=== PATIENT | female | born 1985 | race African-American/Black ===

== ENCOUNTER 2016-10-27 11:18 | Emergency (ER) | payer MEDICAID ==
--- NOTE | 2016-10-27 11:35 | ER Document Report ---
ED Medical Screen (RME) - General Stated Complaint: ANKLE PAIN Notes: 31 yo female c/o left ankle pain. pt twisted ankle this morning. no deformity. pt is morbidly obese TRAVEL OUTSIDE OF THE [place] IN LAST 30 DAYS: No - Related Data Allergies/Adverse Reactions: banana Allergy (Severe, Verified 08/30/16 09:01) Anaphylaxis tramadol Allergy (Severe, Verified 08/30/16 09:01) Anaphylaxis atorvastatin [From Lipitor] Allergy (Intermediate, Verified 08/30/16 09:01) Generalized Itching lisinopril Allergy (Intermediate, Verified 08/30/16 09:01) Generalized rash Past Medical History - Social History Family history: CAD, CVA, DM, Hyperlipidemia, Hypertension, Malignancy, Thyroid Disfunction - Past Medical History Cardiac Medical History: Reports: Hx Hypercholesterolemia, Hx Hypertension Denies: Hx Coronary Artery Disease, Hx Heart Attack Pulmonary Medical History: Reports: Hx Asthma, Hx Sleep Apnea Denies: Hx Bronchitis, Hx COPD, Hx Pneumonia Neurological Medical History: Reports: Hx Migraine, Hx Seizures - unsure what type. Denies: Hx Cerebrovascular Accident Endocrine Medical History: Reports: Hx Diabetes Mellitus Type 2 Malignancy Medical History: Reports: Hx Cervical Cancer GI Medical History: Reports: Hx Gastroesophageal Reflux Disease, Hx Endoscopy Musculoskeltal Medical History: Reports Hx Arthritis, Reports Hx Musculoskeletal Deformity Psychiatric Medical History: Reports: Hx Depression Past Surgical History: Reports: Hx Dilation and Curettage, Hx Gynecologic Surgery - D&C, Hx Oral Surgery, Hx Orthopedic Surgery - carpal tunnel x2. Denies: Hx Hysterectomy - Immunizations Immunizations up to date: Yes Hx Diphtheria, Pertussis, Tetanus Vaccination: Yes - past
[2016-10-27] MEDS ORDERED: OXYCODONE-ACETAMINOPHEN 5-325 MG TABLET PO ONE (13:16)
--- NOTE | 2016-10-27 13:22 | ER Document Report ---
HPI - HPI Pain Level: 4 - REPRODUCTIVE LMP: Reproductive: DENIES: : - DERM Skin Color: Normal Past Medical History - General Information source: Patient - Social History Smoking Status: Current Every Day Smoker Chew tobacco use (# tins/day): No Frequency of alcohol use: Occasional Family History: Arthritis, CAD, COPD, CVA, DM, Hyperlipidemia, Hypertension, Malignancy, Thyroid Disfunction Patient has suicidal ideation: No Patient has homicidal ideation: No - Past Medical History Cardiac Medical History: Reports: Hx Hypercholesterolemia, Hx Hypertension Pulmonary Medical History: Reports: Hx Asthma, Hx Sleep Apnea Neurological Medical History: Reports: Hx Migraine, Hx Seizures - unsure what type Endocrine Medical History: Reports: Hx Diabetes Mellitus Type 2 Renal/ Medical History: Denies: Hx Peritoneal Dialysis Malignancy Medical History: Reports: Hx Cervical Cancer GI Medical History: Reports: Hx Gastroesophageal Reflux Disease, Hx Endoscopy Musculoskeltal Medical History: Reports Hx Arthritis, Reports Hx Musculoskeletal Deformity Psychiatric Medical History: Reports: Hx Depression Past Surgical History: Reports: Hx Dilation and Curettage, Hx Gynecologic Surgery - D&C, Hx Oral Surgery, Hx Orthopedic Surgery - carpal tunnel x2. Denies: Hx Hysterectomy - Immunizations Immunizations up to date: Yes Hx Diphtheria, Pertussis, Tetanus Vaccination: Yes - past Hx Pneumococcal Vaccination: 09/19/00 Vertical Provider Document - CONSTITUTIONAL Agree With Documented VS: Yes Exam Limitations: No Limitations General Appearance: No Apparent Distress - INFECTION CONTROL TRAVEL OUTSIDE OF THE [place] IN LAST 30 DAYS: No - HEENT HEENT: Normocephalic - NECK Neck: Supple - RESPIRATORY O2 Sat by Pulse Oximetry: 98 - BACK Back: Normal Inspection - MUSCULOSKELETAL/EXTREMETIES Musculoskeletal/Extremeties: MAEW, FROM, Tender - lrft lateral proximal foot, minimal medial and lateral malleolus - NEURO Level of Consciousness: Awake, Alert Motor/Sensory: No Motor Deficit, No Sensory Deficit - DERM Integumentary: Warm, Dry Course - Vital Signs Vital signs: Temp Pulse Resp BP Pulse Ox 98.4 F 73 24 H 160/111 H 98 10/27/16 11:32 10/27/16 11:32 10/27/16 11:32 10/27/16 11:32 10/27/16 11:32 Procedures - Immobilization Right Ankle Time completed: 13:30 Pre-Proc Neuro Vasc Exam: Normal Immobilizer type: Pramod wrap Performed by: PCT Post-Proc Neuro Vasc Exam: Normal Alignment checked and good: Yes Discharge - Discharge Clinical Impression: Strain of left ankle and foot Qualifiers: Encounter type: initial encounter Qualified Code(s): S96.912A - Strain of unspecified muscle and tendon at ankle and foot level, left foot, initial encounter Condition: Good Disposition: HOME, SELF-CARE Instructions: Pramod Wrap ([facility]), Ice & Elevation ([facility]), Sprained Ankle ([facility]), Use of Dtqg-Nld-Mboatal Ibuprofen ([facility]), High Blood Pressure ([facility]) Additional Instructions: elevate, ice pramod wrap for comfort to orthopedic doctor if persists take your pain medication that you have at home see your doctor [facility] about your uncontrolled high blood pressure within 2 weeks Referrals: JUAN J CARRILLO MD [ACTIVE STAFF] - Follow up as needed
[2016-10-27 13:32] VITALS: BP 152/112
== END 2016-10-27 13:47 | disposition home or self-care (01) ==
LOC: ER 11:18
DX: S96.912A Strain of unspecified muscle and tendon at ankle and foot level, left foot, initial encounter (principal); X50.1XXA Overexertion from prolonged static or awkward postures, initial encounter; Y93.02 Activity, running; F17.200 Nicotine dependence, unspecified, uncomplicated; I10 Essential (primary) hypertension; J45.909 Unspecified asthma, uncomplicated; E11.9 Type 2 diabetes mellitus without complications
CPT/HCPCS: 99283

== ENCOUNTER 2016-11-11 04:35 | Emergency (ER) | payer MEDICAID ==
[2016-11-11 07:35] VITALS: BP 130/88
[2016-11-11] MEDS ORDERED: ACETAMINOPHEN 325 MG TABLET PO ONE (08:09)
--- NOTE | 2016-11-11 08:22 | ER Document Report ---
HPI - HPI Patient complains to provider of: cough and congestion Onset: Other - 2 days Onset/Duration: Persistent Quality of pain: Achy Pain Level: 4 Context: Patient complains of 2 day history of cough and congestion. Patient also reports right ear tenderness. Patient reports fever at home of 101. Patient does complain of sore throat. Patient states she has multiple sick contacts in the household. Associated Symptoms: Nonproductive cough, Earache, Fever, Rhinnorhea, Sore throat. denies: Nausea Exacerbated by: Denies Relieved by: Denies Similar symptoms previously: Yes Recently seen / treated by doctor: No - ROS ROS below otherwise negative: Yes Systems Reviewed and Negative: Yes All other systems reviewed and negative - CONSTITUTIONAL Constitutional: REPORTS: Fever - EENT EENT: REPORTS: Sore Throat, Ear Pain, Congestion - CARDIOVASCULAR Cardiovascular: DENIES: Chest pain - RESPIRATORY Respiratory: REPORTS: Coughing. DENIES: Trouble Breathing - GASTROINTESTINAL Gastrointestinal: DENIES: Patient vomiting, Diarrhea - REPRODUCTIVE Reproductive: DENIES: : - MUSCULOSKELETAL Musculoskeletal: DENIES: Back Pain, Neck Pain - DERM Skin Color: Normal Skin Problems: None Past Medical History - General Information source: Patient - Social History Smoking Status: Former Smoker Chew tobacco use (# tins/day): No Frequency of alcohol use: Rare Drug Abuse: None Occupation: none Lives with: Family Family History: Arthritis, CAD, COPD, CVA, DM, Hyperlipidemia, Hypertension, Malignancy, Thyroid Disfunction Patient has suicidal ideation: No Patient has homicidal ideation: No - Past Medical History Cardiac Medical History: Reports: Hx Hypercholesterolemia, Hx Hypertension Denies: Hx Coronary Artery Disease, Hx Heart Attack Pulmonary Medical History: Reports: Hx Asthma, Hx Sleep Apnea Denies: Hx Bronchitis, Hx COPD, Hx Pneumonia Neurological Medical History: Reports: Hx Migraine, Hx Seizures - unsure what type. Denies: Hx Cerebrovascular Accident Endocrine Medical History: Reports: Hx Diabetes Mellitus Type 2 Renal/ Medical History: Denies: Hx Peritoneal Dialysis Malignancy Medical History: Reports: Hx Cervical Cancer GI Medical History: Reports: Hx Gastroesophageal Reflux Disease, Hx Endoscopy Musculoskeltal Medical History: Reports Hx Arthritis, Reports Hx Musculoskeletal Deformity Psychiatric Medical History: Reports: Hx Depression Past Surgical History: Reports: Hx Dilation and Curettage, Hx Gynecologic Surgery - D&C, Hx Oral Surgery, Hx Orthopedic Surgery - carpal tunnel x2. Denies: Hx Hysterectomy - Immunizations Immunizations up to date: Yes Hx Diphtheria, Pertussis, Tetanus Vaccination: Yes - past Hx Pneumococcal Vaccination: 09/19/00 Vertical Provider Document - CONSTITUTIONAL Agree With Documented VS: Yes Exam Limitations: No Limitations General Appearance: WD/WN, No Apparent Distress Notes: Morbidly obese - INFECTION CONTROL TRAVEL OUTSIDE OF THE [place] IN LAST 30 DAYS: No - HEENT HEENT: Atraumatic, Normocephalic, Pharyngeal Tenderness, Pharyngeal Erythema. negative: Pharyngeal Exudate, Tympanic Membrane Red, Tympanic Membrane Bulging - NECK Neck: Normal Inspection, Supple. negative: Lymphadenopathy-Left, Lymphadenopathy-Right - RESPIRATORY Respiratory: Breath Sounds Normal, No Respiratory Distress, Other - Occasional dry cough. negative: Rales, Rhonchi, Wheezing O2 Sat by Pulse Oximetry: 96 - CARDIOVASCULAR Cardiovascular: Regular Rate, Regular Rhythm, No Murmur - BACK Back: Normal Inspection - MUSCULOSKELETAL/EXTREMETIES Musculoskeletal/Extremeties: MAEW - NEURO Level of Consciousness: Awake, Alert, Appropriate Motor/Sensory: No Motor Deficit - DERM Integumentary: Warm, Dry, No Rash Course - Vital Signs Vital signs: Temp Pulse Resp BP Pulse Ox 99.6 F 88 18 130/88 H 96 11/11/16 06:20 11/11/16 06:20 11/11/16 06:20 11/11/16 06:20 11/11/16 06:20 - Laboratory Laboratory results interpreted by me: 11/11/16 09:18 Labs- Entire Visit 11/11/16 11/11/16 05:15 08:10 Influenza A (Rapid) NEGATIVE Influenza B (Rapid) NEGATIVE Group A Strep Rapid NEGATIVE 11/11/16 09:18 11/11/16 17:10 Discharge - Discharge Clinical Impression: Upper respiratory infection Qualifiers: URI type: unspecified URI Qualified Code(s): J06.9 - Acute upper respiratory infection, unspecified Condition: Stable Disposition: HOME, SELF-CARE Instructions: Acetaminophen, Fever ([facility]), Upper Respiratory Illness ([facility]) Additional Instructions: Return immediately for any new or worsening symptoms Followup with your primary care provider, call tomorrow to make a followup appointment Culture is pending, we'll call if you need any different treatment You may take Coricidin HBP [id number] to help with her congestion symptoms Prescriptions: Benzonatate [Tessalon Perle 100 mg Capsule] 100 mg PO Q8HP PRN #20 cap PRN Reason: Referrals: CLINTON HERNANDEZ PA-C [Primary Care Provider] - Follow up tomorrow
== END 2016-11-11 09:30 | disposition home or self-care (01) ==
LOC: ER 04:35
DX: J06.9 Acute upper respiratory infection, unspecified (principal); R05 Cough; J02.9 Acute pharyngitis, unspecified; H92.01 Otalgia, right ear; J34.89 Other specified disorders of nose and nasal sinuses; R50.9 Fever, unspecified; I10 Essential (primary) hypertension; J45.909 Unspecified asthma, uncomplicated; E11.9 Type 2 diabetes mellitus without complications; Z85.41 Personal history of malignant neoplasm of cervix uteri; Z87.891 Personal history of nicotine dependence
CPT/HCPCS: 99283; 87070; 87880; 87804; J3490

== ENCOUNTER 2017-02-26 20:43 | Emergency (ER) | payer MEDICAID ==
[2017-02-26 22:57] LABS: APPEARANCE,URINE SLIGHTLY-CLOUDY; BILIRUBIN,URINE NEGATIVE (NEGATIVE); GLUCOSE, URINE NEGATIVE (NEGATIVE); KETONES,URINE NEGATIVE (NEGATIVE); LEUKOCYTE ESTERASE,URINE TRACE (NEGATIVE); NITRITE,URINE NEGATIVE (NEGATIVE); PROTEIN,URINE NEGATIVE (NEGATIVE); URINE SPECIFIC GRAVITY 1.019; UROBILINOGEN,URINE NEGATIVE mg/dL (<2.0)
[2017-02-26] MEDS ORDERED: KETOROLAC TROMETHAMINE INJ/PF 30 MG/1 ML SDV IV ONE (23:16)
--- NOTE | 2017-02-26 23:18 | ER Document Report ---
ED GI/ - General Chief Complaint: Lower Abdominal Pain Stated Complaint: ABDOMINAL PAIN Time Seen by Provider: 02/26/17 22:46 Notes: The patient is a 31-year-old female, past medical history irritable bowel syndrome, reflux, hypertension, obesity, presents with 2 days of worsening left lower quadrant abdominal pain and right lower quadrant abdominal pain. She was diagnosed with trichomonas a few days ago and was started on antibiotics. Denies nausea, vomiting, diarrhea, constipation, dysuria, vaginal discharge, chest pain or shortness of breath TRAVEL OUTSIDE OF THE [place] IN LAST 30 DAYS: No - Related Data Allergies/Adverse Reactions: banana Allergy (Severe, Verified 11/11/16 08:00) Anaphylaxis tramadol Allergy (Severe, Verified 11/11/16 08:00) Anaphylaxis atorvastatin [From Lipitor] Allergy (Intermediate, Verified 11/11/16 08:00) Generalized Itching lisinopril Allergy (Intermediate, Verified 11/11/16 08:00) Generalized rash Past Medical History - General Information source: Patient - Social History Smoking Status: Unknown if Ever Smoked Family History: Arthritis, CAD, COPD, CVA, DM, Hyperlipidemia, Hypertension, Malignancy, Thyroid Disfunction Patient has suicidal ideation: No Patient has homicidal ideation: No - Past Medical History Cardiac Medical History: Reports: Hx Hypercholesterolemia, Hx Hypertension Denies: Hx Coronary Artery Disease, Hx Heart Attack Pulmonary Medical History: Reports: Hx Asthma, Hx Sleep Apnea Denies: Hx Bronchitis, Hx COPD, Hx Pneumonia Neurological Medical History: Reports: Hx Migraine, Hx Seizures - unsure what type. Denies: Hx Cerebrovascular Accident Endocrine Medical History: Reports: Hx Diabetes Mellitus Type 2 Renal/ Medical History: Denies: Hx Peritoneal Dialysis Malignancy Medical History: Reports: Hx Cervical Cancer GI Medical History: Reports: Hx Gastroesophageal Reflux Disease, Hx Endoscopy Musculoskeltal Medical History: Reports Hx Arthritis, Reports Hx Musculoskeletal Deformity Psychiatric Medical History: Reports: Hx Depression Past Surgical History: Reports: Hx Dilation and Curettage, Hx Gynecologic Surgery - D&C, Hx Oral Surgery, Hx Orthopedic Surgery - carpal tunnel x2. Denies: Hx Hysterectomy - Immunizations Immunizations up to date: Yes Hx Diphtheria, Pertussis, Tetanus Vaccination: Yes - past Hx Pneumococcal Vaccination: 09/19/00 Review of Systems - Review of Systems Notes: REVIEW OF SYSTEMS: CONSTITUTIONAL: -fevers, -chills EENT: -eye pain, -difficulty swallowing, -nasal congestion CARDIOVASCULAR:-chest pain, -syncope. RESPIRATORY: -cough, -SOB GASTROINTESTINAL: +abdominal pain, -nausea, -vomiting, -diarrhea, -constipation GENITOURINARY: -dysuria, -hematuria MUSCULOSKELETAL: -back pain, -neck pain SKIN: -rash or skin lesions. HEMATOLOGIC: -easy bruising or bleeding. LYMPHATIC: -swollen, enlarged glands. NEUROLOGICAL: -altered mental status or loss of consciousness, -headache, - neurologic symptoms PSYCHIATRIC: -anxiety, -depression. ALL OTHER SYSTEMS REVIEWED AND NEGATIVE. Physical Exam - Vital signs Vitals: Temp Pulse Resp BP Pulse Ox 98.0 F 69 18 133/86 H 97 02/26/17 21:02/26/17 21:02/26/17 21:02/26/17 21:02/26/17 21:15 - Notes Notes: PHYSICAL EXAMINATION: GENERAL: Uncomfortable HEAD: Atraumatic, normocephalic. EYES: Pupils equal round and reactive to light, extraocular movements intact, sclera anicteric, conjunctiva are normal. ENT: nares patent, oropharynx clear without exudates. Moist mucous membranes. NECK: Normal range of motion, supple without lymphadenopathy LUNGS: Breath sounds clear to auscultation bilaterally and equal. No wheezes rales or rhonchi. HEART: Regular rate and rhythm without murmurs ABDOMEN: Soft, moderate RLQ tenderness, normoactive bowel sounds. No guarding, no rebound. No masses appreciated. EXTREMITIES: Normal range of motion, no pitting or edema. No cyanosis. NEUROLOGICAL: Cranial nerves grossly intact. Normal speech, normal gait. Normal sensory and motor exams. PSYCH: Normal mood, normal affect. SKIN: Warm, Dry, normal turgor, no rashes or lesions noted. Course - Re-evaluation Re-evalutation: Patient's labs, urine and CT scan did not show any concerning abnormalities. There may be a component of her irritable bowel disease causing her symptoms today. Will have her follow-up with the GI doctor for further evaluation and treatment. - Vital Signs Vital signs: Temp Pulse Resp BP Pulse Ox 98.0 F 69 18 133/86 H 97 02/26/17 21:15 02/26/17 21:02/26/17 21:02/26/17 21:15 02/26/17 21:15 - Laboratory Result Diagrams: 02/27/17 00:15 02/27/17 00:05 Laboratory results interpreted by me: 02/26/17 02/27/17 22:41 00:15 MCH 25.9 L MCHC 31.6 L RDW 15.3 H Ur Leukocyte Esterase TRACE H Urine Ascorbic Acid 20 H - Diagnostic Test Radiology reviewed: Image reviewed, Reports reviewed Radiology results interpreted by me: CT A/P: NAD Discharge - Discharge Clinical Impression: Abdominal pain Qualifiers: Abdominal location: upper abdomen Qualified Code(s): R10.10 - Upper abdominal pain, unspecified Condition: Stable Disposition: HOME, SELF-CARE Additional Instructions: ABDOMINAL PAIN: There are many causes of abdominal pain. Pain can mean a serious problem requiring surgery (such as appendicitis). It can also be an innocent problem that goes away on its own (such as a viral infection). Often, time must pass to determine the cause of pain. The physician does not feel that hospitalization is necessary, at present. Things may change within the next 24 hours. Call the doctor or come back for re- examination if any problems occur, such as: (1) Pain that becomes more severe, steady, or becomes concentrated in one specific area. Also, pain that is more severe with movement or coughing. (2) Vomiting that persists or becomes more frequent. (3) Blood in the vomitus, urine, or bowel movements. Blood in the stool may have a tarry or black appearance. (4) Shaking chills or fever greater than 100 degrees F. (5) The abdomen becomes more distended or swollen. (6) Bowel movements cease. (7) Failure to improve as expected. NORMAL EXAM AND WORKUP: At this time, your examination and workup show no significant abnormality. No significant abnormal physical findings are noted. All laboratory, EKG, and imaging (x-ray, CT scans, ultrasound) studies that were ordered show no significant abnormality. Although your examination and all studies that were ordered showed no significant abnormal finding, there are no examinations and no studies that are 100% accurate. There is always the possibility that some abnormality could exist and not be detected with physical examination or within the limits and capabilities of laboratory and other studies. You should return or follow up as you were instructed on your visit today for further evaluation if your symptoms do not resolve. TORADOL INJECTION: You have been given an injection of ketorolac tromethamine (Toradol). This is an excellent, safe drug for pain control. It also has potent antiinflammatory action. You should have significant pain relief within about one hour. Toradol is not addicting and is non-sedating. It does not interfere with driving or work. Call or return if you develop itching, hives, shortness of breath, or rash. FOLLOW-UP CARE: If you have been referred to a physician for follow-up care, call the physician s office for an appointment as you were instructed or within the next two days. If you experience worsening or a significant change in your symptoms, notify the physician immediately or return to the Emergency Department at any time for re-evaluation.
[2017-02-27 00:32] LABS: ABSOLUTE LYMPHOCYTES (AUTO) 2.9 10^3/uL (0.5-4.7); ABSOLUTE MONOCYTES (AUTO) 0.9 10^3/uL (0.1-1.4); ABSOLUTE NEUT (AUTO) 3.1 10^3/uL (1.7-8.2); BASOPHILS % (AUTO) 0.6 % (0-2); EOSINOPHILS % (AUTO) 0.5 % (0-6); HEMATOCRIT 40.3 % (36.0-47.0); HEMOGLOBIN 12.7 g/dL (12.0-15.5); HGB HCT DIFFERENCE -2.2; LYMPHOCYTES % (AUTO) 41.5 % (13-45); MEAN CORPUSCULAR HEMOGLOBIN 25.9 pg (27.0-33.4); MEAN CORPUSCULAR HGB CONC 31.6 g/dL (32.0-36.0); MEAN CORPUSCULAR VOLUME 82 fl (80-97); MONOCYTES % (AUTO) 12.4 % (3-13); RED BLOOD COUNT 4.93 10^6/uL (3.72-5.28); RED CELL DISTRIBUTION WIDTH 15.3 % (11.5-14.0)
[2017-02-27 00:36] LABS: ALANINE AMINOTRANSFERASE 24 U/L (9-52); ALBUMIN 4.1 g/dL (3.5-5.0); ALKALINE PHOSPHATASE 50 U/L (38-126); ANION GAP 10 (5-19); ASPARTATE AMINO TRANSFERASE 20 U/L (14-36); BILIRUBIN,DIRECT 0.3 mg/dL (0.0-0.4); BILIRUBIN,TOTAL 0.5 mg/dL (0.2-1.3); BLOOD UREA NITROGEN 12 mg/dL (7-20); CALCIUM 9.6 mg/dL (8.4-10.2); CARBON DIOXIDE 27 mmol/L (22-30); CHLORIDE 103 mmol/L (98-107); CREATININE RESULT 0.79 mg/dL (0.52-1.25); GLUCOSE 97 mg/dL (75-110); LIPASE 113.1 U/L (23-300); POTASSIUM 4.5 mmol/L (3.6-5.0); SODIUM 140.3 mmol/L (137-145); TOTAL PROTEIN 8.2 g/dL (6.3-8.2)
--- NOTE | 2017-02-27 01:50 | RADIOLOGY REPORT (SQ) ---
EXAM DESCRIPTION: CT ABD/PELVIS WITH IV ONLY COMPLETED DATE/TIME: 02/27/2017 1:35 am REASON FOR STUDY: RLQ abdominal pain COMPARISON: None. TECHNIQUE: CT scan of the abdomen and pelvis performed using helical scanning technique with dynamic intravenous contrast injection. No oral contrast. Images reviewed with lung, soft tissue, and bone windows. Reconstructed coronal and sagittal MPR images reviewed. Delayed images for evaluation of the urinary system also acquired. All images stored on PACS. All CT scanners at this facility use dose modulation, iterative reconstruction, and/or weight based d osing when appropriate to reduce radiation dose to as low as reasonably achievable (ALARA). [facility]: Dose Right [facility]: CareDose [facility]: Dose Right [facility]: Teradose 4D [facility]: [employer] CONTRAST TYPE AND DOSE: 100 mL Isovue 370- low osmolar. RENAL FUNCTION: BUN 12 creatinine 0.79. RADIATION DOSE: 51.11mGy. LIMITATIONS: None. FINDINGS: LOWER CHEST: No significant findings. No nodules or infiltrates. LIVER: Normal size. No masses or dilated ducts. SPLEEN: Normal size. No focal lesions. PANCREAS: No masses. No significant calcifications. No adjacent inflammation or peripancreatic fluid collections. Pancreatic duct not dilated. GALLBLADDER: No identified stones by CT criteria. No inflammatory changes to suggest cholecystitis. ADRENAL GLANDS: No significant masses or asymmetry. RIGHT KIDNEY AND URETER: No solid masses. No significant calcifications. No hydronephrosis or hyd roureter. LEFT KIDNEY AND URETER: No solid masses. No significant calcifications. No hydronephrosis or hydr oureter. AORTA AND VESSELS: No aneurysm. No dissection. Renal arteries, SMA, celiac without stenosis. RETROPERITONEUM: No retroperitoneal adenopathy, hemorrhage or masses. BOWEL AND PERITONEAL CAVITY: No masses or inflammatory changes. No free fluid or peritoneal masses. APPENDIX: Normal. PELVIS: No mass or free fluid. Normal bladder. ABDOMINAL WALL: No masses. No hernias. BONES: No significant or acute findings. OTHER: No other significant finding. IMPRESSION: NO SIGNIFICANT OR ACUTE FINDING IN THE ABDOMEN OR PELVIS ON CT SCAN WITH IV CONTRAST. TECHNICAL DOCUMENTATION: JOB ID: [id number] Quality ID # [id number]: Final reports with documentation of one or more dose reduction techniques (e.g., Au tomated exposure control, adjustment of the mA and/or kV according to patient size, use of iterative reconstruction technique) 2010 [id number]- All Rights Reserved
[2017-02-27 02:27] VITALS: BP 128/84
== END 2017-02-27 02:27 | disposition home or self-care (01) ==
LOC: ER 20:43
DX: K58.9 Irritable bowel syndrome, unspecified (principal); A59.9 Trichomoniasis, unspecified; E11.9 Type 2 diabetes mellitus without complications; I10 Essential (primary) hypertension; J45.909 Unspecified asthma, uncomplicated; Z87.19 Personal history of other diseases of the digestive system; Z88.8 Allergy status to other drugs, medicaments and biological substances; Z87.892 Personal history of anaphylaxis; Z91.018 Allergy to other foods; Z88.5 Allergy status to narcotic agent
CPT/HCPCS: 99284; 96374; 36415; 83690; 84703; 85025; 80053; 81001; 74177; J1885

== ENCOUNTER 2017-06-10 23:54 | Emergency (ER) | payer MEDICAID ==
[2017-06-11] MEDS ORDERED: DIAZEPAM INJ 10 MG/2 ML DISP.SYRIN IM ONE (01:12)
--- NOTE | 2017-06-11 01:16 | ER Document Report ---
HPI - HPI Patient complains to provider of: upper back pain Pain Level: 5 Context: Patient is a 31-year-old female comes emergency department for chief complaint of pain in her upper back and in her neck. She states that a week ago she had a slip/fall which she thought she was fine from but over the past 3 days she has had progressive stiffness and soreness with difficulty turning her head and difficulty getting out of pain. She takes she is taking Celebrex, ibuprofen, and Flexeril. Past medical history of morbid obesity and hypertension. She denies headache, chest pain, fever, focal numbness or weakness, incontinence. - REPRODUCTIVE LMP: 06/09/2017 Reproductive: DENIES: : - DERM Skin Color: Normal Past Medical History - General Information source: Patient - Social History Smoking Status: Never Smoker Frequency of alcohol use: None Drug Abuse: None Lives with: Family Family History: Arthritis, CAD, COPD, CVA, DM, Hyperlipidemia, Hypertension, Malignancy, Thyroid Disfunction - Past Medical History Cardiac Medical History: Reports: Hx Hypercholesterolemia, Hx Hypertension Denies: Hx Coronary Artery Disease, Hx Heart Attack Pulmonary Medical History: Reports: Hx Asthma, Hx Sleep Apnea Denies: Hx Bronchitis, Hx COPD, Hx Pneumonia Neurological Medical History: Reports: Hx Migraine, Hx Seizures - unsure what type. Denies: Hx Cerebrovascular Accident Endocrine Medical History: Reports: Hx Diabetes Mellitus Type 2 Renal/ Medical History: Denies: Hx Peritoneal Dialysis Malignancy Medical History: Reports: Hx Cervical Cancer GI Medical History: Reports: Hx Gastroesophageal Reflux Disease, Hx Endoscopy Musculoskeltal Medical History: Reports Hx Arthritis, Reports Hx Musculoskeletal Deformity Psychiatric Medical History: Reports: Hx Depression Past Surgical History: Reports: Hx Dilation and Curettage, Hx Gynecologic Surgery - D&C, Hx Oral Surgery, Hx Orthopedic Surgery - carpal tunnel x2. Denies: Hx Hysterectomy - Immunizations Immunizations up to date: Yes Hx Diphtheria, Pertussis, Tetanus Vaccination: Yes - past Hx Pneumococcal Vaccination: 09/19/00 Vertical Provider Document - CONSTITUTIONAL General Appearance: WD/WN, Obese, Other - Patient sits up straight and moves stiffly but she does not appear to be in distress unless she moves, when she moves she has obvious discomfort - INFECTION CONTROL TRAVEL OUTSIDE OF THE [place] IN LAST 30 DAYS: No - HEENT HEENT: Atraumatic, Normocephalic - NECK Neck: Normal Inspection - RESPIRATORY Respiratory: Breath Sounds Normal, No Respiratory Distress - CARDIOVASCULAR Cardiovascular: Regular Rate, Regular Rhythm - GI/ABDOMEN Gastrointestinal: Abdomen Soft, Abdomen Non-Tender - BACK Back: negative: Normal Inspection - Patient has difficulty performing lateral rotation of the neck towards the left, has very tender sternocleidomastoid and trapezius muscles on the same side, tenderness along the para thoracic muscles and around towards the scapula. No signs of trauma. No midline tenderness. Moves all limbs in full range of motion, normal strength, normal distal neurovascular exam. No saddle anesthesia. Normal extension and flexion of the neck. - MUSCULOSKELETAL/EXTREMETIES Musculoskeletal/Extremeties: RUSH, FROM, Non-Tender Course - Re-evaluation Re-evalutation: Patient is very stiff in the neck with difficulty left with lateral motions, moves stiffly, back exam consistent with muscular pain and muscular spasms. Patient states that she just had x-ray imaging and she declines any at this time. No indication based on her exam. No neurological deficits. Treating muscle spasms, discussed follow-up and return precautions, patient states understanding and agreement. Discharge - Discharge Clinical Impression: Upper back pain Condition: Stable Disposition: HOME, SELF-CARE Additional Instructions: Your examination shows limited range of motion of the trapezius and sternocleidomastoid muscles of the neck, apply heat to the area, take the prescribed medication as directed, continue the anti-inflammatories, and follow- up with your primary care for additional management. Return to the emergency department for any concerning or worsening symptoms including developing numbness, loss of bowel or bladder control, fever, or any other concerning symptoms. Prescriptions: Diazepam [Valium 5 mg Tablet] 1 - 2 tab PO TID #20 tablet Forms: Elevated Blood Pressure
[2017-06-11 01:53] VITALS: BP 153/113
== END 2017-06-11 01:50 | disposition home or self-care (01) ==
LOC: ER 23:54
DX: M54.89 Other dorsalgia (principal); M43.6 Torticollis; M54.2 Cervicalgia; I10 Essential (primary) hypertension; Z91.81 History of falling; E11.9 Type 2 diabetes mellitus without complications; E66.01 Morbid (severe) obesity due to excess calories; Z68.44 Body mass index [BMI] 60.0-69.9, adult; Z85.41 Personal history of malignant neoplasm of cervix uteri
CPT/HCPCS: 99283; 96372; J3360

== ENCOUNTER 2017-08-16 22:12 | Emergency (ER) | payer MEDICAID ==
[2017-08-16] MEDS ORDERED: OXYMETAZOLINE HCL 0.05% NASAL SPRAY 15 ML BOTTLE ONE (23:01)
[2017-08-16] MEDS ORDERED: CLONIDINE 0.2 MG/24 HR PATCH.TDWK TD ONE (23:07)
--- NOTE | 2017-08-16 23:07 | ER Document Report ---
ED General - General Chief Complaint: Nose Bleed Stated Complaint: NOSE BLEED Time Seen by Provider: 08/16/17 22:58 Notes: Patient is a 32-year-old female who presents with a nosebleed. Patient reports persistent bleeding from her left nostril that started approximately 20 minutes prior to arrival. Patient denies any history of the same. No use of anticoagulation. She has been trying to stop bleeding at home with direct compression unsuccessfully. She does admit to picking of the nose. Nothing improves or worsens her symptoms. She denies any vomiting, abdominal pain headache or neck pain TRAVEL OUTSIDE OF THE [place] IN LAST 30 DAYS: No - Related Data Allergies/Adverse Reactions: banana Allergy (Severe, Verified 06/11/17 00:33) Anaphylaxis tramadol Allergy (Severe, Verified 06/11/17 00:33) Anaphylaxis atorvastatin [From Lipitor] Allergy (Intermediate, Verified 06/11/17 00:33) Generalized Itching lisinopril Allergy (Intermediate, Verified 06/11/17 00:33) Generalized rash Past Medical History - General Information source: Patient - Social History Smoking Status: Never Smoker Frequency of alcohol use: None Drug Abuse: None Lives with: Family Family History: Arthritis, CAD, COPD, CVA, DM, Hyperlipidemia, Hypertension, Malignancy, Thyroid Disfunction - Past Medical History Cardiac Medical History: Reports: Hx Hypercholesterolemia, Hx Hypertension Denies: Hx Coronary Artery Disease, Hx Heart Attack Pulmonary Medical History: Reports: Hx Asthma, Hx Sleep Apnea Denies: Hx Bronchitis, Hx COPD, Hx Pneumonia Neurological Medical History: Reports: Hx Migraine, Hx Seizures - unsure what type. Denies: Hx Cerebrovascular Accident Endocrine Medical History: Reports: Hx Diabetes Mellitus Type 2 Renal/ Medical History: Denies: Hx Peritoneal Dialysis Malignancy Medical History: Reports: Hx Cervical Cancer GI Medical History: Reports: Hx Gastroesophageal Reflux Disease, Hx Endoscopy Musculoskeltal Medical History: Reports Hx Arthritis, Reports Hx Musculoskeletal Deformity Psychiatric Medical History: Reports: Hx Depression Past Surgical History: Reports: Hx Dilation and Curettage, Hx Gynecologic Surgery - D&C, Hx Oral Surgery, Hx Orthopedic Surgery - carpal tunnel x2. Denies: Hx Hysterectomy - Immunizations Immunizations up to date: Yes Hx Diphtheria, Pertussis, Tetanus Vaccination: Yes - past Hx Pneumococcal Vaccination: 09/19/00 Review of Systems - Review of Systems Notes: Constitutional: Negative for fever. HENT: Positive for nosebleed Eyes: Negative for visual changes. Cardiovascular: Negative for chest pain. Respiratory: Negative for shortness of breath. Gastrointestinal: Negative for abdominal pain, vomiting or diarrhea. Genitourinary: Negative for dysuria. Musculoskeletal: Negative for back pain. Skin: Negative for rash. Neurological: Negative for headaches, weakness or numbness. 10 point ROS negative except as marked above and in HPI. Physical Exam - Vital signs Vitals: Temp Pulse Resp BP Pulse Ox 98.4 F 90 18 189/126 H 98 08/16/17 22:18 08/16/17 22:18 08/16/17 22:18 08/16/17 22:18 08/16/17 22:18 Interpretation: Hypertensive Notes: PHYSICAL EXAMINATION: GENERAL: Well-appearing, well-nourished and in no acute distress. HEAD: Atraumatic, normocephalic. EYES: Pupils equal round and reactive to light, extraocular movements intact, sclera anicteric, conjunctiva are normal. ENT: nares patent, moderately brisk bleeding from the left nostril unclear source. NECK: Normal range of motion, supple without lymphadenopathy LUNGS: Breath sounds clear to auscultation bilaterally and equal. No wheezes rales or rhonchi. HEART: Regular rate and rhythm without murmurs ABDOMEN: Soft, nontender, normoactive bowel sounds. No guarding, no rebound. No masses appreciated. EXTREMITIES: Normal range of motion, no pitting or edema. No cyanosis. NEUROLOGICAL: No focal neurological deficits. Moves all extremities spontaneously and on command. PSYCH: Normal mood, normal affect. SKIN: Warm, Dry, normal turgor, no rashes or lesions noted. Course - Re-evaluation Re-evalutation: 08/16/17 23:06 Patient presents with a moderately brisk nosebleed from the left nare. This is been ongoing for approximately 2 hours prior to arrival. Immediately upon assessment, I instilled oxymetazoline into the bilateral nostrils and instructed the patient on direct nasal clamping. Will also obtain a CBC. Will reassess in 15 minutes 08/16/17 23:52 Patient's nosebleed has stopped. Will observe for 1 hour from time of bleeding termination. The ligament within normal limits. - Vital Signs Vital signs: Temp Pulse Resp BP Pulse Ox 97.9 F 79 18 210/137 H 98 08/17/17 01:25 08/17/17 01:25 08/17/17 01:25 08/17/17 01:25 08/17/17 01:25 - Laboratory Result Diagrams: 08/16/17 23:15 Laboratory results interpreted by me: 08/16/17 23:15 Hgb 11.3 L Hct 34.5 L MCH 26.8 L RDW 14.9 H Discharge - Discharge Clinical Impression: Epistaxis, Essential hypertension Condition: Good Disposition: HOME, SELF-CARE Additional Instructions: You were seen today for a nosebleed. If this restarts please apply direct pressure to the area for 15 minutes without releasing pressure. You can use 4- 5 sprays the Afrin (oxymetazoline) spray that was given to you here in the emergency room into the affected side prior to applying the pressure. You need to apply vasaline or a similar product along the inside of the side of the nose that is bleeding twice daily to help heal the inside of your nose. Please return to emergency department if these measures do not control the bleeding. Please also return if you pass out, have significant pain of the nose or face, or any other symptoms that are concerning to you. Your primary care doctor regarding today's visit.it.
[2017-08-16 23:27] LABS: ABSOLUTE EOSINOPHILS # (AUTO) 0.1 10^3/uL (0.0-0.6); ABSOLUTE LYMPHOCYTES (AUTO) 2.4 10^3/uL (0.5-4.7); ABSOLUTE MONOCYTES (AUTO) 0.8 10^3/uL (0.1-1.4); ABSOLUTE NEUT (AUTO) 3.4 10^3/uL (1.7-8.2); BASOPHILS % (AUTO) 0.3 % (0-2); EOSINOPHILS % (AUTO) 0.9 % (0-6); HEMATOCRIT 34.5 % (36.0-47.0); HEMOGLOBIN 11.3 g/dL (12.0-15.5); HGB HCT DIFFERENCE -0.6; LYMPHOCYTES % (AUTO) 35.9 % (13-45); MEAN CORPUSCULAR HEMOGLOBIN 26.8 pg (27.0-33.4); MEAN CORPUSCULAR HGB CONC 32.7 g/dL (32.0-36.0); MEAN CORPUSCULAR VOLUME 82 fl (80-97); MONOCYTES % (AUTO) 11.8 % (3-13); RED CELL DISTRIBUTION WIDTH 14.9 % (11.5-14.0); SEGMENTED NEUTROPHILS % (AUTO) 51.1 % (42-78); WHITE BLOOD COUNT 6.7 10^3/uL (4.0-10.5)
[2017-08-17 01:49] VITALS: BP 210/137
== END 2017-08-17 01:25 | disposition home or self-care (01) ==
LOC: ER 22:12
DX: R04.0 Epistaxis (principal); I10 Essential (primary) hypertension; E78.00 Pure hypercholesterolemia, unspecified; E11.9 Type 2 diabetes mellitus without complications; Z85.41 Personal history of malignant neoplasm of cervix uteri
CPT/HCPCS: 36415; 85025; 99283

== ENCOUNTER 2017-09-02 13:56 | Emergency (ER) | payer MEDICAID ==
--- NOTE | 2017-09-02 14:56 | ER Document Report ---
HPI - HPI Patient complains to provider of: Back pain Onset: Other - 3 days Onset/Duration: Worse Quality of pain: Achy Pain Level: 5 Context: Patient reports a history of chronic back pain that worsened over the past 3 days. Patient states that she has had pain for the past year. Patient states that she is awaiting referral with a autocad technician and has an appointment in September. Patient denies any fever, urinary symptoms or abdominal pain. Patient states that she is likely 1 month . Associated Symptoms: Other - Back pain. denies: Fever, Headache Exacerbated by: Movement Relieved by: Denies Similar symptoms previously: Yes Recently seen / treated by doctor: No - ROS ROS below otherwise negative: Yes Systems Reviewed and Negative: Yes All other systems reviewed and negative - CONSTITUTIONAL Constitutional: DENIES: Fever, Chills - NEURO Neurology: DENIES: Headache, Weakness - GASTROINTESTINAL Gastrointestinal: DENIES: Nausea, Patient vomiting - URINARY Urinary: DENIES: Dysuria, Urgency, Frequency - REPRODUCTIVE Reproductive: DENIES: : - MUSCULOSKELETAL Musculoskeletal: REPORTS: Back Pain. DENIES: Extremity pain - DERM Skin Color: Normal Skin Problems: None Past Medical History - General Information source: Patient - Social History Smoking Status: Current Every Day Smoker Smoking Education Provided: Yes Frequency of alcohol use: None Drug Abuse: None Occupation: None Family History: Arthritis, CAD, COPD, CVA, DM, Hyperlipidemia, Hypertension, Malignancy, Thyroid Disfunction - Past Medical History Cardiac Medical History: Reports: Hx Hypercholesterolemia, Hx Hypertension Denies: Hx Coronary Artery Disease, Hx Heart Attack Pulmonary Medical History: Reports: Hx Asthma, Hx Sleep Apnea Denies: Hx Bronchitis, Hx COPD, Hx Pneumonia Neurological Medical History: Reports: Hx Migraine, Hx Seizures - unsure what type. Denies: Hx Cerebrovascular Accident Endocrine Medical History: Reports: Hx Diabetes Mellitus Type 2 Renal/ Medical History: Denies: Hx Peritoneal Dialysis GI Medical History: Reports: Hx Gastroesophageal Reflux Disease, Hx Endoscopy Musculoskeltal Medical History: Reports Hx Arthritis, Reports Hx Musculoskeletal Deformity Psychiatric Medical History: Reports: Hx Depression Past Surgical History: Reports: Hx Dilation and Curettage, Hx Gynecologic Surgery - D&C, Hx Oral Surgery, Hx Orthopedic Surgery - carpal tunnel x2. Denies: Hx Hysterectomy - Immunizations Immunizations up to date: Yes Hx Diphtheria, Pertussis, Tetanus Vaccination: Yes - past Hx Pneumococcal Vaccination: 09/19/00 Vertical Provider Document - CONSTITUTIONAL Agree With Documented VS: Yes Exam Limitations: No Limitations General Appearance: Obese - Morbidly obese Notes: PHYSICAL EXAMINATION: GENERAL: Well-appearing, morbidly obese and in no acute distress. HEAD: Atraumatic, normocephalic. EYES: sclera clear, anicteric, conjunctiva are normal. ENT: nares patent, Moist mucous membranes. NECK: Bilateral trapezius muscle tenderness with spasm, supple no lymphadenopathy LUNGS: respirations unlabored HEART: Regular rate and rhythm without murmurs EXTREMITIES: Normal range of motion, no pitting or edema. No cyanosis. Gait normal, pt ambulates without difficulty BACK: Patient with upper thoracic paraspinal tenderness on the right, left upper thoracic muscle tenderness, lower lumbar tenderness, left lumbar paraspinal tenderness, no deformities or step-offs. No CVA tenderness. NEUROLOGICAL: Cranial nerves grossly intact. Normal speech, normal gait. No saddle anesthesia. PSYCH: Normal mood, normal affect. SKIN: Warm, Dry, normal turgor, no rashes or lesions noted. - INFECTION CONTROL TRAVEL OUTSIDE OF THE [place] IN LAST 30 DAYS: No - RESPIRATORY O2 Sat by Pulse Oximetry: 99 Course - Re-evaluation Re-evalutation: 09/02/17 15:15 Patient now states that she has not worried if she might or might not be . Patient initially stated that she was over a month . Patient reported to this provider that she got her prescriptions filled from [facility] and that we would have her medication list on file. RN called the [facility] that patient states she gets her medications filled and [facility] states that patient dropped off prescriptions on August 21 but did not ever fill them for Flonase and fluconazole. Patient has not had any additional medications filled by this pharmacy since May none of which were blood pressure medications. [facility] pharmacy staff report that patient had her prescriptions transferred to [facility] but states they can see the patient did not get these medications filled either. RN spoke with patient about her prescription list and mentioned to patient that she had had her prescriptions transferred to [facility]. Patient states she does not know anything about [facility]. This provider then reentered the room to discuss patient's medication list with patient as well as concern about status. Patient states that her prescriptions are not at the [facility] for which she reported to this provider but states that she transferred the prescriptions to [facility]. Patient confronted with the fact that she is telling the RN some information and then contradicting it when this provider discussed the reported history with patient. Patient will apply "I do not know anything about that I am under a lot of stress right now. I just really want my back pain evaluated." Patient advised that her back pain cannot be appropriately evaluated until she is able to go to the bathroom and get a urine specimen so we can assess whether or not she has a UTI as well as her status. Provider initially was not able to finish the initial interview with patient as patient was rushing out of the room to go to the bathroom. Patient returned to the room without a urinary specimen stating that "my nerves are preventing me from getting a urine specimen " patient offered a urine catheterization. Patient declined. Patient also states that she is told that she might have lupus and that she has an appointment with the autocad technician in September. Patient states she does not want to wait till September because she is having continued pain. 09/02/17 16:21 Patient complains of nausea, medication ordered. 09/02/17 17:01 Patient insistent that she needs to leave. Patient declines waiting for urinalysis results. Patient encouraged to follow-up with her primary doctor for recheck as well as the autocad technician as planned next month. The patient presents with low back pain without signs of spinal cord compression, cauda equina syndrome, infection, aneurysm, or other serious etiology. The patient is neurologically intact. Given the extremely risk of these diagnoses further testing and evaluation for these possibilities does not appear to be indicated at this time. Patient has been instructed to return if the symptoms worsen or change in any way. - Vital Signs Vital signs: Temp Pulse Resp BP Pulse Ox 98.5 F 79 18 161/106 H 99 09/02/17 14:03 09/02/17 14:03 09/02/17 14:03 09/02/17 14:03 09/02/17 14:03 Discharge - Discharge Clinical Impression: Hx of essential hypertension Chronic back pain Qualifiers: Back pain location: back pain in unspecified location Back pain laterality: bilateral Qualified Code(s): M54.9 - Dorsalgia, unspecified Condition: Stable Disposition: HOME, SELF-CARE Instructions: Chronic Back Pain ([facility]), Ice Packs ([facility]), Warm Packs ([facility]) Additional Instructions: Return immediately for any new or worsening symptoms Followup with your primary care provider, call tomorrow to make a followup appointment Prescriptions: Methocarbamol [Robaxin 500 Mg Tablet] 500 mg PO QID PRN #20 tablet PRN Reason: Forms: Elevated Blood Pressure Referrals: CLINTON HERNANDEZ PA-C [NO LOCAL MD] - Follow up tomorrow
[2017-09-02] MEDS ORDERED: ACETAMINOPHEN 325 MG TABLET PO ONE (14:59)
[2017-09-02] MEDS ORDERED: LIDOCAINE 5% (700 MG) TRANSDERMAL ADH..PATCH TP ONE (14:59)
[2017-09-02] MEDS ORDERED: ONDANSETRON 4 MG TAB.RAPDIS PO ONE (16:20)
[2017-09-02 16:52] LABS: APPEARANCE,URINE CLEAR; BILIRUBIN,URINE NEGATIVE (NEGATIVE); GLUCOSE, URINE NEGATIVE (NEGATIVE); KETONES,URINE NEGATIVE (NEGATIVE); LEUKOCYTE ESTERASE,URINE NEGATIVE (NEGATIVE); NITRITE,URINE NEGATIVE (NEGATIVE); PROTEIN,URINE NEGATIVE (NEGATIVE); URINE SPECIFIC GRAVITY 1.015; UROBILINOGEN,URINE NEGATIVE mg/dL (<2.0)
[2017-09-02] MEDS ORDERED: METHOCARBAMOL 500 MG TABLET PO ONE (17:03)
[2017-09-02 17:13] VITALS: BP 154/94
== END 2017-09-02 17:11 | disposition home or self-care (01) ==
LOC: ER 13:56
DX: M54.9 Dorsalgia, unspecified (principal); G89.29 Other chronic pain; F17.200 Nicotine dependence, unspecified, uncomplicated; I10 Essential (primary) hypertension
CPT/HCPCS: 99283; 81025; 81001; J3490 ×3; S0119

== ENCOUNTER 2017-09-20 21:05 | Emergency (ER) | payer MEDICAID ==
[2017-09-20] MEDS ORDERED: DEXAMETHASONE SOD PHOS INJ 10 MG/1 ML VIAL IM ONE (22:30)
--- NOTE | 2017-09-20 22:33 | ER Document Report ---
HPI - HPI Patient complains to provider of: sick symptoms Pain Level: 4 Context: Patient is a 32-year-old female who comes emergency department for chief complaint of generalized body aches, congestion, sneezing, and occasional cough. She also reports pain in her sinuses which has developed slightly over the past 2 days. She denies fever, difficulty breathing, vomiting, headaches, chest pain. She states that she always has "chronic pain" in her back, she states that she is being sent for rheumatology referral because of her ongoing pains. - REPRODUCTIVE Reproductive: DENIES: : Past Medical History - General Information source: Patient - Social History Smoking Status: Current Some Day Smoker Frequency of alcohol use: None Drug Abuse: None Lives with: Family Family History: Arthritis, CAD, COPD, CVA, DM, Hyperlipidemia, Hypertension, Malignancy, Thyroid Disfunction - Past Medical History Cardiac Medical History: Reports: Hx Hypercholesterolemia, Hx Hypertension Denies: Hx Coronary Artery Disease, Hx Heart Attack Pulmonary Medical History: Reports: Hx Asthma, Hx Sleep Apnea Denies: Hx Bronchitis, Hx COPD, Hx Pneumonia Neurological Medical History: Reports: Hx Migraine, Hx Seizures - unsure what type. Denies: Hx Cerebrovascular Accident Endocrine Medical History: Reports: Hx Diabetes Mellitus Type 2 Renal/ Medical History: Denies: Hx Peritoneal Dialysis Malignancy Medical History: Reports: Hx Cervical Cancer GI Medical History: Reports: Hx Gastroesophageal Reflux Disease, Hx Endoscopy Musculoskeltal Medical History: Reports Hx Arthritis, Reports Hx Musculoskeletal Deformity Psychiatric Medical History: Reports: Hx Depression Past Surgical History: Reports: Hx Dilation and Curettage, Hx Gynecologic Surgery - D&C, Hx Oral Surgery, Hx Orthopedic Surgery - carpal tunnel x2. Denies: Hx Hysterectomy - Immunizations Immunizations up to date: Yes Hx Diphtheria, Pertussis, Tetanus Vaccination: Yes - past Hx Pneumococcal Vaccination: 09/19/00 Vertical Provider Document - CONSTITUTIONAL General Appearance: WD/WN, No Apparent Distress, Obese - INFECTION CONTROL TRAVEL OUTSIDE OF THE [place] IN LAST 30 DAYS: No - HEENT HEENT: negative: Normal ENT Exam - Sinus tenderness, worse on the right side of the maxillary sinus, nasal congestion, swollen turbinates worse on the right side as well, mild erythema of the posterior pharynx, oral exam otherwise unremarkable. ENT exam otherwise unremarkable. - NECK Neck: Normal Inspection - RESPIRATORY Respiratory: Breath Sounds Normal, No Respiratory Distress O2 Sat by Pulse Oximetry: 98 - CARDIOVASCULAR Cardiovascular: Regular Rate, Regular Rhythm - GI/ABDOMEN Gastrointestinal: Abdomen Soft, Abdomen Non-Tender - BACK Back: Normal Inspection - No appreciated tenderness, normal range of motion, strength, distal neurovascular exam - MUSCULOSKELETAL/EXTREMETIES Musculoskeletal/Extremeties: MAEW, FROM, Non-Tender - NEURO Level of Consciousness: Awake, Alert, Appropriate Motor/Sensory: No Motor Deficit, No Sensory Deficit - DERM Integumentary: Warm, Dry, No Rash Course - Re-evaluation Re-evalutation: Patient with swollen turbinates, mild erythema of the posterior pharynx, mild tenderness over the right maxillary sinus, otherwise her examination does not show any abnormalities including no neurological deficits, clear lungs, soft abdomen, unremarkable vital signs. Discussed with patient. She has a close rheumatology follow-up already established, she does not want prednisone for her body aches and cold symptoms. Instead she was given dexamethasone, provided with cold remedies, we did discuss treatment of sinus pain, at this time patient will wait, if in 2 days she does not start to improve she will begin the antibiotic. Discussed follow-up recommendations and return precautions. Patient states understanding and agreement. - Vital Signs Vital signs: Temp Pulse Resp BP Pulse Ox 99 F 81 22 H 148/104 H 98 09/20/17 21:06 09/20/17 21:06 09/20/17 21:06 09/20/17 21:06 09/20/17 21:06 Discharge - Discharge Clinical Impression: Sinus pain, Sneezing, Body aches Condition: Stable Disposition: HOME, SELF-CARE Additional Instructions: Symptoms and examination are most consistent with a viral infection. I recommend the Flonase, Silvia, and [id number] medications to treat chills such as Tylenol and ibuprofen. If sinus pain and pressure continues over the next 2-3 days you can start the antibiotics for sinus infection as we discussed. Return the emergency department for any concerning or worsening symptoms including developing fever, difficulty breathing, or any other concerning symptoms. Prescriptions: Fexofenadine HCl [Silvia Allergy] 180 mg PO DAILY #30 tablet Fluticasone Propionate [Flonase Nasal Milo 50 Mcg/Milo 16 gm] 1 spray NASL Q12 #1 inhaler Referrals: CLINTON HERNANDEZ PA-C [Primary Care Provider] - Follow up as needed
[2017-09-20 22:45] VITALS: BP 141/89
== END 2017-09-20 22:45 | disposition home or self-care (01) ==
LOC: ER 21:05
DX: M79.1 Myalgia (principal); R06.7 Sneezing; R05 Cough; R09.81 Nasal congestion; F17.200 Nicotine dependence, unspecified, uncomplicated; I10 Essential (primary) hypertension; E78.00 Pure hypercholesterolemia, unspecified; E11.9 Type 2 diabetes mellitus without complications
CPT/HCPCS: 99283; 96372; J1100

== ENCOUNTER 2017-10-24 22:09 | Emergency (ER) | payer MEDICAID ==
--- NOTE | 2017-10-24 22:32 | EKG REPORT ---
SEVERITY:- BORDERLINE ECG - SINUS RHYTHM BORDERLINE T WAVE ABNORMALITIES : Confirmed by: Mil Clinton 24-Oct-2017 22:31:45
[2017-10-25] MEDS ORDERED: ASPIRIN 81 MG TABLET, CHEWABLE PO ONE (01:15)
--- NOTE | 2017-10-25 01:18 | ER Document Report ---
ED Medical Screen (RME) - General Chief Complaint: Chest Pain Stated Complaint: ANXIETY CHEST PAIN Time Seen by Provider: 10/25/17 01:07 Mode of Arrival: Medic Information source: Patient Notes: 32-year-old female presents to ED for complaint of hot chest pain for the last 2 -3 days. She states she has had heart problems in the past but no one 7 for anything but high blood pressure. She is on chronic pain management for chronic leg and back pain. She states they are planning to tested for lupus but has not tested her yet. She states she supposed to have a spar cap beveler work her up for her chest pain. She states her dad of an [place] in her mother has coronary artery disease. Lungs are clear at this time. Patient's pain is reproducible. It is all the way across the top of the chest. She does state that she has pretty bad pain in her back and legs to at the same time. She states she has had some nausea today but no vomiting. This is a very morbidly obese woman with a weight of 181.8 kg. I have greeted and performed a rapid initial assessment of this patient. A comprehensive ED assessment and evaluation of the patient, analysis of test results and completion of medical decision making process will be conducted by an additional ED providers. TRAVEL OUTSIDE OF THE [place] IN LAST 30 DAYS: No - Related Data Allergies/Adverse Reactions: banana Allergy (Severe, Verified 09/02/17 13:57) Anaphylaxis tramadol Allergy (Severe, Verified 09/02/17 13:57) Anaphylaxis atorvastatin [From Lipitor] Allergy (Intermediate, Verified 09/02/17 13:57) Generalized Itching lisinopril Allergy (Intermediate, Verified 09/02/17 13:57) Generalized rash Past Medical History - Social History Family history: CAD, CVA, DM, Hyperlipidemia, Hypertension, Malignancy, Thyroid Disfunction - Past Medical History Cardiac Medical History: Reports: Hx Hypercholesterolemia, Hx Hypertension Denies: Hx Coronary Artery Disease, Hx Heart Attack Pulmonary Medical History: Reports: Hx Asthma, Hx Sleep Apnea Denies: Hx Bronchitis, Hx COPD, Hx Pneumonia Neurological Medical History: Reports: Hx Migraine, Hx Seizures - unsure what type. Denies: Hx Cerebrovascular Accident Endocrine Medical History: Reports: Hx Diabetes Mellitus Type 2 Renal/ Medical History: Denies: Hx Peritoneal Dialysis Malignancy Medical History: Reports: Hx Cervical Cancer GI Medical History: Reports: Hx Gastroesophageal Reflux Disease, Hx Endoscopy Musculoskeltal Medical History: Reports Hx Arthritis, Reports Hx Musculoskeletal Deformity Psychiatric Medical History: Reports: Hx Depression Past Surgical History: Reports: Hx Dilation and Curettage, Hx Gynecologic Surgery - D&C, Hx Oral Surgery, Hx Orthopedic Surgery - carpal tunnel x2. Denies: Hx Hysterectomy - Immunizations Immunizations up to date: Yes Hx Diphtheria, Pertussis, Tetanus Vaccination: Yes - past Physical Exam - Vital signs Vitals: Temp Pulse Resp BP Pulse Ox 99.0 F 82 22 H 156/117 H 99 10/24/17 22:25 10/24/17 22:25 10/24/17 22:25 10/24/17 22:25 10/24/17 22:25 Course - Vital Signs Vital signs: Temp Pulse Resp BP Pulse Ox 99.0 F 82 22 H 156/117 H 99 10/24/17 22:25 10/24/17 22:25 10/24/17 22:25 10/24/17 22:25 10/24/17 22:25
[2017-10-25 02:27] LABS: ABSOLUTE BASOPHILS # (AUTO) 0.1 10^3/uL (0.0-0.2); ABSOLUTE MONOCYTES (AUTO) 0.6 10^3/uL (0.1-1.4); ABSOLUTE NEUT (AUTO) 2.9 10^3/uL (1.7-8.2); BASOPHILS % (AUTO) 1.7 % (0-2); EOSINOPHILS % (AUTO) 0.7 % (0-6); HEMATOCRIT 37.7 % (36.0-47.0); HEMOGLOBIN 12.2 g/dL (12.0-15.5); LYMPHOCYTES % (AUTO) 44.7 % (13-45); MEAN CORPUSCULAR HEMOGLOBIN 26.5 pg (27.0-33.4); MEAN CORPUSCULAR HGB CONC 32.3 g/dL (32.0-36.0); MEAN CORPUSCULAR VOLUME 82 fl (80-97); MONOCYTES % (AUTO) 9.6 % (3-13); PLATELET COUNT 291 10^3/uL (150-450); RED CELL DISTRIBUTION WIDTH 14.5 % (11.5-14.0); SEGMENTED NEUTROPHILS % (AUTO) 43.3 % (42-78); TOTAL CELLS COUNTED % (AUTO) 100 %; WHITE BLOOD COUNT 6.7 10^3/uL (4.0-10.5)
[2017-10-25 03:02] LABS: ALANINE AMINOTRANSFERASE 24 U/L (9-52); ALBUMIN 4.1 g/dL (3.5-5.0); ALKALINE PHOSPHATASE 51 U/L (38-126); ANION GAP 10 (5-19); ASPARTATE AMINO TRANSFERASE 13 U/L (14-36); BILIRUBIN,DIRECT 0.4 mg/dL (0.0-0.4); BILIRUBIN,TOTAL 0.5 mg/dL (0.2-1.3); BLOOD UREA NITROGEN 7 mg/dL (7-20); CALCIUM 9.8 mg/dL (8.4-10.2); CARBON DIOXIDE 24 mmol/L (22-30); CHLORIDE 109 mmol/L (98-107); CREATINE KINASE 58 U/L (30-135); GLUCOSE 84 mg/dL (75-110); SODIUM 143.2 mmol/L (137-145); TOTAL PROTEIN 7.7 g/dL (6.3-8.2)
--- NOTE | 2017-10-25 03:23 | RADIOLOGY REPORT (SQ) ---
EXAM DESCRIPTION: CHEST PA/LAT CLINICAL HISTORY: chest pain COMPARISON: 07/09/2016 FINDINGS: Frontal and lateral views of the chest. Cardiac silhouette is enlarged. No consolidation, pneumothorax, or pleural effusion. No displaced rib fractures identified. Upper abdominal soft tissues are unremarkable. IMPRESSION: 1. No acute pulmonary process identified. Cardiomegaly.
[2017-10-25] MEDS ORDERED: PROCHLORPERAZINE EDISYLATE INJ 10 MG/2 ML VIAL IV ONE (03:39)
[2017-10-25] MEDS ORDERED: DIPHENHYDRAMINE HCL 50 MG/ML VIAL IV ONE (03:39)
[2017-10-25] MEDS ORDERED: HYDRALAZINE HCL INJ/PF 20 MG/1 ML SDV IV ONE (03:39)
[2017-10-25] MEDS ORDERED: PROCHLORPERAZINE EDISYLATE INJ 10 MG/2 ML VIAL IM ONE (04:33)
[2017-10-25] MEDS ORDERED: HYDRALAZINE HCL INJ/PF 20 MG/1 ML SDV IM ONE (04:33)
[2017-10-25] MEDS ORDERED: DIPHENHYDRAMINE HCL 50 MG/ML VIAL IM ONE (04:33)
--- NOTE | 2017-10-25 04:45 | ER Document Report ---
ED General - General Chief Complaint: Chest Pain Stated Complaint: ANXIETY CHEST PAIN Time Seen by Provider: 10/25/17 01:07 Mode of Arrival: Medic Information source: Patient Notes: 32-year-old female presents with complaints of high blood pressure headache. Patient notes that she is on multiple medications for her blood pressure, that she intermittently gets migraine headaches as a result of high blood pressure. She denies any fevers chills admits to nausea states she has not taken her blood pressure medication today, EMS did note a systolic of 220 however by the time patient arrived here blood pressure was down to 158 TRAVEL OUTSIDE OF THE [place] IN LAST 30 DAYS: No - HPI Onset: Other Onset/Duration: Persistent Quality of pain: Sharp Severity: Mild Pain Level: 1 Associated symptoms: Headache, Nausea Exacerbated by: Denies Relieved by: Denies Similar symptoms previously: No Recently seen / treated by doctor: No - Related Data Allergies/Adverse Reactions: banana Allergy (Severe, Verified 09/02/17 13:57) Anaphylaxis tramadol Allergy (Severe, Verified 09/02/17 13:57) Anaphylaxis atorvastatin [From Lipitor] Allergy (Intermediate, Verified 09/02/17 13:57) Generalized Itching lisinopril Allergy (Intermediate, Verified 09/02/17 13:57) Generalized rash Past Medical History - General Information source: Patient - Social History Smoking Status: Never Smoker Cigarette use (# per day): No Chew tobacco use (# tins/day): No Smoking Education Provided: No Family History: Arthritis, CAD, COPD, CVA, DM, Hyperlipidemia, Hypertension, Malignancy, Thyroid Disfunction - Past Medical History Cardiac Medical History: Reports: Hx Hypercholesterolemia, Hx Hypertension Denies: Hx Coronary Artery Disease, Hx Heart Attack Pulmonary Medical History: Reports: Hx Asthma, Hx Sleep Apnea Denies: Hx Bronchitis, Hx COPD, Hx Pneumonia Neurological Medical History: Reports: Hx Migraine, Hx Seizures - unsure what type. Denies: Hx Cerebrovascular Accident Endocrine Medical History: Reports: Hx Diabetes Mellitus Type 2 Renal/ Medical History: Denies: Hx Peritoneal Dialysis Malignancy Medical History: Reports: Hx Cervical Cancer GI Medical History: Reports: Hx Gastroesophageal Reflux Disease, Hx Endoscopy Musculoskeltal Medical History: Reports Hx Arthritis, Reports Hx Musculoskeletal Deformity Psychiatric Medical History: Reports: Hx Depression Past Surgical History: Reports: Hx Dilation and Curettage, Hx Gynecologic Surgery - D&C, Hx Oral Surgery, Hx Orthopedic Surgery - carpal tunnel x2. Denies: Hx Hysterectomy - Immunizations Immunizations up to date: Yes Hx Diphtheria, Pertussis, Tetanus Vaccination: Yes - past Hx Pneumococcal Vaccination: 09/19/00 Review of Systems - Review of Systems Notes: REVIEW OF SYSTEMS: CONSTITUTIONAL : Denies fever, chills, or sweats. Denies recent illness. EENT: Denies eye, ear, throat, or mouth pain or symptoms. Denies nasal or sinus congestion or discharge. Denies throat, tongue, or mouth swelling or difficulty swallowing. CARDIOVASCULAR: Denies chest pain. Denies palpitations or racing or irregular heart beat. Denies ankle edema. RESPIRATORY: Denies cough, cold, or chest congestion. Denies shortness of breath, difficulty breathing, or wheezing. GASTROINTESTINAL: Denies abdominal pain or distention. Denies nausea, vomiting , or diarrhea. Denies blood in vomitus, stools, or per rectum. Denies black, tarry stools. Denies constipation. GENITOURINARY: Denies difficulty urinating, painful urination, burning, frequency, blood in urine, or discharge. FEMALE GENITOURINARY: Denies vaginal bleeding, heavy or abnormal periods, irregular periods. Denies vaginal discharge or odor. MUSCULOSKELETAL: Denies back or neck pain or stiffness. Denies joint pain or swelling. SKIN: Denies rash, lesions or sores. HEMATOLOGIC : Denies easy bruising or bleeding. LYMPHATIC: Denies swollen, enlarged glands. NEUROLOGICAL: Admits to headache PSYCHIATRIC: Denies anxiety or stress. Denies depression, suicidal ideation, or homicidal ideation. ALL OTHER SYSTEMS REVIEWED AND NEGATIVE. PHYSICAL EXAMINATION: GENERAL: Well-appearing, well-nourished and in no acute distress. Obese HEAD: Atraumatic, normocephalic. EYES: Pupils equal round and reactive to light, extraocular movements intact, conjunctiva are normal. ENT: Nares patent, oropharynx clear without exudates. Moist mucous membranes. NECK: Normal range of motion, supple without lymphadenopathy LUNGS: Breath sounds clear to auscultation bilaterally and equal. No wheezes rales or rhonchi. HEART: Regular rate and rhythm without murmurs ABDOMEN: Soft, nontender, nondistended abdomen. No guarding, no rebound. No masses appreciated. Female : deferred Musculoskeletal: Normal range of motion, no pitting or edema. No cyanosis. NEUROLOGICAL: Cranial nerves grossly intact. Normal speech, normal gait. Normal sensory, motor exams PSYCH: Normal mood, normal affect. SKIN: Warm, Dry, normal turgor, no rashes or lesions noted. Dictation was performed using [employer] voice recognition software Physical Exam - Vital signs Vitals: Temp Pulse Resp BP Pulse Ox 99.0 F 82 22 H 156/117 H 99 10/24/17 22:25 10/24/17 22:25 10/24/17 22:25 10/24/17 22:25 10/24/17 22:25 Course - Re-evaluation Re-evalutation: 10/25/17 04:46 Patient looks quite well, her blood pressure is noted to be 166/110, she is in no distress, I did want to give her IV medications but nurse was unable to obtain IV access, the patient prefers I am at this point. She will be given multiple doses of medications and will be reevaluated 10/25/17 06:22 Patient was given a dose of hydralazine and her home dose of clonidine, her blood pressure improved significantly, she notes her headache is improved significantly as well, I will discharge home with close follow-up After performing a Medical Screening Examination, I estimate there is LOW risk for ACUTE GLAUCOMA, TEMPORAL ARTERITIS, MENINGITIS, INCRANIAL HEMORRHAGE, or ISCHEMIC STROKE thus I consider the discharge disposition reasonable. I have reevaluated this patient multiple times and no significant life threatening changes are noted. The patient and I have discussed the diagnosis and risks, and we agree with discharging home with close follow-up with the understanding that symptoms and presentations can change. We also discussed returning to the Emergency Department immediately if new or worsening symptoms occur. We have discussed the symptoms which are most concerning (e.g., changing or worsening symptoms, new numbness or weakness, vomiting, fever) that necessitate immediate return. - Vital Signs Vital signs: Temp Pulse Resp BP Pulse Ox 98.9 F 81 20 154/128 H 100 10/25/17 01:30 10/25/17 01:30 10/25/17 01:30 10/25/17 01:30 10/25/17 01:30 - Laboratory Result Diagrams: 10/25/17 02:05 10/25/17 02:05 Laboratory results interpreted by me: 10/25/17 10/25/17 02:05 02:05 MCH 26.5 L RDW 14.5 H Chloride 109 H AST 13 L - Diagnostic Test Radiology reviewed: Image reviewed, Reports reviewed Discharge - Discharge Clinical Impression: HTN (hypertension) Qualifiers: Hypertension type: essential hypertension Qualified Code(s): I10 - Essential ( primary) hypertension Headache Qualifiers: Headache type: unspecified Headache chronicity pattern: unspecified pattern Intractability: not intractable Qualified Code(s): R51 - Headache Nausea & vomiting Qualifiers: Vomiting type: unspecified Vomiting Intractability: non-intractable Qualified Code(s): R11.2 - Nausea with vomiting, unspecified Condition: Stable Disposition: HOME, SELF-CARE Instructions: High Blood Pressure, Requiring Treatment ([facility]) Prescriptions: Promethazine HCl [Phenergan 25 mg Tablet] 1 - 2 tab PO Q6H PRN #15 tablet PRN Reason: Referrals: CLINTON HERNANDEZ PA-C [Primary Care Provider] - Follow up tomorrow
[2017-10-25] MEDS ORDERED: CARVEDILOL 12.5 MG TABLET PO ONE (05:34)
[2017-10-25] MEDS ORDERED: CLONIDINE HCL 0.2 MG TABLET PO ONE (05:34)
[2017-10-25 06:16] VITALS: BP 139/85
== END 2017-10-25 06:15 | disposition home or self-care (01) ==
LOC: ER 22:09
DX: I10 Essential (primary) hypertension (principal); R51 Headache; R11.2 Nausea with vomiting, unspecified; R07.9 Chest pain, unspecified; F41.9 Anxiety disorder, unspecified; E78.00 Pure hypercholesterolemia, unspecified; E11.9 Type 2 diabetes mellitus without complications; Z88.6 Allergy status to analgesic agent; Z85.41 Personal history of malignant neoplasm of cervix uteri
CPT/HCPCS: 93005; 99284; 36415; 82550; 85025; 80053; 84484; 85379; 83880; 71046; 93010; J3490

== ENCOUNTER 2017-10-28 20:25 | Emergency (ER) | payer MEDICAID ==
[2017-10-28] MEDS ORDERED: HALOPERIDOL 5 MG TABLET PO ONE (20:51)
[2017-10-28] MEDS ORDERED: HALOPERIDOL LACTATE INJ 5 MG/1 ML VIAL IV ONE (21:03)
[2017-10-28] MEDS ORDERED: HYDRALAZINE HCL 10 MG TABLET PO ONE (21:03)
--- NOTE | 2017-10-28 21:04 | ER Document Report ---
ED General - General Stated Complaint: DIFFICULTY BREATHING Time Seen by Provider: 10/28/17 20:31 Notes: Patient is a 32-year-old female past medical history of morbid obesity, dysmenorrhea, who presents with multiple complaints. Patient states that she feels short of breath, has generalized abdominal pain, vaginal bleeding, headache, lightheadedness and nausea. She states that most of the symptoms started after she found out that her boyfriend's found out about their relationship today. She reports a history of similar symptoms in the past related to anxiety. She describes her vaginal bleeding as a constant, trickling of blood. She denies saturating through more than 2 pads in any given hour over the past several days. She has never followed up with an OB/ [employer] regarding her chronic vaginal bleeding. Nothing improves or worsens her symptoms. She has not seen her primary doctor regarding today's concerns. TRAVEL OUTSIDE OF THE [place] IN LAST 30 DAYS: No - Related Data Allergies/Adverse Reactions: banana Allergy (Severe, Verified 09/02/17 13:57) Anaphylaxis tramadol Allergy (Severe, Verified 09/02/17 13:57) Anaphylaxis atorvastatin [From Lipitor] Allergy (Intermediate, Verified 09/02/17 13:57) Generalized Itching lisinopril Allergy (Intermediate, Verified 09/02/17 13:57) Generalized rash Past Medical History - General Information source: Patient - Social History Smoking Status: Never Smoker Frequency of alcohol use: None Drug Abuse: None Lives with: Family Family History: Arthritis, CAD, COPD, CVA, DM, Hyperlipidemia, Hypertension, Malignancy, Thyroid Disfunction - Past Medical History Cardiac Medical History: Reports: Hx Hypercholesterolemia, Hx Hypertension Denies: Hx Coronary Artery Disease, Hx Heart Attack Pulmonary Medical History: Reports: Hx Asthma, Hx Sleep Apnea Denies: Hx Bronchitis, Hx COPD, Hx Pneumonia Neurological Medical History: Reports: Hx Migraine, Hx Seizures - unsure what type. Denies: Hx Cerebrovascular Accident Endocrine Medical History: Reports: Hx Diabetes Mellitus Type 2 Renal/ Medical History: Denies: Hx Peritoneal Dialysis Malignancy Medical History: Reports: Hx Cervical Cancer GI Medical History: Reports: Hx Gastroesophageal Reflux Disease, Hx Endoscopy Musculoskeltal Medical History: Reports Hx Arthritis, Reports Hx Musculoskeletal Deformity Psychiatric Medical History: Reports: Hx Depression Past Surgical History: Reports: Hx Dilation and Curettage, Hx Gynecologic Surgery - D&C, Hx Oral Surgery, Hx Orthopedic Surgery - carpal tunnel x2. Denies: Hx Hysterectomy - Immunizations Immunizations up to date: Yes Hx Diphtheria, Pertussis, Tetanus Vaccination: Yes - past Hx Pneumococcal Vaccination: 09/19/00 Review of Systems - Review of Systems Notes: Constitutional: Negative for fever. HENT: Negative for sore throat. Eyes: Negative for visual changes. Cardiovascular: Negative for chest pain. Respiratory: Negative for shortness of breath. Gastrointestinal: Positive for abdominal pain and nausea Genitourinary: Positive for vaginal bleeding Musculoskeletal: Negative for back pain. Skin: Negative for rash. Neurological: Negative for headaches, weakness or numbness. 10 point ROS negative except as marked above and in HPI. Physical Exam - Vital signs Vitals: Temp Pulse Resp BP Pulse Ox 98 F 89 20 164/82 H 98 10/28/17 23:00 10/28/17 23:00 10/28/17 23:00 10/28/17 23:00 10/28/17 23:00 Interpretation: Hypertensive Notes: PHYSICAL EXAMINATION: GENERAL: Morbidly obese female, well-appearing, well-nourished and in no acute distress. HEAD: Atraumatic, normocephalic. EYES: Pupils equal round and reactive to light, extraocular movements intact, sclera anicteric, conjunctiva are normal. ENT: nares patent, oropharynx clear without exudates. Moist mucous membranes. NECK: Normal range of motion, supple without lymphadenopathy LUNGS: Breath sounds clear to auscultation bilaterally and equal. No wheezes rales or rhonchi. HEART: Regular rate and rhythm without murmurs ABDOMEN: Morbidly obese abdomen, soft, nontender, normoactive bowel sounds. No guarding, no rebound. No masses appreciated. EXTREMITIES: Normal range of motion, no pitting or edema. No cyanosis. NEUROLOGICAL: No focal neurological deficits. Moves all extremities spontaneously and on command. PSYCH: Highly anxious SKIN: Warm, Dry, normal turgor, no rashes or lesions noted. Course - Re-evaluation Re-evalutation: 10/28/17 21:04 Patient presents with multiple vague complaints that did not appear to be concerning for any acute life-threatening pathology. Vitals are within normal limits at triage and at time of discharge. Physical examination is unremarkable. Patient has tolerated oral intake without difficulty. Patient was not noted to be in distress at any point during their ER visit. At this time, based on the reassuring evaluation, I do not suspect an acute ME, pulmonary embolus, aortic dissection, acute intra-abdominal pathology, stroke, or sepsis.Will discharge with return precautions and follow-up recommendations. Verbal discharge instructions given a the bedside and opportunity for questions given. Medication warnings reviewed. Patient is in agreement with this plan and has verbalized understanding of return precautions and the need for primary care follow-up in the next 24-72 hours. - Vital Signs Vital signs: Temp Pulse Resp BP Pulse Ox 98 F 89 20 164/82 H 98 10/28/17 23:00 10/28/17 23:00 10/28/17 23:00 10/28/17 23:00 10/28/17 23:00 - Laboratory Result Diagrams: 10/28/17 20:49 10/28/17 21:35 Laboratory results interpreted by me: 10/28/17 10/28/17 20:49 21:35 Hgb 11.5 L MCH 26.2 L RDW 14.4 H Sodium 145.4 H Potassium 3.4 L Chloride 111 H Discharge - Discharge Clinical Impression: HTN (hypertension) Qualifiers: Hypertension type: unspecified Qualified Code(s): I10 - Essential (primary) hypertension Abdominal pain Qualifiers: Abdominal location: generalized Qualified Code(s): R10.84 - Generalized abdominal pain Headache Qualifiers: Headache type: unspecified Headache chronicity pattern: acute headache Intractability: not intractable Qualified Code(s): R51 - Headache Condition: Good Disposition: HOME, SELF-CARE Additional Instructions: Please return to the emergency room immediately if you experience any concerning symptoms including high fevers, severe headache, chest pain, difficulty breathing, abdominal pain, slurred speech, numbness or weakness in your arms or legs, or any other symptom that concerns you. Referrals: CLINTON HERNANDEZ PA-C [Primary Care Provider] - Follow up as needed
[2017-10-28 21:11] LABS: ABSOLUTE BASOPHILS # (AUTO) 0.1 10^3/uL (0.0-0.2); ABSOLUTE LYMPHOCYTES (AUTO) 2.4 10^3/uL (0.5-4.7); ABSOLUTE MONOCYTES (AUTO) 0.6 10^3/uL (0.1-1.4); ABSOLUTE NEUT (AUTO) 3.6 10^3/uL (1.7-8.2); BASOPHILS % (AUTO) 0.9 % (0-2); EOSINOPHILS % (AUTO) 0.5 % (0-6); HEMATOCRIT 36.1 % (36.0-47.0); HEMOGLOBIN 11.5 g/dL (12.0-15.5); LYMPHOCYTES % (AUTO) 35.7 % (13-45); MEAN CORPUSCULAR HEMOGLOBIN 26.2 pg (27.0-33.4); MEAN CORPUSCULAR VOLUME 82 fl (80-97); MONOCYTES % (AUTO) 9.2 % (3-13); PLATELET COUNT 283 10^3/uL (150-450); RED BLOOD COUNT 4.41 10^6/uL (3.72-5.28); RED CELL DISTRIBUTION WIDTH 14.4 % (11.5-14.0); SEGMENTED NEUTROPHILS % (AUTO) 53.7 % (42-78); TOTAL CELLS COUNTED % (AUTO) 100 %; WHITE BLOOD COUNT 6.7 10^3/uL (4.0-10.5)
[2017-10-28 22:01] LABS: ANION GAP 6 (5-19); BLOOD UREA NITROGEN 8 mg/dL (7-20); CALCIUM 9.2 mg/dL (8.4-10.2); CARBON DIOXIDE 28 mmol/L (22-30); CHLORIDE 111 mmol/L (98-107); GLUCOSE 95 mg/dL (75-110); POTASSIUM 3.4 mmol/L (3.6-5.0); SODIUM 145.4 mmol/L (137-145)
[2017-10-28 23:51] VITALS: BP 164/82
== END 2017-10-28 23:51 | disposition home or self-care (01) ==
LOC: ER 20:25
DX: I10 Essential (primary) hypertension (principal); F41.9 Anxiety disorder, unspecified; R10.84 Generalized abdominal pain; R51 Headache; R06.02 Shortness of breath; N93.9 Abnormal uterine and vaginal bleeding, unspecified; R42 Dizziness and giddiness; R11.0 Nausea; E11.9 Type 2 diabetes mellitus without complications; E66.01 Morbid (severe) obesity due to excess calories; J45.909 Unspecified asthma, uncomplicated; Z88.8 Allergy status to other drugs, medicaments and biological substances; Z87.892 Personal history of anaphylaxis; Z91.018 Allergy to other foods; Z88.5 Allergy status to narcotic agent; Z85.41 Personal history of malignant neoplasm of cervix uteri; Z87.19 Personal history of other diseases of the digestive system
CPT/HCPCS: 99284; 36415; 84702; 85025; 80048; J3490

== ENCOUNTER 2017-11-15 16:36 | Emergency (ER) | payer MEDICAID ==
--- NOTE | 2017-11-15 17:42 | ER Document Report ---
ED GI/ - General Chief Complaint: Abdominal Pain Stated Complaint: ABDOMINAL PAIN Time Seen by Provider: 11/15/17 16:53 Mode of Arrival: Ambulatory Information source: Patient Notes: 32-year-old female presented to ED for complaint of abdominal pain nausea vomiting. She was seen for similar symptoms on October 28, 2017. The male visitor that was with her first stated that she was 5 months and he was the "baby daddy". Patient has a negative hCG and had a negative hCG on October 28, 2017. I did not verbalize results from labs from last visit with this visit while any family member was present per patient's request. TRAVEL OUTSIDE OF THE [place] IN LAST 30 DAYS: No - HPI Patient complains to provider of: Abdominal pain - Generalized, Vomiting. No: Pelvic pain, Onset: Other - Patient is been seen here several other times for this similar vague complaints Timing/Duration: Intermittent Quality of pain: Cramping Severity at maximum: Severe Severity in ED: Moderate Pain Level: 3 Location: Other - Generalized Vaginal bleeding (Compared to normal period): None LMP: Patient states she is 5 months when her visitors are present Sexual history: Active Associated symptoms: Nausea, Vomiting, Other - States her last bowel movement was several days ago. denies: Urinary hesitancy, Urinary frequency, Urinary retention Exacerbated by: Sitting, Standing, Movement Relieved by: Denies Similar symptoms previously: Yes Recently seen / treated by doctor: Yes - Related Data Allergies/Adverse Reactions: banana Allergy (Severe, Verified 09/02/17 13:57) Anaphylaxis tramadol Allergy (Severe, Verified 09/02/17 13:57) Anaphylaxis atorvastatin [From Lipitor] Allergy (Intermediate, Verified 09/02/17 13:57) Generalized Itching lisinopril Allergy (Intermediate, Verified 09/02/17 13:57) Generalized rash Past Medical History - General Information source: Patient - Social History Smoking Status: Never Smoker Cigarette use (# per day): No Chew tobacco use (# tins/day): No Smoking Education Provided: No Frequency of alcohol use: None Drug Abuse: None Lives with: Family Family History: Arthritis, CAD, COPD, CVA, DM, Hyperlipidemia, Hypertension, Malignancy, Thyroid Disfunction Patient has suicidal ideation: No Patient has homicidal ideation: No - Past Medical History Cardiac Medical History: Reports: Hx Hypercholesterolemia, Hx Hypertension Pulmonary Medical History: Reports: Hx Asthma, Hx Sleep Apnea EENT Medical History: Reports: None Neurological Medical History: Reports: Hx Migraine, Hx Seizures - unsure what type Endocrine Medical History: Reports: Hx Diabetes Mellitus Type 2 Renal/ Medical History: Reports: None Malignancy Medical History: Reports: Hx Cervical Cancer GI Medical History: Reports: Hx Gastroesophageal Reflux Disease, Hx Endoscopy Musculoskeltal Medical History: Reports Hx Arthritis, Reports Hx Musculoskeletal Deformity Skin Medical History: Reports None Psychiatric Medical History: Reports: Hx Depression Traumatic Medical History: Reports: None Infectious Medical History: Reports: None Past Surgical History: Reports: Hx Dilation and Curettage, Hx Oral Surgery, Hx Orthopedic Surgery - carpal tunnel x2 - Immunizations Immunizations up to date: Yes Hx Diphtheria, Pertussis, Tetanus Vaccination: Yes - past Hx Pneumococcal Vaccination: 09/19/00 Review of Systems - Review of Systems Notes: Constitutional: [PRESENT: as per HPI. ABSENT: chills, fever(s), headache(s), weight gain, weight loss] Eyes: [ABSENT: visual disturbances] Ears: [ABSENT: hearing changes] Cardiovascular: [ABSENT: chest pain, dyspnea on exertion, edema, orthropnea, palpitations] Respiratory: [ABSENT: cough, hemoptysis] Gastrointestinal: Generalized abdominal pain, nausea, and vomiting Genitourinary: [ABSENT: dysuria, hematuria] Musculoskeletal: [ABSENT: joint swelling] Integumentary: [ABSENT: rash, wounds] Neurological: [ABSENT: abnormal gait, abnormal speech, confusion, dizziness, focal weakness, syncope] Psychiatric: [ABSENT: anxiety, depression, homicidal ideation, suicidal ideation ] Endocrine: [ABSENT: cold intolerance, heat intolerance, menstrual abnormalities , polydipsia, polyuria] Hematologic/Lymphatic: [ABSENT: easy bleeding, easy bruising, lymphadenopathy] Physical Exam - Vital signs Vitals: Temp Pulse Resp BP 98.5 F 85 20 207/132 H 11/15/17 16:48 11/15/17 16:48 11/15/17 16:48 11/15/17 16:48 - Notes Notes: PHYSICAL EXAMINATION: Morbidly obese GENERAL: Well-appearing, well-nourished and in no acute distress. HEAD: Atraumatic, normocephalic. EYES: Pupils equal round and reactive to light, extraocular movements intact, conjunctiva are normal. ENT: Nares patent, oropharynx clear without exudates. Moist mucous membranes. NECK: Normal range of motion, supple without lymphadenopathy LUNGS: Breath sounds clear to auscultation bilaterally and equal. No wheezes rales or rhonchi. HEART: Regular rate and rhythm without murmurs ABDOMEN: Generalized abdominal tenderness, abdomen soft, active bowel sounds all 4 quadrants, nondistended abdomen. No guarding, no rebound. No masses appreciated. Female : deferred Musculoskeletal: Normal range of motion, no pitting or edema. No cyanosis. NEUROLOGICAL: Cranial nerves grossly intact. Normal speech, normal gait. Normal sensory, motor exams PSYCH: Normal mood, normal affect. SKIN: Warm, Dry, normal turgor, no rashes or lesions noted. Course - Re-evaluation Re-evalutation: 11/16/17 01:16 Labs and x-ray discussed with patient. Patient is well aware that she is not but her family thinks she is. No labs were discussed in front of family per patient's request. Patient x-ray showed a large amount of stool in the bowels and patient states she has not had a bowel movement today or yesterday. Patient was offered a soapsuds and minimal oral enema which she refused. Patient was given instructions for constipation. Patient was instructed to please let her family and significant other know that she is not . Patient verbalized understanding of instructions but states she did not want the enema at this time because she is scared of an enema. Patient was instructed on the need to be sure that she follows the instructions for constipation or else she will have increased in abdominal pain. Patient is instructed to follow-up with her primary doctor. - Vital Signs Vital signs: Temp Pulse Resp BP Pulse Ox 97.8 F 87 21 H 196/125 H 97 11/15/17 21:05 11/15/17 21:05 11/15/17 21:05 11/15/17 21:05 11/15/17 21:05 - Laboratory Result Diagrams: 11/15/17 17:50 11/15/17 17:50 Laboratory results interpreted by me: 11/15/17 11/15/17 17:50 19:10 Hgb 11.9 L MCH 25.9 L MCHC 31.9 L RDW 14.6 H Urine Urobilinogen 2.0 H - Diagnostic Test Radiology reviewed: Image reviewed, Reports reviewed Discharge - Discharge Clinical Impression: Abdominal pain Qualifiers: Abdominal location: generalized Qualified Code(s): R10.84 - Generalized abdominal pain HTN (hypertension) Qualifiers: Hypertension type: unspecified Qualified Code(s): I10 - Essential (primary) hypertension Condition: Stable Disposition: HOME, SELF-CARE Additional Instructions: ABDOMINAL PAIN: There are many causes of abdominal pain. Pain can mean a serious problem requiring surgery (such as appendicitis). It can also be an innocent problem that goes away on its own (such as a viral infection). Often, time must pass to determine the cause of pain. The physician does not feel that hospitalization is necessary, at present. Things may change within the next 24 hours. Call the doctor or come back for re- examination if any problems occur, such as: (1) Pain that becomes more severe, steady, or becomes concentrated in one specific area. Also, pain that is more severe with movement or coughing. (2) Vomiting that persists or becomes more frequent. (3) Blood in the vomitus, urine, or bowel movements. Blood in the stool may have a tarry or black appearance. (4) Shaking chills or fever greater than 100 degrees F. (5) The abdomen becomes more distended or swollen. (6) Bowel movements cease. (7) Failure to improve as expected. VOMITING: Vomiting (or nausea without vomiting) can be caused by many other different problems. It can mean that something's wrong with the stomach, such as ulcers or inflammation or the intestinal tract, such as appendicitis. But it can also be a symptom of a problem that has nothing to do with the stomach or intestines. Vomiting is common with severe headaches, earaches, tonsillitis, and kidney infections, etc. We see it with pneumonia or heart attacks. Drugs can cause nausea and vomiting. Many abdominal problems cause vomiting; for example, gallstones, kidney stones, pancreatitis, and intestinal obstruction ( blocked bowels). In most cases, curing the vomiting depends on fixing the problem that caused it. For temporary relief, we may use an anti-nausea medicine. For home use, we can prescribe suppositories, chewable pills, pills that dissolve in the mouth, or liquid anti-nausea drugs. If the vomiting seems to be caused by a problem in the stomach, acid-suppressing drugs may be prescribed as well. It's important to avoid dehydration. Sip small amounts of clear liquids ( soft drinks, tea, broth, etc) . Try to take fluids frequently even if you are vomiting to prevent dehydration. Take increasing amounts of fluid and when liquids are being consumed successfully, advance to small amounts of bland food (toast, soups, mashed potatoes, etc.) until you are able to resume a regular diet. Avoid aspirin, tobacco, and alcohol. If the vomiting worsens, if the problem that's making you vomit worsens, or if there's evidence of bleeding in the stomach (such as black, tarry stool, or bloody or black vomit), you should return immediately. Also, return if abdominal pain worsens or becomes localized to one area or you develop high fever. Call your doctor if you aren't improved in 24 hours. ANTINAUSEA MEDICATION: You have been given a medication to suppress nausea and vomiting. This type of medication can be given as a shot, pill, or suppository. It will usually last for many hours. Pills and shots usually last six to eight hours. For the typical illness, only one or two doses of the medication may be necessary. Mild lightheadedness may occur. This type of medicine can cause drowsiness. Do not drive or operate dangerous machinery while under its influence. Do not mix with alcohol. See your doctor at once if you have muscle spasms or tightness, or uncontrollable motions (particularly of the neck, mouth, or jaw). Persistent vomiting or severe lightheadedness should also be evaluated by the physician. CONSTIPATION: Constipation is a common problem. It is especially likely as you get older. Constipation is a common cause of abdominal pain, but sometimes causes no symptoms at all. Causes of constipation include certain medications, dehydration, diets, inactivity, and low-fiber intake. Rarely, it can be a symptom of underlying disease. The physician has evaluated you for this. Avoid constipation by eating a diet high in fiber, fruits, and vegetables. Drink plenty of liquids. Get regular exercise. If possible, avoid constipating medicines like narcotic pain medication. Some vitamin tablets can cause constipation. Stool softeners may be needed for difficult cases. An excellent stool softener is Konsyl which is available at [employer], [place]. Just add a teaspoon to a glass of pineapple or orange juice daily or twice a day if needed. Laxatives are useful for occasional constipation. You should use them only when necessary. Too-frequent use can make your bowels dependent on them. Some over the counter laxatives available without prescription are: Milk of Magnesia, 1-2 tablespoons twice a day Dulcolax, 5 mg pill or 10 mg suppository. Citrate of Magnesia, 4-5 ounces a day for a day or two For acute constipation, Fleet's Enemas and Dulcolax suppositories are helpful. Chronic, drier tender naphthalene use of laxatives or enemas is not a good idea. Your bowel may become dependant on them. You do not need to have a bowel movement every day. Many people do fine with a bowel movement every three or four days. You should call your doctor or return for re-evaluation if you pass blood in the stool, or if you develop fever or increasing abdominal pain. BULK LAXATIVES: Bulk laxatives make the stool softer and bulkier. They're useful for preventing constipation. You can choose between psyllium, methylcellulose, and polycarbophil. They are available without a prescription. Psyllium brand names include Konsyl, Metamucil, Perdiem, Effer-Syllium and Hydrocil. It's available as powder, flavored drink powder, or chewable. The usual dose of psyllium powder is one heaping teaspoon in water each morning, increasing to twice a day if needed. [place] juice can disguise the slightly grainy texture. Methylcellulose is marketed as Citrucel and other brands. The average dose is two grams in a cup of water one to three times a day. Polycarbophil is marketed as Fiber-Con. Take two tablets with a cup of water one to three times a day. LAXATIVE: A laxative agent has been prescribed for your condition. This should result in passage of stool within 12 hours. Some mild intestinal cramping is common as the hard stool begins to move. You may have loose or runny stools for a short time. Contact your doctor if there is severe cramping, vomiting, or passage of blood. Return for further care if this medicine fails to improve your condition. FOLLOW-UP CARE: If you have been referred to a physician for follow-up care, call the physician s office for an appointment as you were instructed or within the next two days. If you experience worsening or a significant change in your symptoms, notify the physician immediately or return to the Emergency Department at any time for re-evaluation. Prescriptions: Ondansetron [Zofran Odt 4 mg Tablet] 1 tab PO Q6H #15 tab.rapdis Forms: Elevated Blood Pressure Referrals: CLINTON HERNANDEZ PA-C [Primary Care Provider] - Follow up as needed
[2017-11-15 17:56] LABS: BACTERIA (WET MOUNT) 4+ BACTERIA SEEN; EPITHELIALS (WET MOUNT) 4+ EPITHELIALS SEEN; RBCS (WET MOUNT) NO RBCS SEEN; T.VAGINALIS (WET MOUNT) NO TRICHOMONAS SEEN; WBCS (WET MOUNT) FEW WBCS SEEN; YEAST (WET MOUNT) NO YEAST SEEN
[2017-11-15 18:18] LABS: ABSOLUTE BASOPHILS # (AUTO) 0.1 10^3/uL (0.0-0.2); ABSOLUTE LYMPHOCYTES (AUTO) 1.9 10^3/uL (0.5-4.7); ABSOLUTE MONOCYTES (AUTO) 0.7 10^3/uL (0.1-1.4); ABSOLUTE NEUT (AUTO) 4.6 10^3/uL (1.7-8.2); BASOPHILS % (AUTO) 0.8 % (0-2); EOSINOPHILS % (AUTO) 0.6 % (0-6); HEMATOCRIT 37.3 % (36.0-47.0); HEMOGLOBIN 11.9 g/dL (12.0-15.5); LYMPHOCYTES % (AUTO) 25.7 % (13-45); MEAN CORPUSCULAR HEMOGLOBIN 25.9 pg (27.0-33.4); MEAN CORPUSCULAR HGB CONC 31.9 g/dL (32.0-36.0); MEAN CORPUSCULAR VOLUME 81 fl (80-97); MONOCYTES % (AUTO) 9.6 % (3-13); PLATELET COUNT 289 10^3/uL (150-450); RED BLOOD COUNT 4.59 10^6/uL (3.72-5.28); RED CELL DISTRIBUTION WIDTH 14.6 % (11.5-14.0); SEGMENTED NEUTROPHILS % (AUTO) 63.3 % (42-78); TOTAL CELLS COUNTED % (AUTO) 100 %; WHITE BLOOD COUNT 7.3 10^3/uL (4.0-10.5)
[2017-11-15 18:31] LABS: ALANINE AMINOTRANSFERASE 24 U/L (9-52); ALBUMIN 4.1 g/dL (3.5-5.0); ALKALINE PHOSPHATASE 56 U/L (38-126); ANION GAP 9 (5-19); ASPARTATE AMINO TRANSFERASE 16 U/L (14-36); BILIRUBIN,DIRECT 0.4 mg/dL (0.0-0.4); BILIRUBIN,TOTAL 0.5 mg/dL (0.2-1.3); BLOOD UREA NITROGEN 7 mg/dL (7-20); CALCIUM 9.5 mg/dL (8.4-10.2); CARBON DIOXIDE 27 mmol/L (22-30); CHLORIDE 105 mmol/L (98-107); GLUCOSE 99 mg/dL (75-110); POTASSIUM 4.6 mmol/L (3.6-5.0); SODIUM 140.6 mmol/L (137-145)
[2017-11-15] MEDS ORDERED: ONDANSETRON 4 MG TAB.RAPDIS PO ONE (18:57)
[2017-11-15 19:21] LABS: CHLAM PCR NOT DETECTED (NOT DETECT); GON PCR NOT DETECTED (NOT DETECT)
[2017-11-15 19:45] LABS: APPEARANCE,URINE SLIGHTLY-CLOUDY; BILIRUBIN,URINE NEGATIVE (NEGATIVE); COLOR,URINE YELLOW; GLUCOSE, URINE NEGATIVE (NEGATIVE); KETONES,URINE NEGATIVE (NEGATIVE); LEUKOCYTE ESTERASE,URINE NEGATIVE (NEGATIVE); NITRITE,URINE NEGATIVE (NEGATIVE); PROTEIN,URINE NEGATIVE (NEGATIVE); URINE SPECIFIC GRAVITY 1.013
[2017-11-15] MEDS ORDERED: MINERAL OIL 30 ML UDCUP PR ONE (19:56)
[2017-11-15] MEDS ORDERED: METRONIDAZOLE 500 MG TABLET PO ONE (19:57)
--- NOTE | 2017-11-15 19:57 | RADIOLOGY REPORT (SQ) ---
EXAM DESCRIPTION: ACUTE ABDOMEN SERIES COMPLETED DATE/TIME: 11/15/2017 7:20 pm REASON FOR STUDY: abdominal pain COMPARISON: None. NUMBER OF VIEWS: Three views. TECHNIQUE: Frontal chest, supine abdomen and upright/decubitus abdomen radiographic images acquired. LIMITATIONS: None. FINDINGS: CHEST: Lungs clear of infiltrates. FREE AIR: None. No abnormal gas collections. BOWEL GAS PATTERN: Nonobstructive pattern. No dilated loops or air fluid levels. CALCIFICATIONS: No suspicious calcifications. HARDWARE: None in the abdomen. SOFT TISSUES: No gross mass or suggestion of organomegaly. BONES: No acute fracture. No worrisome bone lesions. OTHER: No other significant finding. IMPRESSION: NO RADIOGRAPHIC EVIDENCE FOR ACUTE ABDOMINAL DISEASE. TECHNICAL DOCUMENTATION: JOB ID: [id number] [employer]- All Rights Reserved Reading location - IP/workstation name: [email or web address]
[2017-11-15 21:12] VITALS: BP 196/125
== END 2017-11-15 21:13 | disposition home or self-care (01) ==
LOC: ER 16:36
DX: R10.84 Generalized abdominal pain (principal); I10 Essential (primary) hypertension; R11.2 Nausea with vomiting, unspecified
CPT/HCPCS: 99284; 36415; 87210; 84702; 85025; 80053; 81001; 87491; 87591; 74022; S0119; J3490 ×2

== ENCOUNTER 2017-11-25 08:47 | Emergency (ER) | payer MEDICAID ==
[2017-11-25 08:57] VITALS: BP 145/93
--- NOTE | 2017-11-25 09:41 | ER Document Report ---
ED General - General Chief Complaint: Shortness Of Breath Stated Complaint: COUGH, FEVER, SHORTHNESS OF BREATH Time Seen by Provider: 11/25/17 09:32 Notes: 32-year-old female here with complaints of dry cough congestion runny nose sore throat body aches fevers chills shortness of breath wheezing and minimal chest tightness that started 4 days ago. She has been using her albuterol for the symptoms which has been helping. Her last dose was yesterday evening. She has not been taking any other [id number] medications because she is afraid will elevate her blood pressure. No known sick contacts. Immunizations up-to- date except influenza vaccine. TRAVEL OUTSIDE OF THE [place] IN LAST 30 DAYS: No - Related Data Allergies/Adverse Reactions: banana Allergy (Severe, Verified 11/25/17 08:52) Anaphylaxis tramadol Allergy (Severe, Verified 11/25/17 08:52) Anaphylaxis atorvastatin [From Lipitor] Allergy (Intermediate, Verified 11/25/17 08:52) Generalized Itching lisinopril Allergy (Intermediate, Verified 11/25/17 08:52) Generalized rash Past Medical History - Social History Smoking Status: Current Some Day Smoker Frequency of alcohol use: None Drug Abuse: None Family History: Arthritis, CAD, COPD, CVA, DM, Hyperlipidemia, Hypertension, Malignancy, Thyroid Disfunction Patient has suicidal ideation: No Patient has homicidal ideation: No - Past Medical History Cardiac Medical History: Reports: Hx Hypercholesterolemia, Hx Hypertension Denies: Hx Coronary Artery Disease, Hx Heart Attack Pulmonary Medical History: Reports: Hx Asthma, Hx Sleep Apnea Denies: Hx Bronchitis, Hx COPD, Hx Pneumonia Neurological Medical History: Reports: Hx Migraine, Hx Seizures - unsure what type. Denies: Hx Cerebrovascular Accident Endocrine Medical History: Reports: Hx Diabetes Mellitus Type 2 Renal/ Medical History: Denies: Hx Peritoneal Dialysis Malignancy Medical History: Reports: Hx Cervical Cancer GI Medical History: Reports: Hx Gastroesophageal Reflux Disease, Hx Endoscopy Musculoskeltal Medical History: Reports Hx Arthritis, Reports Hx Musculoskeletal Deformity Psychiatric Medical History: Reports: Hx Depression Past Surgical History: Reports: Hx Dilation and Curettage, Hx Gynecologic Surgery - D&C, Hx Oral Surgery, Hx Orthopedic Surgery - carpal tunnel x2. Denies: Hx Hysterectomy - Immunizations Immunizations up to date: Yes Hx Diphtheria, Pertussis, Tetanus Vaccination: Yes - past Hx Pneumococcal Vaccination: 09/19/00 Review of Systems - Review of Systems Notes: See history of present illness for pertinent positive review of systems; otherwise all review of systems have been reviewed and are negative Physical Exam - Vital signs Vitals: Temp Pulse Resp BP Pulse Ox 98.6 F 71 20 145/93 H 98 11/25/17 08:56 11/25/17 08:56 11/25/17 08:56 11/25/17 08:56 11/25/17 08:56 - Notes Notes: PHYSICAL EXAMINATION: GENERAL: Well-appearing and in no acute distress. Morbidly obese female seen sitting in chair. HEAD: Atraumatic, normocephalic. EYES: Pupils equal round and reactive to light, extraocular movements intact, sclera anicteric, conjunctiva are normal. ENT: nares patent, oropharynx clear without exudates. Moist mucous membranes. NECK: Normal range of motion, supple without lymphadenopathy LUNGS: CTAB and equal. No wheezes rales or rhonchi. HEART: Regular rate and rhythm without murmurs ABDOMEN: Soft, no tenderness. No guarding, no rebound EXTREMITIES: Normal range of motion, no pitting edema. No cyanosis. NEUROLOGICAL: Cranial nerves grossly intact. Normal sensory/motor exams. PSYCH: Normal mood, normal affect. SKIN: Warm, Dry, normal turgor, no rashes or lesions noted Course - Re-evaluation Re-evalutation: 11/25/17 09:43 MEDICAL DECISION MAKING: Concern for upper respiratory infection, most likely viral Instructed patient on fever control with Tylenol and/or (if applicable) Motrin Also discussed keeping hydrated with water or Gatorade/Pedialyte Instructed follow-up PCP next day or few Patient understands and agrees to the plan of care - Vital Signs Vital signs: Temp Pulse Resp BP Pulse Ox 98.6 F 71 20 145/93 H 98 11/25/17 08:56 11/25/17 08:56 11/25/17 08:56 11/25/17 08:56 11/25/17 08:56 Discharge - Discharge Clinical Impression: Acute URI Condition: Good Disposition: HOME, SELF-CARE Additional Instructions: Finish the steroids and do not skip any doses. You were seen in the emergency department at [facility]. You likely have an upper respiratory infection, most likely viral. Use Motrin and/or Tylenol for fever control. You may use saline nasal spray for stuffy nose. Stay hydrated. Please followup with your primary physician in the next few days for further management /evaluation. Please return to the emergency department for worsening of symptoms or any symptom that you deem to be concerning or life-threatening. Thank you for allowing us to be part of your care. This is your school/work note for your Emergency Department evaluation today. Prescriptions: Benzonatate [Tessalon Perles 100 mg Capsule] 100 mg PO Q8HP PRN #40 capsule PRN Reason: Prednisone 60 mg PO DAILY 5 Days #15 tablet
== END 2017-11-25 09:42 | disposition home or self-care (01) ==
LOC: ER 08:47
DX: J06.9 Acute upper respiratory infection, unspecified (principal); R06.02 Shortness of breath; R50.9 Fever, unspecified; F17.200 Nicotine dependence, unspecified, uncomplicated; E78.00 Pure hypercholesterolemia, unspecified; I10 Essential (primary) hypertension; E11.9 Type 2 diabetes mellitus without complications; Z85.41 Personal history of malignant neoplasm of cervix uteri
CPT/HCPCS: 99283

== ENCOUNTER 2017-12-08 16:12 | Emergency (ER) | payer MEDICAID ==
[2017-12-08] MEDS ORDERED: ACETAMINOPHEN 325 MG TABLET PO ONE (16:46)
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
[2017-12-08 18:14] VITALS: BP 135/90
== END 2017-12-08 18:14 | disposition home or self-care (01) ==
LOC: ER 16:12
DX: S09.90XA Unspecified injury of head, initial encounter (principal); M54.2 Cervicalgia; M79.642 Pain in left hand; X93.XXXA Assault by handgun discharge, initial encounter; G89.29 Other chronic pain; I10 Essential (primary) hypertension; F17.200 Nicotine dependence, unspecified, uncomplicated; E11.9 Type 2 diabetes mellitus without complications
CPT/HCPCS: 99284; 73130; 70450; 72125; J3490

== ENCOUNTER 2017-12-20 09:57 | Emergency (ER) | payer MEDICAID ==
--- NOTE | 2017-12-20 10:32 | ER Document Report ---
ED Medical Screen (RME) - General Chief Complaint: Abdominal Cramping Stated Complaint: ABDOMINAL PAIN Time Seen by Provider: 12/20/17 10:26 Notes: 32-year-old female patient last menstrual period 10/26/2017 complaining of pelvic cramping for the past 3-4 days. No bleeding. She had positive hCG on 2017 and repeated again on 12/12/2017 at [facility]. Ultrasound was done on that day showing an IUP. I have greeted and performed a rapid initial assessment of this patient. A comprehensive ED assessment and evaluation of the patient, analysis of test results and completion of the medical decision making process will be conducted by additional ED providers. TRAVEL OUTSIDE OF THE [place] IN LAST 30 DAYS: No - Related Data Allergies/Adverse Reactions: banana Allergy (Severe, Verified 12/20/17 09:59) Anaphylaxis tramadol Allergy (Severe, Verified 12/20/17 09:59) Anaphylaxis atorvastatin [From Lipitor] Allergy (Intermediate, Verified 12/20/17 09:59) Generalized Itching lisinopril Allergy (Intermediate, Verified 12/20/17 09:59) Generalized rash Past Medical History - Social History Family history: CAD, CVA, DM, Hyperlipidemia, Hypertension, Malignancy, Thyroid Disfunction - Past Medical History Cardiac Medical History: Reports: Hx Hypercholesterolemia, Hx Hypertension Denies: Hx Coronary Artery Disease, Hx Heart Attack Pulmonary Medical History: Reports: Hx Asthma, Hx Sleep Apnea Denies: Hx Bronchitis, Hx COPD, Hx Pneumonia Neurological Medical History: Reports: Hx Migraine, Hx Seizures - unsure what type. Denies: Hx Cerebrovascular Accident Endocrine Medical History: Reports: Hx Diabetes Mellitus Type 2 Renal/ Medical History: Denies: Hx Peritoneal Dialysis Malignancy Medical History: Reports: Hx Cervical Cancer GI Medical History: Reports: Hx Gastroesophageal Reflux Disease, Hx Endoscopy Musculoskeltal Medical History: Reports Hx Arthritis, Reports Hx Musculoskeletal Deformity Psychiatric Medical History: Reports: Hx Depression Past Surgical History: Reports: Hx Dilation and Curettage, Hx Gynecologic Surgery - D&C, Hx Oral Surgery, Hx Orthopedic Surgery - carpal tunnel x2. Denies: Hx Hysterectomy - Immunizations Immunizations up to date: Yes Hx Diphtheria, Pertussis, Tetanus Vaccination: Yes - past Physical Exam - Vital signs Vitals: Temp Pulse Resp BP Pulse Ox 98.7 F 71 18 147/95 H 98 12/20/17 10:03 04/03/18 10:03 12/20/17 10:03 12/20/17 10:03 12/20/17 10:03 Course - Vital Signs Vital signs: Temp Pulse Resp BP Pulse Ox 98.7 F 71 18 147/95 H 98 12/20/17 10:03 12/20/17 10:03 12/20/17 10:03 12/20/17 10:03 12/20/17 10:03
[2017-12-20] MEDS ORDERED: ONDANSETRON HCL INJ/PF 4 MG/2 ML SDV IV ONE (10:45)
[2017-12-20 10:55] LABS: ABSOLUTE MONOCYTES (AUTO) 0.8 10^3/uL (0.1-1.4); ABSOLUTE NEUT (AUTO) 2.8 10^3/uL (1.7-8.2); BASOPHILS % (AUTO) 0.4 % (0-2); EOSINOPHILS % (AUTO) 0.7 % (0-6); HEMATOCRIT 35.3 % (36.0-47.0); HEMOGLOBIN 11.2 g/dL (12.0-15.5); LYMPHOCYTES % (AUTO) 35.6 % (13-45); MEAN CORPUSCULAR HEMOGLOBIN 26.1 pg (27.0-33.4); MEAN CORPUSCULAR HGB CONC 31.9 g/dL (32.0-36.0); MEAN CORPUSCULAR VOLUME 82 fl (80-97); MONOCYTES % (AUTO) 14.3 % (3-13); PLATELET COUNT 245 10^3/uL (150-450); RED BLOOD COUNT 4.31 10^6/uL (3.72-5.28); TOTAL CELLS COUNTED % (AUTO) 100 %; WHITE BLOOD COUNT 5.6 10^3/uL (4.0-10.5)
[2017-12-20] MEDS ORDERED: ONDANSETRON 4 MG TAB.RAPDIS PO ONE ×2 (10:57→12:46)
--- NOTE | 2017-12-20 11:00 | ER Document Report ---
ED General - General Chief Complaint: Abdominal Cramping Stated Complaint: ABDOMINAL PAIN Time Seen by Provider: 12/20/17 10:26 TRAVEL OUTSIDE OF THE [place] IN LAST 30 DAYS: No - HPI Notes: Patient is a 32-year-old female with 2 previous miscarriages who presents to the ED approximately 7 weeks complaining of intermittent cramping and nausea. Patient states that her symptoms have been ongoing for the last 3- 4 days. [facility] and had a test performed as well as an ultrasound which showed an intrauterine . Patient states that her pain does not radiate and has remained about the same throughout last several days. She has not noticed any vaginal discharge or bleeding. Patient does have an appointment scheduled with another RUBBER WORKER at [facility] on Tuesday. Patient states that she is still eating and drinking without difficulties. She is urinating normally and having normal bowel movements. Patient has a medical history significant for lupus, hypertension, and chronic pain. Denies any IV drug use. Denies any headache, fever, URI, sore throat, chest pain, palpitations, syncope, cough, shortness of breath, wheeze, dyspnea, vomiting/diarrhea, urinary retention, dysuria, hematuria, loss of control of bowel or bladder, numbness/tingling, saddle anesthesia, muscle paralysis/weakness, or rash. - Related Data Allergies/Adverse Reactions: banana Allergy (Severe, Verified 12/20/17 09:59) Anaphylaxis tramadol Allergy (Severe, Verified 12/20/17 09:59) Anaphylaxis atorvastatin [From Lipitor] Allergy (Intermediate, Verified 12/20/17 09:59) Generalized Itching lisinopril Allergy (Intermediate, Verified 12/20/17 09:59) Generalized rash Past Medical History - Social History Smoking Status: Former Smoker Chew tobacco use (# tins/day): No Frequency of alcohol use: None Drug Abuse: None Family History: Arthritis, CAD, COPD, CVA, DM, Hyperlipidemia, Hypertension, Malignancy, Thyroid Disfunction Patient has suicidal ideation: No Patient has homicidal ideation: No - Past Medical History Cardiac Medical History: Reports: Hx Hypercholesterolemia, Hx Hypertension Denies: Hx Coronary Artery Disease, Hx Heart Attack Pulmonary Medical History: Reports: Hx Asthma, Hx Sleep Apnea Denies: Hx Bronchitis, Hx COPD, Hx Pneumonia Neurological Medical History: Reports: Hx Migraine, Hx Seizures - unsure what type. Denies: Hx Cerebrovascular Accident Endocrine Medical History: Reports: Hx Diabetes Mellitus Type 2 Renal/ Medical History: Denies: Hx Peritoneal Dialysis Malignancy Medical History: Reports: Hx Cervical Cancer GI Medical History: Reports: Hx Gastroesophageal Reflux Disease, Hx Endoscopy Musculoskeltal Medical History: Reports Hx Arthritis, Reports Hx Musculoskeletal Deformity Psychiatric Medical History: Reports: Hx Depression Past Surgical History: Reports: Hx Dilation and Curettage, Hx Gynecologic Surgery - D&C, Hx Oral Surgery, Hx Orthopedic Surgery - carpal tunnel x2. Denies: Hx Hysterectomy - Immunizations Immunizations up to date: Yes Hx Diphtheria, Pertussis, Tetanus Vaccination: Yes - past Hx Pneumococcal Vaccination: 09/19/00 Review of Systems - Review of Systems -: Yes All other systems reviewed and negative Physical Exam - Vital signs Vitals: Temp Pulse Resp BP Pulse Ox 98.7 F 71 18 147/95 H 98 12/20/17 10:03 12/20/17 10:03 12/20/17 10:03 12/20/17 10:03 12/20/17 10:03 - Notes Notes: PHYSICAL EXAMINATION: GENERAL: Well-appearing, well-nourished and in no acute distress. Morbidly obese. Appears comfortable. LUNGS: Breath sounds clear to auscultation bilaterally and equal. No wheezes rales or rhonchi. HEART: Regular rate and rhythm without murmurs, rubs, gallops. ABDOMEN: Soft, nontender, nondistended abdomen. No guarding, no rebound. No masses appreciated. Normal bowel sounds present. No CVA tenderness bilaterally. Musculoskeletal: FROM to passive/active. Strength 5+/5. Extremities: No cyanosis, clubbing, or edema b/l. Peripheral pulses 2+. Capillary refill less than 3 seconds. NEUROLOGICAL: Normal speech, normal gait. Normal sensory, motor exams PSYCH: Normal mood, normal affect. SKIN: Warm, Dry, normal turgor, no rashes or lesions noted. Course - Re-evaluation Re-evalutation: 12/20/17 10:57 Labs, urine, and US have been ordered. ordered zofran as well. 12/20/17 14:07 Patient is an afebrile, well-hydrated, 32-year-old female who presents to the ED approximately 7 weeks with an intrauterine with a subchorionic bleed, closed cervix. Patient is in a threatened state. Vitals are acceptable. PE is otherwise unremarkable. CBC, urinalysis were unremarkable for any acute pathology. See transvaginal ultrasound report. Patient has been given Zofran and is tolerating p.o. without any difficulties. Patient has not had any worsening symptoms during her stay. Low suspicion/risk for acute appendicitis, bowel obstruction, acute cholecystitis, acute cholangitis, perforated diverticulitis, incarcerated hernia, pancreatitis, perforated ulcer, peritonitis, sepsis, pelvic inflammatory disease, ectopic , tubo-ovarian abscess, ovarian torsion, or other systemic emergent condition at this time. Patient is aware that her condition can change from initial presentation and she needs to monitor symptoms closely and seek medical attention if any acute changes. Zofran Rx. Conservative measures otherwise for symptoms. Recheck with OBGYN in 3-5 days. Recheck with your PCM in 3-5. Return to the ED with any worsening/concerning symptoms otherwise as reviewed in discharge. Patient is in agreement. - Vital Signs Vital signs: Temp Pulse Resp BP Pulse Ox 98.7 F 71 18 147/95 H 98 12/20/17 10:03 12/20/17 10:03 12/20/17 10:03 12/20/17 10:03 12/20/17 10:03 - Laboratory Result Diagrams: 12/20/17 10:40 Laboratory results interpreted by me: 12/20/17 12/20/17 12/20/17 10:40 10:40 11:50 Hgb 11.2 L Hct 35.3 L MCH 26.1 L MCHC 31.9 L RDW 15.0 H Monocytes % 14.3 H Beta HCG, Quant 05335.00 H Ur Leukocyte Esterase LARGE H Discharge - Discharge Clinical Impression: Pelvic pain affecting Qualifiers: Trimester: first trimester Qualified Code(s): O26.891 - Other specified related conditions, first trimester; R10.2 - Pelvic and perineal pain ; R10.2 - Pelvic and perineal pain Condition: Stable Disposition: HOME, SELF-CARE Instructions: Pelvic Pain in ([facility]), Bleeding During Early ( [facility]) Additional Instructions: Maintain fluids Proper hygenic technique Keep the skin clean Tylenol as needed Take medications as directed F/u with your PCM/OBGYN in 3-5 days for a recheck Return to the ED with any worsening symptoms and/or development of fever, headache, chest pain, palpitations, syncope, shortness of breath, trouble breathing, abdominal pain, n/v/d, blood in stool/urine, loss of control of bowel /bladder, urinary retention, or other worsening symptoms that are concerning to you. Prescriptions: Ondansetron [Zofran Odt 4 mg Tablet] 1 - 2 tab PO Q4H PRN #15 tab.rapdis PRN Reason: For Nausea/Vomiting Forms: Elevated Blood Pressure [facility]errals[facility] [Provider Group] - Follow up as needed (3-5 days)
[2017-12-20 12:16] LABS: APPEARANCE,URINE SLIGHTLY-CLOUDY; BILIRUBIN,URINE NEGATIVE (NEGATIVE); COLOR,URINE YELLOW; GLUCOSE, URINE NEGATIVE (NEGATIVE); KETONES,URINE NEGATIVE (NEGATIVE); LEUKOCYTE ESTERASE,URINE LARGE (NEGATIVE); NITRITE,URINE NEGATIVE (NEGATIVE); PROTEIN,URINE NEGATIVE (NEGATIVE); URINE SPECIFIC GRAVITY 1.005; UROBILINOGEN,URINE NEGATIVE mg/dL (<2.0)
[2017-12-20] MEDS ORDERED: FAMOTIDINE 20 MG TABLET PO ONE (12:47)
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
[2017-12-20 14:38] VITALS: BP 144/90
== END 2017-12-20 14:32 | disposition home or self-care (01) ==
LOC: ER 09:57
DX: O20.9 Hemorrhage in early pregnancy, unspecified (principal); O26.891 Other specified pregnancy related conditions, first trimester; O16.1 Unspecified maternal hypertension, first trimester; O24.911 Unspecified diabetes mellitus in pregnancy, first trimester; R10.2 Pelvic and perineal pain; R10.9 Unspecified abdominal pain; R11.0 Nausea; Z3A.01 Less than 8 weeks gestation of pregnancy; Z87.891 Personal history of nicotine dependence; J45.909 Unspecified asthma, uncomplicated
CPT/HCPCS: 99284; 36415; 84702; 85025; 81001; 76817; J3490; S0119

== ENCOUNTER 2018-01-08 18:39 | Emergency (ER) | payer MEDICAID ==
--- NOTE | 2018-01-08 19:26 | ER Document Report ---
ED General - General Mode of Arrival: Ambulatory Information source: Patient TRAVEL OUTSIDE OF THE [place] IN LAST 30 DAYS: No - General Stated Complaint: ABDOMINAL PAIN Time Seen by Provider: 01/08/18 19:01 Notes: Patient is a 32-year-old female with a history of a history of CAD, COPD, diabetes type 2, hypertension,hyperlipidemia, and a subchorionic bleed presents to the emergency department complaining of vaginal bleeding onset today. Patient describes her symptoms as similar to her menstrual period. She further states she has had minimal amount of blood clots. Patient states that she was recently prescribed progesterone by her PHILATELIC CONSULTANT. Patient denies any severe cramping. Patient's subchorionic bleed was approximately 3 weeks ago. Patient is . (GOPI FOLEY) - Related Data Allergies/Adverse Reactions: banana Allergy (Severe, Verified 12/20/17 09:59) Anaphylaxis tramadol Allergy (Severe, Verified 12/20/17 09:59) Anaphylaxis atorvastatin [From Lipitor] Allergy (Intermediate, Verified 12/20/17 09:59) Generalized Itching lisinopril Allergy (Intermediate, Verified 12/20/17 09:59) Generalized rash Past Medical History - General Information source: Patient - Social History Smoking Status: Former Smoker Cigarette use (# per day): No Chew tobacco use (# tins/day): No Smoking Education Provided: No Frequency of alcohol use: None Family History: Arthritis, CAD, COPD, CVA, DM, Hyperlipidemia, Hypertension, Malignancy, Thyroid Disfunction - Past Medical History Cardiac Medical History: Reports: Hx Hypercholesterolemia, Hx Hypertension Denies: Hx Coronary Artery Disease, Hx Heart Attack Pulmonary Medical History: Reports: Hx Asthma, Hx Sleep Apnea Denies: Hx Bronchitis, Hx COPD, Hx Pneumonia Neurological Medical History: Reports: Hx Migraine, Hx Seizures - unsure what type. Denies: Hx Cerebrovascular Accident Endocrine Medical History: Reports: Hx Diabetes Mellitus Type 2 Renal/ Medical History: Denies: Hx Peritoneal Dialysis Malignancy Medical History: Reports: Hx Cervical Cancer GI Medical History: Reports: Hx Gastroesophageal Reflux Disease, Hx Endoscopy Musculoskeltal Medical History: Reports Hx Arthritis, Reports Hx Musculoskeletal Deformity Psychiatric Medical History: Reports: Hx Depression Past Surgical History: Reports: Hx Dilation and Curettage, Hx Gynecologic Surgery - D&C, Hx Oral Surgery, Hx Orthopedic Surgery - carpal tunnel x2. Denies: Hx Hysterectomy - Immunizations Immunizations up to date: Yes Hx Diphtheria, Pertussis, Tetanus Vaccination: Yes - past Hx Pneumococcal Vaccination: 09/19/00 Review of Systems - Review of Systems Constitutional: No symptoms reported EENT: No symptoms reported Cardiovascular: No symptoms reported Respiratory: No symptoms reported Gastrointestinal: No symptoms reported Genitourinary: No symptoms reported Female Genitourinary: See HPI, Vaginal bleeding Musculoskeletal: No symptoms reported Skin: No symptoms reported Hematologic/Lymphatic: No symptoms reported Neurological/Psychological: No symptoms reported -: Yes All other systems reviewed and negative Physical Exam - General General appearance: Appears well, Alert In distress: None - Respiratory Respiratory status: No respiratory distress Chest status: Nontender Breath sounds: Normal Chest palpation: Normal - Cardiovascular Rhythm: Regular Heart sounds: Normal auscultation Murmur: No Friction rub: No Gallop: None auscultated - Abdominal Inspection: Morbidly Obese Distension: No distension Bowel sounds: Normal Tenderness: Nontender Organomegaly: No organomegaly - Back Back: Normal - Extremities General upper extremity: Normal ROM General lower extremity: Normal ROM - Neurological Neuro grossly intact: Yes Cognition: Normal Orientation: AAOx4 Blair Coma Scale Eye Opening: Spontaneous Arpita Coma Scale Verbal: Oriented Blair Coma Scale Motor: Obeys Commands Arpita Coma Scale Total: 15 Speech: Normal - Psychological Associated symptoms: Normal affect, Normal mood - Skin Skin Temperature: Warm Skin Moisture: Dry Skin Color: Normal Discharge - Discharge Clinical Impression: Vaginal bleeding during , with 10 completed weeks gestation Condition: Stable Disposition: HOME, SELF-CARE Additional Instructions: Bleeding During Early You have been evaluated for passing blood while . While we take this symptom very seriously, most women with your degree of bleeding will go on to have a perfectly normal baby. At this time, there is no indication that a miscarriage will occur. (A miscarriage occurs when the fetus is abnormal. There is no medicine or treatment to prevent it.) You should rest in bed until the symptoms have resolved. Do not douche or have sex for at least a week, or until OK'd by the doctor. Don't use tampons. Call the doctor or return for re-examination if there is an increase in bleeding or cramping, extreme weakness, fainting, new abdominal pain, fever, or passage of tissue. At this time your ultrasound shows a 10 week 2 day intrauterine with a heart rate of 153. There were no abnormalities seen. There was no subchorionic bleed seen on this ultrasound. Follow-up with [facility] this week for recheck. RETURN TO THE EMERGENCY ROOM IF ANY NEW OR WORSENING SYMPTOMS. Max Attestation: 01/08/18 20:15 I personally performed the services described in the documentation, reviewed and edited the documentation which was dictated to the scribe in my presence, and it accurately records my words and actions. (ANÍBAL FOX) Musht[employer]ibe Documentation - Scribe Written by Max:: Max Zaragoza, 01/08/2018 19:33 acting as scribe for :: Melody
--- NOTE | 2018-01-08 20:32 | RADIOLOGY REPORT (SQ) ---
EXAM DESCRIPTION: U/S OB TRANSVAGINAL W/O DOP COMPLETED DATE/TIME: 01/08/2018 7:50 pm REASON FOR STUDY: 10 wks, cramping, bleeding COMPARISON: None. TECHNIQUE: Transabdominal static and realtime grayscale images acquired of the pelvis. Additional se lected spectral and color Doppler images recorded. All images stored on PACs. bHCG: Pending. LIMITATIONS: None. FINDINGS: FETUS: Living intrauterine . EGA: 10 weeks 2 days RYAN: 08/04/2018 FHR: 153 beats per minute. SUBCHORIONIC BLEED: No SIZE OF BLEED: Not applicable. UTERUS: No masses. No anomalies. CERVICAL LENGTH: 3.6 cm Closed. RIGHT ADNEXA: Ovary not identified. No adnexal free fluid. No adnexal masses. LEFT ADNEXA: Ovary not identified. No adnexal free fluid. No adnexal masses. FREE FLUID: None. OTHER: No other significant finding. IMPRESSION: LIVING INTRAUTERINE . EGA 10 weeks 2 days Trimester of : First - 0 to 13 weeks. TECHNICAL DOCUMENTATION: JOB ID: [id number] 2010 [employer]- All Rights Reserved Reading location - IP/workstation name: [email or web address]
[2018-01-08 21:13] VITALS: BP 149/83
== END 2018-01-08 21:07 | disposition home or self-care (01) ==
LOC: ER 18:39
DX: O20.9 Hemorrhage in early pregnancy, unspecified (principal); O16.1 Unspecified maternal hypertension, first trimester; O99.511 Diseases of the respiratory system complicating pregnancy, first trimester; J44.9 Chronic obstructive pulmonary disease, unspecified; O24.111 Pre-existing type 2 diabetes mellitus, in pregnancy, first trimester; E11.9 Type 2 diabetes mellitus without complications; Z3A.10 10 weeks gestation of pregnancy; Z87.891 Personal history of nicotine dependence; Z88.8 Allergy status to other drugs, medicaments and biological substances; Z87.892 Personal history of anaphylaxis; Z88.5 Allergy status to narcotic agent; Z91.018 Allergy to other foods
CPT/HCPCS: 36415; 76817; 84702; 99284

== ENCOUNTER 2018-02-02 21:10 | Emergency (ER) | payer MEDICAID ==
--- NOTE | 2018-02-02 23:16 | ER Document Report ---
ED General - General Chief Complaint: Abdominal Pain Stated Complaint: VAGINAL BLEEDING,ABDOMINAL PAIN Time Seen by Provider: 02/02/18 23:08 Notes: Patient is a 32-year-old female presents with complaint of vaginal bleeding and . She is a . She has had 2 previous miscarriages. She is approximately 14 weeks . She does have history of lupus. She denies any blood thinning medications other than aspirin. Tonight after sex she had some vaginal bleeding which she says has since slowed down. She still has some intermittent cramping and pelvic region. No abnormal discharge. No vomiting. No other complaints at this time. She denies passing anything other than blood. TRAVEL OUTSIDE OF THE [place] IN LAST 30 DAYS: No - Related Data Allergies/Adverse Reactions: banana Allergy (Severe, Verified 12/20/17 09:59) Anaphylaxis tramadol Allergy (Severe, Verified 12/20/17 09:59) Anaphylaxis atorvastatin [From Lipitor] Allergy (Intermediate, Verified 12/20/17 09:59) Generalized Itching lisinopril Allergy (Intermediate, Verified 12/20/17 09:59) Generalized rash Past Medical History - Social History Smoking Status: Never Smoker Frequency of alcohol use: None Drug Abuse: None Family History: Arthritis, CAD, COPD, CVA, DM, Hyperlipidemia, Hypertension, Malignancy, Thyroid Disfunction - Past Medical History Cardiac Medical History: Reports: Hx Hypercholesterolemia, Hx Hypertension Denies: Hx Coronary Artery Disease, Hx Heart Attack Pulmonary Medical History: Reports: Hx Asthma, Hx Sleep Apnea Denies: Hx Bronchitis, Hx COPD, Hx Pneumonia Neurological Medical History: Reports: Hx Migraine, Hx Seizures - unsure what type. Denies: Hx Cerebrovascular Accident Endocrine Medical History: Reports: Hx Diabetes Mellitus Type 2 Renal/ Medical History: Denies: Hx Peritoneal Dialysis Malignancy Medical History: Reports: Hx Cervical Cancer GI Medical History: Reports: Hx Gastroesophageal Reflux Disease, Hx Endoscopy Musculoskeltal Medical History: Reports Hx Arthritis, Reports Hx Musculoskeletal Deformity Psychiatric Medical History: Reports: Hx Depression Past Surgical History: Reports: Hx Dilation and Curettage, Hx Gynecologic Surgery - D&C, Hx Oral Surgery, Hx Orthopedic Surgery - carpal tunnel x2. Denies: Hx Hysterectomy - Immunizations Immunizations up to date: Yes Hx Diphtheria, Pertussis, Tetanus Vaccination: Yes - past Hx Pneumococcal Vaccination: 09/19/00 Review of Systems - Review of Systems Notes: My Normal Review Basic REVIEW OF SYSTEMS: CONSTITUTIONAL : Denies fever, chills, or sweats. Denies recent illness. RESPIRATORY: Denies cough, cold, or chest congestion. Denies shortness of breath, difficulty breathing, or wheezing. GASTROINTESTINAL: Denies abdominal pain. Denies nausea, vomiting, or diarrhea. Denies constipation. Last BM: GENITOURINARY: Denies difficulty urinating, painful urination, burning, frequency, or blood in urine. FEMALE GENITOURINARY: 14 weeks . Currently has some vaginal bleeding. Some cramping. MUSCULOSKELETAL: Denies neck or back pain or joint pain or swelling. SKIN: Denies rash or skin lesions. NEUROLOGICAL: Denies altered mental status or loss of consciousness. Denies headache. Denies weakness or paralysis or loss of use of either side. Denies problems with gait or speech. Denies sensory or motor loss. ALL OTHER SYSTEMS REVIEWED AND NEGATIVE. Physical Exam - Notes Notes: General Appearance: Well nourished, alert, cooperative, no acute distress, no obvious discomfort. Well-appearing. Vitals: reviewed, See vital signs table. Head: no swelling or tenderness to the head Eyes: PERRL, EOMI, Conjuctiva clear Mouth: No decreasd moisture Lungs: No wheezing, No rales, No rhonci, No accessory muscle use, good air exchange bilaterally. Heart: Normal rate, Regular rythm, No murmur, no rub Abdomen: Normal BS, soft, No rigidity, very mild suprapubic tenderness to palpation. Remainder of abdomen is nontender., No guarding, no rebound, Pelvic exam: Pelvic exam performed with female elastic attacher chainstitch Sadie Quinones RN. She has normal external genitalia. On speculum exam she does have some whitish discharge. I did swab to discharge. Cervical office is closed. Patient did develop increased cramping during pelvic exam. Extremities: strength 5/5 in all extremities, good pulses in all extremities, no swelling or tenderness in the extremities, no edema. Skin: warm, dry, appropriate color, no rash Neuro: speech clear, oriented x 3, normal affect, responds appropriately to questions. Course - Re-evaluation Re-evalutation: 02/03/18 01:43 Patient looks well on exam. Pain seems to be improving some of the Tylenol. Her vaginal exam did not show evidence of blood in the vaginal vault. Wet prep swab was negative. I informed her we will call her if her gonorrhea and chlamydia swab are positive. I suspect that they will be negative. Her ultrasound did not show any concerning findings. She is O+ and therefore does not require ovarian. Informed her that she should avoid sexual activity and heavy lifting until cleared by her OB doctor since her pain and bleeding did start with sexual activity tonight. I encouraged her return to ER immediately if she has heavy bleeding, worsening pain, or feels unwell. Patient agrees with plan will be discharged home. Dictation of this chart was performed using voice recognition software; therefore, there may be some unintended grammatical errors. - Laboratory Result Diagrams: 02/02/18 23:35 Laboratory results interpreted by me: 02/02/18 02/02/18 02/02/18 23:15 23:35 23:35 Hgb 10.9 L Hct 32.6 L RDW 14.3 H Monocytes % 15.1 H Beta HCG, Quant 94479.00 H Urine Urobilinogen 4.0 H Ur Leukocyte Esterase SMALL H Discharge - Discharge Clinical Impression: Pelvic pain affecting Qualifiers: Trimester: unspecified trimester Qualified Code(s): O26.899 - Other specified related conditions, unspecified trimester; R10.2 - Pelvic and perineal pain; R10.2 - Pelvic and perineal pain Condition: Good Disposition: HOME, SELF-CARE Additional Instructions: Please follow up closely with your OB doctor tomorrow for reevaluation. Please avoid sexual activity and heavy lifting until cleared by your OB physician. Take Tylenol for pain. Return to the ER immediately if you have worsening pain, fevers, vomiting, heavy vaginal bleeding, or feel unwell. Referrals: KENDRA PEÑA MD [Primary Care Provider] - 02/03/18
[2018-02-02 23:36] LABS: APPEARANCE,URINE SLIGHTLY-CLOUDY; BILIRUBIN,URINE NEGATIVE (NEGATIVE); COLOR,URINE YELLOW; GLUCOSE, URINE NEGATIVE (NEGATIVE); KETONES,URINE NEGATIVE (NEGATIVE); LEUKOCYTE ESTERASE,URINE SMALL (NEGATIVE); NITRITE,URINE NEGATIVE (NEGATIVE); PROTEIN,URINE NEGATIVE (NEGATIVE); URINE SPECIFIC GRAVITY 1.027
[2018-02-02 23:49] LABS: ABSOLUTE BASOPHILS # (AUTO) 0.1 10^3/uL (0.0-0.2); ABSOLUTE NEUT (AUTO) 3.3 10^3/uL (1.7-8.2); BASOPHILS % (AUTO) 1.3 % (0-2); EOSINOPHILS % (AUTO) 0.6 % (0-6); HEMATOCRIT 32.6 % (36.0-47.0); HEMOGLOBIN 10.9 g/dL (12.0-15.5); LYMPHOCYTES % (AUTO) 31.4 % (13-45); MEAN CORPUSCULAR HGB CONC 33.4 g/dL (32.0-36.0); MEAN CORPUSCULAR VOLUME 81 fl (80-97); MONOCYTES % (AUTO) 15.1 % (3-13); PLATELET COUNT 221 10^3/uL (150-450); RED BLOOD COUNT 4.03 10^6/uL (3.72-5.28); RED CELL DISTRIBUTION WIDTH 14.3 % (11.5-14.0); SEGMENTED NEUTROPHILS % (AUTO) 51.6 % (42-78); TOTAL CELLS COUNTED % (AUTO) 100 %; WHITE BLOOD COUNT 6.4 10^3/uL (4.0-10.5)
[2018-02-03] MEDS ORDERED: ACETAMINOPHEN 325 MG TABLET PO ONE (00:29)
[2018-02-03 00:41] LABS: T.VAGINALIS (WET MOUNT) NO TRICHOMONAS SEEN; WBCS (WET MOUNT) RARE WBCS SEEN; YEAST (WET MOUNT) NO YEAST SEEN
--- NOTE | 2018-02-03 01:29 | RADIOLOGY REPORT (SQ) ---
EXAM DESCRIPTION: First trimester obstetrical ultrasound. CLINICAL HISTORY: 32 years Female, vaginal bleeding in LMP 10/26/2017 COMPARISON: 01/08/2018 TECHNIQUE: Complete first trimester obstetrical ultrasound with transabdominal imaging. Difficult exam due to patient body habitus. FINDINGS: The uterus measures 13.1 x 9.7 x 7.2 cm. Within the uterus there is a single gestational sac. Fetus is again identified with a crown-rump length of 7.32 cm compatible with an estimated gestational age of 13 weeks, 3 days. heart rate of 169 bpm. Cervical length of 3.2 cm and closed. Gestational sac is a relatively normal appearance. LVP of 3.0 cm. No free pelvic fluid. The ovaries are not identified. No large adnexal masses. IMPRESSION: Single live intrauterine with estimated gestational age of 13 weeks, 3 days. heart rate of 169 bpm. This is within normal expected growth range from comparison study.
[2018-02-03 02:01] VITALS: BP 133/79
[2018-02-03 02:08] LABS: CHLAM PCR NOT DETECTED (NOT DETECT); GON PCR NOT DETECTED (NOT DETECT)
== END 2018-02-03 01:50 | disposition home or self-care (01) ==
LOC: ER 21:10
DX: O26.892 Other specified pregnancy related conditions, second trimester (principal); R10.2 Pelvic and perineal pain; O20.9 Hemorrhage in early pregnancy, unspecified; O16.2 Unspecified maternal hypertension, second trimester; O99.511 Diseases of the respiratory system complicating pregnancy, first trimester; J45.909 Unspecified asthma, uncomplicated; O24.912 Unspecified diabetes mellitus in pregnancy, second trimester; Z3A.14 14 weeks gestation of pregnancy; Z87.59 Personal history of other complications of pregnancy, childbirth and the puerperium; Z79.82 Long term (current) use of aspirin; Z88.8 Allergy status to other drugs, medicaments and biological substances; Z87.892 Personal history of anaphylaxis; Z91.018 Allergy to other foods; Z88.5 Allergy status to narcotic agent; Z85.41 Personal history of malignant neoplasm of cervix uteri
CPT/HCPCS: 99284; 86900; 86901; 36415; 87210; 84702; 85025; 81001; 87491; 87591; 76801; J3490

== ENCOUNTER 2018-02-19 19:00 | Emergency (ER) | payer MEDICAID ==
[2018-02-19] MEDS ORDERED: ACETAMINOPHEN 325 MG TABLET PO ONE (19:35)
[2018-02-19] MEDS ORDERED: ONDANSETRON 4 MG TAB.RAPDIS PO ONE (19:35)
--- NOTE | 2018-02-19 19:35 | ER Document Report ---
ED General - General Chief Complaint: OB Problem (<20wks) Stated Complaint: ABDOMINAL PAIN Time Seen by Provider: 02/19/18 19:21 TRAVEL OUTSIDE OF THE [place] IN LAST 30 DAYS: No - HPI Notes: Patient is a 32-year-old female approximately 15 weeks who presents to the MD complaining of lower pelvic cramping intermittently over the last 2-3 days. Patient has had multiple visits over the last month or 2 about 4 similar symptoms. She is a history of 2 previous miscarriages. Patient states that she was recently sexually active and would like to make sure that there is no "bacterial" infection, probably. She has not had any vaginal discharge, odor, or bleeding. Patient states that she is eating and drinking without any difficulties. She is urinating normally and having normal bowel movements. Patient has not called her FAMILY RESOURCE MANAGEMENT SPECIALIST for this current issue. She has a medical history of hypertension and lupus otherwise. Denies any headache, fever, neck pain, URI, sore throat, chest pain, palpitations, syncope, cough, shortness of breath, wheeze, dyspnea, nausea/vomiting/diarrhea, urinary retention, dysuria, hematuria, back pain, loss of control of bowel or bladder, numbness/tingling, or rash. - Related Data Allergies/Adverse Reactions: banana Allergy (Severe, Verified 02/19/18 19:01) Anaphylaxis tramadol Allergy (Severe, Verified 02/19/18 19:01) Anaphylaxis atorvastatin [From Lipitor] Allergy (Intermediate, Verified 02/19/18 19:01) Generalized Itching lisinopril Allergy (Intermediate, Verified 02/19/18 19:01) Generalized rash Past Medical History - Social History Smoking Status: Never Smoker Family History: Arthritis, CAD, COPD, CVA, DM, Hyperlipidemia, Hypertension, Malignancy, Thyroid Disfunction - Past Medical History Cardiac Medical History: Reports: Hx Hypercholesterolemia, Hx Hypertension Denies: Hx Coronary Artery Disease, Hx Heart Attack Pulmonary Medical History: Reports: Hx Asthma, Hx Sleep Apnea Denies: Hx Bronchitis, Hx COPD, Hx Pneumonia Neurological Medical History: Reports: Hx Migraine, Hx Seizures - unsure what type. Denies: Hx Cerebrovascular Accident Endocrine Medical History: Reports: Hx Diabetes Mellitus Type 2 Renal/ Medical History: Denies: Hx Peritoneal Dialysis Malignancy Medical History: Reports: Hx Cervical Cancer GI Medical History: Reports: Hx Gastroesophageal Reflux Disease, Hx Endoscopy Musculoskeltal Medical History: Reports Hx Arthritis, Reports Hx Musculoskeletal Deformity Psychiatric Medical History: Reports: Hx Depression Past Surgical History: Reports: Hx Dilation and Curettage, Hx Gynecologic Surgery - D&C, Hx Oral Surgery, Hx Orthopedic Surgery - carpal tunnel x2. Denies: Hx Hysterectomy - Immunizations Immunizations up to date: Yes Hx Diphtheria, Pertussis, Tetanus Vaccination: Yes - past Hx Pneumococcal Vaccination: 09/19/00 Review of Systems - Review of Systems -: Yes All other systems reviewed and negative Physical Exam - Vital signs Vitals: Temp Pulse Resp BP Pulse Ox 98.8 F 92 20 159/79 H 97 02/19/18 19:08 02/19/18 19:08 02/19/18 19:08 02/19/18 19:08 02/19/18 19:08 - Notes Notes: PHYSICAL EXAMINATION: GENERAL: Well-appearing, well-nourished and in no acute distress. HEAD: Atraumatic, normocephalic. EYES: Pupils equal round and reactive to light, extraocular movements intact, sclera anicteric, conjunctiva are normal. ENT: Nares patent and without discharge. oropharynx clear without exudates. No tonsilar hypertrophy or erythema. Moist mucous membranes. NECK: Normal range of motion, supple without lymphadenopathy LUNGS: Breath sounds clear to auscultation bilaterally and equal. No wheezes rales or rhonchi. HEART: Regular rate and rhythm without murmurs, rubs, gallops. ABDOMEN: Soft, nontender, nondistended abdomen. No guarding, no rebound. No masses appreciated. Normal bowel sounds present. No CVA tenderness bilaterally. : deferred. Extremities: No cyanosis, clubbing, or edema b/l. Peripheral pulses 2+. Capillary refill less than 3 seconds. NEUROLOGICAL: Normal speech, normal gait. PSYCH: Normal mood, normal affect. SKIN: Warm, Dry, normal turgor, no rashes or lesions noted. Course - Re-evaluation Re-evalutation: 02/19/18 22:32 Patient is an afebrile, well-hydrated, 32-year-old female who presents to the ED with vaginal yeast infection and pelvic pain unspecified. Vitals are acceptable. PE is otherwise unremarkable. CBC, CMP, urinalysis were unremarkable for any acute pathology. Obstetrics ultrasound was also unremarkable for any acute pathology. See wet mount results. Chlam/celine tests neg. Urine cultures also pending. Patient has no significant tachycardia, tachypnea, or hypoxia. She is tolerating p.o. without any difficulties. Patient was given Tylenol and Zofran as well. No other labs or imaging warranted at this time based on H&P. Low suspicion/risk for acute appendicitis , bowel obstruction, acute cholecystitis, acute cholangitis, perforated diverticulitis, incarcerated hernia, pancreatitis, perforated ulcer, peritonitis , sepsis, ectopic , tubo-ovarian abscess, or other systemic emergent condition at this time. Patient is aware that her condition can change from initial presentation and she needs to monitor symptoms closely and seek medical attention if any acute changes. Conservative measures otherwise for symptoms. Recheck with OBGYN in 2-3 days. Recheck with your PCM in 2-3 days. Return to the ED with any worsening/concerning symptoms otherwise as reviewed in discharge. Patient is in agreement. - Vital Signs Vital signs: Temp Pulse Resp BP Pulse Ox 98.8 F 92 20 159/79 H 97 02/19/18 19:08 02/19/18 19:08 02/19/18 19:08 02/19/18 19:08 02/19/18 19:08 - Laboratory Result Diagrams: 02/19/18 21:00 02/19/18 21:00 Laboratory results interpreted by me: 02/19/18 02/19/18 02/19/18 20:19 21:00 21:00 Hgb 11.7 L Hct 35.4 L MCH 26.8 L RDW 14.1 H Monocytes % 13.2 H AST 12 L Albumin 3.4 L Urine Urobilinogen 4.0 H Ur Leukocyte Esterase LARGE H Discharge - Discharge Clinical Impression: Yeast infection, Pelvic pain Condition: Stable Disposition: HOME, SELF-CARE Instructions: Pelvic Pain in ([facility]), Vaginal Yeast Infection ([facility]) Additional Instructions: Maintain adequate fluid intake Proper hygenic technique Keep the skin clean Safe sexual practices with condoms everytime Tylenol/ibuprofen as needed Return immediately if symptoms worsen F/u with your PCM/OBGYN in 2-3 days for a recheck Return to the ED with any development of BULTER/fever, trouble with vision, eye redness, worsening pain, urethral discharge, urinary retention, blood in the urine, flank pain, abdominal pain, n/v, Chest Pain, shortness of breath, joint pains, trouble breathing, or any other worsening/concerning symptoms as needed otherwise. Prescriptions: Clotrimazole 1 applic VG DAILY #1 cream.appl Forms: Elevated Blood Pressure Referrals: KENDRA PEÑA MD [Primary Care Provider] - 02/21/18
[2018-02-19 20:55] LABS: APPEARANCE,URINE CLOUDY; BILIRUBIN,URINE NEGATIVE (NEGATIVE); CALCIUM OXALATE CRYSTALS,URINE TOO NUMEROUS TO CNT /HPF; COLOR,URINE YELLOW; GLUCOSE, URINE NEGATIVE (NEGATIVE); KETONES,URINE NEGATIVE (NEGATIVE); LEUKOCYTE ESTERASE,URINE LARGE (NEGATIVE); NITRITE,URINE NEGATIVE (NEGATIVE); PROTEIN,URINE NEGATIVE (NEGATIVE); RBCS (WET MOUNT) 1+ RBCS SEEN; T.VAGINALIS (WET MOUNT) NO TRICHOMONAS SEEN; URINE SPECIFIC GRAVITY 1.031; WBCS (WET MOUNT) RARE WBCS SEEN
[2018-02-19 20:56] LABS: BACTERIA (WET MOUNT) 4+ BACTERIA SEEN; YEAST (WET MOUNT) YEAST SEEN
[2018-02-19 21:08] LABS: ABSOLUTE LYMPHOCYTES (AUTO) 2.1 10^3/uL (0.5-4.7); ABSOLUTE MONOCYTES (AUTO) 0.9 10^3/uL (0.1-1.4); ABSOLUTE NEUT (AUTO) 3.8 10^3/uL (1.7-8.2); BASOPHILS % (AUTO) 0.4 % (0-2); EOSINOPHILS % (AUTO) 0.7 % (0-6); HEMATOCRIT 35.4 % (36.0-47.0); HEMOGLOBIN 11.7 g/dL (12.0-15.5); LYMPHOCYTES % (AUTO) 30.2 % (13-45); MEAN CORPUSCULAR HEMOGLOBIN 26.8 pg (27.0-33.4); MEAN CORPUSCULAR HGB CONC 32.9 g/dL (32.0-36.0); MEAN CORPUSCULAR VOLUME 82 fl (80-97); MONOCYTES % (AUTO) 13.2 % (3-13); PLATELET COUNT 235 10^3/uL (150-450); RED BLOOD COUNT 4.35 10^6/uL (3.72-5.28); RED CELL DISTRIBUTION WIDTH 14.1 % (11.5-14.0); SEGMENTED NEUTROPHILS % (AUTO) 55.5 % (42-78); TOTAL CELLS COUNTED % (AUTO) 100 %; WHITE BLOOD COUNT 6.8 10^3/uL (4.0-10.5)
[2018-02-19 21:29] LABS: ALANINE AMINOTRANSFERASE 21 U/L (9-52); ALBUMIN 3.4 g/dL (3.5-5.0); ALKALINE PHOSPHATASE 39 U/L (38-126); ANION GAP 9 (5-19); ASPARTATE AMINO TRANSFERASE 12 U/L (14-36); BILIRUBIN,DIRECT 0.2 mg/dL (0.0-0.4); BILIRUBIN,TOTAL 0.2 mg/dL (0.2-1.3); BLOOD UREA NITROGEN 12 mg/dL (7-20); CALCIUM 9.6 mg/dL (8.4-10.2); CARBON DIOXIDE 24 mmol/L (22-30); CHLORIDE 107 mmol/L (98-107); GLUCOSE 98 mg/dL (75-110); POTASSIUM 4.5 mmol/L (3.6-5.0); TOTAL PROTEIN 6.9 g/dL (6.3-8.2)
[2018-02-19 22:17] LABS: CHLAM PCR NOT DETECTED (NOT DETECT); GON PCR NOT DETECTED (NOT DETECT)
--- NOTE | 2018-02-19 22:22 | RADIOLOGY REPORT (SQ) ---
EXAM DESCRIPTION: U/S OB 14+ TRNABD 1GES W/O DOP COMPLETED DATE/TIME: 02/19/2018 10:11 pm REASON FOR STUDY: pelvic cramping, approx 15 wks COMPARISON: None. TECHNIQUE: Limited transvaginal grayscale ultrasound for evaluation of specific requested obstetrica l parameters. LIMITATIONS: Body habitus. FINDINGS: Single intrauterine with heart rate 139. Vertex presentation. Posterior grade 1 placenta. Cervical length 3.5 cm. Cervix is closed. Estimated gestational age 16 weeks 1 d ay. Estimated due date 08/05/2018. Adequate amniotic fluid. IMPRESSION: LIMITED OBSTETRICAL ULTRASOUND WITH MEASURED PARAMETERS DELINEATED ABOVE. Trimester of : Second trimester - 13 weeks 1 day to 27 weeks 6 days. TECHNICAL DOCUMENTATION: JOB ID: [id number] [employer]- All Rights Reserved Reading location - IP/workstation name: [email or web address]
[2018-02-19 23:22] VITALS: BP 138/91
== END 2018-02-19 23:23 | disposition home or self-care (01) ==
LOC: ER 19:00
DX: O98.812 Other maternal infectious and parasitic diseases complicating pregnancy, second trimester (principal); B37.3 Candidiasis of vulva and vagina; O26.92 Pregnancy related conditions, unspecified, second trimester; R10.2 Pelvic and perineal pain; Z3A.15 15 weeks gestation of pregnancy
CPT/HCPCS: 99284; 36415; 87086; 87210; 85025; 87088; 80053; 81001; 87491; 87591; 76805; J3490; S0119

== ENCOUNTER 2018-03-10 13:01 | Emergency (ER) | payer MEDICAID ==
--- NOTE | 2018-03-10 13:21 | ER Document Report ---
ED Medical Screen (RME) - General Chief Complaint: Pain All Over Stated Complaint: BODY PAIN Time Seen by Provider: 03/10/18 13:13 Mode of Arrival: Ambulatory Information source: Patient Notes: 32-year-old female who is 19 weeks history of hypertension on clonidine and carvedilol and a third blood pressure medication that was stopped due to the presents with complaints of generalized body aches headache blurry vision I have greeted and performed a rapid initial assessment of this patient. A comprehensive ED assessment and evaluation of the patient, analysis of test results and completion of the medical decision making process will be conducted by additional ED providers. PHYSICAL EXAMINATION: GENERAL: Obese female. HEAD: Atraumatic, normocephalic. EYES: Pupils equal round extraocular movements intact, conjunctiva are normal. ENT: Nares patent NECK: Normal range of motion LUNGS: No respiratory distress Musculoskeletal: Normal range of motion NEUROLOGICAL: Normal speech, normal gait. PSYCH: Normal mood, normal affect. SKIN: Warm, Dry, normal turgor, no rashes or lesions noted. TRAVEL OUTSIDE OF THE [place] IN LAST 30 DAYS: No - Related Data Allergies/Adverse Reactions: banana Allergy (Severe, Verified 02/19/18 19:01) Anaphylaxis tramadol Allergy (Severe, Verified 02/19/18 19:01) Anaphylaxis atorvastatin [From Lipitor] Allergy (Intermediate, Verified 02/19/18 19:01) Generalized Itching lisinopril Allergy (Intermediate, Verified 02/19/18 19:01) Generalized rash Past Medical History - Social History Chew tobacco use (# tins/day): No Frequency of alcohol use: None Drug Abuse: None Family history: CAD, CVA, DM, Hyperlipidemia, Hypertension, Malignancy, Thyroid Disfunction - Past Medical History Cardiac Medical History: Reports: Hx Hypercholesterolemia, Hx Hypertension Denies: Hx Coronary Artery Disease, Hx Heart Attack Pulmonary Medical History: Reports: Hx Asthma, Hx Sleep Apnea Denies: Hx Bronchitis, Hx COPD, Hx Pneumonia Neurological Medical History: Reports: Hx Migraine, Hx Seizures - unsure what type. Denies: Hx Cerebrovascular Accident Endocrine Medical History: Reports: Hx Diabetes Mellitus Type 2 Renal/ Medical History: Denies: Hx Peritoneal Dialysis Malignancy Medical History: Reports: Hx Cervical Cancer GI Medical History: Reports: Hx Gastroesophageal Reflux Disease, Hx Endoscopy Musculoskeltal Medical History: Reports Hx Arthritis, Reports Hx Musculoskeletal Deformity Psychiatric Medical History: Reports: Hx Depression Past Surgical History: Reports: Hx Dilation and Curettage, Hx Gynecologic Surgery - D&C, Hx Oral Surgery, Hx Orthopedic Surgery - carpal tunnel x2. Denies: Hx Hysterectomy - Immunizations Immunizations up to date: Yes Hx Diphtheria, Pertussis, Tetanus Vaccination: Yes - past Physical Exam - Vital signs Vitals: Temp Pulse BP Pulse Ox 98.9 F 84 151/85 H 94 03/10/18 13:07 03/10/18 13:07 03/10/18 13:07 03/10/18 13:07 Course - Vital Signs Vital signs: Temp Pulse Resp BP Pulse Ox 98.9 F 84 151/85 H 94 03/10/18 13:07 03/10/18 13:07 03/10/18 13:07 03/10/18 13:07 Doctor's Discharge - Discharge Referrals: KENDRA PEÑA MD [Primary Care Provider] - Follow up as needed
[2018-03-10 14:06] LABS: ABSOLUTE LYMPHOCYTES (AUTO) 1.5 10^3/uL (0.5-4.7); ABSOLUTE MONOCYTES (AUTO) 0.8 10^3/uL (0.1-1.4); ABSOLUTE NEUT (AUTO) 3.9 10^3/uL (1.7-8.2); BASOPHILS % (AUTO) 0.2 % (0-2); EOSINOPHILS % (AUTO) 0.8 % (0-6); HEMATOCRIT 30.9 % (36.0-47.0); HEMOGLOBIN 10.3 g/dL (12.0-15.5); LYMPHOCYTES % (AUTO) 24.5 % (13-45); MEAN CORPUSCULAR HEMOGLOBIN 26.9 pg (27.0-33.4); MEAN CORPUSCULAR HGB CONC 33.2 g/dL (32.0-36.0); MEAN CORPUSCULAR VOLUME 81 fl (80-97); MONOCYTES % (AUTO) 12.2 % (3-13); PLATELET COUNT 234 10^3/uL (150-450); RED BLOOD COUNT 3.82 10^6/uL (3.72-5.28); RED CELL DISTRIBUTION WIDTH 13.8 % (11.5-14.0); SEGMENTED NEUTROPHILS % (AUTO) 62.3 % (42-78); TOTAL CELLS COUNTED % (AUTO) 100 %; WHITE BLOOD COUNT 6.3 10^3/uL (4.0-10.5)
[2018-03-10 14:25] LABS: ALANINE AMINOTRANSFERASE 21 U/L (9-52); ALBUMIN 3.5 g/dL (3.5-5.0); ALKALINE PHOSPHATASE 38 U/L (38-126); ANION GAP 9 (5-19); ASPARTATE AMINO TRANSFERASE 14 U/L (14-36); BILIRUBIN,DIRECT 0.3 mg/dL (0.0-0.4); BILIRUBIN,TOTAL 0.5 mg/dL (0.2-1.3); BLOOD UREA NITROGEN 6 mg/dL (7-20); CALCIUM 9.2 mg/dL (8.4-10.2); CARBON DIOXIDE 22 mmol/L (22-30); CHLORIDE 111 mmol/L (98-107); GLUCOSE 107 mg/dL (75-110); POTASSIUM 4.1 mmol/L (3.6-5.0); TOTAL PROTEIN 6.9 g/dL (6.3-8.2)
[2018-03-10] MEDS ORDERED: ACETAMINOPHEN 325 MG TABLET PO ONE (15:20)
[2018-03-10 15:59] LABS: AMORPHOUS SEDIMENT,URINE TRACE /HPF; APPEARANCE,URINE TURBID; BILIRUBIN,URINE NEGATIVE (NEGATIVE); COLOR,URINE YELLOW; GLUCOSE, URINE NEGATIVE (NEGATIVE); KETONES,URINE 20 mg/dL (NEGATIVE); LEUKOCYTE ESTERASE,URINE LARGE (NEGATIVE); NITRITE,URINE NEGATIVE (NEGATIVE); PROTEIN,URINE NEGATIVE (NEGATIVE); URINE SPECIFIC GRAVITY 1.026
--- NOTE | 2018-03-10 17:19 | ER Document Report ---
ED General Pain - General Chief Complaint: Pain All Over Stated Complaint: BODY PAIN Time Seen by Provider: 03/10/18 13:13 Mode of Arrival: Ambulatory Information source: Patient Notes: Patient is a 32-year-old female approximately 19 weeks who presents to the ER today for all over body pain as she does have lupus, and not feeling any movement and 2 days. Patient states that she usually feels the baby move around. She admits to some lower abdominal cramping. She denies any abnormal vaginal discharge, vaginal bleeding. She denies any fevers or chills. She has been taking Tylenol for her chronic pain. TRAVEL OUTSIDE OF THE [place] IN LAST 30 DAYS: No - Related Data Allergies/Adverse Reactions: banana Allergy (Severe, Verified 02/19/18 19:01) Anaphylaxis tramadol Allergy (Severe, Verified 02/19/18 19:01) Anaphylaxis atorvastatin [From Lipitor] Allergy (Intermediate, Verified 02/19/18 19:01) Generalized Itching lisinopril Allergy (Intermediate, Verified 02/19/18 19:01) Generalized rash Past Medical History - General Information source: Patient - Social History Smoking Status: Never Smoker Chew tobacco use (# tins/day): No Frequency of alcohol use: None Drug Abuse: None Family History: Arthritis, CAD, COPD, CVA, DM, Hyperlipidemia, Hypertension, Malignancy, Thyroid Disfunction Patient has suicidal ideation: No Patient has homicidal ideation: No - Past Medical History Cardiac Medical History: Reports: Hx Hypercholesterolemia, Hx Hypertension Denies: Hx Coronary Artery Disease, Hx Heart Attack Pulmonary Medical History: Reports: Hx Asthma, Hx Sleep Apnea Denies: Hx Bronchitis, Hx COPD, Hx Pneumonia Neurological Medical History: Reports: Hx Migraine, Hx Seizures - unsure what type. Denies: Hx Cerebrovascular Accident Endocrine Medical History: Reports: Hx Diabetes Mellitus Type 2 Renal/ Medical History: Denies: Hx Peritoneal Dialysis Malignancy Medical History: Reports: Hx Cervical Cancer GI Medical History: Reports: Hx Gastroesophageal Reflux Disease, Hx Endoscopy Musculoskeltal Medical History: Reports Hx Arthritis, Reports Hx Musculoskeletal Deformity Psychiatric Medical History: Reports: Hx Depression Past Surgical History: Reports: Hx Dilation and Curettage, Hx Gynecologic Surgery - D&C, Hx Oral Surgery, Hx Orthopedic Surgery - carpal tunnel x2. Denies: Hx Hysterectomy - Immunizations Immunizations up to date: Yes Hx Diphtheria, Pertussis, Tetanus Vaccination: Yes - past Hx Pneumococcal Vaccination: 09/19/00 Review of Systems - Review of Systems Constitutional: No symptoms reported EENT: No symptoms reported Cardiovascular: No symptoms reported Respiratory: No symptoms reported Gastrointestinal: No symptoms reported Genitourinary: No symptoms reported Female Genitourinary: See HPI Musculoskeletal: See HPI Skin: No symptoms reported Hematologic/Lymphatic: No symptoms reported Neurological/Psychological: No symptoms reported Physical Exam - Vital signs Vitals: Temp Pulse BP Pulse Ox 98.9 F 84 151/85 H 94 03/10/18 13:07 03/10/18 13:07 03/10/18 13:07 03/10/18 13:07 - Notes Notes: PHYSICAL EXAMINATION: GENERAL: Morbidly obese, texting on phone, in no acute distress. HEAD: Atraumatic, normocephalic. EYES: Pupils equal round and reactive to light, extraocular movements intact, sclera anicteric, conjunctiva are normal. NECK: Normal range of motion, supple without lymphadenopathy LUNGS: CTAB and equal. No wheezes rales or rhonchi. HEART: Regular rate and rhythm without murmurs ABDOMEN: Soft, no tenderness. No guarding, no rebound BACK: no vertebral tenderness, normal ROM GI/: no CVA tenderness EXTREMITIES: Normal range of motion, no pitting edema. No cyanosis. NEUROLOGICAL: Cranial nerves grossly intact. Normal sensory/motor exams. PSYCH: Normal mood, normal affect. SKIN: Warm, Dry, normal turgor, no rashes or lesions noted Course - Re-evaluation Re-evalutation: 03/10/18 18:33 Ultrasound reveals heart tones 128 bpm, good movement per restaurant maintenance technician, patient to continue taking Tylenol every 4 hours as needed for pain, I did advise her not to overdose on the Tylenol and only take up to 975 mg at bedtime. She is happy with results today. - Vital Signs Vital signs: Temp Pulse Resp BP Pulse Ox 98.7 F 78 18 148/96 H 100 03/10/18 17:58 03/10/18 17:58 03/10/18 17:58 03/10/18 17:58 03/10/18 17:58 - Laboratory Result Diagrams: 03/10/18 13:54 03/10/18 13:54 Laboratory results interpreted by me: 03/10/18 03/10/18 03/10/18 13:54 13:54 13:54 Hgb 10.3 L Hct 30.9 L MCH 26.9 L Chloride 111 H BUN 6 L Urine Ketones 20 H Urine Urobilinogen 4.0 H Ur Leukocyte Esterase LARGE H Urine Ascorbic Acid 20 H Discharge - Discharge Clinical Impression: Decreased movement during Qualifiers: Fetus number: single or unspecified fetus Trimester: second trimester Qualified Code(s): O36.8120 - Decreased movements, second trimester, not applicable or unspecified Chronic pain Qualifiers: Chronic pain type: other chronic pain Qualified Code(s): G89.29 - Other chronic pain Condition: Stable Disposition: HOME, SELF-CARE Additional Instructions: Please take tylenol for your pain. You had movement on ultrasound today and a good heart rate. Return immediately for any new or worsening symptoms. Follow up with primary care provider, call tomorrow to make followup appointment. Referrals: KENDRA PEÑA MD [Primary Care Provider] - Follow up as needed
--- NOTE | 2018-03-10 17:30 | RADIOLOGY REPORT (SQ) ---
EXAM DESCRIPTION: U/S OB LIMITED COMPLETED DATE/TIME: 03/10/2018 5:20 pm REASON FOR STUDY: no hearttones, can't feel baby move COMPARISON: None. TECHNIQUE: Limited transabdominal grayscale ultrasound for evaluation of specific requested obstetri parisa parameters. LIMITATIONS: Limited exam due to the patient's obesity. FINDINGS: CERVICAL LENGTH: 3.2 cm. Closed. MARGO: 9.6 cm. FHR: 128 beats per minute. PRESENTATION: Cephalic. PLACENTA: Posterior. OTHER: No other significant findings. IMPRESSION: LIMITED OBSTETRICAL ULTRASOUND WITH MEASURED PARAMETERS DELINEATED ABOVE. Trimester of : Second trimester - 13 weeks 1 day to 27 weeks 6 days. TECHNICAL DOCUMENTATION: JOB ID: [id number] [employer]- All Rights Reserved Reading location - IP/workstation name: [email or web address]
[2018-03-10 18:27] VITALS: BP 148/96
== END 2018-03-10 18:05 | disposition home or self-care (01) ==
LOC: ER 13:01
DX: O99.352 Diseases of the nervous system complicating pregnancy, second trimester (principal); G89.29 Other chronic pain; Z79.899 Other long term (current) drug therapy; O36.8120 Decreased fetal movements, second trimester, not applicable or unspecified; O26.892 Other specified pregnancy related conditions, second trimester; R10.30 Lower abdominal pain, unspecified; O16.2 Unspecified maternal hypertension, second trimester; O99.512 Diseases of the respiratory system complicating pregnancy, second trimester; J45.909 Unspecified asthma, uncomplicated; O24.112 Pre-existing type 2 diabetes mellitus, in pregnancy, second trimester; E11.9 Type 2 diabetes mellitus without complications; Z3A.00 Weeks of gestation of pregnancy not specified; Z88.8 Allergy status to other drugs, medicaments and biological substances; Z87.892 Personal history of anaphylaxis; Z91.018 Allergy to other foods; Z88.5 Allergy status to narcotic agent
CPT/HCPCS: 99284; 36415; 85025; 80053; 81001; 76815; J3490

== ENCOUNTER 2018-04-01 01:59 | Outpatient (CLI) | payer MEDICAID ==
[2018-04-01 02:51] LABS: APPEARANCE,URINE CLOUDY; BILIRUBIN,URINE SMALL (NEGATIVE); COLOR,URINE AMBER; GLUCOSE, URINE NEGATIVE (NEGATIVE); KETONES,URINE NEGATIVE (NEGATIVE); LEUKOCYTE ESTERASE,URINE MODERATE (NEGATIVE); NITRITE,URINE NEGATIVE (NEGATIVE); PROTEIN,URINE 30 mg/dL (NEGATIVE); URINE SPECIFIC GRAVITY 1.031
[2018-04-01 03:03] LABS: URINE AMPHETAMINES SCREEN NEGATIVE; URINE BARBITURATES SCREEN NEGATIVE; URINE BENZODIAZEPINES SCREEN NEGATIVE; URINE COCAINE SCREEN NEGATIVE; URINE MARIJUANA (THC) SCREEN NEGATIVE; URINE METHADONE SCREEN NEGATIVE; URINE PHENCYCLIDINE SCREEN NEGATIVE
[2018-04-01 03:43] LABS: BACTERIA (WET MOUNT) 4+ BACTERIA SEEN; EPITHELIALS (WET MOUNT) 4+ EPITHELIALS SEEN; RBCS (WET MOUNT) FEW RBCS SEEN; T.VAGINALIS (WET MOUNT) NO TRICHOMONAS SEEN; WBCS (WET MOUNT) 1+ WBCS SEEN; YEAST (WET MOUNT) NO YEAST SEEN
[2018-04-01 05:06] LABS: CHLAM PCR NOT DETECTED (NOT DETECT); GON PCR NOT DETECTED (NOT DETECT)
--- NOTE | 2018-04-01 05:16 | RADIOLOGY REPORT (SQ) ---
EXAM DESCRIPTION: US LIMITED COMPLETED DATE/TME: 04/01/2018 03:24 CLINICAL HISTORY: 32 years, Female, cervical length for cramping COMPARISON: None. TECHNIQUE/LIMITATIONS: Targeted obstetrical ultrasound for desired measurements. FINDINGS: Cervical length of 3.2 cm and closed. position: Vertex MARGO: 9.6 cm and clear. heart rate of 128 bpm. Placenta location is posterior. IMPRESSION: Single intrauterine with heart rate of 128 beats for minute. 2011 [employer]- All Rights Reserved
[2018-04-01] MEDS ORDERED: ONDANSETRON 4 MG TAB.RAPDIS PO ONE (05:20)
[2018-04-01] MEDS ORDERED: ACETAMINOPHEN 325 MG TABLET PO ONE (05:20)
[2018-04-01] MEDS ORDERED: ACETAMINOPHEN 325 MG TABLET ONE (05:35)
[2018-04-01] MEDS ORDERED: ONDANSETRON 4 MG TAB.RAPDIS ONE ×2 (05:35→05:36)
== END 2018-04-01 05:48 | disposition home or self-care (01) ==
LOC: LC 01:59
PROVIDERS: ATTEND Obstetrics & Gynecology Gynecology
PROC: 4A1HXCZ Monitoring of Products of Conception, Cardiac Rate, External Approach (ICD-10-PCS; principal; 2018-04-01)
DX: O47.02 False labor before 37 completed weeks of gestation, second trimester (principal); Z3A.22 22 weeks gestation of pregnancy
CPT/HCPCS: 87210; 81001; 80307; 87491; 87591; 76815; 59899; J3490; S0119

== ENCOUNTER 2018-04-26 21:13 | Outpatient (CLI) | payer MEDICAID ==
[2018-04-26 22:44] LABS: URINE AMPHETAMINES SCREEN NEGATIVE; URINE BARBITURATES SCREEN NEGATIVE; URINE BENZODIAZEPINES SCREEN NEGATIVE; URINE COCAINE SCREEN NEGATIVE; URINE MARIJUANA (THC) SCREEN NEGATIVE; URINE METHADONE SCREEN NEGATIVE; URINE PHENCYCLIDINE SCREEN NEGATIVE
[2018-04-26 22:46] LABS: APPEARANCE,URINE CLOUDY; BILIRUBIN,URINE NEGATIVE (NEGATIVE); CALCIUM OXALATE CRYSTALS,URINE MANY /HPF; COLOR,URINE YELLOW; GLUCOSE, URINE NEGATIVE (NEGATIVE); KETONES,URINE NEGATIVE (NEGATIVE); LEUKOCYTE ESTERASE,URINE LARGE (NEGATIVE); NITRITE,URINE NEGATIVE (NEGATIVE); PROTEIN,URINE 30 mg/dL (NEGATIVE)
[2018-04-26] MEDS ORDERED: RINGERS SOLUTION,LACTATED 1,000 ML IV PRN (22:54)
[2018-04-26] MEDS ORDERED: ACETAMINOPHEN 325 MG TABLET PO ONE (23:34)
[2018-04-26] MEDS ORDERED: ACETAMINOPHEN 325 MG TABLET ONE (23:37)
--- NOTE | 2018-04-27 01:04 | RADIOLOGY REPORT (SQ) ---
EXAM DESCRIPTION: US LIMITED COMPLETED DATE/TME: 04/27/2018 00:00 CLINICAL HISTORY: 32 years, Female, cervical length, contractions COMPARISON: None. TECHNIQUE: Limited second trimester obstetrical ultrasound for specific measurements. FINDINGS: Cervical length: 2.9 cm and closed. Likely nabothian cyst in the cervix. position: Breech. heart rate: 152 bpm. IMPRESSION: Single live intrauterine with heart rate of 152 bpm. 2010 [employer]- All Rights Reserved
== END 2018-04-27 01:38 | disposition home or self-care (01) ==
LOC: EDSTATUS 21:19 → LC 21:21
PROVIDERS: ATTEND Obstetrics & Gynecology
PROC: 4A1HXCZ Monitoring of Products of Conception, Cardiac Rate, External Approach (ICD-10-PCS; principal; 2018-04-26)
DX: O47.02 False labor before 37 completed weeks of gestation, second trimester (principal); O26.892 Other specified pregnancy related conditions, second trimester; E86.0 Dehydration; D64.9 Anemia, unspecified; Z3A.25 25 weeks gestation of pregnancy
CPT/HCPCS: 81001; 80307; 76815; 59899; J3490

== ENCOUNTER 2018-05-01 11:38 | Observation (INO) | payer MEDICAID ==
[2018-05-01 12:29] LABS: APPEARANCE,URINE SLIGHTLY-CLOUDY; BILIRUBIN,URINE NEGATIVE (NEGATIVE); COLOR,URINE YELLOW; GLUCOSE, URINE NEGATIVE (NEGATIVE); KETONES,URINE NEGATIVE (NEGATIVE); LEUKOCYTE ESTERASE,URINE MODERATE (NEGATIVE); NITRITE,URINE NEGATIVE (NEGATIVE); PROTEIN,URINE NEGATIVE (NEGATIVE)
[2018-05-01 12:59] LABS: URINE AMPHETAMINES SCREEN NEGATIVE; URINE BARBITURATES SCREEN NEGATIVE; URINE BENZODIAZEPINES SCREEN NEGATIVE; URINE COCAINE SCREEN NEGATIVE; URINE MARIJUANA (THC) SCREEN NEGATIVE; URINE METHADONE SCREEN NEGATIVE; URINE PHENCYCLIDINE SCREEN NEGATIVE
[2018-05-01] MEDS ORDERED: ACETAMINOPHEN 325 MG TABLET ONE (14:47)
[2018-05-01 15:01] LABS: HEMATOCRIT 31.6 % (36.0-47.0); HEMOGLOBIN 10.3 g/dL (12.0-15.5); MEAN CORPUSCULAR HEMOGLOBIN 26.5 pg (27.0-33.4); MEAN CORPUSCULAR HGB CONC 32.7 g/dL (32.0-36.0); MEAN CORPUSCULAR VOLUME 81 fl (80-97); PLATELET COUNT 207 10^3/uL (150-450); WHITE BLOOD COUNT 5.7 10^3/uL (4.0-10.5)
[2018-05-01] MEDS ORDERED: ACETAMINOPHEN 325 MG TABLET PO ONE (15:01)
--- NOTE | 2018-05-01 15:04 | RADIOLOGY REPORT (SQ) ---
EXAM DESCRIPTION: U/S OB LIMITED COMPLETED DATE/TIME: 05/01/2018 2:55 pm REASON FOR STUDY: pt is morbidly obese and having uterine cramping COMPARISON: None. TECHNIQUE: Limited transvaginal grayscale ultrasound for evaluation of specific requested obstetrica l parameters. LIMITATIONS: None. FINDINGS: Cervix is closed. 4.5 cm. Vertex presentation. heart rate 137. Posterior placent a. IMPRESSION: LIMITED OBSTETRICAL ULTRASOUND WITH MEASURED PARAMETERS DELINEATED ABOVE. Trimester of : Second trimester - 13 weeks 1 day to 27 weeks 6 days. TECHNICAL DOCUMENTATION: JOB ID: [id number] [employer]- All Rights Reserved Reading location - IP/workstation name: [email or web address]
[2018-05-01 15:29] LABS: UR PRO/CREAT RATIO RESULT 0.1 mg/mg (0.0-0.2); URINE CREATININE 166.7 mg/dL (16-327); URINE PROTEIN 10.6 mg/dL (<12)
[2018-05-01] MEDS ORDERED: RINGERS SOLUTION,LACTATED 1,000 ML IV ONE (15:40)
[2018-05-01] MEDS ORDERED: CARVEDILOL 12.5 MG TABLET PO SCH ×2 (16:00→22:00)
[2018-05-01] MEDS ORDERED: CLONIDINE HCL 0.2 MG TABLET PO SCH ×2 (16:00→22:00)
--- NOTE | 2018-05-01 16:25 | Admission Physical ---
Datetime Report Generated by CPN: 05/01/2018 16:24 CURRENT ADMISSION Chief Complaint: Signs/Symptoms Gestational HTN Indication for Induction: Not Applicable Admit Impression : , Intrauterine Admit Plan: Initiate Labor Protocol; Observation/Evaluation Admit Plan- Other: Need for improved BP management. Hospitalist consulted ALLERGIES Medication Allergies: Yes Medication Allergies: lisinopril/MO/Generalized damari (04/01/2018); tramadol/SV/Anaphylaxis (04/01/2018); atorvastatin/MO/Generalized Itc (04/01/2018); banana/SV/Anaphylaxis (04/01/2018) Latex: No Latex Allergies Food Allergies: denies Environmental Allergies: denies OBSTETRICAL HISTORY EDC: 08/02/2018 00:00 : 3 Para: 0 Term: 0 : 0 SAB: 2 IAB: 0 Ectopic: 0 Livin Cesareans: 0 VBACs: 0 Multiple Births: 0 Gestational Diabetes: No Rh Sensitization: No Incompetent Cervix: No MARYAM: No Infertility: No ART Treatment: No Uterine Anomaly: No IUGR: No Hx Previous C/S: No Macrosomia: No Hx Loss/Stillborn: No PIH: No Hx : No Placenta Previa/Abruption: No Depression/PP Depression: No PTL/PROM: No Post Hemorrhage: No Current Procedures: Ultrasound Obstetrical History Comments: g1- sab g2- sab g3-current , plans to deliver at [facility] due to elevated BMI and health conditions, positive SMA test and SSA/Ro antibody positive SEE RECORDS Alcohol: No Marijuana : No Cocaine: No Other Illicit Drugs: No Cigarettes: Former Smoker. [id number] MEDICAL HISTORY Diabetes: No Blood Transfusion: No Pulmonary Disease (Asthma, TB): Yes Breast Disease: No Hypertension: Yes Line Maintenance Surgery: No Heart Disease: No Hosp/Surgery: Yes Autoimmune Disorder: Yes Anesthetic Complications: No Kidney Disease: No Abnormal Pap Smear: Yes Neuro/Epilepsy: Yes Psychiatric Disorders: No Other Medical Diseases: Yes Hepatitis/Liver Disease: No Significant Family History: No Varicosities/Phlebitis: No Trauma/Violence : No Thyroid Dysfunction: Yes Medical History Comments: morbid obestity BMI 63, CHTN, hyperlipidemia, thyroid dysfunction at one point okay now, COPD, IBS, arthopathy, lupus, learning disability-pt states she doesn't know which one but per records it states she "has day dream", occasional seizures, d_c, carpal tunnel release, former smoker, JEB, 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, SSA/Ro antibody positive INFECTIOUS HISTORY Gonorrhea: No Genital Herpes: Yes Chlamydia: Yes Tuberculosis: No Syphilis: No Hepatitis: No HIV/AIDS Exposure: No Rash or Viral Illness: No HPV: Yes Infectious History Comments: trichomoniasis, herpes, chlamydia, hpv, hsv PHYSICAL EXAM General: Normal HEENT: Normal Neurologic: Normal Thyroid: Deferred Heart: Normal Lungs: Normal Breast: Deferred Back: Normal Abdomen: Normal Genitourinary Exam: Normal Extremities: Normal DTRs: Normal Pelvic Type: Adequate Vital Signs: Reviewed FETUS A EGA: 26.5 Monitoring: External US Admit Comment: 32yo at 26+5ega presents for pelvic cramping likely due to morbid obesity, Round ligament pain. GHTN/GERD/LUPUS. Uncontrolled BPs despite 2 meds. Consulted Hospitalist for assistance with management. GBS pos. SMA positive/Seq SCreen negative. COPD. HSV - needs valtrex at 36wks. Anesthesia rec not deliver here (dr. SANCHEZ). Dr Brooks also consulted and needs to not deliver here due to risks of baby. reviewed need for imporved BP control - will get 24hr UTP as well. PLANS FOR LABOR AND DELIVERY Labor and Delivery: None Pain Management: Spinal Other Pain Management Plans: plans for csection due to health issue Feeding Preference: Both Benefit of Breast Feed Discussed: Yes Circumcision: N/A INFORMED CONSENT Informed Consent Obtained: Risks, Benefits and Alternatives Discussed Signature: with User ID: [email or web address]
[2018-05-01 17:27] LABS: ALANINE AMINOTRANSFERASE 13 U/L (9-52); ALBUMIN 3.2 g/dL (3.5-5.0); ALKALINE PHOSPHATASE 58 U/L (38-126); ANION GAP 9 (5-19); ASPARTATE AMINO TRANSFERASE 12 U/L (14-36); BILIRUBIN,DIRECT 0.2 mg/dL (0.0-0.4); BILIRUBIN,TOTAL 0.2 mg/dL (0.2-1.3); BLOOD UREA NITROGEN 7 mg/dL (7-20); CALCIUM 9.1 mg/dL (8.4-10.2); CARBON DIOXIDE 21 mmol/L (22-30); CHLORIDE 109 mmol/L (98-107); GLUCOSE 90 mg/dL (75-110); POTASSIUM 4.6 mmol/L (3.6-5.0); SODIUM 139.3 mmol/L (137-145); TOTAL PROTEIN 6.6 g/dL (6.3-8.2)
--- NOTE | 2018-05-01 19:11 | PDOC CONSULTATION ---
Consultation Consult Date: 05/01/18 Attending physician:: MASOOD BHATT Consult reason:: Poorly controlled blood pressure History of Present Illness Admission Date/PCP: 05/01/18 15:54 History of Present Illness: ROCIO BOB is a 32 year old female 26 weeks and presents to the labor and delivery with poorly controlled blood pressure. Patient gives a prior history of chronic hypertension. She is currently on Coreg as well as clonidine. She says her blood pressure is usually well controlled. Patient also has a history of SLE and she is morbidly obese with a BMI of 64. She does have a headache but denies any nausea vomiting or chest pain at the time of my exam. She is been admitted to the OB service and we have been asked to consult for blood pressure management. Past Medical History Cardiac Medical History: Reports: Hyperlipidema, Hypertension Denies: Coronary Artery Disease, Myocardial Infarction Pulmonary Medical History: Reports: Asthma, Sleep Apnea Denies: Bronchitis, Chronic Obstructive Pulmonary Disease (COPD), Pneumonia Neurological Medical History: Reports: Migraine, Seizures - unsure what type Endocrine Medical History: Reports: Diabetes Mellitus Type 2 Malignancy Medical History: Reports: Cervical Cancer GI Medical History: Reports: Gastroesophageal Reflux Disease Musculoskeltal Medical History: Reports: Arthritis Psychiatric Medical History: Reports: Depression Hematology: Reports: Anemia Past Surgical History Past Surgical History: Reports: Orthopedic Surgery - carpal tunnel x2 Denies: Hysterectomy Social History Information Source: Patient Smoking Status: Unknown if Ever Smoked Hx Recreational Drug Use: No Hx Prescription Drug Abuse: No - Advance Directive Resuscitation Status: Full Code Family History Family History: Arthritis, CAD, COPD, CVA, DM, Hyperlipidemia, Hypertension, Malignancy, Thyroid Disfunction Parental Family History Reviewed: Yes Children Family History Reviewed: No Sibling(s) Family History Reviewed.: No Medication/Allergy Home Medications: Carvedilol 25 mg PO DAILY 03/10/18 Clonidine HCl 0.3 mg PO DAILY 03/10/18 Omeprazole Magnesium [Prilosec Otc] 20 mg PO DAILY 03/10/18 Aspirin [Aspirin 81 mg Chewable Tablet] 81 mg PO DAILY 03/15/18 95/Iron Fum/Folic/Dha [ + Dha Combo Pack] 1 each PO DAILY 03/15 Allergies/Adverse Reactions: banana Allergy (Severe, Verified 04/01/18 05:58) Anaphylaxis tramadol Allergy (Severe, Verified 04/01/18 05:58) Anaphylaxis atorvastatin [From Lipitor] Allergy (Intermediate, Verified 04/01/18 05:58) Generalized Itching lisinopril Allergy (Intermediate, Verified 04/01/18 05:58) Generalized rash Review of Systems All systems: reviewed and no additional remarkable complaints except as stated Physical Exam Vital Signs: Intake & Output 04/30/18 05/01/18 05/02/18 06:59 06:59 06:59 Weight 187.2 kg General appearance: PRESENT: no acute distress, morbidly obese, well-developed, well-nourished Head exam: PRESENT: atraumatic, normocephalic Eye exam: PRESENT: conjunctiva pink, EOMI, PERRLA. ABSENT: scleral icterus Ear exam: PRESENT: normal external ear exam Mouth exam: PRESENT: moist, tongue midline Neck exam: ABSENT: carotid bruit, JVD, lymphadenopathy, thyromegaly Respiratory exam: PRESENT: clear to auscultation elpidio. ABSENT: rales, rhonchi, wheezes Cardiovascular exam: PRESENT: RRR. ABSENT: diastolic murmur, rubs, systolic murmur Pulses: PRESENT: normal dorsalis pedis pul Vascular exam: PRESENT: normal capillary refill GI/Abdominal exam: PRESENT: normal bowel sounds, soft. ABSENT: distended, guarding, mass, organolmegaly, rebound, tenderness Rectal exam: PRESENT: deferred Extremities exam: PRESENT: full ROM, pedal edema. ABSENT: calf tenderness, clubbing Neurological exam: PRESENT: alert, awake, oriented to person, oriented to place , oriented to time, oriented to situation, CN II-XII grossly intact. ABSENT: motor sensory deficit Psychiatric exam: PRESENT: appropriate affect, normal mood. ABSENT: homicidal ideation, suicidal ideation Skin exam: PRESENT: dry, intact, warm. ABSENT: cyanosis, rash Results Laboratory Results: 05/01/18 14:48 05/01/18 14:48 05/01/18 05/01/18 05/01/18 11:57 14:48 14:48 WBC 5.7 RBC 3.90 Hgb 10.3 L Hct 31.6 L MCV 81 MCH 26.5 L MCHC 32.7 RDW 14.0 Plt Count 207 Sodium Potassium Chloride Carbon Dioxide Anion Gap BUN Creatinine Est GFR ( Amer) Est GFR (Non-Af Amer) Glucose Uric Acid 3.6 Calcium Total Bilirubin AST ALT Alkaline Phosphatase Total Protein Albumin Urine Color YELLOW Urine Appearance SLIGHTLY-CLOUDY Urine pH 7.0 Ur Specific [place] 1.020 Urine Protein NEGATIVE Urine Glucose (UA) NEGATIVE Urine Ketones NEGATIVE Urine Blood NEGATIVE Urine Nitrite NEGATIVE Ur Leukocyte Esterase MODERATE H Urine WBC (Auto) 3 Urine RBC (Auto) 0 05/01/18 14:48 WBC RBC Hgb Hct MCV MCH MCHC RDW Plt Count Sodium 139.3 Potassium 4.6 Chloride 109 H Carbon Dioxide 21 L Anion Gap 9 BUN 7 Creatinine 0.59 Est GFR ( Amer) > 60 Est GFR (Non-Af Amer) > 60 Glucose 90 Uric Acid Calcium 9.1 Total Bilirubin 0.2 AST 12 L ALT 13 Alkaline Phosphatase 58 Total Protein 6.6 Albumin 3.2 L Urine Color Urine Appearance Urine pH Ur Specific [place] Urine Protein Urine Glucose (UA) Urine Ketones Urine Blood Urine Nitrite Ur Leukocyte Esterase Urine WBC (Auto) Urine RBC (Auto) Impressions: Obstetrics Ultrasound 05/01/18 00:00 IMPRESSION: LIMITED OBSTETRICAL ULTRASOUND WITH MEASURED PARAMETERS DELINEATED ABOVE. Trimester of : Second trimester - 13 weeks 1 day to 27 weeks 6 days. Assessment & Plan - Diagnosis (1) Chronic hypertension affecting Is this a current diagnosis for this admission?: Yes Plan: Patient was apparently on Coreg 25 mg daily as well as clonidine 0.3 mg daily given prior to her . Patient says her blood pressure had been controlled. She says she sees her PCP almost every week and they have only adjusted her medications once. She is currently being ruled out for preeclampsia however I feel we can definitely go up on her antihypertensives and have increased her Coreg to twice a day as well as the clonidine to 0.3 every 8 hours with parameters. The blood pressure when I was in the room examining her was 174/114 with a pulse of 90. She says that her blood pressure had been good until she started having some abdominal pain. Really wants pain is better controlled her blood pressure will also be better controlled and antihypertensives can be adjusted down as needed. (2) Morbid obesity with BMI of 60.0-69.9, adult Is this a current diagnosis for this admission?: Yes (3) Hypertensive urgency Is this a current diagnosis for this admission?: Yes - Time Time Spent: 30 to 50 Minutes Medications reviewed and adjusted accordingly: Yes Anticipated discharge: Home Within: within 72 hours - Inpatient Certification Based on my medical assessment, after consideration of the patient's comorbidities, presenting symptoms, or acuity I expect that the services needed warrant INPATIENT care.: Yes Medical Necessity: Risk of Complication if Not Cared For in Hospital
[2018-05-01] MEDS: CLONIDINE HCL 0.2 MG TABLET PO SCH ×2 (20:25→22:24)
[2018-05-01] MEDS: ASPIRIN 81 MG TABLET, CHEWABLE PO SCH (20:27)
[2018-05-01] MEDS: RINGERS SOLUTION,LACTATED 1,000 ML IV PRN (20:28)
[2018-05-01] MEDS ORDERED: LABETALOL HCL 200 MG TABLET PO SCH (22:00)
[2018-05-01] MEDS: CARVEDILOL 12.5 MG TABLET PO SCH (22:23)
[2018-05-01] MEDS ORDERED: ACETAMINOPHEN 325 MG TABLET PO PRN (23:47)
[2018-05-02] MEDS: CLONIDINE HCL 0.2 MG TABLET PO SCH (05:36)
[2018-05-02] MEDS: RINGERS SOLUTION,LACTATED 1,000 ML IV PRN (05:43)
--- NOTE | 2018-05-02 09:54 | PDOC PROGRESS REPORT ---
Subjective Progress Note for:: 05/02/18 Subjective:: pt states that her abdominal pain is gone this morning. States she is not feeling the baby move this morning, Denies headache Reason For Visit: 26 WKS,CHTN,ELEVATED BP Physical Exam - Physical Exam Vital Signs: Temp Pulse Resp BP Pulse Ox 98.1 F 82 18 152/90 H 98 05/02/18 04:00 05/02/18 04:00 05/02/18 04:00 05/02/18 04:00 05/02/18 04:00 Intake & Output 05/01/18 05/02/18 05/03/18 06:59 06:59 06:59 Intake Total 1360 Balance 1360 Weight 187.2 kg General appearance: PRESENT: no acute distress, cooperative Psychiatric exam: PRESENT: normal mood Result Laboratory Results: 05/01/18 14:48 05/01/18 14:48 05/01/18 05/01/18 05/01/18 11:57 14:48 14:48 WBC 5.7 RBC 3.90 Hgb 10.3 L Hct 31.6 L MCV 81 MCH 26.5 L MCHC 32.7 RDW 14.0 Plt Count 207 Sodium Potassium Chloride Carbon Dioxide Anion Gap BUN Creatinine Est GFR ( Amer) Est GFR (Non-Af Amer) Glucose Uric Acid 3.6 Calcium Total Bilirubin AST ALT Alkaline Phosphatase Total Protein Albumin Urine Color YELLOW Urine Appearance SLIGHTLY-CLOUDY Urine pH 7.0 Ur Specific [place] 1.020 Urine Protein NEGATIVE Urine Glucose (UA) NEGATIVE Urine Ketones NEGATIVE Urine Blood NEGATIVE Urine Nitrite NEGATIVE Ur Leukocyte Esterase MODERATE H Urine WBC (Auto) 3 Urine RBC (Auto) 0 05/01/18 14:48 WBC RBC Hgb Hct MCV MCH MCHC RDW Plt Count Sodium 139.3 Potassium 4.6 Chloride 109 H Carbon Dioxide 21 L Anion Gap 9 BUN 7 Creatinine 0.59 Est GFR ( Amer) > 60 Est GFR (Non-Af Amer) > 60 Glucose 90 Uric Acid Calcium 9.1 Total Bilirubin 0.2 AST 12 L ALT 13 Alkaline Phosphatase 58 Total Protein 6.6 Albumin 3.2 L Urine Color Urine Appearance Urine pH Ur Specific [place] Urine Protein Urine Glucose (UA) Urine Ketones Urine Blood Urine Nitrite Ur Leukocyte Esterase Urine WBC (Auto) Urine RBC (Auto) Impressions: Obstetrics Ultrasound 05/01/18 00:00 IMPRESSION: LIMITED OBSTETRICAL ULTRASOUND WITH MEASURED PARAMETERS DELINEATED ABOVE. Trimester of : Second trimester - 13 weeks 1 day to 27 weeks 6 days. Assessment & Plan - Diagnosis (1) Chronic hypertension affecting Is this a current diagnosis for this admission?: Yes (2) Hypertensive urgency Is this a current diagnosis for this admission?: Yes (3) Morbid obesity with BMI of 60.0-69.9, adult Is this a current diagnosis for this admission?: Yes (4) Abdominal pain Qualifiers: Abdominal location: generalized Qualified Code(s): R10.84 - Generalized abdominal pain Is this a current diagnosis for this admission?: Yes - Plan Summary Plan Summary: Limited ultrasound ordered this morning. Pt seen by the Hospitalist and BP medication changed. Will Discuss plan and pt status with Dr Mujica
--- NOTE | 2018-05-02 10:13 | RADIOLOGY REPORT (SQ) ---
EXAM DESCRIPTION: U/S OB LIMITED COMPLETED DATE/TIME: 05/02/2018 9:49 am REASON FOR STUDY: Morbid obesity, pt cant feel movement COMPARISON: Previous day. TECHNIQUE: Limited transvaginal grayscale ultrasound for evaluation of specific requested obstetrica l parameters. LIMITATIONS: Body habitus. FINDINGS: heart rate 128. Vertex presentation. Posterior placenta. Estimated weight 1 100 g. MARGO 6.2 IMPRESSION: LIMITED OBSTETRICAL ULTRASOUND WITH MEASURED PARAMETERS DELINEATED ABOVE. Trimester of : Second trimester - 13 weeks 1 day to 27 weeks 6 days. TECHNICAL DOCUMENTATION: JOB ID: [id number] [employer]- All Rights Reserved Reading location - IP/workstation name: [email or web address]
--- NOTE | 2018-05-02 10:49 | PDOC DISCHARGE SUMMARY ---
General - Admit/Disc Date/PCP Admission Date/Primary Care Provider: 05/01/18 15:54 Discharge Date: 05/02/18 - Discharge Diagnosis (1) Chronic hypertension affecting Is this a current diagnosis for this admission?: Yes (2) Hypertensive urgency Is this a current diagnosis for this admission?: Yes (3) Morbid obesity with BMI of 60.0-69.9, adult Is this a current diagnosis for this admission?: Yes (4) Abdominal pain Is this a current diagnosis for this admission?: Yes - Additional Information Resuscitation Status: Full Code Home Medications: Carvedilol 25 mg PO DAILY 03/10/18 Clonidine HCl 0.3 mg PO DAILY 03/10/18 Omeprazole Magnesium [Prilosec Otc] 20 mg PO DAILY 03/10/18 Aspirin [Aspirin 81 mg Chewable Tablet] 81 mg PO DAILY 03/15/18 95/Iron Fum/Folic/Dha [ + Dha Combo Pack] 1 each PO DAILY 03/15 History of Present Illness History of Present Illness: ROCIO BOB is a 32 year old female Hospital Course Hospital Course: patient was admitted for observation and to optimize hypertension. She has been co-managed with hospitalist who has adjusted her medications and now has her out of severe range but still elevated. She indicates her lower abdominal pain is much improved with hydration. Physical Exam - Physical Exam Vital Signs: Temp Pulse Resp BP Pulse Ox 98.1 F 82 18 152/90 H 98 05/02/18 04:00 05/02/18 04:00 05/02/18 04:00 05/02/18 04:00 05/02/18 04:00 Intake & Output 05/01/18 05/02/18 05/03/18 06:59 06:59 06:59 Intake Total 1360 Balance 1360 Weight 187.2 kg General appearance: PRESENT: no acute distress, cooperative Exam: morbidly obese. unable to palpated uterine fundus due to BH and 2nd trimester gestation. Result Laboratory Results: 05/01/18 14:48 05/01/18 14:48 05/01/18 05/01/18 05/01/18 11:57 14:48 14:48 WBC 5.7 RBC 3.90 Hgb 10.3 L Hct 31.6 L MCV 81 MCH 26.5 L MCHC 32.7 RDW 14.0 Plt Count 207 Sodium Potassium Chloride Carbon Dioxide Anion Gap BUN Creatinine Est GFR ( Amer) Est GFR (Non-Af Amer) Glucose Uric Acid 3.6 Calcium Total Bilirubin AST ALT Alkaline Phosphatase Total Protein Albumin Urine Color YELLOW Urine Appearance SLIGHTLY-CLOUDY Urine pH 7.0 Ur Specific [place] 1.020 Urine Protein NEGATIVE Urine Glucose (UA) NEGATIVE Urine Ketones NEGATIVE Urine Blood NEGATIVE Urine Nitrite NEGATIVE Ur Leukocyte Esterase MODERATE H Urine WBC (Auto) 3 Urine RBC (Auto) 0 05/01/18 14:48 WBC RBC Hgb Hct MCV MCH MCHC RDW Plt Count Sodium 139.3 Potassium 4.6 Chloride 109 H Carbon Dioxide 21 L Anion Gap 9 BUN 7 Creatinine 0.59 Est GFR ( Amer) > 60 Est GFR (Non-Af Amer) > 60 Glucose 90 Uric Acid Calcium 9.1 Total Bilirubin 0.2 AST 12 L ALT 13 Alkaline Phosphatase 58 Total Protein 6.6 Albumin 3.2 L Urine Color Urine Appearance Urine pH Ur Specific [place] Urine Protein Urine Glucose (UA) Urine Ketones Urine Blood Urine Nitrite Ur Leukocyte Esterase Urine WBC (Auto) Urine RBC (Auto) Heartbeat/NST: obtained by sono and active Impressions: Obstetrics Ultrasound 05/02/18 00:00 IMPRESSION: LIMITED OBSTETRICAL ULTRASOUND WITH MEASURED PARAMETERS DELINEATED ABOVE. Trimester of : Second trimester - 13 weeks 1 day to 27 weeks 6 days. Plan Discharge Plan: I discussed with patient extensively on importance of bp control and to get follow up with [facility] next week. She has been evaluated during this admission by both anesthesia and Neonatology who both feel that patient is better served by delivery at a tertiary facility therefore will initiate her transfer of OB care to [facility] to deliver at [facility]. This has been based on the patient BMI and difficult BH as well as the +SMA and Rho Ab of the fetus. Additionally patient has Lupus and Chronic HTN further supporting delivery at tertiary facility with expanded services. Patient voices understanding. I also discussed with the patient and her family member regarding her diet and to restrict salt and carbs as much as possible. She has an appt with [facility] for OB visit next Tuesday. She will keep a BP log of q daily at home and bring to appts. She is also to finish her 24 hour urine protein at home and turn it in to the office tomorrow. Time Spent: Less than 30 Minutes
[2018-05-02] MEDS: CARVEDILOL 12.5 MG TABLET PO SCH (11:06)
[2018-05-02] MEDS: ASPIRIN 81 MG TABLET, CHEWABLE PO SCH (11:07)
[2018-05-02 12:21] VITALS: BP 152/91
--- NOTE | 2018-05-02 16:51 | PDOC PROGRESS REPORT ---
Subjective Progress Note for:: 05/02/18 Subjective:: Hospitalist service following for comanagement of blood pressure control. No acute event overnight. Patient denies any acute complaints today denies headache or dizziness. No fever or chills. No chest pain or shortness of breath. No hematuria or lower urinary tract symptoms. She is currently comfortable and is eating lunch. She has been tolerating dose increase of Coreg and clonidine. She is being discharged by [facility] today. Reason For Visit: 26 WKS,CHTN,ELEVATED BP Physical Exam Vital Signs: Temp Pulse Resp BP Pulse Ox 98.1 F 82 18 152/90 H 98 05/02/18 11:42 05/02/18 11:42 05/02/18 11:42 05/02/18 11:42 05/02/18 11:42 Intake & Output 05/01/18 05/02/18 05/03/18 06:59 06:59 06:59 Intake Total 1360 Balance 1360 Weight 412 lb 11.285 oz General appearance: PRESENT: no acute distress, obese Head exam: PRESENT: atraumatic, normocephalic Eye exam: PRESENT: conjunctiva pink, EOMI, PERRLA. ABSENT: scleral icterus Ear exam: PRESENT: normal external ear exam Respiratory exam: PRESENT: clear to auscultation elpidio. ABSENT: rales, rhonchi, wheezes Cardiovascular exam: PRESENT: RRR. ABSENT: diastolic murmur, rubs, systolic murmur GI/Abdominal exam: PRESENT: normal bowel sounds, soft. ABSENT: distended, guarding, mass, organolmegaly, rebound, tenderness Extremities exam: PRESENT: full ROM. ABSENT: calf tenderness, clubbing, pedal edema Neurological exam: PRESENT: alert, awake, oriented to person, oriented to place , oriented to time, oriented to situation, CN II-XII grossly intact. ABSENT: motor sensory deficit Results Laboratory Results: 05/01/18 14:48 05/01/18 14:48 05/01/18 14:48 Sodium 139.3 Potassium 4.6 Chloride 109 H Carbon Dioxide 21 L Anion Gap 9 BUN 7 Creatinine 0.59 Est GFR ( Amer) > 60 Est GFR (Non-Af Amer) > 60 Glucose 90 Calcium 9.1 Total Bilirubin 0.2 AST 12 L ALT 13 Alkaline Phosphatase 58 Total Protein 6.6 Albumin 3.2 L Impressions: Obstetrics Ultrasound 05/02/18 00:00 IMPRESSION: LIMITED OBSTETRICAL ULTRASOUND WITH MEASURED PARAMETERS DELINEATED ABOVE. Trimester of : Second trimester - 13 weeks 1 day to 27 weeks 6 days. Assessment & Plan - Diagnosis (1) Chronic hypertension affecting Is this a current diagnosis for this admission?: Yes Plan: Recommend sending patient home on Coreg 25 mg twice daily and clonidine 0.3 mg 3 times daily. Counseled patient on ocular blood pressure checks at home. She will follow-up with her PCP and her [facility] on an outpatient basis for titration of antihypertensives. (2) Morbid obesity with BMI of 60.0-69.9, adult Is this a current diagnosis for this admission?: Yes Plan: Counseled on caloric restriction.
== END 2018-05-02 14:36 | disposition home or self-care (01) ==
LOC: LC 11:38 → LR 15:54 → 2S 19:00
PROVIDERS: ADMIT Student in an Organized Health Care Education/Training Program; ATTEND Student in an Organized Health Care Education/Training Program
DX: O10.912 Unspecified pre-existing hypertension complicating pregnancy, second trimester (principal); I16.0 Hypertensive urgency; O99.212 Obesity complicating pregnancy, second trimester; E66.01 Morbid (severe) obesity due to excess calories; O26.892 Other specified pregnancy related conditions, second trimester; R10.84 Generalized abdominal pain; O36.8120 Decreased fetal movements, second trimester, not applicable or unspecified; O36.0920 Maternal care for other rhesus isoimmunization, second trimester, not applicable or unspecified; M32.9 Systemic lupus erythematosus, unspecified; O98.512 Other viral diseases complicating pregnancy, second trimester; B00.9 Herpesviral infection, unspecified; O99.820 Streptococcus B carrier state complicating pregnancy; O99.512 Diseases of the respiratory system complicating pregnancy, second trimester; J44.9 Chronic obstructive pulmonary disease, unspecified; K21.9 Gastro-esophageal reflux disease without esophagitis; Z68.44 Body mass index [BMI] 60.0-69.9, adult; Z3A.26 26 weeks gestation of pregnancy; Z85.41 Personal history of malignant neoplasm of cervix uteri; Z87.891 Personal history of nicotine dependence; Z79.899 Other long term (current) drug therapy; Z79.82 Long term (current) use of aspirin; Z87.59 Personal history of other complications of pregnancy, childbirth and the puerperium; Z86.19 Personal history of other infectious and parasitic diseases
CPT/HCPCS: 36415; 83615; 84156; 84550; 82570; 85027; 80053; 81001; 80307; 83036; 76815 ×2; G0378 ×2; G0379; J3490 ×4; J7120 ×2

== ENCOUNTER 2018-09-20 08:17 | Emergency (ER) | payer MEDICAID ==
[2018-09-20] MEDS ORDERED: NORMAL SALINE 1000 ML 1,000 ML IV ONE (09:30)
[2018-09-20] MEDS ORDERED: ONDANSETRON HCL INJ/PF 4 MG/2 ML SDV IV ONE (09:30)
--- NOTE | 2018-09-20 09:36 | ER Document Report ---
ED General - General Chief Complaint: Lower Abdominal Pain Stated Complaint: VOMITING, STOMACH PAIN, DIZZY Time Seen by Provider: 09/20/18 09:04 TRAVEL OUTSIDE OF THE [place] IN LAST 30 DAYS: No - HPI Notes: Patient is a 33-year-old female that presents to the emergency department for chief complaint of abdominal pain. Patient reports 3 days of constant abdominal pain. She states it is crampy in nature. The pain seems to be a little better when she is lying on her side or sleeping. The pain is worse when she lays flat on her back. She reports vomiting but denies any diarrhea. She had a normal bowel movement this morning. She denies any hematemesis or hematochezia. She denies fevers but states she does have sweats occasionally. She has taken ibuprofen at home with no relief of her symptoms. She denies dysuria or hematuria. Her pain is mostly epigastric and suprapubic. She did have a 3 months ago but denies any complications since her . She denies any sick contacts. Past Medical History: Hypertension Past Surgical History: Social History: Occasional tobacco, denies drugs and alcohol Family History: Reviewed and noncontributory for presenting illness Allergies: Reviewed, see documented allergy list. REVIEW OF SYSTEMS: CONSTITUTIONAL : No fever No chills No diaphoresis No recent illness EENT: No vision changes No congestion No sore throat CARDIOVASCULAR: No chest pain No palpitations RESPIRATORY: No shortness of breath No cough No difficulty breathing GASTROINTESTINAL: abdominal pain nausea vomiting No diarrhea GENITOURINARY: No dysuria No hematuria No difficulty urinating MUSCULOSKELETAL: No back pain No leg pain No arm pain SKIN: No rashes No lesions LYMPHATIC: No swollen, enlarged glands. NEUROLOGICAL: No lightheadedness No headache No weakness No paresthesias PSYCHIATRIC: No anxiety No depression PHYSICAL EXAMINATION: Vital signs reviewed, nursing noted reviewed. GENERAL: Well-appearing, well-nourished and in no acute distress. HEAD: Atraumatic, normocephalic. EYES: Eyes appear normal, extraocular movements intact, sclera anicteric, conjunctiva are normal. ENT: nares patent, oropharynx clear without exudates. Moist mucous membranes. NECK: Normal range of motion, supple without lymphadenopathy LUNGS: Breath sounds clear to auscultation bilaterally and equal. No wheezes rales or rhonchi. HEART: Regular rate and rhythm without murmurs ABDOMEN: Soft, diffuse mild tender, normoactive bowel sounds. No rebound, guarding, or rigidity. No masses appreciated. EXTREMITIES: Nontender, good range of motion, no pitting or edema. NEUROLOGICAL: No focal neurological deficits. Moves all extremities spontaneously Motor and sensory grossly intact on exam. PSYCH: Normal mood, normal affect. SKIN: Warm, Dry, normal turgor, no rashes or lesions noted on exposed skin - Related Data Allergies/Adverse Reactions: banana Allergy (Severe, Verified 09/20/18 08:20) Anaphylaxis tramadol Allergy (Severe, Verified 09/20/18 08:20) Anaphylaxis atorvastatin [From Lipitor] Allergy (Intermediate, Verified 09/20/18 08:20) Generalized Itching lisinopril Allergy (Intermediate, Verified 09/20/18 08:20) Generalized rash Past Medical History - Social History Smoking Status: Current Some Day Smoker Family History: Arthritis, CAD, COPD, CVA, DM, Hyperlipidemia, Hypertension, Malignancy, Thyroid Disfunction - Past Medical History Cardiac Medical History: Reports: Hx Hypercholesterolemia, Hx Hypertension Denies: Hx Coronary Artery Disease, Hx Heart Attack Pulmonary Medical History: Reports: Hx Asthma, Hx Sleep Apnea Denies: Hx Bronchitis, Hx COPD, Hx Pneumonia Neurological Medical History: Reports: Hx Migraine, Hx Seizures - unsure what type. Denies: Hx Cerebrovascular Accident Endocrine Medical History: Reports: Hx Diabetes Mellitus Type 2 Renal/ Medical History: Denies: Hx Peritoneal Dialysis Malignancy Medical History: Reports: Hx Cervical Cancer GI Medical History: Reports: Hx Gastroesophageal Reflux Disease, Hx Endoscopy Musculoskeletal Medical History: Reports Hx Arthritis, Reports Hx Musculoskel etal Deformity Psychiatric Medical History: Reports: Hx Depression Past Surgical History: Reports: Hx Dilation and Curettage, Hx Gynecologic Surgery - D&C, Hx Oral Surgery, Hx Orthopedic Surgery - carpal tunnel x2. Denies: Hx Hysterectomy - Immunizations Immunizations up to date: Yes Hx Diphtheria, Pertussis, Tetanus Vaccination: Yes - past Hx Pneumococcal Vaccination: 09/19/00 Physical Exam - Vital signs Vitals: Temp Pulse Resp BP Pulse Ox 98.7 F 85 20 200/125 H 100 09/20/18 08:21 09/20/18 08:21 09/20/18 08:21 09/20/18 08:21 09/20/18 08:21 Course - Re-evaluation Re-evalutation: 09/20/18 09:33 Vitals reviewed. Nursing notes reviewed. Patient is significantly hypertensive with a history of hypertension. She takes carvedilol and clonidine at home which she states she did take this morning and denies vomiting them back up. Repeat blood pressure being done currently. 09/20/18 11:55 Patient reevaluated and states she is feeling better. She has not vomited while in the emergency room. Her repeat abdominal exam is soft with no peritoneal signs. She has some mild diffuse tenderness and states she is still having some cramps. Patient's lab work is unremarkable. She has normal liver function. She has no signs of dehydration or electrolyte derangements. Urinalysis negative for infection. Patient is hemodynamically stable. I do not suspect cholecystitis, acute appendicitis, or bowel obstruction. Patient will be discharged home with Ru for symptom medic management. She will follow closely with her primary care doctor for reevaluation in the next few days. She will return to the emergency room for new or worsening symptoms. She is in agreement with this plan and stable at discharge. Laboratory 09/20/18 09/20/18 09/20/18 09:36 11:00 11:00 WBC 5.3 RBC 4.66 Hgb 11.6 L Hct 36.5 MCV 78 L MCH 24.9 L MCHC 31.7 L RDW 15.6 H Plt Count 249 Seg Neutrophils % 45.8 Lymphocytes % 41.1 Monocytes % 11.7 Eosinophils % 1.1 Basophils % 0.3 Absolute Neutrophils 2.4 Absolute Lymphocytes 2.2 Absolute Monocytes 0.6 Absolute Eosinophils 0.1 Absolute Basophils 0.0 Sodium 140.6 Potassium 4.1 Chloride 106 Carbon Dioxide 26 Anion Gap 9 BUN 9 Creatinine 0.62 Est GFR ( Amer) > 60 Est GFR (Non-Af Amer) > 60 Glucose 95 Calcium 9.3 Total Bilirubin 0.5 Direct Bilirubin 0.2 Neonat Total Bilirubin Not Reportable Neonat Direct Bilirubin Not Reportable Neonat Indirect Bili Not Reportable AST 17 ALT 11 Alkaline Phosphatase 51 Total Protein 7.4 Albumin 4.0 Lipase 120.9 Urine Color YELLOW Urine Appearance SLIGHTLY-CLOUDY Urine pH 6.0 Ur Specific [place] 1.018 Urine Protein 30 H Urine Glucose (UA) NEGATIVE Urine Ketones NEGATIVE Urine Blood NEGATIVE Urine Nitrite NEGATIVE Urine Bilirubin NEGATIVE Urine Urobilinogen NEGATIVE Ur Leukocyte Esterase NEGATIVE Urine WBC (Auto) 1 Urine RBC (Auto) 0 Squamous Epi Cells Auto 2 Urine Mucus (Auto) RARE Urine Ascorbic Acid 40 H Urine HCG, Qual NEGATIVE - Vital Signs Vital signs: Temp Pulse Resp BP Pulse Ox 98.7 F 85 18 158/94 H 100 09/20/18 08:21 09/20/18 08:21 09/20/18 11:04 09/20/18 11:04 09/20/18 11:04 - Laboratory Result Diagrams: 09/20/18 11:00 09/20/18 11:00 Laboratory results interpreted by me: 09/20/18 09/20/18 09:36 11:00 Hgb 11.6 L MCV 78 L MCH 24.9 L MCHC 31.7 L RDW 15.6 H Urine Protein 30 H Urine Ascorbic Acid 40 H Discharge - Discharge Clinical Impression: Abdominal pain Qualifiers: Abdominal location: generalized Qualified Code(s): R10.84 - Generalized abdominal pain Nausea & vomiting Qualifiers: Vomiting type: unspecified Vomiting Intractability: unspecified Qualified Code(s): R11.2 - Nausea with vomiting, unspecified Condition: Stable Disposition: HOME, SELF-CARE Instructions: Abdominal Pain ([facility]), Vomiting ([facility]) Additional Instructions: Please return to the emergency department if you have any worsening, or concern of your symptoms. Please return to the emergency department if you develop chest pain, difficulty breathing, severe abdominal pain, or ongoing vomiting. Please follow-up with your primary care physician in 2-3 days and any other recommended physicians. If prescribed, take all medications as directed. If you have any questions or concerns do not hesitate to return the emergency department for evaluation. Prescriptions: Dicyclomine HCl [Bentyl 10 mg Capsule] 10 mg PO TID PRN #20 capsule PRN Reason: Abdominal Cramping Ondansetron [Zofran Odt 4 mg Tablet] 1 tab PO Q4H PRN #15 tab.rapdis PRN Reason: For Nausea/Vomiting Referrals: [facility] [Provider Group] - Follow up in 3-5 days
[2018-09-20 10:05] LABS: APPEARANCE,URINE SLIGHTLY-CLOUDY; BILIRUBIN,URINE NEGATIVE (NEGATIVE); COLOR,URINE YELLOW; GLUCOSE, URINE NEGATIVE (NEGATIVE); KETONES,URINE NEGATIVE (NEGATIVE); LEUKOCYTE ESTERASE,URINE NEGATIVE (NEGATIVE); NITRITE,URINE NEGATIVE (NEGATIVE); PROTEIN,URINE 30 mg/dL (NEGATIVE); URINE SPECIFIC GRAVITY 1.018; UROBILINOGEN,URINE NEGATIVE mg/dL (<2.0)
[2018-09-20] MEDS ORDERED: KETOROLAC TROMETHAMINE INJ/PF 30 MG/1 ML SDV ONE (10:47)
[2018-09-20] MEDS ORDERED: KETOROLAC TROMETHAMINE INJ/PF 30 MG/1 ML SDV IV ONE (10:47)
[2018-09-20 11:28] LABS: ABSOLUTE EOSINOPHILS # (AUTO) 0.1 10^3/uL (0.0-0.6); ABSOLUTE LYMPHOCYTES (AUTO) 2.2 10^3/uL (0.5-4.7); ABSOLUTE MONOCYTES (AUTO) 0.6 10^3/uL (0.1-1.4); ABSOLUTE NEUT (AUTO) 2.4 10^3/uL (1.7-8.2); BASOPHILS % (AUTO) 0.3 % (0-2); EOSINOPHILS % (AUTO) 1.1 % (0-6); HEMATOCRIT 36.5 % (36.0-47.0); HEMOGLOBIN 11.6 g/dL (12.0-15.5); LYMPHOCYTES % (AUTO) 41.1 % (13-45); MEAN CORPUSCULAR HEMOGLOBIN 24.9 pg (27.0-33.4); MEAN CORPUSCULAR HGB CONC 31.7 g/dL (32.0-36.0); MEAN CORPUSCULAR VOLUME 78 fl (80-97); MONOCYTES % (AUTO) 11.7 % (3-13); PLATELET COUNT 249 10^3/uL (150-450); RED BLOOD COUNT 4.66 10^6/uL (3.72-5.28); RED CELL DISTRIBUTION WIDTH 15.6 % (11.5-14.0); SEGMENTED NEUTROPHILS % (AUTO) 45.8 % (42-78); TOTAL CELLS COUNTED % (AUTO) 100 %; WHITE BLOOD COUNT 5.3 10^3/uL (4.0-10.5)
[2018-09-20 11:45] LABS: ALANINE AMINOTRANSFERASE 11 U/L (9-52); ALKALINE PHOSPHATASE 51 U/L (38-126); ANION GAP 9 (5-19); ASPARTATE AMINO TRANSFERASE 17 U/L (14-36); BILIRUBIN,DIRECT 0.2 mg/dL (0.0-0.4); BILIRUBIN,TOTAL 0.5 mg/dL (0.2-1.3); BLOOD UREA NITROGEN 9 mg/dL (7-20); CALCIUM 9.3 mg/dL (8.4-10.2); CARBON DIOXIDE 26 mmol/L (22-30); CHLORIDE 106 mmol/L (98-107); GLUCOSE 95 mg/dL (75-110); LIPASE 120.9 U/L (23-300); POTASSIUM 4.1 mmol/L (3.6-5.0); SODIUM 140.6 mmol/L (137-145); TOTAL PROTEIN 7.4 g/dL (6.3-8.2)
[2018-09-20] MEDS ORDERED: CLONIDINE HCL 0.2 MG TABLET PO ONE (13:48)
[2018-09-20 14:06] VITALS: BP 183/118
== END 2018-09-20 14:03 | disposition home or self-care (01) ==
LOC: ER 08:17
DX: R10.84 Generalized abdominal pain (principal); R11.2 Nausea with vomiting, unspecified; R10.30 Lower abdominal pain, unspecified; F17.200 Nicotine dependence, unspecified, uncomplicated; I10 Essential (primary) hypertension; J45.909 Unspecified asthma, uncomplicated; E11.9 Type 2 diabetes mellitus without complications
CPT/HCPCS: 99284; 96361; 96374; 96375; 36415; 83690; 85025; 81025; 80053; 81001; J3490; J1885; J2405; J7030

== ENCOUNTER 2018-11-22 10:35 | Emergency (ER) | payer MEDICAID ==
[2018-11-22 10:41] VITALS: BP 134/72
--- NOTE | 2018-11-22 11:45 | ER Document Report ---
HPI - HPI Time Seen by Provider: 11/22/18 11:10 Pain Level: 4 Notes: Patient is a 33-year-old female who presents with chief complaint of sneezing and chills over the last 4 days. She denies any nausea, vomiting, she reports occasional productive cough. Has not taken any [id number] medications for same. - REPRODUCTIVE Reproductive: DENIES: : Past Medical History - General Information source: Patient - Social History Smoking Status: Current Some Day Smoker Frequency of alcohol use: None Drug Abuse: None Family History: Arthritis, CAD, COPD, CVA, DM, Hyperlipidemia, Hypertension, Malignancy, Thyroid Disfunction - Past Medical History Cardiac Medical History: Reports: Hx Hypercholesterolemia, Hx Hypertension Denies: Hx Coronary Artery Disease, Hx Heart Attack Pulmonary Medical History: Reports: Hx Asthma, Hx Sleep Apnea Denies: Hx Bronchitis, Hx COPD, Hx Pneumonia Neurological Medical History: Reports: Hx Migraine, Hx Seizures - unsure what type. Denies: Hx Cerebrovascular Accident Endocrine Medical History: Reports: Hx Diabetes Mellitus Type 2 Renal/ Medical History: Denies: Hx Peritoneal Dialysis Malignancy Medical History: Reports: Hx Cervical Cancer GI Medical History: Reports: Hx Gastroesophageal Reflux Disease, Hx Endoscopy Musculoskeletal Medical History: Reports Hx Arthritis, Reports Hx Musculoskeletal Deformity Psychiatric Medical History: Reports: Hx Depression Past Surgical History: Reports: Hx Dilation and Curettage, Hx Gynecologic Surgery - D&C, Hx Oral Surgery, Hx Orthopedic Surgery - carpal tunnel x2. Denies: Hx Hysterectomy - Immunizations Immunizations up to date: Yes Hx Diphtheria, Pertussis, Tetanus Vaccination: Yes - past Hx Pneumococcal Vaccination: 09/19/00 Vertical Provider Document - CONSTITUTIONAL Notes: PHYSICAL EXAMINATION: GENERAL: Well-appearing, well-nourished and in no acute distress. HEAD: Atraumatic, normocephalic. EYES: Pupils equal round extraocular movements intact, conjunctiva are normal. ENT: Nares patent bilaterally, bilateral TMs unremarkable. Oropharynx nonerythematous and without exudates. NECK: Normal range of motion, no cervical lymphadenopathy. LUNGS: No respiratory distress, lung sounds clear to auscultation bilaterally. Musculoskeletal: Normal range of motion NEUROLOGICAL: Normal speech, normal gait. PSYCH: Normal mood, normal affect. SKIN: Warm, Dry, normal turgor, no rashes or lesions noted. - INFECTION CONTROL TRAVEL OUTSIDE OF THE [place] IN LAST 30 DAYS: No Course - Re-evaluation Re-evalutation: 11/22/18 11:53 Patient appears well and physical examination is consistent with viral upper respiratory illness. Patient will be discharged home with instructions to increase her fluid intake and purchase an eiao-rvt-xauqlon cough and cold medicine. ED return precautions discussed. - Vital Signs Vital signs: Temp Pulse Resp BP Pulse Ox 99.0 F 86 20 134/72 H 97 11/22/18 10:40 11/22/18 10:40 11/22/18 10:40 11/22/18 10:40 11/22/18 10:40 Discharge - Discharge Clinical Impression: Viral upper respiratory infection Condition: Stable Disposition: HOME, SELF-CARE Additional Instructions: Your symptoms are most likely due to a viral infection it should resolve over the next 7-14 days. You should take rang-gej-dzlgrkf guanfacine per bottle instructions to help thin the mucus. For nasal congestion: I would recommend that you get qxqc-mrp-idxxylk oxymetazoline also known is afrin. Use only per bottle instructions and be sure to never use this for more than 3 days if you can develop severe rebound congestion. You may also use tylenol or ibuprofen as needed for aches and thorat discomfort. Please be sure to drink plenty of fluids and get rest. Return to the emergency department he began having difficulty breathing, chest pain, persistent vomiting, or any other symptoms that are concerning to you. Referrals: CLINTON HERNANDEZ PA-C [Primary Care Provider] - Follow up as needed
== END 2018-11-22 11:55 | disposition home or self-care (01) ==
LOC: ER 10:35
DX: J06.9 Acute upper respiratory infection, unspecified (principal); B97.89 Other viral agents as the cause of diseases classified elsewhere; R06.7 Sneezing; R68.83 Chills (without fever); F17.200 Nicotine dependence, unspecified, uncomplicated; I10 Essential (primary) hypertension; J45.909 Unspecified asthma, uncomplicated; E11.9 Type 2 diabetes mellitus without complications; Z85.41 Personal history of malignant neoplasm of cervix uteri
CPT/HCPCS: 99283

== ENCOUNTER 2018-11-27 13:37 | Emergency (ER) | payer MEDICAID ==
[2018-11-27] MEDS ORDERED: IBUPROFEN 800 MG TABLET PO ONE (14:55)
--- NOTE | 2018-11-27 15:01 | ER Document Report ---
ED General - General Chief Complaint: Back Pain Stated Complaint: BACK PAIN Time Seen by Provider: 11/27/18 14:23 Primary Care Provider: CLINTON HERNANDEZ PA-C [Primary Care Provider] - Follow up as needed Information source: Patient TRAVEL OUTSIDE OF THE U[place] IN LAST 30 DAYS: No - HPI Patient complains to provider of: Upper back pain, upper respiratory symptoms, burn on left forearm Onset: Last week Onset/Duration: Gradual Quality of pain: Achy Severity: Severe Pain Level: 5 Associated symptoms: Nonproductive cough, Other - Back pain. denies: Chills, Fever Exacerbated by: Movement, Walking, Coughing, Deep breathing Relieved by: Denies Similar symptoms previously: No Recently seen / treated by doctor: No Notes: 33-year-old morbidly obese -[place]i female coming in to be seen for upper respiratory symptoms, upper back pain, and left forearm burn. She was seen here last week with her child in both presented with cold symptoms. She states no tests were done. She states she was told to treat her symptoms with OTC meds. Now having increased upper back pain. Also last week she burned her left forearm. It is scabbed over but it is red and warm. Concerned is infected. Does not have any fevers or shaking chills. No nausea vomiting or diarrhea. - Related Data Allergies/Adverse Reactions: banana Allergy (Severe, Verified 11/22/18 10:37) Anaphylaxis tramadol Allergy (Severe, Verified 11/22/18 10:37) Anaphylaxis atorvastatin [From Lipitor] Allergy (Intermediate, Verified 11/22/18 10:37) Generalized Itching lisinopril Allergy (Intermediate, Verified 11/22/18 10:37) Generalized rash Past Medical History - General Information source: Patient - Social History Smoking Status: Current Every Day Smoker Family History: Reviewed & Not Pertinent, Arthritis, CAD, COPD, CVA, DM, Hyperlipidemia, Hypertension, Malignancy, Thyroid Disfunction Patient has suicidal ideation: No Patient has homicidal ideation: No - Past Medical History Cardiac Medical History: Reports: Hx Hypercholesterolemia, Hx Hypertension Denies: Hx Coronary Artery Disease, Hx Heart Attack Pulmonary Medical History: Reports: Hx Asthma, Hx Sleep Apnea Denies: Hx Bronchitis, Hx COPD, Hx Pneumonia Neurological Medical History: Reports: Hx Migraine, Hx Seizures - unsure what type. 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 Denies: Hx Hysterectomy - Immunizations Immunizations up to date: Yes Hx Diphtheria, Pertussis, Tetanus Vaccination: Yes - past Hx Pneumococcal Vaccination: 09/19/00 Review of Systems - Review of Systems Notes: Constitutional: No fevers. No chills. EENT: No eye redness. No eye pain. No ear pain. No sore throat. Cardiovascular: No chest pain. No palpitations. Respiratory: Positive for cough. No shortness of breath. No respiratory distress. Gastrointestinal: No abdominal pain. No nausea, vomiting, or diarrhea. Genitourinary: Atraumatic. No lesions. No pain. No discharge. Musculoskeletal: Atraumatic. No swelling. No deformities. Positive for upper back pain Skin: No rash or lesions. Positive for left forearm healing burn Lymphatic: No swollen lymph nodes. Neurologic: No headache. No syncope. Psychiatric: No suicidal or homicidal ideation. Physical Exam - Vital signs Vitals: Temp Pulse Resp BP Pulse Ox 98.5 F 84 16 148/80 H 99 11/27/18 14:17 11/27/18 14:17 11/27/18 14:17 11/27/18 14:17 11/27/18 14:17 - Notes Notes: General: Well-developed, well-nourished. In no acute distress. Non-toxic appearing. Cardiac: Well-perfused. Regular rate and rhythm. No murmurs, rubs, or gallops. Pulmonary: No respiratory distress. No cyanosis. Bilateral lung fiels are clear to auscultation. Abdominal: Non-distended. Non-rigid. Bowels sounds are present in all four quadrants. No guarding or rebound. HEENT: Head is atraumatic. Conjunctivae not reddened. No tearing. PERRL. EOMI. Orbits atraumatic. No periorbital swelling or erythema. Oropharynx is without erythema, swelling, or exudates. Neck: Supple. No adenopathy. No meningismus. Dermatologic: Warm with good turgor. No rash. There is a healing second-degree burn on the anterior surface of the left forearm. Scab is in place but there is local erythema and warmth. There is no streaking. No purulent drainage. Chest: Atraumatic. No chest wall tenderness to palpation. Musculoskeletal: Moves all extremities well. No range of motion deficits. no muscular or joint tenderness. Diffuse tenderness to palpation of the right and left parathoracic musculature. There is no midline tenderness or step-off Genitourinary: Examination deferred Neurologic: No gross neurologic deficits. Psychiatric: Normal mood. Course - Re-evaluation Re-evalutation: 11/27/18 15:00 Suspect that the upper respiratory infection has not quite passed yet. Most likely the upper back pain is related to her obesity. We will check a chest x- ray and a flu swab which I think will probably be normal. In any event, the patient is going to need some oral antibiotics for what appears to be a healing but infected second-degree burn to the left forearm. 11/27/18 16:30 Flu swab was negative. Chest x-ray is negative. Patient most likely has upper respiratory infection. Will give Bromfed-DM for this. We will also put her on some naproxen and Flexeril for her upper back pain which I believe is musculoskeletal in nature. Will put her on some Keflex to treat the skin infection from the burn on her left forearm. - Vital Signs Vital signs: Temp Pulse Resp BP Pulse Ox 98.5 F 84 16 148/80 H 99 11/27/18 14:17 11/27/18 14:17 11/27/18 14:17 11/27/18 14:17 11/27/18 14:17 Discharge - Discharge Clinical Impression: Infected abrasion or friction burn of lower arm Upper respiratory infection Qualifiers: URI type: unspecified URI Qualified Code(s): J06.9 - Acute upper respiratory infection, unspecified Back pain Qualifiers: Back pain location: thoracic back pain Chronicity: acute Back pain laterality: bilateral Qualified Code(s): M54.6 - Pain in thoracic spine Condition: Good Disposition: HOME, SELF-CARE Instructions: Upper Respiratory Illness ([facility]), Chronic Back Pain ([facility]), Ice Packs ([facility]), Muscle Strain ([facility]), Moses ([facility]), Infections ([facility]) Prescriptions: Benzonatate [Tessalon Perles 100 mg Capsule] 100 mg PO Q8HP PRN #30 capsule PRN Reason: Cephalexin Monohydrate [Keflex 500 mg Capsule] 500 mg PO Q6H 5 Days #28 capsule Cyclobenzaprine HCl [Flexeril 5 mg Tablet] 5 mg PO TID #15 tablet Naproxen 500 mg PO BID 7 Days #14 tablet Referrals: CLINTON HERNANDEZ PA-C [Primary Care Provider] - Follow up in 3-5 days
--- NOTE | 2018-11-27 16:06 | RADIOLOGY REPORT (SQ) ---
EXAM DESCRIPTION: CHEST 2 VIEWS COMPLETED DATE/TIME: 11/27/2018 3:57 pm REASON FOR STUDY: upper back pain-ongoing uri sxs COMPARISON: 10/25/2017. EXAM PARAMETERS: NUMBER OF VIEWS: two views TECHNIQUE: Digital Frontal and Lateral radiographic views of the chest acquired. RADIATION DOSE: NA LIMITATIONS: none FINDINGS: LUNGS AND PLEURA: No opacities, masses or pneumothorax. No pleural effusion. MEDIASTINUM AND HILAR STRUCTURES: No masses or contour abnormalities. HEART AND VASCULAR STRUCTURES: Heart normal size. No evidence for failure. BONES: No acute findings. HARDWARE: None in the chest. OTHER: No other significant finding. IMPRESSION: NO ACUTE RADIOGRAPHIC FINDING IN THE CHEST. TECHNICAL DOCUMENTATION: JOB ID: [id number] [employer]- All Rights Reserved Reading location - IP/workstation name: [email or web address]
[2018-11-27 16:10] LABS: A TYPE INFLUENZA AG NEGATIVE (NEGATIVE); B INFLUENZA AG NEGATIVE (NEGATIVE)
[2018-11-27 17:06] VITALS: BP 117/69
== END 2018-11-27 17:06 | disposition home or self-care (01) ==
LOC: ER 13:37
DX: M54.6 Pain in thoracic spine (principal); T22.212A Burn of second degree of left forearm, initial encounter; L08.9 Local infection of the skin and subcutaneous tissue, unspecified; X08.8XXA Exposure to other specified smoke, fire and flames, initial encounter; J06.9 Acute upper respiratory infection, unspecified; R05 Cough; E66.01 Morbid (severe) obesity due to excess calories; F17.200 Nicotine dependence, unspecified, uncomplicated; I10 Essential (primary) hypertension; J45.909 Unspecified asthma, uncomplicated; E11.9 Type 2 diabetes mellitus without complications; Z87.892 Personal history of anaphylaxis; Z91.018 Allergy to other foods; Z88.5 Allergy status to narcotic agent; Z88.8 Allergy status to other drugs, medicaments and biological substances
CPT/HCPCS: 99283; 87804; 71046; J3490

== ENCOUNTER 2018-11-28 18:28 | Emergency (ER) | payer MEDICAID ==
[2018-11-28] MEDS ORDERED: NORMAL SALINE 1000 ML 1,000 ML IV ONE (20:04)
[2018-11-28] MEDS ORDERED: HYDROMORPHONE HCL INJ/PF 2 MG/ML AMPULE IV ONE (20:04)
[2018-11-28] MEDS ORDERED: METOCLOPRAMIDE HCL INJ/PF 10 MG/2 ML SDV IV ONE (20:04)
--- NOTE | 2018-11-28 20:09 | ER Document Report ---
ED General - General Chief Complaint: Vaginal Bleeding Stated Complaint: ADOMINAL PAIN, VAGINAL BLEEDING Time Seen by Provider: 11/28/18 20:02 Primary Care Provider: CLINTON HERNANDEZ PA-C [Primary Care Provider] - Follow up as needed Mode of Arrival: Ambulatory Information source: Patient TRAVEL OUTSIDE OF THE [place] IN LAST 30 DAYS: No - HPI Patient complains to provider of: Back pain, abdominal pain, vaginal bleeding Onset: This morning Onset/Duration: Sudden Quality of pain: Sharp Severity: Severe Pain Level: 5 Associated symptoms: denies: Chills, Fever, Nausea, Vomiting Exacerbated by: Denies Relieved by: Denies Similar symptoms previously: No Recently seen / treated by doctor: No Notes: 33-year-old -[place] female presenting with ongoing back pain and today developed abdominal pain and heavy vaginal bleeding. She was seen here yeste rday and diagnosed with viral illness as well as back pain. Patient notes this is not the typical time for her menstrual cycle. - Related Data Allergies/Adverse Reactions: banana Allergy (Severe, Verified 11/22/18 10:37) Anaphylaxis tramadol Allergy (Severe, Verified 11/22/18 10:37) Anaphylaxis atorvastatin [From Lipitor] Allergy (Intermediate, Verified 11/22/18 10:37) Generalized Itching lisinopril Allergy (Intermediate, Verified 11/22/18 10:37) Generalized rash Past Medical History - General Information source: Patient - Social History Smoking Status: Never Smoker Family History: Reviewed & Not Pertinent, Arthritis, CAD, COPD, CVA, DM, Hyperlipidemia, Hypertension, Malignancy, Thyroid Disfunction - Past Medical History Cardiac Medical History: Reports: Hx Hypercholesterolemia, Hx Hypertension Denies: Hx Coronary Artery Disease, Hx Heart Attack Pulmonary Medical History: Reports: Hx Asthma, Hx Sleep Apnea Denies: Hx Bronchitis, Hx COPD, Hx Pneumonia Neurological Medical History: Reports: Hx Migraine, Hx Seizures - unsure what type. Denies: Hx Cerebrovascular Accident Endocrine Medical History: Reports: Hx Diabetes Mellitus Type 2 Renal/ Medical History: Denies: Hx Peritoneal Dialysis Malignancy Medical History: Reports: Hx Cervical Cancer GI Medical History: Reports: Hx Gastroesophageal Reflux Disease, Hx Endoscopy Musculoskeletal Medical History: Reports Hx Arthritis, Reports Hx Musculoskeletal Deformity Psychiatric Medical History: Reports: Hx Depression Past Surgical History: Reports: Hx Dilation and Curettage, Hx Gynecologic Surgery - D&C, Hx Oral Surgery, Hx Orthopedic Surgery - carpal tunnel x2. Denies: Hx Hysterectomy - Immunizations Immunizations up to date: Yes Hx Diphtheria, Pertussis, Tetanus Vaccination: Yes - past Hx Pneumococcal Vaccination: 09/19/00 Review of Systems - Review of Systems Notes: Constitutional: No fevers. No chills. EENT: No eye redness. No eye pain. No ear pain. No sore throat. Cardiovascular: No chest pain. No palpitations. Respiratory: No cough. No shortness of breath. No respiratory distress. Gastrointestinal: Positive for abdominal pain negative for nausea vomiting diarrhea Genitourinary: Atraumatic. No lesions. No pain. No discharge. Musculoskeletal: Positive for back pain Skin: No rash or lesions. Lymphatic: No swollen lymph nodes. Neurologic: No headache. No syncope. Psychiatric: No suicidal or homicidal ideation. Physical Exam - Vital signs Vitals: Temp Pulse Resp BP Pulse Ox 98.1 F 75 22 H 133/70 H 100 11/28/18 18:34 11/28/18 18:34 11/28/18 18:34 11/28/18 18:34 11/28/18 18:34 - Notes Notes: General: Well-developed, well-nourished. In no acute distress. Non-toxic appearing. Morbidly obese Cardiac: Well-perfused. Regular rate and rhythm. No murmurs, rubs, or gallops. Pulmonary: No respiratory distress. No cyanosis. Bilateral lung fiels are clear to auscultation. Abdominal: Abdomen is soft. Tender over the suprapubic/pelvic region. No guarding or rebound. Bowel sounds are present in all 4 quadrants HEENT: Head is atraumatic. Conjunctivae not reddened. No tearing. PERRL. EOMI. Orbits atraumatic. No periorbital swelling or erythema. Oropharynx is without erythema, swelling, or exudates. Neck: Supple. No adenopathy. No meningismus. Dermatologic: Warm with good turgor. No rash. Atraumatic. Chest: Atraumatic. No chest wall tenderness to palpation. Musculoskeletal: Moves all extremities well. No range of motion deficits. no muscular or joint tenderness. No paraspinal muscle tenderness. no midline spinal tenderness or step-off. Genitourinary: Examination deferred Neurologic: No gross neurologic deficits. Psychiatric: Normal mood. Course - Re-evaluation Re-evalutation: 11/28/18 23:13 Workup is completely normal. Patient is absolutely not as evidenced by a quantitative hCG. CT scan was done. No abnormalities there. Her body habitus definitely puts her at risk for quite a bit of musculoskeletal pain which I suspect is the issue with her back. She tells me that she has not had a menstrual cycle since about October. I suspect her onset of menses today is significant the stronger than her norm. Will discharge home with a [place] pack and have her follow-up as an outpatient - Vital Signs Vital signs: Temp Pulse Resp BP Pulse Ox 98.1 F 75 22 H 133/70 H 100 11/28/18 18:34 11/28/18 18:34 11/28/18 18:34 11/28/18 18:34 11/28/18 18:34 - Laboratory Result Diagrams: 11/28/18 20:23 11/28/18 20:23 Laboratory results interpreted by me: 11/28/18 11/28/18 11/28/18 20:23 20:23 20:23 MCH 26.4 L RDW 15.8 H ALT 8 L Total Protein 8.3 H Urine Blood LARGE H Urine Urobilinogen 2.0 H Ur Leukocyte Esterase TRACE H - Diagnostic Test Radiology reviewed: Reports reviewed Discharge - Discharge Clinical Impression: Onset of menses Chronic back pain Qualifiers: Back pain location: back pain in unspecified location Back pain laterality: unspecified Qualified Code(s): M54.9 - Dorsalgia, unspecified; G89.29 - Other chronic pain Abdominal pain Qualifiers: Abdominal location: generalized Qualified Code(s): R10.84 - Generalized abdominal pain Condition: Good Disposition: HOME, SELF-CARE Instructions: Abdominal Pain ([facility]), Oral Narcotic Medication ([facility]), Vaginal Bleeding ([facility]) Additional Instructions: You really need to find a primary care doctor to follow-up with. You have a lot of medical issues going on right now. The event that her back continues to her to, you will need follow-up with a specialist. This is difficult if you have not already established with a primary care doctor. Please use the medications that you were prescribed yesterday to help with your back pain. You may also use the medications given to you tonight. Referrals: CLINTON HERNANDEZ PA-C [Primary Care Provider] - Follow up as needed
[2018-11-28 20:39] LABS: APPEARANCE,URINE SLIGHTLY-CLOUDY; BILIRUBIN,URINE NEGATIVE (NEGATIVE); COLOR,URINE YELLOW; GLUCOSE, URINE NEGATIVE (NEGATIVE); KETONES,URINE NEGATIVE (NEGATIVE); LEUKOCYTE ESTERASE,URINE TRACE (NEGATIVE); NITRITE,URINE NEGATIVE (NEGATIVE); PROTEIN,URINE NEGATIVE (NEGATIVE); URINE SPECIFIC GRAVITY 1.026
[2018-11-28 20:41] LABS: ABSOLUTE BASOPHILS # (AUTO) 0.1 10^3/uL (0.0-0.2); ABSOLUTE EOSINOPHILS # (AUTO) 0.1 10^3/uL (0.0-0.6); ABSOLUTE LYMPHOCYTES (AUTO) 2.6 10^3/uL (0.5-4.7); ABSOLUTE MONOCYTES (AUTO) 0.8 10^3/uL (0.1-1.4); ABSOLUTE NEUT (AUTO) 4.2 10^3/uL (1.7-8.2); EOSINOPHILS % (AUTO) 1.1 % (0-6); HEMATOCRIT 36.6 % (36.0-47.0); HEMOGLOBIN 12.1 g/dL (12.0-15.5); LYMPHOCYTES % (AUTO) 33.3 % (13-45); MEAN CORPUSCULAR HEMOGLOBIN 26.4 pg (27.0-33.4); MEAN CORPUSCULAR VOLUME 80 fl (80-97); MONOCYTES % (AUTO) 10.2 % (3-13); PLATELET COUNT 286 10^3/uL (150-450); RED BLOOD COUNT 4.58 10^6/uL (3.72-5.28); RED CELL DISTRIBUTION WIDTH 15.8 % (11.5-14.0); SEGMENTED NEUTROPHILS % (AUTO) 54.4 % (42-78); TOTAL CELLS COUNTED % (AUTO) 100 %; WHITE BLOOD COUNT 7.7 10^3/uL (4.0-10.5)
[2018-11-28 21:07] LABS: ALANINE AMINOTRANSFERASE 8 U/L (9-52); ALBUMIN 4.3 g/dL (3.5-5.0); ALKALINE PHOSPHATASE 62 U/L (38-126); ANION GAP 11 (5-19); ASPARTATE AMINO TRANSFERASE 21 U/L (14-36); BILIRUBIN,DIRECT 0.4 mg/dL (0.0-0.4); BILIRUBIN,TOTAL 0.5 mg/dL (0.2-1.3); BLOOD UREA NITROGEN 16 mg/dL (7-20); CALCIUM 9.9 mg/dL (8.4-10.2); CARBON DIOXIDE 27 mmol/L (22-30); CHLORIDE 101 mmol/L (98-107); GLUCOSE 89 mg/dL (75-110); POTASSIUM 4.7 mmol/L (3.6-5.0); SODIUM 139.4 mmol/L (137-145); TOTAL PROTEIN 8.3 g/dL (6.3-8.2)
--- NOTE | 2018-11-28 22:42 | RADIOLOGY REPORT (SQ) ---
EXAM DESCRIPTION: CT ABDOMEN PELVIS WITH IV CONTRAST COMPLETED DATE/TME: 11/28/2018 21:30 CLINICAL HISTORY: 33 years, Female, abdominal pain This exam was performed according to our departmental dose-optimization program which includes automated exposure control, adjustment of the mA and/or kVp according to patient size and/or use of iterative reconstruction technique where applicable. FINDINGS: Visualized lung bases are within normal limits. Liver, spleen, pancreas, gallbladder, adrenal glands and kidneys are within normal limits. No hydronephrosis or biliary dilatation. No dilated loops of bowel to suggest obstruction. Mild amount of stool in the colon. The appendix is normal. No free fluid or free air. The bladder is unremarkable. Gynecologic organs are unremarkable. No abdominal or pelvic lymphadenopathy. Abdominal aorta is within normal limits. IMPRESSION: No acute disease.
[2018-11-28] MEDS ORDERED: HYDROCODONE/ACETAMINOPHEN 5-325 MG (6 TAB/ER DISP) PO PRN (23:16)
[2018-11-28 23:24] VITALS: BP 136/78
== END 2018-11-28 23:39 | disposition home or self-care (01) ==
LOC: ER 18:28
DX: R10.84 Generalized abdominal pain (principal); M54.9 Dorsalgia, unspecified; G89.29 Other chronic pain; I10 Essential (primary) hypertension; E11.9 Type 2 diabetes mellitus without complications; J45.909 Unspecified asthma, uncomplicated; Z85.41 Personal history of malignant neoplasm of cervix uteri; Z87.19 Personal history of other diseases of the digestive system; Z87.892 Personal history of anaphylaxis; Z91.018 Allergy to other foods; Z88.5 Allergy status to narcotic agent; Z88.8 Allergy status to other drugs, medicaments and biological substances
CPT/HCPCS: 99284; 96361; 96374; 96375; 36415; 84702; 85025; 81025; 80053; 81001; 74177; J2765; J1170; J7030

== ENCOUNTER 2018-12-02 21:06 | Emergency (ER) | payer MEDICAID ==
[2018-12-02] MEDS ORDERED: DEXAMETHASONE SOD PHOS INJ 10 MG/1 ML VIAL IM ONE (23:30)
[2018-12-02] MEDS ORDERED: KETOROLAC TROMETHAMINE 60 MG/2 ML SDV IM ONE (23:30)
--- NOTE | 2018-12-03 00:29 | ER Document Report ---
Addendum entered and electronically signed by VAMSHI MADDEN NP 12/13/18 09:52: Discharge - Discharge Clinical Impression: Lupus Back pain Qualifiers: Back pain location: thoracic back pain Chronicity: chronic Back pain laterality: unspecified Qualified Code(s): M54.6 - Pain in thoracic spine; G89.29 - Other chronic pain Systemic lupus Qualifiers: Systemic lupus erythematosus type: unspecified Systemic lupus erythematosus organ involvement: unspecified Qualified Code(s): M32.9 - Systemic lupus erythematosus, unspecified Condition: Stable Disposition: HOME, SELF-CARE Additional Instructions: Your back pain is most likely related to an acute lupus flareup. Please continue to take the medications that you are already prescribed by your primary care physician. If you are able to get the Toradol filled please take this as prescribed. If you cannot get this filled please take ibuprofen 800 mg every 8 hours. Please call to make a follow-up appointment with your primary care provider for further management of your lupus. Prescriptions: Ketorolac Tromethamine [Toradol 10 mg Tablet] 10 mg PO Q6HP PRN #20 tablet PRN Reason: Prednisone [Deltasone 20 mg Tablet] 2 tab PO DAILY 5 Days #10 tablet Referrals: CLINTON HERNANDEZ PA-C [Primary Care Provider] - Follow up as needed Original Note: HPI - HPI Time Seen by Provider: 12/02/18 22:57 Pain Level: 5 Notes: Patient is a 33-year-old female who presents to the emergency department with complaints of back pain. She states she chronically has pain due to her lupus, states that her pain got worse today. Denies any recent trauma to the area, denies any fever. Patient denies any bowel incontinence, urinary retention or saddle anesthesia. Patient reports the pain is in the thoracic area with radiation up her back. She has not had any recent surgeries. - REPRODUCTIVE Reproductive: DENIES: : Past Medical History - General Information source: Patient - Social History Smoking Status: Current Every Day Smoker Frequency of alcohol use: None Drug Abuse: None Family History: Reviewed & Not Pertinent, Arthritis, CAD, COPD, CVA, DM, Hyperlipidemia, Hypertension, Malignancy, Thyroid Disfunction Patient has suicidal ideation: No Patient has homicidal ideation: No - Past Medical History Cardiac Medical History: Reports: Hx Hypercholesterolemia, Hx Hypertension Denies: Hx Coronary Artery Disease, Hx Heart Attack Pulmonary Medical History: Reports: Hx Asthma, Hx Sleep Apnea Denies: Hx Bronchitis, Hx COPD, Hx Pneumonia Neurological Medical History: Reports: Hx Migraine, Hx Seizures - unsure what type. Denies: Hx Cerebrovascular Accident Endocrine Medical History: Reports: Hx Diabetes Mellitus Type 2 Renal/ Medical History: Denies: Hx Peritoneal Dialysis Malignancy Medical History: Reports: Hx Cervical Cancer GI Medical History: Reports: Hx Gastroesophageal Reflux Disease, Hx Endoscopy Musculoskeletal Medical History: Reports Hx Arthritis, Reports Hx Musculoskeletal Deformity Psychiatric Medical History: Reports: Hx Depression Past Surgical History: Reports: Hx Dilation and Curettage, Hx Gynecologic Surgery - D&C, Hx Oral Surgery, Hx Orthopedic Surgery - carpal tunnel x2. Denies: Hx Hysterectomy - Immunizations Immunizations up to date: Yes Hx Diphtheria, Pertussis, Tetanus Vaccination: Yes - past Hx Pneumococcal Vaccination: 09/19/00 Vertical Provider Document - CONSTITUTIONAL Notes: PHYSICAL EXAMINATION: GENERAL: Well-appearing, well-nourished and in no acute distress. HEAD: Atraumatic, normocephalic. EYES: Pupils equal round extraocular movements intact, conjunctiva are normal. ENT: Nares patent NECK: Normal range of motion LUNGS: No respiratory distress Musculoskeletal: Normal range of motion, no vertebral tenderness, no step-off or deformity noted. Tenderness to palpation to thoracic paraspinous muscles. NEUROLOGICAL: Normal speech. PSYCH: Normal mood, normal affect. SKIN: Warm, Dry, normal turgor, no rashes or lesions noted. - INFECTION CONTROL TRAVEL OUTSIDE OF THE [place] IN LAST 30 DAYS: No Course - Re-evaluation Re-evalutation: Patient's examination as well as history of present illness most consistent with a lupus flareup. Patient is already taking hydroxychloroquine. We will start her on an anti-inflammatory at this time. She agrees to follow-up with her primary care provider, she will call them Tuesday. Patient reports allergy to some type of steroid, she believes it is dexamethasone so I will not give her steroids at this time. - Vital Signs Vital signs: Temp Pulse Resp BP Pulse Ox 98.5 F 69 22 H 139/85 H 100 12/02/18 21:29 12/02/18 21:29 12/02/18 21:29 12/02/18 21:29 12/02/18 21:29 Discharge - Discharge Clinical Impression: Lupus Back pain Qualifiers: Back pain location: thoracic back pain Chronicity: chronic Back pain laterality : bilateral Qualified Code(s): M54.6 - Pain in thoracic spine Condition: Stable Disposition: HOME, SELF-CARE Additional Instructions: Your back pain is most likely related to an acute lupus flareup. Please continue to take the medications that you are already prescribed by your primary care physician. If you are able to get the Toradol filled please take this as prescribed. If you cannot get this filled please take ibuprofen 800 mg every 8 hours. Please call to make a follow-up appointment with your primary care provider for further management of your lupus. Prescriptions: Ketorolac Tromethamine [Toradol 10 mg Tablet] 10 mg PO Q6HP PRN #20 tablet PRN Reason: Prednisone [Deltasone 20 mg Tablet] 2 tab PO DAILY 5 Days #10 tablet Referrals: CLINTON HERNANDEZ PA-C [Primary Care Provider] - Follow up as needed
[2018-12-03 02:56] VITALS: BP 138/82
== END 2018-12-03 01:45 | disposition home or self-care (01) ==
LOC: ER 21:06
DX: M32.9 Systemic lupus erythematosus, unspecified (principal); G89.29 Other chronic pain; M54.6 Pain in thoracic spine; F17.200 Nicotine dependence, unspecified, uncomplicated; I10 Essential (primary) hypertension; J45.909 Unspecified asthma, uncomplicated; E11.9 Type 2 diabetes mellitus without complications; Z85.41 Personal history of malignant neoplasm of cervix uteri; Z79.899 Other long term (current) drug therapy; Z88.8 Allergy status to other drugs, medicaments and biological substances
CPT/HCPCS: 99283; 96372; J1885

== ENCOUNTER 2019-01-07 20:15 | Emergency (ER) | payer MEDICAID ==
--- NOTE | 2019-01-07 20:55 | ER Document Report ---
ED Medical Screen (RME) - General Chief Complaint: Abdominal Pain Stated Complaint: ABDOMINAL PAIN Time Seen by Provider: 01/07/19 20:53 Primary Care Provider: CLINTON HERNANDEZ PA-C [Primary Care Provider] - Follow up as needed Mode of Arrival: Ambulatory Information source: Patient Notes: Patient presents complaining of lower pelvic pain for the past week with some m ild burning with urination and vaginal discharge. Patient would like to be tested for possible sexually transmitted infection. I have greeted and performed a rapid initial assessment of this patient. A comprehensive ED assessment and evaluation of the patient, analysis of test results and completion of the medical decision making process will be conducted by additional ED providers. TRAVEL OUTSIDE OF THE [place] IN LAST 30 DAYS: No - Related Data Allergies/Adverse Reactions: banana Allergy (Severe, Verified 11/22/18 10:37) Anaphylaxis tramadol Allergy (Severe, Verified 11/22/18 10:37) Anaphylaxis atorvastatin [From Lipitor] Allergy (Intermediate, Verified 11/22/18 10:37) Generalized Itching lisinopril Allergy (Intermediate, Verified 11/22/18 10:37) Generalized rash dexamethasone Allergy (Verified 12/02/18 23:52) Past Medical History - Social History Chew tobacco use (# tins/day): No Frequency of alcohol use: None Drug Abuse: None Family history: CAD, CVA, DM, Hyperlipidemia, Hypertension, Malignancy, Thyroid Disfunction - Past Medical History Cardiac Medical History: Reports: Hx Hypercholesterolemia, Hx Hypertension Denies: Hx Coronary Artery Disease, Hx Heart Attack Pulmonary Medical History: Reports: Hx Asthma, Hx Sleep Apnea Denies: Hx Bronchitis, Hx COPD, Hx Pneumonia Neurological Medical History: Reports: Hx Migraine, Hx Seizures - unsure what type. Denies: Hx Cerebrovascular Accident Endocrine Medical History: Reports: Hx Diabetes Mellitus Type 2 Renal/ Medical History: Denies: Hx Peritoneal Dialysis Malignancy Medical History: Reports: Hx Cervical Cancer GI Medical History: Reports: Hx Gastroesophageal Reflux Disease, Hx Endoscopy Musculoskeltal Medical History: Reports Hx Arthritis, Reports Hx Musculoskeletal Deformity Psychiatric Medical History: Reports: Hx Depression Past Surgical History: Reports: Hx Dilation and Curettage, Hx Gynecologic Surgery - D&C, Hx Oral Surgery, Hx Orthopedic Surgery - carpal tunnel x2. Denies: Hx Hysterectomy - Immunizations Immunizations up to date: Yes Hx Diphtheria, Pertussis, Tetanus Vaccination: Yes - past Physical Exam - Vital signs Vitals: Temp Pulse Resp BP Pulse Ox 98.0 F 91 20 139/79 H 100 01/07/19 20:37 01/07/19 20:37 01/07/19 20:37 01/07/19 20:37 01/07/19 20:37 - Abdominal Tenderness: Tender - Lower pelvic Course - Vital Signs Vital signs: Temp Pulse Resp BP Pulse Ox 98.0 F 91 20 139/79 H 100 01/07/19 20:37 01/07/19 20:37 01/07/19 20:37 01/07/19 20:37 01/07/19 20:37 Doctor's Discharge - Discharge Referrals: CLINTON HERNANDEZ PA-C [Primary Care Provider] - Follow up as needed
[2019-01-07 21:28] LABS: APPEARANCE,URINE CLEAR; BILIRUBIN,URINE NEGATIVE (NEGATIVE); COLOR,URINE YELLOW; GLUCOSE, URINE NEGATIVE (NEGATIVE); KETONES,URINE NEGATIVE (NEGATIVE); LEUKOCYTE ESTERASE,URINE TRACE (NEGATIVE); NITRITE,URINE NEGATIVE (NEGATIVE); PROTEIN,URINE NEGATIVE (NEGATIVE); URINE SPECIFIC GRAVITY 1.023
[2019-01-07 21:40] LABS: BACTERIA (WET MOUNT) 3+ BACTERIA SEEN; EPITHELIALS (WET MOUNT) 3+ EPITHELIALS SEEN; RBCS (WET MOUNT) FEW RBCS SEEN; T.VAGINALIS (WET MOUNT) NO TRICHOMONAS SEEN; WBCS (WET MOUNT) 1+ WBCS SEEN; YEAST (WET MOUNT) NO YEAST SEEN
[2019-01-07 22:57] LABS: CHLAM PCR NOT DETECTED (NOT DETECT); GON PCR NOT DETECTED (NOT DETECT)
[2019-01-07] MEDS ORDERED: METFORMIN HCL 500 MG TABLET PO ONE (22:58)
--- NOTE | 2019-01-07 23:00 | ER Document Report ---
ED General - General Chief Complaint: Abdominal Pain Stated Complaint: ABDOMINAL PAIN Time Seen by Provider: 01/07/19 20:53 Primary Care Provider: CLINTON HERNANDEZ PA-C [Primary Care Provider] - Follow up in 3-5 days Mode of Arrival: Ambulatory Notes: Patient is a 33-year-old female that presents to the emergency department for chief complaint of pelvic cramping, and discharge. Patient states she had some pain after intercourse a few days ago, has been having some pelvic cramping and irritation since then. She is concerned that she had a possible yeast infection versus an STI or BV. She has noticed some odor as well with the discharge. Denies any fevers, chills, night sweats, dysuria, hematuria. She currently rates her pain as a 1 out of 10. Denies any other complaints at this time, denies any chest pain, short of breath, nausea, vomiting or diarrhea. Past Medical History: Hypertension Past Surgical History: Social History: Admits to occasional alcohol use and tobacco use, denies illicit drug use. Family History: Reviewed and noncontributory for presenting illness Allergies: Reviewed, see documented allergy list. REVIEW OF SYSTEMS: Other than noted above, the 12 point review of systems was reviewed with the patient and were negative, all pertinent findings are included in the HPI. PHYSICAL EXAMINATION: Vital signs reviewed, nursing noted reviewed. GENERAL: Obese female, no acute distress HEAD: Atraumatic, normocephalic. EYES: Eyes appear normal, extraocular movements intact, sclera anicteric, conjunctiva are normal. ENT: nares patent, oropharynx clear without exudates. Moist mucous membranes. NECK: Normal range of motion, supple without lymphadenopathy LUNGS: Breath sounds clear to auscultation bilaterally and equal. No wheezes rales or rhonchi. HEART: Regular rate and rhythm without murmurs ABDOMEN: Soft, nontender, normoactive bowel sounds. No rebound, guarding, or rigidity. No masses appreciated. EXTREMITIES: Nontender, good range of motion, no pitting or edema. NEUROLOGICAL: No focal neurological deficits. Moves all extremities spontaneously Motor and sensory grossly intact on exam. PSYCH: Normal mood, normal affect. SKIN: Warm, Dry, normal turgor, no rashes or lesions noted on exposed skin TRAVEL OUTSIDE OF THE [place] IN LAST 30 DAYS: No - Related Data Allergies/Adverse Reactions: banana Allergy (Severe, Verified 11/22/18 10:37) Anaphylaxis tramadol Allergy (Severe, Verified 11/22/18 10:37) Anaphylaxis atorvastatin [From Lipitor] Allergy (Intermediate, Verified 11/22/18 10:37) Generalized Itching lisinopril Allergy (Intermediate, Verified 11/22/18 10:37) Generalized rash dexamethasone Allergy (Verified 12/02/18 23:52) Past Medical History - General Information source: Patient - Social History Smoking Status: Never Smoker Chew tobacco use (# tins/day): No Frequency of alcohol use: None Drug Abuse: None Family History: Reviewed & Not Pertinent, Arthritis, CAD, COPD, CVA, DM, Hyperlipidemia, Hypertension, Malignancy, Thyroid Disfunction Patient has suicidal ideation: No Patient has homicidal ideation: No - Past Medical History Cardiac Medical History: Reports: Hx Hypercholesterolemia, Hx Hypertension Denies: Hx Coronary Artery Disease, Hx Heart Attack Pulmonary Medical History: Reports: Hx Asthma, Hx Sleep Apnea Denies: Hx Bronchitis, Hx COPD, Hx Pneumonia Neurological Medical History: Reports: Hx Migraine, Hx Seizures - unsure what type. Denies: Hx Cerebrovascular Accident Endocrine Medical History: Reports: Hx Diabetes Mellitus Type 2 Renal/ Medical History: Denies: Hx Peritoneal Dialysis Malignancy Medical History: Reports: Hx Cervical Cancer GI Medical History: Reports: Hx Gastroesophageal Reflux Disease, Hx Endoscopy Musculoskeletal Medical History: Reports Hx Arthritis, Reports Hx Musculoskeletal Deformity Psychiatric Medical History: Reports: Hx Depression Past Surgical History: Reports: Hx Dilation and Curettage, Hx Gynecologic Surgery - D&C, Hx Oral Surgery, Hx Orthopedic Surgery - carpal tunnel x2. Denies: Hx Hysterectomy - Immunizations Immunizations up to date: Yes Hx Diphtheria, Pertussis, Tetanus Vaccination: Yes - past Hx Pneumococcal Vaccination: 09/19/00 Physical Exam - Vital signs Vitals: Temp Pulse Resp BP Pulse Ox 98.0 F 91 20 139/79 H 100 01/07/19 20:37 01/07/19 20:37 01/07/19 20:37 01/07/19 20:37 01/07/19 20:37 Course - Re-evaluation Re-evalutation: Patient seen and examined vital signs reviewed. Patient was evaluated and treated as appropriate for the patient's presenting symptoms and complaint, with consideration of any critical or life threatening conditions that may be associated with their obtained history and exam as noted above. Patient was treated with first dose of metronidazole, for BV, based on testing and wet mount, this is most consistent with her presentation as well. GC chlamydia negative The patient was re-evaluated and was stable Evaluation was most consistent with bacterial vaginosis, will start the patient on metronidazole twice daily for 7 days, will give her prescription for Diflucan as well as she states she frequently gets yeast infections after being on anti biotics. Plan of care was discussed with the patient at this point, after careful consideration I feel that that patient can be discharged from the emergency department, the patient was educated treatments and reasons to return to the emergency department based on their presumed diagnosis as noted above, they were advised to followup with a primary care physician in 2-3 days. Patient was agreeable to plan of care. *Note is created using voice recognition software and may contain spelling, syntax or grammatical errors. Laboratory 01/07/19 01/07/19 21:00 21:00 Urine Color YELLOW Urine Appearance CLEAR Urine pH 6.0 Ur Specific Melba 1.023 Urine Protein NEGATIVE Urine Glucose (UA) NEGATIVE Urine Ketones NEGATIVE Urine Blood NEGATIVE Urine Nitrite NEGATIVE Urine Bilirubin NEGATIVE Urine Urobilinogen 4.0 H Ur Leukocyte Esterase TRACE H Urine WBC (Auto) 1 Urine RBC (Auto) 0 Squamous Epi Cells Auto 1 Urine Mucus (Auto) RARE Urine Ascorbic Acid NEGATIVE Urine HCG, Qual NEGATIVE Epi Cells (Wet Prep) 3+ EPITHELIALS SEEN Bacteria (Wet Prep) 3+ BACTERIA SEEN Trichomonas (Wet Prep) NO TRICHOMONAS SEEN Vaginal WBC 1+ WBCS SEEN Vaginal RBC FEW RBCS SEEN Vaginal Yeast NO YEAST SEEN - Vital Signs Vital signs: Temp Pulse Resp BP Pulse Ox 98.0 F 91 20 139/79 H 100 01/07/19 20:37 01/07/19 20:37 01/07/19 20:37 01/07/19 20:37 01/07/19 20:37 - Laboratory Laboratory results interpreted by me: 01/07/19 21:00 Urine Urobilinogen 4.0 H Ur Leukocyte Esterase TRACE H Discharge - Discharge Clinical Impression: Bacterial vaginosis Condition: Stable Disposition: HOME, SELF-CARE Instructions: Vaginosis, Bacterial ([facility]) Additional Instructions: Please complete the entire course of antibiotics as directed, and please follow- up with your family care physician or [facility]. If you do not have one has been listed with your paperwork. Prescriptions: Fluconazole [Diflucan] 150 mg PO ONCE PRN #1 tablet PRN Reason: yeast infection Metronidazole [Flagyl 500 mg Tablet] 500 mg PO BID #14 tablet Referrals: CLINTON HERNANDEZ PA-C [Primary Care Provider] - Follow up in 3-5 days
[2019-01-07] MEDS ORDERED: METRONIDAZOLE 500 MG TABLET PO ONE (23:10)
[2019-01-07 23:52] VITALS: BP 129/81
== END 2019-01-07 23:52 | disposition home or self-care (01) ==
LOC: ER 20:15
DX: N76.0 Acute vaginitis (principal); B96.89 Other specified bacterial agents as the cause of diseases classified elsewhere; R10.9 Unspecified abdominal pain; E78.00 Pure hypercholesterolemia, unspecified; I10 Essential (primary) hypertension; E11.9 Type 2 diabetes mellitus without complications; Z85.41 Personal history of malignant neoplasm of cervix uteri; Z88.6 Allergy status to analgesic agent
CPT/HCPCS: 99284; 87210; 81025; 81001; 87491; 87591; J3490

== ENCOUNTER 2019-01-19 08:25 | Day surgery (SDC) | payer MEDICAID ==
[~2019-01-19 08:25] MED LIST: PROPOFOL INJ 200 MG/20 ML VIAL IV ONE
[2019-01-19 11:28] VITALS: BP 108/59
--- NOTE | 2019-01-19 11:43 | Operative Report ---
Operative Report DATE OF SURGERY: 01/19/19 Operative Report: The risks, benefits and alternatives of the procedure including the risk of bleeding, perforation requiring surgery have been explained to the patient in detail and informed consent has been obtained. The patient has taken back to the endoscopy suite and placed in the left, lateral decubital position. Timeout was called. Propofol medication is administered. A rectal examination is done which did not reveal any masses, tears or fissures. An Olympus videoscope was introduced into the patient's rectum. The scope was then carefully advanced all the way to the cecum. The cecum was identified for by the usual anatomical landmarks including the ileocecal valve as well as the appendiceal office. Photodocumentation is obtained. The scope was then sequentially pulled back via the various segments of the colon including the ascending colon, hepatic flexure, transverse colon, splenic flexure, descending colon and finally into the rectosigmoid portions of the colon. Retroflexion maneuver is performed. The risks benefits and alternatives of the procedure explained to the patient in detail and informed consent is obtained. A GIF Olympus video scope was inserted into the patient's mouth and hypopharynx, the esophagus is identified intubated and insufflated ,the scope was then advanced through the esophagus stomach and duodenum, retroflexion maneuver is done, the esophagus stomach and first and second portions of the duodenum examined. PREOPERATIVE DIAGNOSIS: Blood in stool, epigastric pain rule out peptic ulcer disease POSTOPERATIVE DIAGNOSIS: Right colon inflammation status post biopsy. Diverticulosis without any evidence of diverticulitis. Internal hemorrhoids. Gastritis status post biopsy rule out Helicobacter pylori OPERATION: Colonoscopy with biopsy. EGD with biopsy SURGEON: ALFONSO ANDUJAR ANESTHESIA: LMAC TISSUE REMOVED OR ALTERED: As noted above COMPLICATIONS: None. ESTIMATED BLOOD LOSS: None. INTRAOPERATIVE FINDINGS: As noted above. PROCEDURE: Patient tolerated the procedure well. No immediate postprocedure complications are noted. Patient discharged in good condition. Discharge date 01/19/2019. Discharge diet: Regular. Discharge activity: Regular. 2 to 3-week follow-up to discuss findings. Patient is instructed to call the office or proceed to the emergency room should there be any further proximal questions. Wait on the pathology.
== END 2019-01-19 11:35 | disposition home or self-care (01) ==
LOC: END 08:25
PROVIDERS: ATTEND Internal Medicine Gastroenterology
DX: K29.50 Unspecified chronic gastritis without bleeding (principal); K52.9 Noninfective gastroenteritis and colitis, unspecified; K92.1 Melena; K57.30 Diverticulosis of large intestine without perforation or abscess without bleeding; K64.8 Other hemorrhoids; Z86.010 Personal history of colon polyps
CPT/HCPCS: 43239; 45380; 88342 ×2; 88305 ×2; J2704; 813

== ENCOUNTER 2019-02-07 17:10 | Emergency (ER) | payer MEDICAID ==
--- NOTE | 2019-02-07 17:49 | ER Document Report ---
ED Medical Screen (RME) - General Chief Complaint: Abdominal Pain Stated Complaint: ABDOMINAL PAIN Time Seen by Provider: 02/07/19 17:39 Primary Care Provider: CLINTON HERNANDEZ PA-C [Primary Care Provider] - Follow up as needed Mode of Arrival: Ambulatory Information source: Patient TRAVEL OUTSIDE OF THE [place] IN LAST 30 DAYS: No - HPI Patient complains to provider of: CP, ABDO PAIN Notes: 02/07/19 17:47 Patient here with multiple unrelated complaints. The patient states is been out of all of her medications due to lack of funds for the last several weeks. Is a history of lupus. She states that she has chronic abdominal pain and her pain is gotten worse over the last few days. States that she recently had a colonoscopy and endoscopy she had worsening pain since having those done. She states that she was diagnosed with H. pylori but was not able to afford the medications. She also states been having some chest pain. Exam Nontoxic, no distress. Morbid obesity. Mild epigastric tenderness to palpation. Lungs clear and equal throughout. Heart sounds normal. Plan CBC, CMP lipase, urine, urine , troponin, EKG, acute abdominal series An initial examination was made on the patient as part of the triage process, and it was determined a more comprehensive evaluation was necessary. Initial labs were ordered and patient was transferred to another provider in the ED who assumed care and finished evaluation and plan. - Related Data Allergies/Adverse Reactions: banana Allergy (Severe, Verified 02/07/19 17:11) Anaphylaxis tramadol Allergy (Severe, Verified 02/07/19 17:11) Anaphylaxis atorvastatin [From Lipitor] Allergy (Intermediate, Verified 02/07/19 17:11) Generalized Itching dexamethasone Allergy (Intermediate, Verified 02/07/19 17:11) SWELLING, ITCH lisinopril Allergy (Intermediate, Verified 02/07/19 17:11) Generalized rash Past Medical History - Social History Family history: CAD, CVA, DM, Hyperlipidemia, Hypertension, Malignancy, Thyroid Disfunction - Past Medical History Cardiac Medical History: Reports: Hx Hypercholesterolemia, Hx Hypertension Denies: Hx Coronary Artery Disease, Hx Heart Attack Pulmonary Medical History: Reports: Hx Asthma - USES INHALER PRN, Hx Sleep Apnea Denies: Hx Bronchitis, Hx COPD, Hx Pneumonia Neurological Medical History: Reports: Hx Migraine, Hx Seizures - SEVERAL YEARS SINCE LAST, NO MEDS. Denies: Hx Cerebrovascular Accident Endocrine Medical History: Reports: Hx Diabetes Mellitus Type 2 Renal/ Medical History: Denies: Hx Peritoneal Dialysis Malignancy Medical History: Reports: Hx Cervical Cancer GI Medical History: Reports: Hx Gastroesophageal Reflux Disease, Hx Endoscopy Musculoskeltal Medical History: Reports Hx Arthritis, Reports Hx Musculoskeletal Deformity Psychiatric Medical History: Reports: Hx Depression Past Surgical History: Reports: Hx Dilation and Curettage, Hx Gynecologic Surgery - D&C, Hx Oral Surgery, Hx Orthopedic Surgery - carpal tunnel x2. Denies: Hx Hysterectomy - Immunizations Immunizations up to date: Yes Hx Diphtheria, Pertussis, Tetanus Vaccination: - UNKNOWN Physical Exam - Vital signs Vitals: Temp Pulse Resp BP Pulse Ox 98 F 92 24 H 166/106 H 97 02/07/19 17:16 02/07/19 17:16 02/07/19 17:16 02/07/19 17:16 02/07/19 17:16 Course - Vital Signs Vital signs: Temp Pulse Resp BP Pulse Ox 98 F 92 24 H 166/106 H 97 02/07/19 17:16 02/07/19 17:16 02/07/19 17:16 02/07/19 17:16 02/07/19 17:16 Doctor's Discharge - Discharge Referrals: CLINTON HERNANDEZ PA-C [Primary Care Provider] - Follow up as needed
--- NOTE | 2019-02-07 18:46 | RADIOLOGY REPORT (SQ) ---
EXAM DESCRIPTION: ACUTE ABDOMEN SERIES COMPLETED DATE/TIME: 02/07/2019 6:19 pm REASON FOR STUDY: ABDO PAIN AFTER ENDOSCOPY, CHEST PAIN COMPARISON: 11/15/2017 NUMBER OF VIEWS: Three views. TECHNIQUE: Frontal chest, supine abdomen and upright/decubitus abdomen radiographic images acquired. LIMITATIONS: Morbid obesity. FINDINGS: CHEST: Lungs clear of infiltrates. FREE AIR: None. No abnormal gas collections. BOWEL GAS PATTERN: Nonobstructive pattern. No dilated loops or air fluid levels. CALCIFICATIONS: No suspicious calcifications. HARDWARE: None in the abdomen. SOFT TISSUES: No gross mass or suggestion of organomegaly. BONES: No acute fracture. No worrisome bone lesions. OTHER: No other significant finding. IMPRESSION: NO RADIOGRAPHIC EVIDENCE FOR ACUTE ABDOMINAL DISEASE. TECHNICAL DOCUMENTATION: JOB ID: [id number] [employer]- All Rights Reserved Reading location - IP/workstation name: [email or web address]
--- NOTE | 2019-02-07 22:00 | ER Document Report ---
ED General - General Chief Complaint: Abdominal Pain Stated Complaint: ABDOMINAL PAIN Time Seen by Provider: 02/07/19 17:39 Primary Care Provider: CLINTON HERNANDEZ PA-C [Primary Care Provider] - Follow up as needed Mode of Arrival: Ambulatory Notes: Patient here with multiple unrelated complaints. The patient states is been out of all of her medications due to lack of funds for the last several weeks. Is a history of lupus. She states that she has chronic abdominal pain and her pain is gotten worse over the last few days. States that she recently had a colonoscopy and endoscopy she had worsening pain since having those done. She states that she was diagnosed with H. pylori but was not able to afford the medications. She also states been having some chest pain. TRAVEL OUTSIDE OF THE [place] IN LAST 30 DAYS: No - Related Data Allergies/Adverse Reactions: banana Allergy (Severe, Verified 02/07/19 17:11) Anaphylaxis tramadol Allergy (Severe, Verified 02/07/19 17:11) Anaphylaxis atorvastatin [From Lipitor] Allergy (Intermediate, Verified 02/07/19 17:11) Generalized Itching dexamethasone Allergy (Intermediate, Verified 02/07/19 17:11) SWELLING, ITCH lisinopril Allergy (Intermediate, Verified 02/07/19 17:11) Generalized rash Past Medical History - General Information source: Patient - Social History Smoking Status: Never Smoker Frequency of alcohol use: None Drug Abuse: None Lives with: Family Family History: Reviewed & Not Pertinent, Arthritis, CAD, COPD, CVA, DM, Hyperlipidemia, Hypertension, Malignancy, Thyroid Disfunction Patient has suicidal ideation: No Patient has homicidal ideation: No - Past Medical History Cardiac Medical History: Reports: Hx Hypercholesterolemia, Hx Hypertension Denies: Hx Coronary Artery Disease, Hx Heart Attack Pulmonary Medical History: Reports: Hx Asthma - USES INHALER PRN, Hx Sleep Apnea Denies: Hx Bronchitis, Hx COPD, Hx Pneumonia Neurological Medical History: Reports: Hx Migraine, Hx Seizures - SEVERAL YEARS SINCE LAST, NO MEDS. Denies: Hx Cerebrovascular Accident Endocrine Medical History: Reports: Hx Diabetes Mellitus Type 2 Renal/ Medical History: Denies: Hx Peritoneal Dialysis Malignancy Medical History: Reports: Hx Cervical Cancer GI Medical History: Reports: Hx Gastroesophageal Reflux Disease, Hx Endoscopy Musculoskeletal Medical History: Reports Hx Arthritis, Reports Hx Musculoskeletal Deformity Psychiatric Medical History: Reports: Hx Depression Past Surgical History: Reports: Hx Dilation and Curettage, Hx Gynecologic Surgery - D&C, Hx Oral Surgery, Hx Orthopedic Surgery - carpal tunnel x2. Denies: Hx Hysterectomy - Immunizations Immunizations up to date: Yes Hx Diphtheria, Pertussis, Tetanus Vaccination: - UNKNOWN Hx Pneumococcal Vaccination: 09/19/00 Review of Systems - Review of Systems Notes: REVIEW OF SYSTEMS: CONSTITUTIONAL : Denies fever, chills, or sweats. Denies recent illness. Denies weight loss, recent hospitalizations. EENT: Denies visual changes, eye pain. Denies sore throat, oral lesions, difficulty swallowing. CARDIOVASCULAR: Denies chest pain. Denies palpitations. Denies lower extremity edema. RESPIRATORY: Denies cough. Denies shortness of breath, wheezing. GASTROINTESTINAL: Denies abdominal distention. Denies blood in vomitus, stools, or per rectum. Denies black, tarry stools. Denies constipation. GENITOURINARY: Denies difficulty urinating, painful urination, frequency, blood in urine, or vaginal discharge. MUSCULOSKELETAL: Denies back or neck pain or stiffness. Denies joint pain or swelling. SKIN: Denies rash, lesions or sores. HEMATOLOGIC : Denies easy bruising or bleeding. LYMPHATIC: Denies swollen glands. NEUROLOGICAL: Denies confusion or altered mental status. Denies loss of cons ciousness. Denies dizziness or lightheadedness. Denies headache. Denies weakness or paralysis. Denies problems difficulty with ambulation, slurred speech. Denies sensory loss, numbness, or tingling. Denies seizures. PSYCHIATRIC: Denies anxiety or stress. Denies depression, suicidal ideation, or homicidal ideation. Denies visual or auditory hallucinations. Physical Exam - Vital signs Vitals: Temp Pulse Resp BP Pulse Ox 98 F 92 24 H 166/106 H 97 02/07/19 17:16 02/07/19 17:16 02/07/19 17:16 02/07/19 17:16 02/07/19 17:16 Course - Re-evaluation Re-evalutation: Laboratory 02/07/19 02/08/19 02/08/19 21:29 00:02 00:02 WBC 6.3 RBC 4.30 Hgb 11.4 L Hct 35.3 L MCV 82 MCH 26.6 L MCHC 32.4 RDW 14.5 H Plt Count 265 Seg Neutrophils % 47.4 Lymphocytes % 41.5 Monocytes % 9.6 Eosinophils % 0.8 Basophils % 0.7 Absolute Neutrophils 3.0 Absolute Lymphocytes 2.6 Absolute Monocytes 0.6 Absolute Eosinophils 0.0 Absolute Basophils 0.0 Sodium 140.7 Potassium 4.3 Chloride 107 Carbon Dioxide 23 Anion Gap 11 BUN 16 Creatinine 0.77 Est GFR ( Amer) > 60 Est GFR (Non-Af Amer) > 60 Glucose 91 Calcium 9.8 Total Bilirubin 0.4 Direct Bilirubin 0.3 Neonat Total Bilirubin Not Reportable Neonat Direct Bilirubin Not Reportable Neonat Indirect Bili Not Reportable AST 17 ALT 12 Alkaline Phosphatase 51 Troponin I Total Protein 8.0 Albumin 3.9 Lipase 147.1 Urine Color YELLOW Urine Appearance CLEAR Urine pH 5.0 Ur Specific [place] 1.023 Urine Protein NEGATIVE Urine Glucose (UA) NEGATIVE Urine Ketones NEGATIVE Urine Blood NEGATIVE Urine Nitrite NEGATIVE Urine Bilirubin NEGATIVE Urine Urobilinogen 2.0 H Ur Leukocyte Esterase NEGATIVE Urine WBC (Auto) 1 Urine RBC (Auto) 1 Squamous Epi Cells Auto 2 Urine Mucus (Auto) RARE Urine Ascorbic Acid NEGATIVE Urine HCG, Qual NEGATIVE 02/08/19 00:02 WBC RBC Hgb Hct MCV MCH MCHC RDW Plt Count Seg Neutrophils % Lymphocytes % Monocytes % Eosinophils % Basophils % Absolute Neutrophils Absolute Lymphocytes Absolute Monocytes Absolute Eosinophils Absolute Basophils Sodium Potassium Chloride Carbon Dioxide Anion Gap BUN Creatinine Est GFR ( Amer) Est GFR (Non-Af Amer) Glucose Calcium Total Bilirubin Direct Bilirubin Neonat Total Bilirubin Neonat Direct Bilirubin Neonat Indirect Bili AST ALT Alkaline Phosphatase Troponin I < 0.012 Total Protein Albumin Lipase Urine Color Urine Appearance Urine pH Ur Specific [place] Urine Protein Urine Glucose (UA) Urine Ketones Urine Blood Urine Nitrite Urine Bilirubin Urine Urobilinogen Ur Leukocyte Esterase Urine WBC (Auto) Urine RBC (Auto) Squamous Epi Cells Auto Urine Mucus (Auto) Urine Ascorbic Acid Urine HCG, Qual Acute Abdomen Series 02/07/19 17:45 IMPRESSION: NO RADIOGRAPHIC EVIDENCE FOR ACUTE ABDOMINAL DISEASE. Temp Pulse Resp BP Pulse Ox 98.3 F 73 18 128/71 H 96 02/08/19 00:06 02/08/19 00:06 02/08/19 00:06 02/08/19 00:06 02/08/19 00:06 33-year-old female with chronic abdominal pain, chronic rectal pain, morbid obesity presents with complaint of abdominal pain, rectal pain. Patient states that she has been noncompliant with her medication because she is unable to afford them. Patient does have Medicaid coverage and has refills of her medications waiting for her but states that she cannot afford the $3 prescriptions at this time. States that she will likely be able to afford them on Tuesday. Patient is unable to tell me any of the medications that she takes on a normal basis. Patient recently underwent a colonoscopy, endoscopy and was diagnosed with H. pylori and has yet to take her antibiotics. CBC, CMP, urinalysis and troponin are within normal limits. Patient does not appear toxic or dehydrated. She is in no acute distress. Patient did receive IM Dilaudid, Anusol rectal cream. Patient persistently asked for pain medication. I did explain to the patient that after years of this chronic pain that I would not be the one to rid her of this pain. 02/08/19 00:53 On reevaluation patient is sleeping although when awoken she states that she still in pain. 02/08/19 01:59 Patient was evaluated and treated as appropriate for the patient's presenting symptoms and complaint, with consideration of any critical or life threatening c onditions that may be associated with their obtained history and exam as noted above. All results were discussed with patient. Patient provided the opportunity to ask questions, and express concerns. Patient was educated on treatments based on their presumed diagnosis as noted above. At this time we will discharge the patient with return precautions and follow-up recommendations. Verbal discharge instructions given a the bedside. Medication warnings reviewed. Patient is in agreement with this plan and has verbalized understanding of return precautions. After careful consideration I feel that that patient can be safely discharged from the emergency department, they were advised to followup with a primary care physician in 2-3 days. Dictation on this chart was performed using voice recognition software and may result in unintended grammatical, spelling, syntax or errors. - Vital Signs Vital signs: Temp Pulse Resp BP Pulse Ox 98.3 F 73 18 128/71 H 96 02/08/19 00:06 02/08/19 00:06 02/08/19 00:06 02/08/19 00:06 02/08/19 00:06 - Laboratory Result Diagrams: 02/08/19 00:02 02/08/19 00:02 Laboratory results interpreted by me: 02/07/19 02/08/19 21:29 00:02 Hgb 11.4 L Hct 35.3 L MCH 26.6 L RDW 14.5 H Urine Urobilinogen 2.0 H - Diagnostic Test Radiology reviewed: Image reviewed, Reports reviewed Discharge - Discharge Clinical Impression: Chronic abdominal pain, Morbid obesity with BMI of 60.0-69.9, adult, Rectal pain Condition: Good Disposition: HOME, SELF-CARE Instructions: Abdominal Pain ([facility]), Hemorrhoids ([facility]) Referrals: CLINTON HERNANDEZ PA-C [Primary Care Provider] - Follow up as needed
[2019-02-07 22:22] LABS: APPEARANCE,URINE CLEAR; BILIRUBIN,URINE NEGATIVE (NEGATIVE); COLOR,URINE YELLOW; GLUCOSE, URINE NEGATIVE (NEGATIVE); KETONES,URINE NEGATIVE (NEGATIVE); LEUKOCYTE ESTERASE,URINE NEGATIVE (NEGATIVE); NITRITE,URINE NEGATIVE (NEGATIVE); PROTEIN,URINE NEGATIVE (NEGATIVE); URINE SPECIFIC GRAVITY 1.023
[2019-02-07] MEDS ORDERED: ONDANSETRON HCL INJ/PF 4 MG/2 ML SDV IV ONE (22:25)
[2019-02-07] MEDS ORDERED: HYDROMORPHONE HCL INJ/PF 2 MG/ML AMPULE IV ONE (22:25)
[2019-02-07] MEDS ORDERED: ONDANSETRON HCL INJ/PF 4 MG/2 ML SDV IM ONE (23:36)
[2019-02-07] MEDS ORDERED: HYDROMORPHONE HCL INJ/PF 2 MG/ML AMPULE IM ONE (23:36)
--- NOTE | 2019-02-07 23:37 | EKG REPORT ---
SEVERITY:- NORMAL ECG - SINUS RHYTHM : Confirmed by: Mil Clinton 07-Feb-2019 23:37:29
[2019-02-08 00:20] LABS: ABSOLUTE LYMPHOCYTES (AUTO) 2.6 10^3/uL (0.5-4.7); ABSOLUTE MONOCYTES (AUTO) 0.6 10^3/uL (0.1-1.4); BASOPHILS % (AUTO) 0.7 % (0-2); EOSINOPHILS % (AUTO) 0.8 % (0-6); HEMATOCRIT 35.3 % (36.0-47.0); HEMOGLOBIN 11.4 g/dL (12.0-15.5); LYMPHOCYTES % (AUTO) 41.5 % (13-45); MEAN CORPUSCULAR HEMOGLOBIN 26.6 pg (27.0-33.4); MEAN CORPUSCULAR HGB CONC 32.4 g/dL (32.0-36.0); MEAN CORPUSCULAR VOLUME 82 fl (80-97); MONOCYTES % (AUTO) 9.6 % (3-13); PLATELET COUNT 265 10^3/uL (150-450); RED CELL DISTRIBUTION WIDTH 14.5 % (11.5-14.0); SEGMENTED NEUTROPHILS % (AUTO) 47.4 % (42-78); TOTAL CELLS COUNTED % (AUTO) 100 %; WHITE BLOOD COUNT 6.3 10^3/uL (4.0-10.5)
[2019-02-08 00:29] LABS: ALANINE AMINOTRANSFERASE 12 U/L (9-52); ALBUMIN 3.9 g/dL (3.5-5.0); ALKALINE PHOSPHATASE 51 U/L (38-126); ANION GAP 11 (5-19); ASPARTATE AMINO TRANSFERASE 17 U/L (14-36); BILIRUBIN,DIRECT 0.3 mg/dL (0.0-0.4); BILIRUBIN,TOTAL 0.4 mg/dL (0.2-1.3); BLOOD UREA NITROGEN 16 mg/dL (7-20); CALCIUM 9.8 mg/dL (8.4-10.2); CARBON DIOXIDE 23 mmol/L (22-30); CHLORIDE 107 mmol/L (98-107); GLUCOSE 91 mg/dL (75-110); LIPASE 147.1 U/L (23-300); POTASSIUM 4.3 mmol/L (3.6-5.0); SODIUM 140.7 mmol/L (137-145)
[2019-02-08] MEDS ORDERED: LIDOCAINE 4% TRANSPARENT DRESSING 5 GM KIT TP ONE (00:30)
[2019-02-08] MEDS ORDERED: HYDROXYCHLOROQUINE SULFATE 200 MG TABLET PO ONE (00:49)
[2019-02-08] MEDS ORDERED: OXYCODONE-ACETAMINOPHEN 5-325 MG TABLET PO ONE (00:50)
[2019-02-08] MEDS ORDERED: HYDROCODONE/ACETAMINOPHEN 5-325 MG (6 TAB/ER DISP) PO PRN (00:53)
[2019-02-08] MEDS ORDERED: HYDROXYCHLOROQUINE SULFATE 200 MG TABLET ONE (01:27)
[2019-02-08 02:02] VITALS: BP 133/61
== END 2019-02-08 02:01 | disposition home or self-care (01) ==
LOC: ER 17:10
DX: R10.9 Unspecified abdominal pain (principal); K62.89 Other specified diseases of anus and rectum; G89.29 Other chronic pain; E66.01 Morbid (severe) obesity due to excess calories; Z68.44 Body mass index [BMI] 60.0-69.9, adult; R07.9 Chest pain, unspecified; I10 Essential (primary) hypertension; J45.909 Unspecified asthma, uncomplicated; E11.9 Type 2 diabetes mellitus without complications; Z91.14 Patient's other noncompliance with medication regimen
CPT/HCPCS: 93005; 99284; 96372; 36415; 83690; 85025; 81025; 80053; 81001; 84484; 74022; 93010; J3490 ×2; J1170; J2405

== ENCOUNTER 2019-03-29 00:41 | Emergency (ER) | payer MEDICAID ==
[2019-03-29] MEDS ORDERED: CLONIDINE HCL 0.2 MG TABLET PO ONE (01:14)
[2019-03-29] MEDS ORDERED: OXYMETAZOLINE HCL 0.05% NASAL SPRAY 15 ML BOTTLE NASL ONE (01:15)
--- NOTE | 2019-03-29 01:17 | ER Document Report ---
ED General - General Chief Complaint: Nose Bleed Stated Complaint: NOSE BLEED Time Seen by Provider: 03/29/19 01:05 Primary Care Provider: CLINTON TROTTER PA-C [Primary Care Provider] - Follow up as needed TRAVEL OUTSIDE OF THE [place] IN LAST 30 DAYS: No - HPI Notes: 33-year-old female with history of hypertension and lupus to the emergency department with complaints of nosebleed that began about 1 hour ago. States that she was at [facility] for 3 hours when the power went out. States she was waiting for the prior to come back on when she started to have a nosebleed. She states that she does have a history of high blood pressure and has not taken her clonidine today. She has not been taking her blood pressure medicine as laid out for her because she cannot afford it. She denies headache. She supposed to be on full-strength aspirin daily but she has not been able to afford that either. She denies being on any other blood thinner. She denies focal neurological deficit, dizziness, diaphoresis, chest pain, shortness of breath, syncope. States that since arrival to the emergency department the bleeding has significantly slowed down. Does report that that she did see blood clots initially with a nosebleed. She also reports seasonal allergies but does not feel like she has had increased nasal congestion recently. Followed by Dr. Trotter. - Related Data Allergies/Adverse Reactions: banana Allergy (Severe, Verified 02/07/19 17:11) Anaphylaxis tramadol Allergy (Severe, Verified 02/07/19 17:11) Anaphylaxis atorvastatin [From Lipitor] Allergy (Intermediate, Verified 02/07/19 17:11) Generalized Itching dexamethasone Allergy (Intermediate, Verified 02/07/19 17:11) SWELLING, ITCH lisinopril Allergy (Intermediate, Verified 02/07/19 17:11) Generalized rash Past Medical History - General Information source: Patient - Social History Smoking Status: Never Smoker Frequency of alcohol use: None Drug Abuse: None Family History: Reviewed & Not Pertinent, Arthritis, CAD, COPD, CVA, DM, Hyperlipidemia, Hypertension, Malignancy, Thyroid Disfunction - Past Medical History Cardiac Medical History: Reports: Hx Hypercholesterolemia, Hx Hypertension Denies: Hx Coronary Artery Disease, Hx Heart Attack Pulmonary Medical History: Reports: Hx Asthma - USES INHALER PRN, Hx Sleep Apnea Denies: Hx Bronchitis, Hx COPD, Hx Pneumonia Neurological Medical History: Reports: Hx Migraine, Hx Seizures - SEVERAL YEARS SINCE LAST, NO MEDS. Denies: Hx Cerebrovascular Accident Endocrine Medical History: Reports: Hx Diabetes Mellitus Type 2 Renal/ Medical History: Denies: Hx Peritoneal Dialysis Malignancy Medical History: Reports: Hx Cervical Cancer GI Medical History: Reports: Hx Gastroesophageal Reflux Disease, Hx Endoscopy Musculoskeletal Medical History: Reports Hx Arthritis, Reports Hx Musculoskeletal Deformity Psychiatric Medical History: Reports: Hx Depression Past Surgical History: Reports: Hx Dilation and Curettage, Hx Gynecologic Surgery - D&C, Hx Oral Surgery, Hx Orthopedic Surgery - carpal tunnel x2. Denies: Hx Hysterectomy - Immunizations Immunizations up to date: Yes Hx Diphtheria, Pertussis, Tetanus Vaccination: - UNKNOWN Hx Pneumococcal Vaccination: 09/19/00 Review of Systems - Review of Systems Constitutional: denies: Chills, Fever EENT: Other - Nosebleed Cardiovascular: denies: Chest pain, Palpitations, Syncope, Dizziness, Lightheaded Respiratory: denies: Cough, Short of breath Gastrointestinal: denies: Abdominal pain, Diarrhea, Nausea, Vomiting Musculoskeletal: No symptoms reported Skin: No symptoms reported Neurological/Psychological: denies: Headaches, Numbness, Tingling -: Yes All other systems reviewed and negative Physical Exam - Vital signs Vitals: Temp Pulse Resp BP Pulse Ox 98.3 F 90 18 184/124 H 98 03/29/19 00:50 03/29/19 00:50 03/29/19 00:50 03/29/19 00:50 03/29/19 00:50 Interpretation: Hypertensive - General General appearance: Appears well, Other - severely obese - HEENT Head: Normocephalic Eyes: Normal Conjunctiva: Normal Pupils: PERRL Ears: Normal External canal: Normal Tympanic membrane: Normal Nasal: Epistaxis - There is evidence of nosebleed to bilateral nasal mucosa. There does not appear to be active bleeding. However there is evidence for anterior bleed bilaterally. No septal hematoma.. No: Purulent discharge, Septal hematoma Mouth/Lips: Normal Pharynx: Normal Neck: Normal - Respiratory Respiratory status: No respiratory distress Chest status: Nontender Breath sounds: Normal Chest palpation: Normal - Cardiovascular Rhythm: Regular Heart sounds: Normal auscultation Murmur: No - Extremities General upper extremity: Normal inspection, Nontender, Normal color, Normal ROM, Normal temperature General lower extremity: Normal inspection, Nontender, Normal color, Normal ROM, Normal temperature, Normal weight bearing. 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 No: Pronator drift Sensory: Normal - Psychological Associated symptoms: Normal affect, Normal mood - Skin Skin Temperature: Warm Skin Moisture: Dry Skin Color: Normal Course - Re-evaluation Re-evalutation: 03/29/19 02:12 Is no longer actively bleeding has not had any recurrence of her nosebleed since arrival. She has had improvement of her blood pressure as well after ministration of clonidine. We had a lengthy discussion about the importance of taking her blood pressure medicine. I have encouraged her to call her primary care physician to see if they can aid her with samples and/or any other resources. Have also encouraged her to follow with psychotherapist social worker to help her get her prescriptions. I have encouraged her to return if she has any worsening symptoms such as focal neurological deficits, chest pain, shortness of breath, recurrent and intractable nosebleeds, or any other concerns. Do not think she needs lab work this evening. Discharge blood pressure of 174/105. - Vital Signs Vital signs: Temp Pulse Resp BP Pulse Ox 98.3 F 90 18 184/124 H 98 03/29/19 00:50 03/29/19 00:50 03/29/19 00:50 03/29/19 00:50 03/29/19 00:50 Discharge - Discharge Clinical Impression: Epistaxis, Hypertension Disposition: HOME, SELF-CARE Instructions: High Blood Pressure ([facility]) Additional Instructions: HIGH BLOOD PRESSURE, NOT TREAT: When your blood pressure was taken today it was elevated. Today's reading was 184/120. We do not think you need to have your blood pressure treated today. Sometimes, stress or illness causes a temporary elevation of your blood pressure. We suggest that you get your blood pressure measured again during the next few days to see if this elevated blood pressure is more than a temporary abnormality. If your blood pressure is greater than 150/90 on each occasion, you must have treatment. Some simple things you can do to help are: If you have blood pressure medicine but aren't using it regularly, start taking it again. Get some aerobic exercise for at least 20 minutes on a daily basis. (See your doctor before beginning a new exercise program.) Eat a low-fat diet. Lose excess weight. Avoid salty foods and avoid adding salt to any of the foods you eat. Avoid diet pills, decongestants, "energizing" herbs, and other medicines that elevate blood pressure. If left untreated, hypertension greatly enhances your risk for developing heart disease and strokes. Please don't ignore this problem. HIGH BLOOD PRESSURE REQUIRING TREATMENT: Your blood pressure is high. This is called "hypertension." Today's reading was 184/120 (normal is less than 140/90). Your history and exam suggest that this is not a temporary problem. You need treatment of your blood pressure. If left untreated, high blood pressure greatly increases your risk of heart attack and stroke. Please don't ignore this problem. If you have blood pressure medicine but aren't using it regularly, start taking it again. Some simple things you can do to help are: Get some aerobic exercise for at least 20 minutes on a daily basis. (See your doctor before beginning any new e xercise program.) Eat a low-fat diet. Lose excess weight. Avoid salty foods and avoid adding salt to any of the foods you eat. Avoid diet pills, decongestants, "energizing" herbs, and other medicines that elevate blood pressure. There are many different medicines that treat blood pressure. If your medication causes unpleasant side effects, call your doctor. There are others you can try. Treating hypertension is a life-long investment in your health. CLONIDINE (CATAPRES): Clonidine is blood-pressure medicine. It works in your brain, making the nervous system relax the blood vessels. This medicine can also be used for symptoms of narcotic withdrawal. Clonidine frequently causes dry mouth, drowsiness, and dizziness. These symptoms go away as you continue to use it. Rest for the first couple of days. Don't drive or use machinery until you're back to normal. Never stop clonidine suddenly! There can be a "rebound" severe increase in blood pressure, headache, and agitation. Be sure you always have enough of the medicine. Call the doctor if you have any new symptoms such as skin rash, weakness, severe lightheadedness, chest pain, headache, or depression. FOLLOW-UP CARE: Call your physicians office for an appointment as you were instructed or within the next day. If you experience worsening or a significant change in your symptoms, notify the physician immediately or return to the Emergency Department at any time for re-evaluation. Referrals: CLINTON TROTTER PA-C [Primary Care Provider] - Follow up tomorrow
[2019-03-29 02:19] VITALS: BP 174/105
== END 2019-03-29 02:13 | disposition home or self-care (01) ==
LOC: ER 00:41
DX: R04.0 Epistaxis (principal); I10 Essential (primary) hypertension; T46.5X6A Underdosing of other antihypertensive drugs, initial encounter; T39.016A Underdosing of aspirin, initial encounter; Z91.120 Patient's intentional underdosing of medication regimen due to financial hardship; Z91.14 Patient's other noncompliance with medication regimen; E11.9 Type 2 diabetes mellitus without complications; J45.909 Unspecified asthma, uncomplicated; Z87.892 Personal history of anaphylaxis; Z91.018 Allergy to other foods; Z88.5 Allergy status to narcotic agent; Z88.8 Allergy status to other drugs, medicaments and biological substances; Z85.41 Personal history of malignant neoplasm of cervix uteri
CPT/HCPCS: 99283; J3490 ×2

== ENCOUNTER 2019-05-16 17:28 | Emergency (ER) | payer MEDICAID ==
[2019-05-16 18:05] LABS: APPEARANCE,URINE CLEAR; BILIRUBIN,URINE NEGATIVE (NEGATIVE); COLOR,URINE YELLOW; GLUCOSE, URINE NEGATIVE (NEGATIVE); KETONES,URINE NEGATIVE (NEGATIVE); LEUKOCYTE ESTERASE,URINE NEGATIVE (NEGATIVE); NITRITE,URINE NEGATIVE (NEGATIVE); PROTEIN,URINE NEGATIVE (NEGATIVE); URINE SPECIFIC GRAVITY 1.023
[2019-05-16 18:06] LABS: ABSOLUTE EOSINOPHILS # (AUTO) 0.1 10^3/uL (0.0-0.6); ABSOLUTE LYMPHOCYTES (AUTO) 2.3 10^3/uL (0.5-4.7); ABSOLUTE MONOCYTES (AUTO) 0.5 10^3/uL (0.1-1.4); ABSOLUTE NEUT (AUTO) 3.6 10^3/uL (1.7-8.2); BASOPHILS % (AUTO) 0.5 % (0-2); EOSINOPHILS % (AUTO) 0.9 % (0-6); HEMATOCRIT 35.3 % (36.0-47.0); HEMOGLOBIN 11.3 g/dL (12.0-15.5); LYMPHOCYTES % (AUTO) 35.1 % (13-45); MEAN CORPUSCULAR HEMOGLOBIN 25.8 pg (27.0-33.4); MEAN CORPUSCULAR VOLUME 81 fl (80-97); MONOCYTES % (AUTO) 7.8 % (3-13); PLATELET COUNT 257 10^3/uL (150-450); RED BLOOD COUNT 4.38 10^6/uL (3.72-5.28); RED CELL DISTRIBUTION WIDTH 14.1 % (11.5-14.0); SEGMENTED NEUTROPHILS % (AUTO) 55.7 % (42-78); TOTAL CELLS COUNTED % (AUTO) 100 %; WHITE BLOOD COUNT 6.5 10^3/uL (4.0-10.5)
[2019-05-16] MEDS ORDERED: ONDANSETRON HCL INJ/PF 4 MG/2 ML SDV IV ONE (18:07)
[2019-05-16] MEDS ORDERED: MORPHINE SULFATE 10 MG/ML INJ IV ONE (18:07)
--- NOTE | 2019-05-16 18:17 | ER Document Report ---
ED General - General Chief Complaint: Abdominal Pain Stated Complaint: ABDOMINAL PAIN Time Seen by Provider: 05/16/19 17:39 Primary Care Provider: CLINTON HERNANDEZ PA-C [Primary Care Provider] - Follow up as needed TRAVEL OUTSIDE OF THE [place] IN LAST 30 DAYS: No - HPI Notes: Patient is a 33-year-old female presents the emergency department for evaluation of sudden onset left lower quadrant abdominal pain. She fixed hamburgers for herself and her daughter for dinner. After eating she developed a sudden onset sharp and stabbing pain. It does not radiate. She has had no fevers or chills. She has a nausea but no emesis. She had a normal bowel movement this morning that she describes as "kind of soft." She has had some urinary frequency but denies any dysuria or hematuria. No vaginal discharge. She is been having abdominal pain issues ever since a about a year ago. - Related Data Allergies/Adverse Reactions: banana Allergy (Severe, Verified 02/07/19 17:11) Anaphylaxis tramadol Allergy (Severe, Verified 02/07/19 17:11) Anaphylaxis atorvastatin [From Lipitor] Allergy (Intermediate, Verified 02/07/19 17:11) Generalized Itching dexamethasone Allergy (Intermediate, Verified 02/07/19 17:11) SWELLING, ITCH lisinopril Allergy (Intermediate, Verified 02/07/19 17:11) Generalized rash Past Medical History - General Information source: Patient - Social History Smoking Status: Current Some Day Smoker Chew tobacco use (# tins/day): No Frequency of alcohol use: None Drug Abuse: None Family History: Reviewed & Not Pertinent, Arthritis, CAD, COPD, CVA, DM, Hyperlipidemia, Hypertension, Malignancy, Thyroid Disfunction Patient has suicidal ideation: No Patient has homicidal ideation: No - Medical History Medical History: Other - SLE - Past Medical History Cardiac Medical History: Reports: Hx Hypercholesterolemia, Hx Hypertension Denies: Hx Coronary Artery Disease, Hx Heart Attack Pulmonary Medical History: Reports: Hx Asthma - USES INHALER PRN, Hx Sleep Apnea Denies: Hx Bronchitis, Hx COPD, Hx Pneumonia Neurological Medical History: Reports: Hx Migraine, Hx Seizures - SEVERAL YEARS SINCE LAST, NO MEDS. Denies: Hx Cerebrovascular Accident Endocrine Medical History: Reports: Hx Diabetes Mellitus Type 2 Renal/ Medical History: Denies: Hx Peritoneal Dialysis Malignancy Medical History: Reports: Hx Cervical Cancer GI Medical History: Reports: Hx Gastroesophageal Reflux Disease, Hx Endoscopy Musculoskeletal Medical History: Reports Hx Arthritis, Reports Hx Musculoskeletal Deformity Psychiatric Medical History: Reports: Hx Depression Past Surgical History: Reports: Hx Dilation and Curettage, Hx Gynecologic Surgery - D&C, Hx Oral Surgery, Hx Orthopedic Surgery - carpal tunnel x2. Denies: Hx Hysterectomy - Immunizations Immunizations up to date: Yes Hx Diphtheria, Pertussis, Tetanus Vaccination: - UNKNOWN Hx Pneumococcal Vaccination: 09/19/00 Review of Systems - Review of Systems Constitutional: See HPI Cardiovascular: No symptoms reported Respiratory: No symptoms reported Gastrointestinal: See HPI Genitourinary: No symptoms reported Female Genitourinary: No symptoms reported Musculoskeletal: No symptoms reported Skin: No symptoms reported Neurological/Psychological: No symptoms reported Physical Exam - Notes Notes: This is a morbidly obese 33-year-old female who appears her stated age in mild to moderate distress. She is visibly uncomfortable, will barely open her eyes for my exam. Vital signs reviewed, please refer to chart. Head is normocephalic, atraumatic. Pupils equal round, reactive to light. Neck is supple without meningismus. Heart is regular rate and rhythm. Lungs are clear to auscultation bilaterally. Abdomen is soft, moderately tender in the left lower quadrant without rebound or guarding, normoactive bowel sounds throughout. Extremities without cyanosis, clubbing. Posterior calves are nontender. Peripheral pulses are equal. Skin is warm and dry. Patient is awake, alert, neurological exam is nonfocal. Course - Re-evaluation Re-evalutation: 05/16/19 20:24 Patient presents emergency department for evaluation of abdominal pain. Initially abdominal series was placed, but this patient would require significant amount of radiation and multiple films for this evaluation. Decision was made to change this to a CT scan. CT scan showed findings consistent with early diverticulitis. Otherwise she has no significant laboratory abnormalities. Serial abdominal exams are entirely benign. Patient is given first dose of Cipro and Flagyl here. We will send her home with a prescription for same, as well as some pain and nausea medication. She is to follow-up with primary care this week, return to the emergency department with worsening or new concerning symptoms of any sort. - Laboratory Result Diagrams: 05/16/19 17:00 05/16/19 17:00 Laboratory results interpreted by me: 05/16/19 05/16/19 17:00 17:00 Hgb 11.3 L Hct 35.3 L MCH 25.8 L RDW 14.1 H Urine Blood SMALL H Urine Urobilinogen 4.0 H - Diagnostic Test Radiology reviewed: Reports reviewed Radiology results interpreted by me: 05/16/19 20:24 Abdomen/Pelvis CT 05/16/19 19:35 IMPRESSION: Mild inflammatory changes - trace free fluid adjacent to the descending -sigmoid junction, possible early diverticulitis. Discharge - Discharge Clinical Impression: Sigmoid diverticulitis Abdominal pain Qualifiers: Abdominal location: left lower quadrant Qualified Code(s): R10.32 - Left lower quadrant pain Condition: Stable Disposition: HOME, SELF-CARE Instructions: Abdominal Pain ([facility]), Diverticulitis ([facility]) Additional Instructions: Take medications as prescribed, being sure to take all the antibiotics until gone. Follow-up with your primary care provider this week. Return to the e mergency department with worsening or new concerning symptoms of any sort. Referrals: CLINTON HERNANDEZ PA-C [Primary Care Provider] - Follow up as needed
[2019-05-16 18:21] LABS: ALBUMIN 3.9 g/dL (3.5-5.0); ALKALINE PHOSPHATASE 53 U/L (38-126); ANION GAP 8 (5-19); ASPARTATE AMINO TRANSFERASE 16 U/L (14-36); BILIRUBIN,DIRECT 0.3 mg/dL (0.0-0.4); BILIRUBIN,TOTAL 0.4 mg/dL (0.2-1.3); BLOOD UREA NITROGEN 9 mg/dL (7-20); CALCIUM 9.3 mg/dL (8.4-10.2); CARBON DIOXIDE 28 mmol/L (22-30); CHLORIDE 106 mmol/L (98-107); GLUCOSE 101 mg/dL (75-110); POTASSIUM 4.2 mmol/L (3.6-5.0); TOTAL PROTEIN 7.6 g/dL (6.3-8.2)
--- NOTE | 2019-05-16 20:00 | RADIOLOGY REPORT (SQ) ---
EXAM DESCRIPTION: CT ABD/PELVIS NO ORAL OR IV COMPLETED DATE/TIME: 05/16/2019 7:47 pm REASON FOR STUDY: Sudden onset left lower quadrant pain COMPARISON: 11/23/2015 TECHNIQUE: CT scan of the abdomen and pelvis performed without intravenous or oral contrast. Images reviewed with lung, soft tissue, and bone windows. Reconstructed coronal and sagittal MPR images revi ewed. All images stored on PACS. All CT scanners at this facility use dose modulation, iterative reconstruction, and/or weight based d osing when appropriate to reduce radiation dose to as low as reasonably achievable (ALARA). [facility]: Dose Right [facility]: CareDose [facility]: Dose Right [facility]: Teradose 4D [facility]: Smart [employer] RADIATION DOSE: CT Rad equipment meets quality standard of care and radiation dose reduction techniq ues were employed. CTDIvol: 21.1 mGy. DLP: 1246 mGy-cm.mGy. LIMITATIONS: None. FINDINGS: LOWER CHEST: No significant findings. No nodules or infiltrates. NON-CONTRASTED LIVER, SPLEEN, ADRENALS: Evaluation limited by lack of IV contrast. No identified sign ificant masses. PANCREAS: No masses. No peripancreatic inflammatory changes. GALLBLADDER: No calcified stones. No inflammatory changes to suggest cholecystitis. RIGHT KIDNEY AND URETER: No cysts identified. No solid masses. No calcified stones. No hydronephrosis or hydroureter. LEFT KIDNEY AND URETER: No cysts identified. No solid masses. No calcified stones. No hydronephrosis or hydroureter. AORTA AND RETROPERITONEUM: No aneurysm. No retroperitoneal masses or adenopathy. BOWEL AND PERITONEAL CAVITY: Mild inflammatory changes - trace free fluid adjacent to the descending -sigmoid junction, possible early diverticulitis. APPENDIX: Normal. PELVIS, BLADDER, AND ABDOMINAL WALL:Similar small fat containing paraumbilical hernia. . No free flu id. Unremarkable bladder. BONES: No acute findings. OTHER: No other significant finding. IMPRESSION: Mild inflammatory changes - trace free fluid adjacent to the descending -sigmoid junctio n, possible early diverticulitis. TECHNICAL DOCUMENTATION: JOB ID: [id number] Quality ID # [id number]: Final reports with documentation of one or more dose reduction techniques (e.g., Au tomated exposure control, adjustment of the mA and/or kV according to patient size, use of iterative reconstruction technique) 2010 [employer]- All Rights Reserved Reading location - IP/workstation name: [email or web address]
[2019-05-16] MEDS ORDERED: CIPROFLOXACIN HCL 500 MG TABLET PO ONE (20:19)
[2019-05-16] MEDS ORDERED: HYDROCODONE/ACETAMINOPHEN 5-325 MG (6 TAB/ER DISP) PO PRN (20:23)
[2019-05-16] MEDS ORDERED: ONDANSETRON ODT 4 MG TAB (6 TAB/ER DISP) PO PRN (20:23)
[2019-05-16] MEDS ORDERED: METRONIDAZOLE 500 MG TABLET PO ONE (20:23)
[2019-05-16 21:15] VITALS: BP 190/109
== END 2019-05-16 21:14 | disposition home or self-care (01) ==
LOC: ER 17:28
DX: K57.12 Diverticulitis of small intestine without perforation or abscess without bleeding (principal); R10.32 Left lower quadrant pain; R35.0 Frequency of micturition; F17.200 Nicotine dependence, unspecified, uncomplicated; I10 Essential (primary) hypertension; J45.909 Unspecified asthma, uncomplicated; E11.9 Type 2 diabetes mellitus without complications
CPT/HCPCS: 99284; 96374; 96375; 36415; 83690; 85025; 81025; 80053; 81001; 74176; J3490 ×2; J2270; J2405

== ENCOUNTER 2019-05-21 18:39 | Emergency (ER) | payer MEDICAID ==
[2019-05-21] MEDS ORDERED: MORPHINE SULFATE 10 MG/ML INJ IV ONE (19:54)
[2019-05-21] MEDS ORDERED: NORMAL SALINE 1000 ML 1,000 ML IV ONE (19:54)
[2019-05-21] MEDS ORDERED: ONDANSETRON HCL INJ/PF 4 MG/2 ML SDV IV ONE (19:54)
--- NOTE | 2019-05-21 19:56 | ER Document Report ---
ED General - General Chief Complaint: Abdominal Pain Stated Complaint: ABDOMINAL PAIN Time Seen by Provider: 05/21/19 19:27 Primary Care Provider: CLINTON HERNANDEZ PA-C [Primary Care Provider] - Follow up as needed Mode of Arrival: Ambulatory Information source: Patient TRAVEL OUTSIDE OF THE [place] IN LAST 30 DAYS: No - HPI Notes: Patient complains of left lower quadrant abdominal pain. She also complains of vomiting and diarrhea. She states approximately 3 days ago she was diagnosed with diverticulitis. She states she has been taking antibiotics but is feeling worse. She states the pain is crampy. Is in the left lower quadrant. It radiates to her back. It is worse with movement and better with rest. It is moderate in intensity. She has had no fevers. No problems with urination. - Related Data Allergies/Adverse Reactions: banana Allergy (Severe, Verified 05/21/19 18:39) Anaphylaxis tramadol Allergy (Severe, Verified 05/21/19 18:39) Anaphylaxis atorvastatin [From Lipitor] Allergy (Intermediate, Verified 05/21/19 18:39) Generalized Itching dexamethasone Allergy (Intermediate, Verified 05/21/19 18:39) SWELLING, ITCH lisinopril Allergy (Intermediate, Verified 05/21/19 18:39) Generalized rash Past Medical History - General Information source: Patient - Social History Smoking Status: Never Smoker Frequency of alcohol use: None Drug Abuse: None Family History: Reviewed & Not Pertinent, Arthritis, CAD, COPD, CVA, DM, Hyperlipidemia, Hypertension, Malignancy, Thyroid Disfunction - Past Medical History Cardiac Medical History: Reports: Hx Hypercholesterolemia, Hx Hypertension Denies: Hx Coronary Artery Disease, Hx Heart Attack Pulmonary Medical History: Reports: Hx Asthma - USES INHALER PRN, Hx Sleep Apnea Denies: Hx Bronchitis, Hx COPD, Hx Pneumonia Neurological Medical History: Reports: Hx Migraine, Hx Seizures - SEVERAL YEARS SINCE LAST, NO MEDS. Denies: Hx Cerebrovascular Accident Endocrine Medical History: Reports: Hx Diabetes Mellitus Type 2 Renal/ Medical History: Denies: Hx Peritoneal Dialysis Malignancy Medical History: Reports: Hx Cervical Cancer GI Medical History: Reports: Hx Gastroesophageal Reflux Disease, Hx Endoscopy Musculoskeletal Medical History: Reports Hx Arthritis, Reports Hx Musculoskeletal Deformity Psychiatric Medical History: Reports: Hx Depression Past Surgical History: Reports: Hx Dilation and Curettage, Hx Gynecologic Surgery - D&C, Hx Oral Surgery, Hx Orthopedic Surgery - carpal tunnel x2. Denies: Hx Hysterectomy - Immunizations Immunizations up to date: Yes Hx Diphtheria, Pertussis, Tetanus Vaccination: - UNKNOWN Hx Pneumococcal Vaccination: 09/19/00 Review of Systems - Review of Systems Constitutional: Chills, Malaise, Weakness Cardiovascular: denies: Chest pain, Palpitations Respiratory: denies: Cough, Short of breath Gastrointestinal: Abdominal pain, Diarrhea -: Yes All other systems reviewed and negative Physical Exam - Vital signs Vitals: Temp Pulse Resp BP Pulse Ox 98.3 F 77 22 H 189/117 H 98 05/21/19 18:49 05/21/19 18:49 05/21/19 18:49 05/21/19 18:49 05/21/19 18:49 Interpretation: Hypertensive - General General appearance: Appears well, Alert - HEENT Head: Normocephalic, Atraumatic Eyes: Normal Pupils: PERRL - Respiratory Respiratory status: No respiratory distress Chest status: Nontender Breath sounds: Normal Chest palpation: Normal - Cardiovascular Rhythm: Regular Heart sounds: Normal auscultation Murmur: No - Abdominal Inspection: Normal Distension: No distension Bowel sounds: Normal Tenderness: Tender - Mild diffuse tenderness without rebound or guarding. Organomegaly: No organomegaly - Back Back: Normal, Nontender - Extremities General upper extremity: Normal inspection, Nontender, Normal color, Normal ROM, Normal temperature General lower extremity: Normal inspection, Nontender, Normal color, Normal ROM, Normal temperature, Normal weight bearing. No: Pablo's sign - Neurological Neuro grossly intact: Yes Cognition: Normal Orientation: AAOx4 [place] Coma Scale Eye Opening: Spontaneous [place] Coma Scale Verbal: Oriented [place] Coma Scale Motor: Obeys Commands Arpita Coma Scale Total: 15 Speech: Normal Motor strength normal: LUE, RUE, LLE, RLE Sensory: Normal - Psychological Associated symptoms: Normal affect, Normal mood - Skin Skin Temperature: Warm Skin Moisture: Dry Skin Color: Normal Course - Re-evaluation Re-evalutation: 05/21/19 21:49 Patient reexamined just now. Patient has resting comfortably in the bed. Abdomen is still only mildly tender but there are no surgical abdominal signs. Laboratories are unremarkable. CT scan shows no significant progression of the diverticulitis. Patient does have antibiotics at home. She has been encouraged to continue these. She will also be discharged with pain medicine and nausea medicine. - Vital Signs Vital signs: Temp Pulse Resp BP Pulse Ox 98.3 F 77 22 H 189/117 H 98 05/21/19 19:04 05/21/19 19:04 05/21/19 19:04 05/21/19 19:04 05/21/19 19:04 - Laboratory Result Diagrams: 05/21/19 19:40 05/21/19 19:40 Laboratory results interpreted by me: 05/21/19 05/21/19 05/21/19 19:40 19:40 19:49 Hgb 11.4 L Hct 35.5 L MCH 26.2 L RDW 14.3 H Glucose 74 L Urine Protein 30 H Urine Urobilinogen 4.0 H - Diagnostic Test Radiology reviewed: Image reviewed, Reports reviewed Radiology results interpreted by me: 05/21/19 21:50 Abdomen/Pelvis CT 05/21/19 19:54 IMPRESSION: 1. Findings again suggesting mild acute sigmoid colon diverticulitis without evidence of abscess or perforation. 2. No other acute abnormality. Discharge - Discharge Clinical Impression: Diverticulitis Condition: Stable Disposition: HOME, SELF-CARE Unit Admitted: Post Instructions: Abdominal Pain ([facility]), Diverticulitis ([facility]) Prescriptions: Ondansetron [Zofran Odt 4 mg Tablet] 1 - 2 tab PO Q4HP PRN #10 tab.rapdis PRN Reason: Hydrocodone/Acetaminophen [[place] 5-325 mg Tablet] 1 tab PO Q6 PRN 3 Days #12 tablet PRN Reason: Forms: Elevated Blood Pressure, Return to Work Referrals: CLINTON HERNANDEZ PA-C [Primary Care Provider] - Follow up in 3-5 days
[2019-05-21 19:58] LABS: ABSOLUTE LYMPHOCYTES (AUTO) 1.9 10^3/uL (0.5-4.7); ABSOLUTE MONOCYTES (AUTO) 0.7 10^3/uL (0.1-1.4); ABSOLUTE NEUT (AUTO) 3.8 10^3/uL (1.7-8.2); BASOPHILS % (AUTO) 0.2 % (0-2); EOSINOPHILS % (AUTO) 0.7 % (0-6); HEMATOCRIT 35.5 % (36.0-47.0); HEMOGLOBIN 11.4 g/dL (12.0-15.5); MEAN CORPUSCULAR HEMOGLOBIN 26.2 pg (27.0-33.4); MEAN CORPUSCULAR HGB CONC 32.1 g/dL (32.0-36.0); MEAN CORPUSCULAR VOLUME 81 fl (80-97); PLATELET COUNT 272 10^3/uL (150-450); RED BLOOD COUNT 4.35 10^6/uL (3.72-5.28); RED CELL DISTRIBUTION WIDTH 14.3 % (11.5-14.0); SEGMENTED NEUTROPHILS % (AUTO) 59.1 % (42-78); TOTAL CELLS COUNTED % (AUTO) 100 %; WHITE BLOOD COUNT 6.4 10^3/uL (4.0-10.5)
[2019-05-21 20:11] LABS: APPEARANCE,URINE CLEAR; BILIRUBIN,URINE NEGATIVE (NEGATIVE); COLOR,URINE YELLOW; GLUCOSE, URINE NEGATIVE (NEGATIVE); KETONES,URINE NEGATIVE (NEGATIVE); LEUKOCYTE ESTERASE,URINE NEGATIVE (NEGATIVE); NITRITE,URINE NEGATIVE (NEGATIVE); PROTEIN,URINE 30 mg/dL (NEGATIVE); URINE SPECIFIC GRAVITY 1.029
[2019-05-21 20:16] LABS: ALBUMIN 3.8 g/dL (3.5-5.0); ALKALINE PHOSPHATASE 47 U/L (38-126); ANION GAP 7 (5-19); ASPARTATE AMINO TRANSFERASE 16 U/L (14-36); BILIRUBIN,DIRECT 0.4 mg/dL (0.0-0.4); BILIRUBIN,TOTAL 0.4 mg/dL (0.2-1.3); BLOOD UREA NITROGEN 11 mg/dL (7-20); CALCIUM 9.1 mg/dL (8.4-10.2); CARBON DIOXIDE 29 mmol/L (22-30); CHLORIDE 106 mmol/L (98-107); GLUCOSE 74 mg/dL (75-110); TOTAL PROTEIN 7.3 g/dL (6.3-8.2)
--- NOTE | 2019-05-21 21:07 | RADIOLOGY REPORT (SQ) ---
CT abdomen and pelvis without contrast on 05/21/2019 at 8:04 PM CLINICAL INDICATION: Left lower quadrant abdominal pain TECHNIQUE: Multiple axial images are obtained throughout the abdomen and pelvis without the administration of contrast. This exam was performed according to our departmental dose-optimization program, which includes automated exposure control, adjustment of the mA and/or kV according to patient size and/or use of iterative reconstruction technique. Total DLP is 1048.64 mGy*cm. COMPARISON: 05/16/2019 FINDINGS: Abdomen: The lung bases are clear. There are no renal or ureteral stones and no hydronephrosis. The unenhanced solid abdominal organs are unremarkable. There is no abdominal adenopathy. There is no free fluid or free air within the abdomen. The abdominal portion of the GI tract is unremarkable. There are multiple small midline umbilical and supraumbilical hernias containing only fat. Pelvis: There is again noted some subtle fat stranding adjacent to the sigmoid colon in a region of diverticula suggesting mild acute sigmoid colon diverticulitis. There is no evidence of abscess or perforation. There is no free fluid in the pelvis. Pelvic organs appear unremarkable by CT. There is no pelvic adenopathy. Pelvic portion of the GI tract including the appendix is otherwise unremarkable. No acute bony abnormality is noted. IMPRESSION: 1. Findings again suggesting mild acute sigmoid colon diverticulitis without evidence of abscess or perforation. 2. No other acute abnormality.
[2019-05-21] MEDS ORDERED: HYDROCODONE/ACETAMINOPHEN 5-325 MG (6 TAB/ER DISP) ONE (22:38)
[2019-05-21] MEDS ORDERED: HYDROCODONE/ACETAMINOPHEN 5-325 MG (6 TAB/ER DISP) PO PRN (22:41)
[2019-05-21 22:56] VITALS: BP 153/88
[2019-05-22] MEDS ORDERED: HYDROCODONE/ACETAMINOPHEN 5-325 MG (6 TAB/ER DISP) PO SCH
== END 2019-05-21 22:56 | disposition home or self-care (01) ==
LOC: ER 18:39
DX: K57.92 Diverticulitis of intestine, part unspecified, without perforation or abscess without bleeding (principal); R10.9 Unspecified abdominal pain; R10.32 Left lower quadrant pain; R11.10 Vomiting, unspecified; R19.7 Diarrhea, unspecified; I10 Essential (primary) hypertension; J45.909 Unspecified asthma, uncomplicated; E11.9 Type 2 diabetes mellitus without complications
CPT/HCPCS: 36415; 83690; 85025; 80053; 81001; 74176; J2270; J2405; J7030

== ENCOUNTER 2019-06-14 17:48 | Emergency (ER) | payer MEDICAID ==
--- NOTE | 2019-06-14 18:12 | ER Document Report ---
ED Medical Screen (RME) - General Stated Complaint: LEG PAIN Time Seen by Provider: 06/14/19 18:05 Primary Care Provider: CLINTON HERNANDEZ PA-C [Primary Care Provider] - Follow up as needed Mode of Arrival: Wheelchair Information source: Patient Notes: This 33-year-old morbidly obese patient presents emergency department with complaints of right lower leg calf pain for the past 4 days. Denies history of DVT and PEs. Area is firm tender to touch questionable DVT versus abscess. No obvious fluctuance. Denies fever vomiting diarrhea. Denies history of MRSA. I have greeted and performed a rapid initial assessment of this patient. A comprehensive ED assessment and evaluation of the patient, analysis of test results and completion of the medical decision making process will be conducted by additional ED providers. Dictation of this chart was performed using voice recognition software; therefore, there may be some unintended grammatical errors. TRAVEL OUTSIDE OF THE [place] IN LAST 30 DAYS: No - Related Data Allergies/Adverse Reactions: banana Allergy (Severe, Verified 05/21/19 18:39) Anaphylaxis tramadol Allergy (Severe, Verified 05/21/19 18:39) Anaphylaxis atorvastatin [From Lipitor] Allergy (Intermediate, Verified 05/21/19 18:39) Generalized Itching dexamethasone Allergy (Intermediate, Verified 05/21/19 18:39) SWELLING, ITCH lisinopril Allergy (Intermediate, Verified 05/21/19 18:39) Generalized rash Past Medical History - Social History Family history: CAD, CVA, DM, Hyperlipidemia, Hypertension, Malignancy, Thyroid Disfunction - Past Medical History Cardiac Medical History: Reports: Hx Hypercholesterolemia, Hx Hypertension Denies: Hx Coronary Artery Disease, Hx Heart Attack Pulmonary Medical History: Reports: Hx Asthma - USES INHALER PRN, Hx Sleep Apnea Denies: Hx Bronchitis, Hx COPD, Hx Pneumonia Neurological Medical History: Reports: Hx Migraine, Hx Seizures - SEVERAL YEARS SINCE LAST, NO MEDS. Denies: Hx Cerebrovascular Accident Endocrine Medical History: Reports: Hx Diabetes Mellitus Type 2 Renal/ Medical History: Denies: Hx Peritoneal Dialysis Malignancy Medical History: Reports: Hx Cervical Cancer GI Medical History: Reports: Hx Gastroesophageal Reflux Disease, Hx Endoscopy Musculoskeltal Medical History: Reports Hx Arthritis, Reports Hx Musculoskeletal Deformity Psychiatric Medical History: Reports: Hx Depression Past Surgical History: Reports: Hx Dilation and Curettage, Hx Gynecologic Surgery - D&C, Hx Oral Surgery, Hx Orthopedic Surgery - carpal tunnel x2. Denies: Hx Hysterectomy - Immunizations Immunizations up to date: Yes Hx Diphtheria, Pertussis, Tetanus Vaccination: - UNKNOWN Physical Exam - Vital signs Vitals: Temp Pulse Resp BP Pulse Ox 98.4 F 75 17 156/109 H 98 06/14/19 17:58 06/14/19 17:58 06/14/19 17:58 06/14/19 17:58 06/14/19 17:58 Course - Vital Signs Vital signs: Temp Pulse Resp BP Pulse Ox 98.4 F 75 17 156/109 H 98 06/14/19 17:58 06/14/19 17:58 06/14/19 17:58 06/14/19 17:58 06/14/19 17:58 Doctor's Discharge - Discharge Referrals: CLINTON HERNANDEZ PA-C [Primary Care Provider] - Follow up as needed
[2019-06-14] MEDS ORDERED: KETOROLAC TROMETHAMINE 60 MG/2 ML SDV IM ONE (21:05)
--- NOTE | 2019-06-15 00:42 | RADIOLOGY REPORT (SQ) ---
US LOWER EXTREMITY VEINS EXAM DATE: 06/14/2019 6:10 PM CDT HISTORY: Leg pain and swelling. COMPARISON: None. TECHNIQUE: Grayscale, color Doppler, and spectral Doppler images of the right lower extremity were performed. FINDINGS: The common femoral, superficial femoral and popliteal veins are patent and compressible. Normal augmentation and color Doppler blood flow in the aforementioned veins. The visualized calf veins are also patent. IMPRESSION: No evidence of deep venous thrombosis in the right lower extremity.
--- NOTE | 2019-06-15 00:53 | ER Document Report ---
ED General - General Chief Complaint: Leg Pain Stated Complaint: LEG PAIN Time Seen by Provider: 06/14/19 18:05 Primary Care Provider: CLINTON HERNANDEZ PA-C [Primary Care Provider] - Follow up in 3-5 days (Symptoms are not improving for further reevaluation) Mode of Arrival: Wheelchair TRAVEL OUTSIDE OF THE [place] IN LAST 30 DAYS: No - HPI Notes: Patient presents with left lower calf pain that started several days ago. No recent fevers cough chills. No recent traumas or falls. No history of DVT or PE. Denies any chest pain or shortness of breath at this time and no other complaints. - Related Data Allergies/Adverse Reactions: banana Allergy (Severe, Verified 05/21/19 18:39) Anaphylaxis tramadol Allergy (Severe, Verified 05/21/19 18:39) Anaphylaxis atorvastatin [From Lipitor] Allergy (Intermediate, Verified 05/21/19 18:39) Generalized Itching dexamethasone Allergy (Intermediate, Verified 05/21/19 18:39) SWELLING, ITCH lisinopril Allergy (Intermediate, Verified 05/21/19 18:39) Generalized rash Past Medical History - General Information source: Patient - Social History Smoking Status: Current Some Day Smoker Chew tobacco use (# tins/day): No Frequency of alcohol use: Rare Drug Abuse: None Family History: Reviewed & Not Pertinent, Arthritis, CAD, COPD, CVA, DM, Hyperlipidemia, Hypertension, Malignancy, Thyroid Disfunction Patient has suicidal ideation: No Patient has homicidal ideation: No - Past Medical History Cardiac Medical History: Reports: Hx Hypercholesterolemia, Hx Hypertension Denies: Hx Coronary Artery Disease, Hx Heart Attack Pulmonary Medical History: Reports: Hx Asthma - USES INHALER PRN, Hx Sleep Apnea Denies: Hx Bronchitis, Hx COPD, Hx Pneumonia Neurological Medical History: Reports: Hx Migraine, Hx Seizures - SEVERAL YEARS SINCE LAST, NO MEDS. Denies: Hx Cerebrovascular Accident Endocrine Medical History: Reports: Hx Diabetes Mellitus Type 2 Renal/ Medical History: Denies: Hx Peritoneal Dialysis Malignancy Medical History: Reports: Hx Cervical Cancer GI Medical History: Reports: Hx Gastroesophageal Reflux Disease, Hx Endoscopy Musculoskeletal Medical History: Reports Hx Arthritis, Reports Hx Musculoskeletal Deformity Psychiatric Medical History: Reports: Hx Depression Past Surgical History: Reports: Hx Dilation and Curettage, Hx Gynecologic Surgery - D&C, Hx Oral Surgery, Hx Orthopedic Surgery - carpal tunnel x2. Denies: Hx Hysterectomy - Immunizations Immunizations up to date: Yes Hx Diphtheria, Pertussis, Tetanus Vaccination: - UNKNOWN Hx Pneumococcal Vaccination: 09/19/00 Review of Systems - Review of Systems Constitutional: No symptoms reported EENT: No symptoms reported Cardiovascular: No symptoms reported Respiratory: No symptoms reported Gastrointestinal: No symptoms reported Genitourinary: No symptoms reported Female Genitourinary: No symptoms reported Musculoskeletal: See HPI Skin: No symptoms reported Hematologic/Lymphatic: No symptoms reported Neurological/Psychological: No symptoms reported Physical Exam - Vital signs Vitals: Temp Pulse Resp BP Pulse Ox 98.4 F 75 17 156/109 H 98 06/14/19 17:58 06/14/19 17:58 06/14/19 17:58 06/14/19 17:58 06/14/19 17:58 - General General appearance: Appears well, Alert, Other - Morbidly obese - Respiratory Respiratory status: No respiratory distress Chest status: Nontender Breath sounds: Normal Chest palpation: Normal - Abdominal Inspection: Normal Distension: No distension Bowel sounds: Normal Tenderness: Nontender Organomegaly: No organomegaly - Extremities General lower extremity: Other - No erythema warmth distal aspect posterior left calf. Signs of cellulitis. Bedside ultrasound by me shows no fluid collection or concerns for abscess. Course - Re-evaluation Re-evalutation: 06/15/19 15:24 Negative DVT study, no signs of abscess bedside ultrasound by me. Patient is morbidly obese most likely calf strain. Provided with Voltaren gel she is to follow-up with her family doctor in the next 3 to 5 days if symptoms are not improving reevaluation. I discussed return precautions regarding any fevers worsening condition return sooner to the emergency department. - Vital Signs Vital signs: Temp Pulse Resp BP Pulse Ox 98.3 F 74 16 159/96 H 98 06/15/19 01:26 06/15/19 01:26 06/15/19 01:06/15/19 01:06/15/19 01:26 Discharge - Discharge Clinical Impression: Strain of calf muscle Qualifiers: Encounter type: initial encounter Laterality: right Qualified Code(s): S86.811A - Strain of other muscle(s) and tendon(s) at lower leg level, right leg, initial encounter Condition: Good Disposition: HOME, SELF-CARE Instructions: Muscle Strain ([facility]), Tendon Strain ([facility]) Prescriptions: Diclofenac Sodium [Voltaren] 100 gm TP QID #1 gel..gm. Referrals: CLINTON HERNANDEZ PA-C [Primary Care Provider] - Follow up in 3-5 days (Symptoms are not improving for further reevaluation)
[2019-06-15] MEDS ORDERED: OXYCODONE-ACETAMINOPHEN 5-325 MG TABLET PO ONE (00:57)
[2019-06-15 01:27] VITALS: BP 159/96
== END 2019-06-15 01:26 | disposition home or self-care (01) ==
LOC: ER 17:48
DX: S86.911A Strain of unspecified muscle(s) and tendon(s) at lower leg level, right leg, initial encounter (principal); X58.XXXA Exposure to other specified factors, initial encounter; M79.662 Pain in left lower leg; E66.01 Morbid (severe) obesity due to excess calories; I10 Essential (primary) hypertension; J45.909 Unspecified asthma, uncomplicated; E11.9 Type 2 diabetes mellitus without complications; Z87.892 Personal history of anaphylaxis; Z91.018 Allergy to other foods; Z88.5 Allergy status to narcotic agent; Z88.8 Allergy status to other drugs, medicaments and biological substances; F17.200 Nicotine dependence, unspecified, uncomplicated
CPT/HCPCS: 99283; 96372; 93971; J1885

== ENCOUNTER 2019-07-08 16:33 | Emergency (ER) | payer MEDICAID ==
[2019-07-08] MEDS ORDERED: ASPIRIN 325 MG TABLET PO ONE (16:46)
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
[2019-07-08 18:15] LABS: ABSOLUTE EOSINOPHILS # (AUTO) 0.1 10^3/uL (0.0-0.6); ABSOLUTE LYMPHOCYTES (AUTO) 1.7 10^3/uL (0.5-4.7); ABSOLUTE MONOCYTES (AUTO) 0.5 10^3/uL (0.1-1.4); ABSOLUTE NEUT (AUTO) 2.7 10^3/uL (1.7-8.2); BASOPHILS % (AUTO) 0.5 % (0-2); EOSINOPHILS % (AUTO) 1.3 % (0-6); HEMATOCRIT 35.3 % (36.0-47.0); HEMOGLOBIN 11.3 g/dL (12.0-15.5); LYMPHOCYTES % (AUTO) 34.5 % (13-45); MEAN CORPUSCULAR HEMOGLOBIN 25.9 pg (27.0-33.4); MEAN CORPUSCULAR HGB CONC 32.2 g/dL (32.0-36.0); MEAN CORPUSCULAR VOLUME 81 fl (80-97); MONOCYTES % (AUTO) 10.5 % (3-13); PLATELET COUNT 231 10^3/uL (150-450); RED BLOOD COUNT 4.38 10^6/uL (3.72-5.28); RED CELL DISTRIBUTION WIDTH 14.7 % (11.5-14.0); SEGMENTED NEUTROPHILS % (AUTO) 53.2 % (42-78); TOTAL CELLS COUNTED % (AUTO) 100 %
--- NOTE | 2019-07-08 18:19 | RADIOLOGY REPORT (SQ) ---
EXAM DESCRIPTION: CHEST 2 VIEWS COMPLETED DATE/TIME: 07/08/2019 6:09 pm REASON FOR STUDY: 21; cp COMPARISON: Chest radiographs 11/27/2018 EXAM PARAMETERS: NUMBER OF VIEWS: two views TECHNIQUE: Digital Frontal and Lateral radiographic views of the chest acquired. RADIATION DOSE: NA LIMITATIONS: none FINDINGS: LUNGS AND PLEURA: Mildly hypoventilated. No focal airspace consolidation. No pneumothora x or pleural effusion. MEDIASTINUM AND HILAR STRUCTURES: No masses or contour abnormalities. HEART AND VASCULAR STRUCTURES: Heart normal size. No evidence for failure. BONES: No acute findings. HARDWARE: None in the chest. OTHER: No other significant finding. IMPRESSION: Mildly hypoventilated lungs. Otherwise, no acute pulmonary findings. TECHNICAL DOCUMENTATION: JOB ID: [id number] [employer]- All Rights Reserved Reading location - IP/workstation name: [email or web address]
[2019-07-08] MEDS ORDERED: CLONIDINE HCL 0.2 MG TABLET PO ONE (18:31)
[2019-07-08 18:40] LABS: ALBUMIN 3.8 g/dL (3.5-5.0); ALKALINE PHOSPHATASE 53 U/L (38-126); ANION GAP 7 (5-19); ASPARTATE AMINO TRANSFERASE 19 U/L (14-36); BILIRUBIN,TOTAL 0.4 mg/dL (0.2-1.3); BLOOD UREA NITROGEN 8 mg/dL (7-20); CALCIUM 9.2 mg/dL (8.4-10.2); CARBON DIOXIDE 28 mmol/L (22-30); CHLORIDE 105 mmol/L (98-107); GLUCOSE 85 mg/dL (75-110); POTASSIUM 4.1 mmol/L (3.6-5.0); TOTAL PROTEIN 7.6 g/dL (6.3-8.2)
[2019-07-08] MEDS ORDERED: MORPHINE SULFATE 10 MG/ML INJ IV ONE (21:51)
[2019-07-08] MEDS ORDERED: ONDANSETRON HCL INJ/PF 4 MG/2 ML SDV IV ONE (21:52)
[2019-07-08 22:55] VITALS: BP 155/99
--- NOTE | 2019-07-09 02:16 | EKG REPORT ---
SEVERITY:- BORDERLINE ECG - SINUS RHYTHM BORDERLINE T ABNORMALITIES, ANT-LAT LEADS : Confirmed by: Mil Clinton 09-Jul-2019 02:16:05
--- NOTE | 2019-07-09 16:55 | EKG REPORT ---
SEVERITY:- BORDERLINE ECG - SINUS RHYTHM BORDERLINE T WAVE ABNORMALITIES : Confirmed by: Julisa Skinner MD 09-Jul-2019 16:53:50
== END 2019-07-08 22:55 | disposition home or self-care (01) ==
LOC: ER 16:33
DX: R07.89 Other chest pain (principal); E78.00 Pure hypercholesterolemia, unspecified; I10 Essential (primary) hypertension; E11.9 Type 2 diabetes mellitus without complications; Z88.6 Allergy status to analgesic agent
CPT/HCPCS: 93005; 36415; 85025; 80053; 84484; 71046; 93010; J3490; J2270; J2405; 96374; 96375; 99285

== ENCOUNTER 2019-08-09 13:52 | Emergency (ER) | payer MEDICAID ==
--- NOTE | 2019-08-09 14:09 | ER Document Report ---
ED Medical Screen (RME) - General Chief Complaint: Abdominal Pain Stated Complaint: LOWER ABDOMINAL PAIN/CRAMPING Time Seen by Provider: 08/09/19 13:59 Primary Care Provider: CLINTON HERNANDEZ PA-C [Primary Care Provider] - Follow up as needed TRAVEL OUTSIDE OF THE [place] IN LAST 30 DAYS: No - HPI Notes: 08/09/19 14:11 34-year-old female with history of lupus, hypertension to the emergency department with multiple complaints. She states that she is having lower abdominal cramping with associated nausea and mild diarrhea that began 2 days ago. She also reports headache has been coming and going she qualifies as "worst headache ever". States that she has a history of high blood pressure and her blood pressure is also been running high that despite taking her blood pressure medicines. She also endorses a cough and states "but I do not have a cold". She does not have any prior medical history of heart failure or diabetes. However "she states that she is also been having extreme fatigue where she feels like she cannot get up out of bed and do her normal daily activities because she is so tired. She denies chest pain or shortness of breath. I performed a brief medical screening exam on patient is determined she will need further evaluation and management by me inside provider. I have placed initial orders and imaging studies to help expedite her care. - Related Data Allergies/Adverse Reactions: banana Allergy (Severe, Verified 08/09/19 14:01) Anaphylaxis tramadol Allergy (Severe, Verified 08/09/19 14:01) Anaphylaxis atorvastatin [From Lipitor] Allergy (Intermediate, Verified 08/09/19 14:01) Generalized Itching dexamethasone Allergy (Intermediate, Verified 08/09/19 14:01) SWELLING, ITCH lisinopril Allergy (Intermediate, Verified 08/09/19 14:01) Generalized rash Past Medical History - Social History Family history: CAD, CVA, DM, Hyperlipidemia, Hypertension, Malignancy, Thyroid Disfunction - Past Medical History Cardiac Medical History: Reports: Hx Hypercholesterolemia, Hx Hypertension Denies: Hx Coronary Artery Disease, Hx Heart Attack Pulmonary Medical History: Reports: Hx Asthma - USES INHALER PRN, Hx Sleep Apnea Denies: Hx Bronchitis, Hx COPD, Hx Pneumonia Neurological Medical History: Reports: Hx Migraine, Hx Seizures - SEVERAL YEARS SINCE LAST, NO MEDS. Denies: Hx Cerebrovascular Accident Endocrine Medical History: Reports: Hx Diabetes Mellitus Type 2 Renal/ Medical History: Denies: Hx Peritoneal Dialysis Malignancy Medical History: Reports: Hx Cervical Cancer GI Medical History: Reports: Hx Gastroesophageal Reflux Disease, Hx Endoscopy Musculoskeltal Medical History: Reports Hx Arthritis, Reports Hx Musculoskeletal Deformity Psychiatric Medical History: Reports: Hx Depression Past Surgical History: Reports: Hx Dilation and Curettage, Hx Gynecologic Surgery - D&C, Hx Oral Surgery, Hx Orthopedic Surgery - carpal tunnel x2. Denies: Hx Hysterectomy - Immunizations Immunizations up to date: Yes Hx Diphtheria, Pertussis, Tetanus Vaccination: - UNKNOWN Doctor's Discharge - Discharge Referrals: CLINTON HERNANDEZ PA-C [Primary Care Provider] - Follow up as needed
--- NOTE | 2019-08-09 14:46 | RADIOLOGY REPORT (SQ) ---
EXAM DESCRIPTION: CHEST 2 VIEWS COMPLETED DATE/TIME: 08/09/2019 2:31 pm REASON FOR STUDY: cough, fatigue, lupus COMPARISON: Two-view chest 07/08/2019 AP chest 02/07/2019 EXAM PARAMETERS: NUMBER OF VIEWS: two views TECHNIQUE: Digital Frontal and Lateral radiographic views of the chest acquired. RADIATION DOSE: NA LIMITATIONS: Morbid obesity FINDINGS: LUNGS AND PLEURA: No opacities, masses or pneumothorax. No pleural effusion. MEDIASTINUM AND HILAR STRUCTURES: No masses or contour abnormalities. HEART AND VASCULAR STRUCTURES: Moderate cardiomegaly, more prominent than on previous studies. BONES: No acute findings. HARDWARE: None in the chest. OTHER: No other significant finding. IMPRESSION: Moderate cardiomegaly. No acute infiltrates, pleural effusion, or pneumothorax TECHNICAL DOCUMENTATION: JOB ID: [id number] [employer]- All Rights Reserved Reading location - IP/workstation name: [email or web address]
--- NOTE | 2019-08-09 15:13 | RADIOLOGY REPORT (SQ) ---
EXAM DESCRIPTION: CT HEAD WITHOUT COMPLETED DATE/TIME: 08/09/2019 2:46 pm REASON FOR STUDY: headache COMPARISON: 12/08/2017 TECHNIQUE: Axial images acquired through the brain without intravenous contrast. Images reviewed wi th bone, brain and subdural windows. Additional sagittal and coronal reconstructions were generated. Images stored on PACS. All CT scanners at this facility use dose modulation, iterative reconstruction, and/or weight based d osing when appropriate to reduce radiation dose to as low as reasonably achievable (ALARA). [facility]: Dose Right [facility]: CareDose [facility]: Dose Right [facility]: Teradose 4D [facility]: Smart [employer] RADIATION DOSE: CT Rad equipment meets quality standard of care and radiation dose reduction techniq ues were employed. CTDIvol: 53.2 mGy. DLP: 991 mGy-cm. mGy. LIMITATIONS: None. FINDINGS: VENTRICLES: Normal size and contour. CEREBRUM: No masses. No hemorrhage. No midline shift. No evidence for acute infarction. Normal gra y/white matter differentiation. No areas of low density in the white matter. CEREBELLUM: No masses. No hemorrhage. No alteration of density. No evidence for acute infarction. EXTRAAXIAL SPACES: No fluid collections. No masses. ORBITS AND GLOBE: No intra- or extraconal masses. Normal contour of globe without masses. CALVARIUM: No fracture. PARANASAL SINUSES: No fluid or mucosal thickening. SOFT TISSUES: No mass or hematoma. OTHER: No other significant finding. IMPRESSION: NORMAL BRAIN CT WITHOUT CONTRAST. EVIDENCE OF ACUTE STROKE: NO. COMMENT: Quality ID # [id number]: Final reports with documentation of one or more dose reduction techniques (e.g., Automated exposure control, adjustment of the mA and/or kV according to patient size, use of iterative reconstruction technique) TECHNICAL DOCUMENTATION: JOB ID: [id number] [employer]- All Rights Reserved Reading location - IP/workstation name: [email or web address]
[2019-08-09 15:18] LABS: ABSOLUTE EOSINOPHILS # (AUTO) 0.1 10^3/uL (0.0-0.6); ABSOLUTE LYMPHOCYTES (AUTO) 1.8 10^3/uL (0.5-4.7); ABSOLUTE MONOCYTES (AUTO) 0.6 10^3/uL (0.1-1.4); ABSOLUTE NEUT (AUTO) 3.3 10^3/uL (1.7-8.2); BASOPHILS % (AUTO) 0.4 % (0-2); EOSINOPHILS % (AUTO) 1.5 % (0-6); HEMATOCRIT 37.9 % (36.0-47.0); HEMOGLOBIN 12.2 g/dL (12.0-15.5); LYMPHOCYTES % (AUTO) 31.1 % (13-45); MEAN CORPUSCULAR HEMOGLOBIN 25.9 pg (27.0-33.4); MEAN CORPUSCULAR HGB CONC 32.1 g/dL (32.0-36.0); MEAN CORPUSCULAR VOLUME 81 fl (80-97); MONOCYTES % (AUTO) 10.7 % (3-13); PLATELET COUNT 263 10^3/uL (150-450); RED CELL DISTRIBUTION WIDTH 14.7 % (11.5-14.0); SEGMENTED NEUTROPHILS % (AUTO) 56.3 % (42-78); TOTAL CELLS COUNTED % (AUTO) 100 %; WHITE BLOOD COUNT 5.8 10^3/uL (4.0-10.5)
[2019-08-09 15:36] LABS: ALBUMIN 3.8 g/dL (3.5-5.0); ALKALINE PHOSPHATASE 52 U/L (38-126); ANION GAP 8 (5-19); ASPARTATE AMINO TRANSFERASE 15 U/L (14-36); BILIRUBIN,DIRECT 0.1 mg/dL (0.0-0.4); BILIRUBIN,TOTAL 0.3 mg/dL (0.2-1.3); BLOOD UREA NITROGEN 9 mg/dL (7-20); CALCIUM 9.1 mg/dL (8.4-10.2); CARBON DIOXIDE 27 mmol/L (22-30); CHLORIDE 108 mmol/L (98-107); GLUCOSE 87 mg/dL (75-110); POTASSIUM 4.1 mmol/L (3.6-5.0); TOTAL PROTEIN 7.7 g/dL (6.3-8.2)
[2019-08-09 15:49] LABS: NT PRO BNP 159 pg/mL (<125)
[2019-08-09 15:50] LABS: TROPONIN I < 0.012 ng/mL
[2019-08-09] MEDS ORDERED: NORMAL SALINE 1000 ML 2,000 ML IV ONE (16:29)
[2019-08-09] MEDS ORDERED: ACETAMINOPHEN 325 MG TABLET PO ONE (16:30)
[2019-08-09] MEDS ORDERED: METOCLOPRAMIDE HCL INJ/PF 10 MG/2 ML SDV IV ONE (16:30)
[2019-08-09] MEDS ORDERED: IPRATROPIUM/ALBUTEROL 0.5-2.5 MG/3 ML AMPUL NEB ONE (16:46)
[2019-08-09] MEDS ORDERED: KETOROLAC TROMETHAMINE INJ/PF 30 MG/1 ML SDV IV ONE (16:46)
[2019-08-09] MEDS ORDERED: HYDRALAZINE HCL INJ/PF 20 MG/1 ML SDV IV ONE ×2 (16:47→18:29)
[2019-08-09 17:22] LABS: AMORPHOUS SEDIMENT,URINE 1+ /HPF; APPEARANCE,URINE TURBID; BILIRUBIN,URINE NEGATIVE (NEGATIVE); COLOR,URINE YELLOW; GLUCOSE, URINE NEGATIVE (NEGATIVE); KETONES,URINE NEGATIVE (NEGATIVE); PROTEIN,URINE 30 mg/dL (NEGATIVE); URINE SPECIFIC GRAVITY 1.026
--- NOTE | 2019-08-09 17:55 | ER Document Report ---
ED General - General Chief Complaint: Abdominal Pain Stated Complaint: LOWER ABDOMINAL PAIN/CRAMPING Time Seen by Provider: 08/09/19 13:59 Primary Care Provider: CLINTON HERNANDEZ PA-C [Primary Care Provider] - Follow up as needed Information source: Patient Notes: Ms. Dumas is a 34 yo female w/ PMH of lupus, hypertension, morbid obesity presenting to the ED for multiple complaints. Patient endorses a frontal/superior occiput headache which is sharp and throbbing in nature. She also adds that her blood pressure has been out of control over the past 4 months with severe headache 3 to 4 days ago. She states that she is taking her carvedilol and clonidine without any missed doses however she states that when she was (her child is now 1-year-old) she was on 2 additional blood p ressure medications. She has not taken either 1 of those to them about 4 months and she is unsure of their names. She denies any nausea but does endorse 3 episodes of vomiting 3 days ago. She has that she has a cough is nonproductive any sputum. She also adds that she has bilateral lower abdominal pain. She denies any vaginal discharge and endorses increased urinary frequency. She does states she has been having sex in an effort to try to become again. She endorses blurred vision and states she has not seen an eye doctor in quite some time. She states when she tried to make an appointment, she was told that her Medicaid is not currently up-to-date so she is currently working on getting that taken care of. She denies any weakness, or diarrhea. She does endorse shortness of breath without chest pain. TRAVEL OUTSIDE OF THE [place] IN LAST 30 DAYS: No - Related Data Allergies/Adverse Reactions: banana Allergy (Severe, Verified 08/09/19 14:01) Anaphylaxis tramadol Allergy (Severe, Verified 08/09/19 14:01) Anaphylaxis atorvastatin [From Lipitor] Allergy (Intermediate, Verified 08/09/19 14:01) Generalized Itching dexamethasone Allergy (Intermediate, Verified 08/09/19 14:01) SWELLING, ITCH lisinopril Allergy (Intermediate, Verified 08/09/19 14:01) Generalized rash Past Medical History - Social History Smoking Status: Never Smoker Chew tobacco use (# tins/day): No Frequency of alcohol use: None Family History: Reviewed & Not Pertinent, Arthritis, CAD, COPD, CVA, DM, Hyperlipidemia, Hypertension, Malignancy, Thyroid Disfunction Patient has suicidal ideation: No Patient has homicidal ideation: No - Past Medical History Cardiac Medical History: Reports: Hx Hypercholesterolemia, Hx Hypertension Denies: Hx Coronary Artery Disease, Hx Heart Attack Pulmonary Medical History: Reports: Hx Asthma - USES INHALER PRN, Hx Sleep Apnea Denies: Hx Bronchitis, Hx COPD, Hx Pneumonia Neurological Medical History: Reports: Hx Migraine, Hx Seizures - SEVERAL YEARS SINCE LAST, NO MEDS. Denies: Hx Cerebrovascular Accident Endocrine Medical History: Reports: Hx Diabetes Mellitus Type 2 Renal/ Medical History: Denies: Hx Peritoneal Dialysis Malignancy Medical History: Reports: Hx Cervical Cancer GI Medical History: Reports: Hx Gastroesophageal Reflux Disease, Hx Endoscopy Musculoskeletal Medical History: Reports Hx Arthritis, Reports Hx Musculoskeletal Deformity Psychiatric Medical History: Reports: Hx Depression Past Surgical History: Reports: Hx Dilation and Curettage, Hx Gynecologic Surgery - D&C, Hx Oral Surgery, Hx Orthopedic Surgery - carpal tunnel x2. Denies: Hx Hysterectomy - Immunizations Immunizations up to date: Yes Hx Diphtheria, Pertussis, Tetanus Vaccination: - UNKNOWN Hx Pneumococcal Vaccination: 09/19/00 Review of Systems - Review of Systems Constitutional: See HPI EENT: No symptoms reported Cardiovascular: No symptoms reported Respiratory: See HPI Gastrointestinal: See HPI Genitourinary: No symptoms reported Female Genitourinary: No symptoms reported Musculoskeletal: No symptoms reported Skin: No symptoms reported Hematologic/Lymphatic: No symptoms reported Neurological/Psychological: No symptoms reported Physical Exam - Vital signs Vitals: Temp Pulse Resp BP Pulse Ox 98.0 F 89 20 215/142 H 99 08/09/19 13:58 08/09/19 13:58 08/09/19 13:58 08/09/19 13:58 08/09/19 13:58 Interpretation: Hypertensive - General General appearance: Appears well, Alert In distress: None Notes: Morbid obesity - HEENT Head: Normocephalic, Atraumatic Eyes: Normal Pupils: PERRL - Respiratory Respiratory status: No respiratory distress Chest status: Nontender Breath sounds: Wheezing - Expiratory wheezing in bilateral lower lobes as well as some faint crackles on the right Chest palpation: Normal - Cardiovascular Rhythm: Regular Heart sounds: Normal auscultation Murmur: No - Abdominal Inspection: Normal Distension: No distension Bowel sounds: Normal Tenderness: Nontender Organomegaly: No organomegaly Notes: Limited examination secondary to body habitus - Back Back: Normal, Nontender - Extremities General upper extremity: Normal inspection, Nontender, Normal color, Normal ROM, Normal temperature General lower extremity: Normal inspection, Nontender, Normal color, Normal ROM, Normal temperature, Normal weight bearing. No: Pablo's sign - Neurological Neuro grossly intact: Yes Cognition: Normal Orientation: AAOx4 [place] Coma Scale Eye Opening: Spontaneous Arpita Coma Scale Verbal: Oriented [place] Coma Scale Motor: Obeys Commands Arpita Coma Scale Total: 15 Speech: Normal Motor strength normal: LUE, RUE, LLE, RLE Sensory: Normal - Psychological Associated symptoms: Normal affect, Normal mood - Skin Skin Temperature: Warm Skin Moisture: Dry Skin Color: Normal Course - Re-evaluation Re-evalutation: Patient is chronically ill-appearing with morbid obesity. Initial vitals n otable for significant elevated blood pressure. Differential diagnosis includes medication noncompliance, hypertensive urgency, migraine, ICH (unlikely) 08/09/19 17:53 Likely the patient has significantly elevated blood pressure, headache and blurred vision all related to not being on those 2 medications that she is previously on to control blood pressure while . She states that her blood pressure although is elevated today has been well above 200s for the past week or so. Patient given hydralazine here in the ED. Also she has an otherwise normal neuro exam so low suspicion for ICH however head CT obtained. Patient ordered for Toradol, Tylenol and Reglan as well as IV fluids for the headache. CBC and CMP within normal limits. EKG is nonischemic. Troponin is negative. UA is negative for infection. Patient serum is also negative for . CT head and chest x-ray both within normal limits. Patient had a completely resolved. She also adds that her vision improved with the blood pressure improving. Initially, vitals in the computer show that her blood pressure was 195. I ordered additional antihypertensive medications. However prior to administration of the medications, the nurse rechecked her vitals and her blood pressure was 160. Given improvement in symptoms and blood pressure to 160, no indication for decreasing it greater than 25%. Patient discharged with prescription of hydralazine and recommended to continue taking her blood pressure regularly. Recommended follow-up with her primary care doctor for blood pressure evaluation and monitoring. - Vital Signs Vital signs: Temp Pulse Resp BP Pulse Ox 98.2 F 84 16 159/111 H 95 08/09/19 19:55 08/09/19 19:55 08/09/19 19:55 08/09/19 19:55 08/09/19 19:55 - Laboratory Result Diagrams: 08/09/19 15:03 08/09/19 15:03 Laboratory results interpreted by me: 08/09/19 08/09/19 08/09/19 15:03 15:03 15:03 MCH 25.9 L RDW 14.7 H Chloride 108 H NT-Pro-B Natriuret Pep 159 H Urine Protein Urine Urobilinogen Urine Ascorbic Acid 08/09/19 15:03 MCH RDW Chloride NT-Pro-B Natriuret Pep Urine Protein 30 H Urine Urobilinogen 4.0 H Urine Ascorbic Acid 20 H - EKG Interpretation by Me EKG shows normal: Sinus rhythm, Intervals, QRS Complexes, ST-T Waves Rate: Normal Rhythm: NSR Discharge - Discharge Clinical Impression: Poorly-controlled hypertension, Headache, Blurry vision Condition: Good Disposition: HOME, SELF-CARE Instructions: High Blood Pressure ([facility]), High Blood Pressure, Requiring Treatment ([facility]) Additional Instructions: It is important that you follow-up with your primary care doctor. I would recommend that you buy a blood pressure cuff and take your blood pressure once or twice a day daily and keep track of it. I have initiated you on hydralazine. I would like you to take this in addition to your Coreg. It is unsafe for you to start trying to get with your blood pressure running in the 200s. Make sure that you consult with an obstructive strict physician prior to attempting to get so it is not a danger to both you and the baby. Prescriptions: Hydralazine HCl 100 mg PO DAILY #30 tablet Forms: Elevated Blood Pressure Referrals: CLINTON HERNANDEZ PA-C [Primary Care Provider] - Follow up as needed
--- NOTE | 2019-08-09 18:03 | EKG REPORT ---
SEVERITY:- NORMAL ECG - SINUS RHYTHM : Confirmed by: Dave Villaseñor MD 09-Aug-2019 18:02:21
[2019-08-09] MEDS ORDERED: METOPROLOL SUCCINATE 50 MG TAB.SR.24H PO ONE (18:29)
[2019-08-09] MEDS ORDERED: HYDRALAZINE HCL 50 MG TABLET PO ONE (18:29)
[2019-08-09] MEDS ORDERED: ONDANSETRON HCL INJ/PF 4 MG/2 ML SDV IV ONE (18:45)
[2019-08-09 19:56] VITALS: BP 159/111
== END 2019-08-09 20:11 | disposition home or self-care (01) ==
LOC: ER 13:52
DX: I10 Essential (primary) hypertension (principal); Z79.899 Other long term (current) drug therapy; R51 Headache; H53.8 Other visual disturbances; R05 Cough; R35.0 Frequency of micturition; E66.01 Morbid (severe) obesity due to excess calories; J45.909 Unspecified asthma, uncomplicated; R06.02 Shortness of breath; E11.9 Type 2 diabetes mellitus without complications; Z87.892 Personal history of anaphylaxis; Z91.018 Allergy to other foods; Z88.6 Allergy status to analgesic agent; Z88.8 Allergy status to other drugs, medicaments and biological substances; Z85.41 Personal history of malignant neoplasm of cervix uteri
CPT/HCPCS: 93005; 36415; 82553; 82962; 82550; 83690; 84443; 84703; 85025; 80053; 81001; 84484; 83880; 71046; 70450; 93010; J3490; J0360; J1885; J2765; J2405; J7030; J7620; 94640; 96361; 96374; 96375; 99284

== ENCOUNTER 2019-08-31 21:10 | Emergency (ER) | payer MEDICAID ==
--- NOTE | 2019-08-31 21:46 | ER Document Report ---
ED Medical Screen (RME) - General Chief Complaint: Abdominal Problem Stated Complaint: ABDOMINAL PAIN,NAUSEA Time Seen by Provider: 08/31/19 21:41 Primary Care Provider: CLINTON HERNANDEZ PA-C [Primary Care Provider] - Follow up as needed TRAVEL OUTSIDE OF THE [place] IN LAST 30 DAYS: No - HPI Notes: 08/31/19 21:45 Patient is a 34-year-old female with a history of lupus, hypertension, morbid obesity who presents complaining of intermittent lower pelvic cramping with nausea. Patient states that her menstrual period in July was short. Patient is sexually active and does want another child. She is able to eat and drink without difficulty. She is urinating normally and having normal bowel movements. No fever. I have treated and performed a rapid initial assessment of this patient. A comprehensive ED assessment and evaluation of the patient, analysis of test results and completion of medical decision making process will be conducted by additional ED providers. PHYSICAL EXAMINATION: GENERAL: Well-appearing, well-nourished and in no acute distress. A&Ox4. Answers questions appropriately. - Related Data Allergies/Adverse Reactions: banana Allergy (Severe, Verified 08/09/19 14:01) Anaphylaxis tramadol Allergy (Severe, Verified 08/09/19 14:01) Anaphylaxis atorvastatin [From Lipitor] Allergy (Intermediate, Verified 08/09/19 14:01) Generalized Itching dexamethasone Allergy (Intermediate, Verified 08/09/19 14:01) SWELLING, ITCH lisinopril Allergy (Intermediate, Verified 08/09/19 14:01) Generalized rash Home Medications: clonidine. coreg. 2 other BP meds. plaquanil for lupus Past Medical History - Social History Chew tobacco use (# tins/day): No Frequency of alcohol use: None Drug Abuse: None Family history: CAD, CVA, DM, Hyperlipidemia, Hypertension, Malignancy, Thyroid Disfunction - Past Medical History Cardiac Medical History: Reports: Hx Hypercholesterolemia, Hx Hypertension Denies: Hx Coronary Artery Disease, Hx Heart Attack Pulmonary Medical History: Reports: Hx Asthma - USES INHALER PRN, Hx Sleep Apnea Denies: Hx Bronchitis, Hx COPD, Hx Pneumonia Neurological Medical History: Reports: Hx Migraine, Hx Seizures - SEVERAL YEARS SINCE LAST, NO MEDS. Denies: Hx Cerebrovascular Accident Endocrine Medical History: Reports: Hx Diabetes Mellitus Type 2 Renal/ Medical History: Denies: Hx Peritoneal Dialysis Malignancy Medical History: Reports: Hx Cervical Cancer GI Medical History: Reports: Hx Gastroesophageal Reflux Disease, Hx Endoscopy Musculoskeltal Medical History: Reports Hx Arthritis, Reports Hx Musculoskeletal Deformity Psychiatric Medical History: Reports: Hx Depression Past Surgical History: Reports: Hx Dilation and Curettage, Hx Gynecologic Surgery - D&C, Hx Oral Surgery, Hx Orthopedic Surgery - carpal tunnel x2. Denies: Hx Hysterectomy - Immunizations Immunizations up to date: Yes Hx Diphtheria, Pertussis, Tetanus Vaccination: - UNKNOWN Physical Exam - Vital signs Vitals: Temp Pulse Resp BP Pulse Ox 99.0 F 70 20 165/93 H 98 08/31/19 21:16 08/31/19 21:16 08/31/19 21:16 08/31/19 21:16 08/31/19 21:16 Course - Vital Signs Vital signs: Temp Pulse Resp BP Pulse Ox 99.0 F 70 20 165/93 H 98 08/31/19 21:37 08/31/19 21:16 08/31/19 21:37 08/31/19 21:16 08/31/19 21:37 Doctor's Discharge - Discharge Referrals: CLINTON HERNANDEZ PA-C [Primary Care Provider] - Follow up as needed
[2019-08-31 23:06] LABS: ABSOLUTE EOSINOPHILS # (AUTO) 0.1 10^3/uL (0.0-0.6); ABSOLUTE LYMPHOCYTES (AUTO) 2.4 10^3/uL (0.5-4.7); ABSOLUTE MONOCYTES (AUTO) 0.6 10^3/uL (0.1-1.4); ABSOLUTE NEUT (AUTO) 2.5 10^3/uL (1.7-8.2); BASOPHILS % (AUTO) 0.6 % (0-2); EOSINOPHILS % (AUTO) 1.1 % (0-6); HEMATOCRIT 37.1 % (36.0-47.0); LYMPHOCYTES % (AUTO) 42.6 % (13-45); MEAN CORPUSCULAR HGB CONC 32.3 g/dL (32.0-36.0); MEAN CORPUSCULAR VOLUME 81 fl (80-97); MONOCYTES % (AUTO) 11.1 % (3-13); PLATELET COUNT 221 10^3/uL (150-450); RED CELL DISTRIBUTION WIDTH 14.9 % (11.5-14.0); SEGMENTED NEUTROPHILS % (AUTO) 44.6 % (42-78); TOTAL CELLS COUNTED % (AUTO) 100 %; WHITE BLOOD COUNT 5.6 10^3/uL (4.0-10.5)
[2019-08-31 23:14] LABS: APPEARANCE,URINE CLEAR; BILIRUBIN,URINE NEGATIVE (NEGATIVE); COLOR,URINE YELLOW; GLUCOSE, URINE NEGATIVE (NEGATIVE); KETONES,URINE NEGATIVE (NEGATIVE); PROTEIN,URINE NEGATIVE (NEGATIVE); URINE SPECIFIC GRAVITY 1.027
[2019-08-31 23:26] LABS: ALBUMIN 3.9 g/dL (3.5-5.0); ALKALINE PHOSPHATASE 47 U/L (38-126); ANION GAP 11 (5-19); ASPARTATE AMINO TRANSFERASE 15 U/L (14-36); BILIRUBIN,DIRECT 0.1 mg/dL (0.0-0.4); BILIRUBIN,TOTAL 0.3 mg/dL (0.2-1.3); BLOOD UREA NITROGEN 12 mg/dL (7-20); CALCIUM 9.3 mg/dL (8.4-10.2); CARBON DIOXIDE 24 mmol/L (22-30); CHLORIDE 107 mmol/L (98-107); GLUCOSE 102 mg/dL (75-110); TOTAL PROTEIN 7.7 g/dL (6.3-8.2)
[2019-09-01] MEDS ORDERED: KETOROLAC TROMETHAMINE 60 MG/2 ML SDV IM ONE (06:17)
--- NOTE | 2019-09-01 06:19 | ER Document Report ---
ED GI/ - General Chief Complaint: Abdominal Problem Stated Complaint: ABDOMINAL PAIN,NAUSEA Time Seen by Provider: 08/31/19 21:41 Primary Care Provider: CLINTON HERNANDEZ PA-C [Primary Care Provider] - Follow up as needed Notes: Ms. Dumas is a 34 yo f w/ PMH lupus, hypertension, and morbid obesity presenting to the ED for abdominal pain. Patient states her abdominal pain has been ongoing since her last visit on 08/09/2019. She states that the pain is primarily cramping in nature and suprapubic in location. It does not radiate. She denies any nausea, vomiting or diarrhea. Patient denies any sick contacts. She endorses ongoing chills without any documented fevers. She denies any cough, shortness of breath or chest pain. Patient states that she is primarily concerned because she had a menstrual cycle in July and has not had 1 in August. Patient states that her LMP in July ended on the 13th and believes it started either on the ninth or 10th. Patient denies any dysuria but endorses some mild urinary frequency. TRAVEL OUTSIDE OF THE [place] IN LAST 30 DAYS: No - Related Data Allergies/Adverse Reactions: banana Allergy (Severe, Verified 08/09/19 14:01) Anaphylaxis tramadol Allergy (Severe, Verified 08/09/19 14:01) Anaphylaxis atorvastatin [From Lipitor] Allergy (Intermediate, Verified 08/09/19 14:01) Generalized Itching dexamethasone Allergy (Intermediate, Verified 08/09/19 14:01) SWELLING, ITCH lisinopril Allergy (Intermediate, Verified 08/09/19 14:01) Generalized rash Home Medications: clonidine. coreg. 2 other BP meds. plaquanil for lupus Past Medical History - Social History Smoking Status: Never Smoker Chew tobacco use (# tins/day): No Frequency of alcohol use: None Drug Abuse: None Family History: Reviewed & Not Pertinent, Arthritis, CAD, COPD, CVA, DM, Hyperlipidemia, Hypertension, Malignancy, Thyroid Disfunction Patient has suicidal ideation: No Patient has homicidal ideation: No - Past Medical History Cardiac Medical History: Reports: Hx Hypercholesterolemia, Hx Hypertension Denies: Hx Coronary Artery Disease, Hx Heart Attack Pulmonary Medical History: Reports: Hx Asthma - USES INHALER PRN, Hx Sleep Apnea Denies: Hx Bronchitis, Hx COPD, Hx Pneumonia Neurological Medical History: Reports: Hx Migraine, Hx Seizures - SEVERAL YEARS SINCE LAST, NO MEDS. Denies: Hx Cerebrovascular Accident Endocrine Medical History: Reports: Hx Diabetes Mellitus Type 2 Renal/ Medical History: Denies: Hx Peritoneal Dialysis Malignancy Medical History: Reports: Hx Cervical Cancer GI Medical History: Reports: Hx Gastroesophageal Reflux Disease, Hx Endoscopy Musculoskeletal Medical History: Reports Hx Arthritis, Reports Hx Musculoskeletal Deformity Psychiatric Medical History: Reports: Hx Depression Past Surgical History: Reports: Hx Dilation and Curettage, Hx Gynecologic Surgery - D&C, Hx Oral Surgery, Hx Orthopedic Surgery - carpal tunnel x2. Denies: Hx Hysterectomy - Immunizations Immunizations up to date: Yes Hx Diphtheria, Pertussis, Tetanus Vaccination: - UNKNOWN Hx Pneumococcal Vaccination: 09/19/00 Review of Systems - Review of Systems Constitutional: See HPI EENT: No symptoms reported Cardiovascular: No symptoms reported Respiratory: No symptoms reported Gastrointestinal: See HPI Genitourinary: No symptoms reported Female Genitourinary: No symptoms reported Musculoskeletal: No symptoms reported Skin: No symptoms reported Hematologic/Lymphatic: No symptoms reported Neurological/Psychological: No symptoms reported Physical Exam - Vital signs Vitals: Temp Pulse Resp BP Pulse Ox 99.0 F 70 20 165/93 H 98 08/31/19 21:16 08/31/19 21:16 08/31/19 21:16 08/31/19 21:16 08/31/19 21:16 Interpretation: Hypertensive - General General appearance: Appears well, Alert - HEENT Head: Normocephalic, Atraumatic Eyes: Normal Pupils: PERRL - Respiratory Respiratory status: No respiratory distress Chest status: Nontender Breath sounds: Normal Chest palpation: Normal - Cardiovascular Rhythm: Regular Heart sounds: Normal auscultation Murmur: No - Abdominal Inspection: Normal Distension: No distension Bowel sounds: Normal Tenderness: Tender - Mild suprapubic tenderness Organomegaly: No organomegaly - Back Back: Normal, Nontender - Extremities General upper extremity: Normal inspection, Nontender, Normal color, Normal ROM, Normal temperature General lower extremity: Normal inspection, Nontender, Normal color, Normal ROM, Normal temperature, Normal weight bearing. No: Pablo's sign - Neurological Neuro grossly intact: Yes Cognition: Normal Orientation: AAOx4 [place] Coma Scale Eye Opening: Spontaneous [place] Coma Scale Verbal: Oriented [place] Coma Scale Motor: Obeys Commands [place] Coma Scale Total: 15 Speech: Normal Motor strength normal: LUE, RUE, LLE, RLE Sensory: Normal - Psychological Associated symptoms: Normal affect, Normal mood - Skin Skin Temperature: Warm Skin Moisture: Dry Skin Color: Normal Course - Re-evaluation Re-evalutation: Patient is generally well-appearing and nontoxic. Initial vitals notable for elevated blood pressure which the patient suffers from. Differential diagnosis includes UTI, , cystitis, muscular strain 09/01/19 06:23 Upon my evaluation, the patient's labs and ultrasound had been ordered from triage and been performed. CBC within normal limits. No leukocytosis, left shift or evidence of anemia. CMP also unremarkable. hCG is negative. UA is also negative for . Patient also had a transvaginal ultrasound. 09/01/19 06:45 Ultrasound negative for any acute findings. The right ovary is not well- visualized. Patient given return precautions and recommended follow-up with a sign builder versus urologist. - Vital Signs Vital signs: Temp Pulse Resp BP Pulse Ox 98.8 F 62 20 163/102 H 99 09/01/19 04:18 09/01/19 04:18 09/01/19 04:18 09/01/19 04:18 09/01/19 04:18 - Laboratory Result Diagrams: 08/31/19 22:40 08/31/19 22:40 Laboratory results interpreted by me: 08/31/19 08/31/19 22:40 22:40 MCH 26.0 L RDW 14.9 H Urine Urobilinogen 2.0 H Urine Ascorbic Acid 40 H Discharge - Discharge Clinical Impression: Abdominal pain Condition: Good Disposition: HOME, SELF-CARE Additional Instructions: I would recommend that you follow-up with your primary care doctor and get referred to either gastroenterology or urology for your ongoing abdominal pain. If your pain worsens, vomiting, ongoing diarrhea, please be evaluated. Referrals: CLINTON HERNANDEZ PA-C [Primary Care Provider] - Follow up as needed MIRIAN DEVINE MD [ACTIVE STAFF] - Follow up as needed
--- NOTE | 2019-09-01 06:32 | RADIOLOGY REPORT (SQ) ---
EXAM DESCRIPTION: US PELVIS TRANSVAGINAL COMPLETED DATE/TME: 09/01/2019 05:08 CLINICAL HISTORY: 34 years, Female, pelvic pain/cramping COMPARISON: None. TECHNIQUE: Emergent pelvic ultrasound LIMITATIONS: None. FINDINGS: The uterus measures 9.2 x 5.1 x 5.1 cm. The myometrium is homogenous. The endometrium measures 13 mm in thickness. The right ovary is not well seen likely due to its position in the pelvis. Left ovary measures 2.4 x 1.9 x 1.9 cm. Normal flow to left ovary. No adnexal cyst or mass. No free fluid IMPRESSION: Right ovary is not well seen. Otherwise unremarkable exam copyright 2010 [employer]- All Rights Reserved
[2019-09-01 07:06] VITALS: BP 152/98
== END 2019-09-01 07:09 | disposition home or self-care (01) ==
LOC: ER 21:10
DX: R10.9 Unspecified abdominal pain (principal); R11.0 Nausea; E78.00 Pure hypercholesterolemia, unspecified; I10 Essential (primary) hypertension; J45.909 Unspecified asthma, uncomplicated; E11.9 Type 2 diabetes mellitus without complications; Z85.41 Personal history of malignant neoplasm of cervix uteri; Z88.6 Allergy status to analgesic agent
CPT/HCPCS: 36415; 83690; 84703; 85025; 80053; 81001; 76830; 93976; J1885; 96374; 99284

== ENCOUNTER 2019-09-19 17:48 | Emergency (ER) | payer MEDICAID ==
[2019-09-19] MEDS ORDERED: ACETAMINOPHEN 325 MG TABLET PO ONE (18:20)
--- NOTE | 2019-09-19 18:24 | ER Document Report ---
ED Medical Screen (RME) - General Chief Complaint: Fall Stated Complaint: FALL/LEG PAIN Time Seen by Provider: 09/19/19 18:14 Primary Care Provider: CLINTON HERNANDZE PA-C [Primary Care Provider] - Follow up as needed TRAVEL OUTSIDE OF THE [place] IN LAST 30 DAYS: No - HPI Notes: 09/19/19 18:21 Patient is a 34-year-old female with history of lupus who presents complaining of right-sided body pain status post fall from a 10 foot ladder. Patient was trying to take down her Tony lights when her ladder started sliding off to the right and she fell on her right side. Patient believes that she had a right side then hit her head, but only has a mild headache associated. Patient is that she does have some neck pain, but most of her pain is in her shoulder, right hip, and right ankle area. She is not on any blood thinning medications. She does not have any left-sided pain.No chest pain, shortness of breath, abdominal pain, nausea/vomiting. I have treated and performed a rapid initial assessment of this patient. A comprehensive ED assessment and evaluation of the patient, analysis of test results and completion of medical decision making process will be conducted by additional ED providers. Limited exam due to morbid obesity and in a wheel chair--needs further eval in gown and bed. PHYSICAL EXAMINATION: accompanied by female nurse GENERAL: Well-appearing, well-nourished and in no acute distress. A&Ox4. Answers questions appropriately. HEAD: Atraumatic, normocephalic. Non-tender. No tafoya sign EYES: Pupils equal round and reactive to light, extraocular movements intact, sclera anicteric, conjunctiva are normal. No raccoon eyes/entrapment ENT: EAC clear b/l. TM's intact b/l without erythema, fluid, or perforation. Nares patent and without discharge. oropharynx clear without exudates. No tonsilar hypertrophy or erythema. Moist mucous membranes. No sinus tenderness. No hemotympanum/CSF discharge. NECK: + midline tenderness. Chest: No flail chest. equal rise/fall. Non-tender LUNGS: Breath sounds clear to auscultation bilaterally and equal. No wheezes rales or rhonchi. HEART: Regular rate and rhythm without murmurs, rubs, gallops. Musculoskeletal: + tenderness rt lateral hip and distal tib/fib. + tenderness rt shoulder to palpation and rt proximal humerus. NEUROLOGICAL: NIH 0. GCS 15. Cranial nerves grossly intact. Normal speech. Normal sensory, motor exams. PSYCH: Normal mood, normal affect. SKIN: Warm, Dry, normal turgor, no rashes or lesions noted. - Related Data Allergies/Adverse Reactions: banana Allergy (Severe, Verified 09/19/19 18:07) Anaphylaxis tramadol Allergy (Severe, Verified 09/19/19 18:07) Anaphylaxis atorvastatin [From Lipitor] Allergy (Intermediate, Verified 09/19/19 18:07) Generalized Itching dexamethasone Allergy (Intermediate, Verified 09/19/19 18:07) SWELLING, ITCH lisinopril Allergy (Intermediate, Verified 09/19/19 18:07) Generalized rash Past Medical History - Social History Frequency of alcohol use: None Drug Abuse: None Family history: CAD, CVA, DM, Hyperlipidemia, Hypertension, Malignancy, Thyroid Disfunction - Past Medical History Cardiac Medical History: Reports: Hx Hypercholesterolemia, Hx Hypertension Denies: Hx Coronary Artery Disease, Hx Heart Attack Pulmonary Medical History: Reports: Hx Asthma - USES INHALER PRN, Hx Sleep Apnea Denies: Hx Bronchitis, Hx COPD, Hx Pneumonia Neurological Medical History: Reports: Hx Migraine, Hx Seizures - SEVERAL YEARS SINCE LAST, NO MEDS. Denies: Hx Cerebrovascular Accident Endocrine Medical History: Reports: Hx Diabetes Mellitus Type 2 Renal/ Medical History: Denies: Hx Peritoneal Dialysis Malignancy Medical History: Reports: Hx Cervical Cancer GI Medical History: Reports: Hx Gastroesophageal Reflux Disease, Hx Endoscopy Musculoskeltal Medical History: Reports Hx Arthritis, Reports Hx Musculoskeletal Deformity Psychiatric Medical History: Reports: Hx Depression Past Surgical History: Reports: Hx Dilation and Curettage, Hx Gynecologic Surgery - D&C, Hx Oral Surgery, Hx Orthopedic Surgery - carpal tunnel x2. Denies: Hx Hysterectomy - Immunizations Immunizations up to date: Yes Hx Diphtheria, Pertussis, Tetanus Vaccination: - UNKNOWN Physical Exam - Vital signs Vitals: Temp Pulse Resp BP Pulse Ox 98.2 F 72 18 163/97 H 99 09/19/19 17:55 09/19/19 17:55 09/19/19 17:55 09/19/19 17:55 09/19/19 17:55 Course - Vital Signs Vital signs: Temp Pulse Resp BP Pulse Ox 98.2 F 72 18 163/97 H 99 09/19/19 17:55 09/19/19 17:55 09/19/19 17:55 09/19/19 17:55 09/19/19 17:55 Doctor's Discharge - Discharge Referrals: CLINTON HERNANDEZ PA-C [Primary Care Provider] - Follow up as needed
--- NOTE | 2019-09-19 18:53 | RADIOLOGY REPORT (SQ) ---
EXAM DESCRIPTION: CT CERVICAL SPINE WITHOUT; CT HEAD WITHOUT COMPLETED DATE/TIME: 09/19/2019 6:36 pm REASON FOR STUDY: pain s/p fall 10ft ladder COMPARISON: See below. TECHNIQUE: Axial images acquired through the brain and cervical cervical spine without intravenous c ontrast. Images reviewed with brain, subdural, lung, soft tissue and bone windows. Reconstructed co alison and sagittal MPR images reviewed. Images stored on PACS. All CT scanners at this facility use dose modulation, iterative reconstruction, and/or weight based d osing when appropriate to reduce radiation dose to as low as reasonably achievable (ALARA). [facility]: Dose Right [facility]: CareDose [facility]: Dose Right [facility]: Teradose 4D [facility]: [employer] RADIATION DOSE: CT Rad equipment meets quality standard of care and radiation dose reduction techniq ues were employed. CTDIvol: 33.7 mGy. DLP: 681 mGy-cm.; CT Rad equipment meets quality standard of ca re and radiation dose reduction techniques were employed. CTDIvol: 53.2 mGy. DLP: 991 mGy-cm. mGy. LIMITATIONS: Habitus limits the cervical spine evaluation. Best images possible. FINDINGS: Brain 08/09/2019 comparison. Normal study. No hemorrhage or mass or shift or fracture. Orbits intact. N o sinus fluid. Cervical spine 2018 comparison. Normal alignment. No fracture or bone lesion. Soft tissues normal. No evidence o f pneumothorax. IMPRESSION: 1. No acute intracranial abnormality. 2. Mildly limited but otherwise negative cervical spine CT without evidence of acute injury. TECHNICAL DOCUMENTATION: JOB ID: [id number] Quality ID # [id number]: Final reports with documentation of one or more dose reduction techniques (e.g., Au tomated exposure control, adjustment of the mA and/or kV according to patient size, use of iterative reconstruction technique) 2010 [employer]- All Rights Reserved Reading location - IP/workstation name: [email or web address]
--- NOTE | 2019-09-19 19:09 | ER Document Report ---
HPI - HPI Time Seen by Provider: 09/19/19 18:14 Pain Level: 3 Notes: Patient is a 34-year-old female with history of lupus who presents complaining of right-sided body pain status post fall from a 10 foot ladder. Patient was trying to take down her Tony lights when her ladder started sliding off to the right and she fell on her right side. Patient believes that she had a right side then hit her head, but only has a mild headache associated. Patient is that she does have some neck pain, but most of her pain is in her shoulder, right hip, and right ankle area. She is not on any blood thinning medications. She does not have any left-sided pain.No chest pain, shortness of breath, abdominal pain, nausea/vomiting. - REPRODUCTIVE Reproductive: DENIES: : - MUSCULOSKELETAL Musculoskeletal: REPORTS: Extremity pain - right upper/lower extremties Past Medical History - General Information source: Patient - Social History Smoking Status: Current Some Day Smoker Frequency of alcohol use: None Drug Abuse: None Family History: Reviewed & Not Pertinent, Arthritis, CAD, COPD, CVA, DM, Hyperlipidemia, Hypertension, Malignancy, Thyroid Disfunction Patient has suicidal ideation: No Patient has homicidal ideation: No - Past Medical History Cardiac Medical History: Reports: Hx Hypercholesterolemia, Hx Hypertension Denies: Hx Coronary Artery Disease, Hx Heart Attack Pulmonary Medical History: Reports: Hx Asthma - USES INHALER PRN, Hx Sleep Apnea Denies: Hx Bronchitis, Hx COPD, Hx Pneumonia Neurological Medical History: Reports: Hx Migraine, Hx Seizures - SEVERAL YEARS SINCE LAST, NO MEDS. Denies: Hx Cerebrovascular Accident Endocrine Medical History: Reports: Hx Diabetes Mellitus Type 2 Renal/ Medical History: Denies: Hx Peritoneal Dialysis Malignancy Medical History: Reports: Hx Cervical Cancer GI Medical History: Reports: Hx Gastroesophageal Reflux Disease, Hx Endoscopy Musculoskeletal Medical History: Reports Hx Arthritis, Reports Hx Musculoskeletal Deformity Psychiatric Medical History: Reports: Hx Depression Past Surgical History: Reports: Hx Dilation and Curettage, Hx Gynecologic Surgery - D&C, Hx Oral Surgery, Hx Orthopedic Surgery - carpal tunnel x2. Denies: Hx Hysterectomy - Immunizations Immunizations up to date: Yes Hx Diphtheria, Pertussis, Tetanus Vaccination: - UNKNOWN Hx Pneumococcal Vaccination: 09/19/00 Vertical Provider Document - CONSTITUTIONAL Notes: PHYSICAL EXAMINATION: GENERAL: Well-appearing, well-nourished and in no acute distress. HEAD: Atraumatic, normocephalic. EYES: Pupils equal round and reactive to light, extraocular movements intact, conjunctiva are normal. ENT: Nares patent, oropharynx clear without exudates. Moist mucous membranes. NECK: Normal range of motion, supple without lymphadenopathy LUNGS: Breath sounds clear to auscultation bilaterally and equal. No wheezes rales or rhonchi. HEART: Regular rate and rhythm without murmurs ABDOMEN: Soft, nontender, nondistended abdomen. No guarding, no rebound. No masses appreciated. Female : deferred Musculoskeletal: Normal range of motion, no pitting or edema. No cyanosis. Tenderness to palpation to right upper and right lower extremity, no focal tenderness. No bruising, ecchymosis, erythema or swelling noted. NEUROLOGICAL: Cranial nerves grossly intact. Normal speech, normal gait. Normal sensory, motor exams PSYCH: Normal mood, normal affect. SKIN: Warm, Dry, normal turgor, no rashes or lesions noted. - INFECTION CONTROL TRAVEL OUTSIDE OF THE [place] IN LAST 30 DAYS: No Course - Re-evaluation Re-evalutation: Cervical Spine CT 09/19/19 18:19 IMPRESSION: 1. No acute intracranial abnormality. 2. Mildly limited but otherwise negative cervical spine CT without evidence of acute injury. Head CT 09/19/19 18:19 IMPRESSION: 1. No acute intracranial abnormality. 2. Mildly limited but otherwise negative cervical spine CT without evidence of acute injury. All imaging today was unremarkable to include CTs and x-rays. Patient is now ambulating from her room to the restroom without difficulty. She will be discharged home in stable condition at this time. - Vital Signs Vital signs: Temp Pulse Resp BP Pulse Ox 98.2 F 72 18 163/97 H 99 09/19/19 17:55 09/19/19 17:55 09/19/19 17:55 09/19/19 17:55 09/19/19 17:55 Discharge - Discharge Clinical Impression: Fall with injury Qualifiers: Encounter type: initial encounter Qualified Code(s): W19.XXXA - Unspecified fall, initial encounter Condition: Stable Disposition: HOME, SELF-CARE Additional Instructions: Fortunately the x-rays and CAT scans did not show any fracture or dislocation of your bones. Please take ibuprofen 600 mg every 6 hours as this will help with pain and inflammation. Use the narcotic pain medication for severe pain only. We will not be able to refill this medication. Please follow-up with your primary care provider in 1 to 2 days, return to the ER for any new or worsening symptoms. Prescriptions: Hydrocodone/Acetaminophen [[place] 5-325 mg Tablet] 1 tab PO Q4H #8 tablet Forms: Return to Work Referrals: CLINTON HERNANDEZ PA-C [Primary Care Provider] - Follow up as needed
--- NOTE | 2019-09-19 19:12 | RADIOLOGY REPORT (SQ) ---
EXAM DESCRIPTION: SHOULDER RIGHT 2 OR MORE VIEWS; TIBIA FIBULA RIGHT; PELVIS AP COMPLETED DATE/TIME: 09/19/2019 6:58 pm REASON FOR STUDY: pain s/p fall 10ft ladder COMPARISON: None. FINDINGS: Three views right shoulder: Limiting overlying soft tissues. No acute or suspicious find ings. No evidence of fracture, dislocation or subluxation or separation. Clear right lung. Single view pelvis: No suggestion of fracture or bone lesion. Mild degenerative hip spurring. No e vidence of SI joint or symphysis diastases. Two views right tibia and fibula: Normal. TECHNICAL DOCUMENTATION: JOB ID: [id number] Reading location - IP/workstation name: [email or web address] [email or web address]
--- NOTE | 2019-09-19 19:12 | RADIOLOGY REPORT (SQ) ---
EXAM DESCRIPTION: SHOULDER RIGHT 2 OR MORE VIEWS; TIBIA FIBULA RIGHT; PELVIS AP COMPLETED DATE/TIME: 09/19/2019 6:58 pm REASON FOR STUDY: pain s/p fall 10ft ladder COMPARISON: None. FINDINGS: Three views right shoulder: Limiting overlying soft tissues. No acute or suspicious find ings. No evidence of fracture, dislocation or subluxation or separation. Clear right lung. Single view pelvis: No suggestion of fracture or bone lesion. Mild degenerative hip spurring. No e vidence of SI joint or symphysis diastases. Two views right tibia and fibula: Normal. TECHNICAL DOCUMENTATION: JOB ID: [id number] Reading location - IP/workstation name: [email or web address] COMMUNICATIONS AND SIGNALS-[email or web address]
--- NOTE | 2019-09-19 19:12 | RADIOLOGY REPORT (SQ) ---
EXAM DESCRIPTION: SHOULDER RIGHT 2 OR MORE VIEWS; TIBIA FIBULA RIGHT; PELVIS AP COMPLETED DATE/TIME: 09/19/2019 6:58 pm REASON FOR STUDY: pain s/p fall 10ft ladder COMPARISON: None. FINDINGS: Three views right shoulder: Limiting overlying soft tissues. No acute or suspicious find ings. No evidence of fracture, dislocation or subluxation or separation. Clear right lung. Single view pelvis: No suggestion of fracture or bone lesion. Mild degenerative hip spurring. No e vidence of SI joint or symphysis diastases. Two views right tibia and fibula: Normal. TECHNICAL DOCUMENTATION: JOB ID: [id number] Reading location - IP/workstation name: [email or web address] [email or web address]
--- NOTE | 2019-09-19 19:13 | RADIOLOGY REPORT (SQ) ---
EXAM DESCRIPTION: FEMUR RIGHT COMPLETED DATE/TIME: 09/19/2019 6:58 pm REASON FOR STUDY: pain s/p fall 10ft ladder COMPARISON: None. FINDINGS: Two views right femur: 4 images obtained. Normal. TECHNICAL DOCUMENTATION: JOB ID: [id number] Reading location - IP/workstation name: [email or web address]
[2019-09-19] MEDS ORDERED: OXYCODONE HCL IR 5 MG TABLET PO ONE (19:52)
[2019-09-19] MEDS ORDERED: HYDROCODONE/ACETAMINOPHEN 5-325 MG (6 TAB/ER DISP) PO PRN (20:15)
[2019-09-19 20:23] VITALS: BP 187/121
== END 2019-09-19 20:48 | disposition home or self-care (01) ==
LOC: ER 17:48
DX: M79.10 Myalgia, unspecified site (principal); R51 Headache; M54.2 Cervicalgia; M25.511 Pain in right shoulder; M25.551 Pain in right hip; M25.571 Pain in right ankle and joints of right foot; W11.XXXA Fall on and from ladder, initial encounter; Y92.009 Unspecified place in unspecified non-institutional (private) residence as the place of occurrence of the external cause; F17.200 Nicotine dependence, unspecified, uncomplicated; E78.00 Pure hypercholesterolemia, unspecified; I10 Essential (primary) hypertension
CPT/HCPCS: 99284; 73552; 72170; 73030; 73590; 70450; 72125; J3490 ×2

== ENCOUNTER 2020-08-16 19:38 | Emergency (ER) | payer MEDICAID ==
--- NOTE | 2020-08-16 20:33 | ER Document Report ---
ED Medical Screen (RME) - General Chief Complaint: Abdominal Cramping Stated Complaint: ABDOMINAL PAIN,BLOATING Time Seen by Provider: 08/16/20 20:23 Primary Care Provider: CLINTON HERNANDEZ PA-C [Primary Care Provider] - Follow up as needed Mode of Arrival: Ambulatory Information source: Patient Notes: 35-year-old female presented to ED for blood pressure of 219/138. She states her blood pressure has been high since May. She states she took her last blood pressure medicine 3 days ago. She states she has not been to see her primary care doctor and about a year so they would not renew her blood pressure medications. Patient states her main concern is her severe pelvic pain. I have ordered blood urine and a transvaginal ultrasound for that. I have the charge nurse that this patient needs the very next bed due to her blood pressure. I have greeted and performed a rapid initial assessment of this patient. A comprehensive ED assessment and evaluation of the patient, analysis of test results and completion of medical decision making process will be conducted by an additional ED providers. TRAVEL OUTSIDE OF THE [place] IN LAST 30 DAYS: No - Related Data Allergies/Adverse Reactions: banana Allergy (Severe, Verified 09/19/19 18:07) Anaphylaxis tramadol Allergy (Severe, Verified 09/19/19 18:07) Anaphylaxis atorvastatin [From Lipitor] Allergy (Intermediate, Verified 09/19/19 18:07) Generalized Itching dexamethasone Allergy (Intermediate, Verified 09/19/19 18:07) SWELLING, ITCH lisinopril Allergy (Intermediate, Verified 09/19/19 18:07) Generalized rash Past Medical History - Social History Chew tobacco use (# tins/day): No Frequency of alcohol use: None Family history: CAD, CVA, DM, Hyperlipidemia, Hypertension, Malignancy, Thyroid Disfunction - Past Medical History Cardiac Medical History: Reports: Hx Hypercholesterolemia, Hx Hypertension Denies: Hx Coronary Artery Disease, Hx Heart Attack Pulmonary Medical History: Reports: Hx Asthma - USES INHALER PRN, Hx Sleep Apnea Denies: Hx Bronchitis, Hx COPD, Hx Pneumonia Neurological Medical History: Reports: Hx Migraine, Hx Seizures - SEVERAL YEARS SINCE LAST, NO MEDS. Denies: Hx Cerebrovascular Accident Endocrine Medical History: Reports: Hx Diabetes Mellitus Type 2 Renal/ Medical History: Denies: Hx Peritoneal Dialysis Malignancy Medical History: Reports: Hx Cervical Cancer GI Medical History: Reports: Hx Gastroesophageal Reflux Disease, Hx Endoscopy Musculoskeltal Medical History: Reports Hx Arthritis, Reports Hx Musculoskeletal Deformity Psychiatric Medical History: Reports: Hx Depression Past Surgical History: Reports: Hx Dilation and Curettage, Hx Gynecologic Surgery - D&C, Hx Oral Surgery, Hx Orthopedic Surgery - carpal tunnel x2. Denies: Hx Hysterectomy - Immunizations Immunizations up to date: Yes Hx Diphtheria, Pertussis, Tetanus Vaccination: - UNKNOWN Physical Exam - Vital signs Vitals: Temp Pulse Resp BP Pulse Ox 98.7 F 97 16 219/138 H 97 08/16/20 19:51 08/16/20 19:51 08/16/20 19:51 08/16/20 19:51 08/16/20 19:51 Course - Vital Signs Vital signs: Temp Pulse Resp BP Pulse Ox 98.7 F 97 16 219/138 H 97 08/16/20 19:51 08/16/20 19:51 08/16/20 19:51 08/16/20 19:51 08/16/20 19:51 Doctor's Discharge - Discharge Referrals: CLINTON HERNANDEZ PA-C [Primary Care Provider] - Follow up as needed
[2020-08-16 21:26] LABS: ABSOLUTE EOSINOPHILS # (AUTO) 0.1 10^3/uL (0.0-0.6); ABSOLUTE LYMPHOCYTES (AUTO) 2.2 10^3/uL (0.5-4.7); ABSOLUTE MONOCYTES (AUTO) 0.7 10^3/uL (0.1-1.4); ABSOLUTE NEUT (AUTO) 3.3 10^3/uL (1.7-8.2); BASOPHILS % (AUTO) 0.3 % (0-2); EOSINOPHILS % (AUTO) 1.1 % (0-6); HEMATOCRIT 34.8 % (36.0-47.0); HEMOGLOBIN 11.6 g/dL (12.0-15.5); LYMPHOCYTES % (AUTO) 35.4 % (13-45); MEAN CORPUSCULAR HGB CONC 33.2 g/dL (32.0-36.0); MEAN CORPUSCULAR VOLUME 81 fl (80-97); MONOCYTES % (AUTO) 11.2 % (3-13); PLATELET COUNT 251 10^3/uL (150-450); RED BLOOD COUNT 4.28 10^6/uL (3.72-5.28); RED CELL DISTRIBUTION WIDTH 14.5 % (11.5-14.0); TOTAL CELLS COUNTED % (AUTO) 100 %; WHITE BLOOD COUNT 6.3 10^3/uL (4.0-10.5)
[2020-08-16 21:35] LABS: APPEARANCE,URINE CLEAR; BILIRUBIN,URINE NEGATIVE (NEGATIVE); COLOR,URINE YELLOW; GLUCOSE, URINE NEGATIVE (NEGATIVE); KETONES,URINE NEGATIVE (NEGATIVE); LEUKOCYTE ESTERASE,URINE NEGATIVE (NEGATIVE); NITRITE,URINE NEGATIVE (NEGATIVE); PROTEIN,URINE NEGATIVE (NEGATIVE); URINE SPECIFIC GRAVITY 1.017
[2020-08-16 21:35] LABS: ALKALINE PHOSPHATASE 51 U/L (38-126); ANION GAP 7 (5-19); ASPARTATE AMINO TRANSFERASE 17 U/L (14-36); BILIRUBIN,DIRECT 0.1 mg/dL (0.0-0.4); BILIRUBIN,TOTAL 0.4 mg/dL (0.2-1.3); BLOOD UREA NITROGEN 9 mg/dL (7-20); CALCIUM 9.5 mg/dL (8.4-10.2); CARBON DIOXIDE 30 mmol/L (22-30); CHLORIDE 104 mmol/L (98-107); GLUCOSE 94 mg/dL (75-110); POTASSIUM 4.5 mmol/L (3.6-5.0); TOTAL PROTEIN 7.6 g/dL (6.3-8.2)
[2020-08-16] MEDS ORDERED: MORPHINE SULFATE 10 MG/ML INJ IV ONE (22:14)
[2020-08-16] MEDS ORDERED: ONDANSETRON HCL INJ/PF 4 MG/2 ML SDV IV ONE (22:15)
--- NOTE | 2020-08-16 22:18 | ER Document Report ---
ED General - General Chief Complaint: Abdominal Cramping Stated Complaint: ABDOMINAL PAIN,BLOATING Time Seen by Provider: 08/16/20 20:23 Primary Care Provider: CLINTON HERNANDEZ PA-C [Primary Care Provider] - Follow up as needed Mode of Arrival: Ambulatory Notes: Patient is a 35 year old female that comes to the Emergency Department for chief complaint of abdominal pain. She states she has been having pain on and off for about a month, however today she could not get comfortable and the pain was worse so she came in for evaluation. She states she has been having irregular menstrual cycles as well. She also reports swelling of the abdomen. She does admit to some constipation but denies abnormal bowel movement otherwise. She denies dysuria, vaginal bleeding or discharge, flank pain, nausea, vomiting. She denies chest pain or headache. She has had a , no other abdominal surgeries. She has a history of lupus and is currently on Plaquenil. She states she has been out of her blood pressure medications for the past 4 days as well, states she called but has not been able to get an appointment with her primary provider yet. She is normally on carvedilol 25 mg twice daily, clonidine 0.3 mg 3 times daily, spironolactone 25/HCTZ 25 daily. TRAVEL OUTSIDE OF THE [place] IN LAST 30 DAYS: No - Related Data Allergies/Adverse Reactions: banana Allergy (Severe, Verified 09/19/19 18:07) Anaphylaxis tramadol Allergy (Severe, Verified 09/19/19 18:07) Anaphylaxis atorvastatin [From Lipitor] Allergy (Intermediate, Verified 09/19/19 18:07) Generalized Itching dexamethasone Allergy (Intermediate, Verified 09/19/19 18:07) SWELLING, ITCH lisinopril Allergy (Intermediate, Verified 09/19/19 18:07) Generalized rash Past Medical History - General Information source: Patient - Social History Smoking Status: Current Some Day Smoker Chew tobacco use (# tins/day): No Frequency of alcohol use: None Lives with: Family Family History: Reviewed & Not Pertinent, Arthritis, CAD, COPD, CVA, DM, Hyperlipidemia, Hypertension, Malignancy, Thyroid Disfunction - Past Medical History Cardiac Medical History: Reports: Hx Hypercholesterolemia, Hx Hypertension Denies: Hx Coronary Artery Disease, Hx Heart Attack Pulmonary Medical History: Reports: Hx Asthma - USES INHALER PRN, Hx Sleep Apnea Denies: Hx Bronchitis, Hx COPD, Hx Pneumonia Neurological Medical History: Reports: Hx Migraine, Hx Seizures - SEVERAL YEARS SINCE LAST, NO MEDS. Denies: Hx Cerebrovascular Accident Endocrine Medical History: Reports: Hx Diabetes Mellitus Type 2 Renal/ Medical History: Denies: Hx Peritoneal Dialysis Malignancy Medical History: Reports: Hx Cervical Cancer GI Medical History: Reports: Hx Gastroesophageal Reflux Disease, Hx Endoscopy Musculoskeletal Medical History: Reports Hx Arthritis, Reports Hx Musculoskeletal Deformity Psychiatric Medical History: Reports: Hx Depression Past Surgical History: Reports: Hx Dilation and Curettage, Hx Gynecologic Surgery - D&C, Hx Oral Surgery, Hx Orthopedic Surgery - carpal tunnel x2. Denies: Hx Hysterectomy - Immunizations Immunizations up to date: Yes Hx Diphtheria, Pertussis, Tetanus Vaccination: - UNKNOWN Hx Pneumococcal Vaccination: 09/19/00 Review of Systems - Review of Systems Constitutional: No symptoms reported EENT: No symptoms reported Cardiovascular: No symptoms reported Respiratory: No symptoms reported Gastrointestinal: See HPI Genitourinary: See HPI Female Genitourinary: See HPI Musculoskeletal: No symptoms reported Skin: No symptoms reported Hematologic/Lymphatic: No symptoms reported Neurological/Psychological: No symptoms reported Physical Exam - Vital signs Vitals: Temp Pulse Resp BP Pulse Ox 98.7 F 97 16 219/138 H 97 08/16/20 19:51 08/16/20 19:51 08/16/20 19:51 08/16/20 19:51 08/16/20 19:51 - Notes Notes: GENERAL: Alert, interacts well. No acute distress. Sitting on the side of the bed, interactive, talkative HEAD: Normocephalic, atraumatic. EYES: Pupils equal, round, and reactive to light. Extraocular movements intact. ENT: Oral mucosa moist, tongue midline. Oropharynx unremarkable. Airway patent. NECK: Full range of motion. Supple. Trachea midline. No lymphadenopathy. LUNGS: Clear to auscultation bilaterally, no wheezes, rales, or rhonchi. No respiratory distress. Non-tender chest wall. HEART: Regular rate and rhythm. No murmur ABDOMEN: Minimal generalized mid, upper, and lower abdominal tenderness. Nonspecific. No guarding. No rigidity. Questionable mild distention but exam is limited by patient body habitus EXTREMITIES: Moves all 4 extremities spontaneously. No edema, normal radial and dorsalis pedis pulses bilaterally. No cyanosis. BACK: no cervical, thoracic, lumbar midline tenderness. No saddle anesthesia, normal distal neurovascular exam. Moves all extremities in full range of motion. NEUROLOGICAL: Alert and oriented x3. Normal speech. Cranial nerves II through XII grossly intact. Strength 5/5 in all extremities. PSYCH: Normal affect, normal mood. SKIN: Warm, dry, normal turgor. No rashes or lesions noted. Course - Re-evaluation Re-evalutation: CBC unremarkable, chemistry unremarkable, test is negative. Urinalysis unremarkable. EKG unremarkable. I did review pelvic ultrasound, no acute findings. I did review chest x-ray, this shows possible right-sided consolidation and mild vascular congestion, however when compared to her previous chest x-ray here this does not appear significantly changed, patient has no shortness of breath, chest pain, hypoxia, tachycardia, or lower extremity swelling. Discussed with Dr. Ren[place], compared x-rays, no significant change noted. No additional evaluation regards to this recommended based on patient's lack of symptoms. KUB shows retained stool and gas but no obstruction. Patient reporting to me that she is constipated. Her abdomen has no guarding, she is alert, well- appearing, has no signs of distress. Blood pressure is significantly improved on reevaluation, she was given her regular blood pressure medications here and is asking for refills of these. She will be provided with these. I offered her an enema but she declined. Patient will be provided with medications for bowel pain, discussed follow-up, discussed return precautions. Patient states appr eciation and agreement. Stable and well-appearing at time of discharge, ambulated out of the department without any difficulty. - Vital Signs Vital signs: Temp Pulse Resp BP Pulse Ox 98.7 F 97 19 178/109 H 98 08/16/20 19:51 08/16/20 19:51 08/17/20 00:23 08/17/20 00:23 08/17/20 00:23 - Laboratory Result Diagrams: 08/16/20 20:55 08/16/20 20:55 Laboratory results interpreted by me: 08/16/20 08/16/20 20:40 20:55 Hgb 11.6 L Hct 34.8 L RDW 14.5 H Urine Blood SMALL H Urine Urobilinogen 2.0 H - EKG Interpretation by Me Additional EKG results interpreted by me: EKG shows sinus rhythm at a rate of 73, QTc 459, left axis deviation. Some artifact is present. No T wave inversions or ST segment changes in consecutive leads. Discharge - Discharge Clinical Impression: Uncontrolled hypertension, Has run out of medications Abdominal pain Qualifiers: Abdominal location: generalized Qualified Code(s): R10.84 - Generalized abdominal pain Condition: Stable Disposition: HOME, SELF-CARE Additional Instructions: Your blood pressure is very elevated, please fill and take your blood pressure medications as prescribed, follow-up closely with your primary provider to have this rechecked and for additional management. Your evaluation and testing here does not show any concerning finding. I recommend that you drink 1/4 to 1/2 of the magnesium citrate, then if after several hours you do not have bowel movement results drink another 1/4 to half. You may need to take the colace stool softener for the next 2-4 days as well as prescribed. Take bentyl for cramping, zofran/Phenergan for nausea. Improve your diet - increased vegetables, fruits, fiber, and fluids are very helpful to clear your bowels. Return if you worsen including severe worsening pain, vomiting, severe headache, chest pain, difficulty breathing, fever, or any other concerning symptoms. Prescriptions: Spironolact/Hydrochlorothiazid [Aldactazide 25-25 Tablet] 1 each PO DAILY #30 tablet Dicyclomine HCl [Bentyl 20 mg Tablet] 20 mg PO QID PRN #20 tablet PRN Reason: Carvedilol 25 mg PO BID 30 Days #60 tablet Clonidine HCl 0.3 mg PO TID 30 Days #90 tablet Docusate Sodium [Colace 100 mg Capsule] 100 mg PO ASDIR PRN #30 capsule PRN Reason: Promethazine HCl [Phenergan 25 mg Tablet] 25 mg PO Q6H PRN #20 tablet PRN Reason: Referrals: CLINTON HERNANDEZ PA-C [Primary Care Provider] - Follow up as needed
--- NOTE | 2020-08-16 22:28 | RADIOLOGY REPORT (SQ) ---
EXAM DESCRIPTION: US PELVIS TRANSVAGINAL COMPLETED DATE/TME: 08/16/2020 21:51 CLINICAL HISTORY: 35 years, Female, Vaginal bleeding clots severe pelvic pain COMPARISON: September 01, 2019 TECHNIQUE: Endovaginal images of the pelvis were obtained. LIMITATIONS: None. FINDINGS: Uterus measures approximately 8.6 x 4.7 x 4.1 cm and appears within normal limits. Endometrial stripe thickness is 5 mm. There is an incidental, 5 mm nabothian cyst within the cervix. Ovaries measure approximately 3.2 x 1.7 x 1.9 cm on the right and 1.6 x 2.4 x 2.3 cm as on the left. There is no adnexal mass or free pelvic fluid. There is no evidence of ovarian torsion on Doppler imaging. IMPRESSION: Examination is within normal limits as above. copyright 2010 [employer]- All Rights Reserved
--- NOTE | 2020-08-16 22:37 | RADIOLOGY REPORT (SQ) ---
EXAM DESCRIPTION: XR CHEST 2 VIEWS COMPLETED DATE/TME: 08/16/2020 22:05 CLINICAL HISTORY: 35 years, Female, blood pressure 219 EXAM DESCRIPTION: CHEST 2 VIEWS CLINICAL HISTORY: blood pressure 219 COMPARISON: None. FINDINGS: Two views of the chest are submitted. There is right lung base consolidations. Heart is mildly enlarged. Left lung is clear. There is mild pulmonary edema bilaterally. IMPRESSION: Right lung consolidation with mild pulmonary edema.
[2020-08-16] MEDS ORDERED: HYDROCHLOROTHIAZIDE 25 MG TABLET PO ONE (23:00)
[2020-08-16] MEDS ORDERED: CLONIDINE HCL 0.2 MG TABLET PO ONE (23:00)
[2020-08-16] MEDS ORDERED: CARVEDILOL 12.5 MG TABLET PO ONE (23:00)
[2020-08-16] MEDS ORDERED: SPIRONOLACTONE 25 MG TABLET PO ONE (23:00)
--- NOTE | 2020-08-16 23:37 | RADIOLOGY REPORT (SQ) ---
EXAM DESCRIPTION: KUB/ABDOMEN (SINGLE VIEW) CLINICAL HISTORY: 35 years Female, abd swelling COMPARISON: None. FINDINGS: Motion artifact is present. The bowel gas pattern is unremarkable with small amount of air seen scattered predominantly in the colon. There is air and stool in the rectal vault. No suspicious calcifications. Osseous structures are unremarkable. IMPRESSION: No acute process
[2020-08-17] MEDS ORDERED: ONDANSETRON ODT 4 MG TAB (6 TAB/ER DISP) PO PRN (00:20)
[2020-08-17] MEDS ORDERED: MAGNESIUM CITRATE 296 ML BOTTLE PO ONE (00:20)
[2020-08-17 00:29] VITALS: BP 178/109
--- NOTE | 2020-08-17 08:38 | EKG REPORT ---
SEVERITY:- ABNORMAL ECG - SINUS RHYTHM BORDERLINE LEFT AXIS DEVIATION ABNORMAL Q SUGGESTS ANTERIOR INFARCT : Confirmed by: Dave Villaseñor MD 17-Aug-2020 08:37:40
== END 2020-08-17 00:36 | disposition home or self-care (01) ==
LOC: ER 19:38
DX: R10.84 Generalized abdominal pain (principal); I10 Essential (primary) hypertension; Z91.14 Patient's other noncompliance with medication regimen; R10.2 Pelvic and perineal pain; F17.200 Nicotine dependence, unspecified, uncomplicated; E78.00 Pure hypercholesterolemia, unspecified; E11.9 Type 2 diabetes mellitus without complications
CPT/HCPCS: 93005; 99285; 96374; 96375; 36415; 87086; 83690; 84703; 85025; 80053; 81001; 71046; 74018; 76830; 93976; 93010; J3490 ×4; J2270; J2405